=== PATIENT | female | born 1930 | race American Indian/Alaskan Native ===

== ENCOUNTER 2018-10-09 07:13 | Inpatient (IN) | payer OTHER ==
[2018-10-09 07:36] VITALS: BMI 38.9
[2018-10-09 08:05] LABS: BASO # 0.1 K/uL (0.0-0.2); EOS % 0.5 % (0.0-4.0); HEMOGLOBIN 12.2 g/dL (11.0-16.0); LYMPH # 0.9 K/uL (1.0-4.3); LYMPH % 12.7 % (20.0-40.0); MEAN CORPUSCULAR HEMOGLOBIN 29.3 pg (27.0-31.0); MEAN CORPUSCULAR HGB CONC 31.8 g/dL (33.0-37.0); MEAN PLATELET VOLUME 9.4 fL (7.2-11.7); NEUT # 4.8 K/uL (1.8-7.0); NEUT % 70.8 % (50.0-75.0); NRBC % 3.4 % (0.0-2.0); RBC 4.17 Mil/uL (3.80-5.20); WHITE BLOOD COUNT 6.7 K/uL (4.8-10.8)
[2018-10-09 08:13] LABS: MEAN CELL VOLUME 92.2 fL (81.0-99.0)
--- NOTE | 2018-10-09 08:16 | C.PDOC ---
History Of Present Illness 88 y/o female pt with hx of arthritis presents to the ER with son c/o chronic b/l leg pain. Pt reports she was getting up from bed when she slipped and fell onto the floor. Pt denies LOC, head injury or any nuchal complaints, nausea, vomiting, SOB or chest pain. Time Seen by Provider: 10/09/18 07:27 Chief Complaint (Nursing): Lower Extremity Problem/Injury History Per: Patient History/Exam Limitations: no limitations Onset/Duration Of Symptoms: Hrs Current Symptoms Are (Timing): Still Present - Ankle/Foot Description Of Injury: Fell Past Medical History Reviewed: Historical Data, Nursing Documentation, Vital Signs Vital Signs: Last Vital Signs Temp 98.0 F 10/09/18 07:32 Pulse 115 H 10/09/18 07:32 Resp 18 10/09/18 07:32 BP 111/74 10/09/18 07:32 Pulse Ox 100 10/09/18 07:32 - Medical History PMH: Anemia, Arthritis, Atrial Fibrillation, CAD, CHF, Dementia, HTN, Hypercholesterolemia Surgical History: Coronary Stent - [facility] Procedures CENTRAL VENOUS CATHETER PLACEMENT WITH GUIDANCE (02/04/15) PACKED CELL TRANSFUSION (03/08/15) Family History: States: Unknown Family Hx - Social History Hx Tobacco Use: No Hx Alcohol Use: No Hx Substance Use: No - Immunization History Hx Tetanus Toxoid Vaccination: No Hx Influenza Vaccination: No Hx Pneumococcal Vaccination: No Review Of Systems Except As Marked, All Systems Reviewed And Found Negative. Musculoskeletal: Positive for: Leg Pain (b/l) Physical Exam - Physical Exam Appears: Non-toxic, No Acute Distress Skin: Normal Color, Warm, Dry Head: Atraumatic, Normacephalic Eye(s): bilateral: Normal Inspection, PERRL, EOMI Nose: Normal Oral Mucosa: Moist Chest: Symmetrical Cardiovascular: Rhythm Regular, No Murmur Respiratory: Other (coarse breath sounds b/l ) Gastrointestinal/Abdominal: Normal Exam, Soft, No Tenderness Extremity: Normal ROM, No Deformity, Other (chronic venous stasis changes; chronic joint pain; no new injury ) Extremity: Bilateral: Normal Color And Temperature Pulses: Left Dorsalis Pedis: Normal, Right Dorsalis Pedis: Normal Neurological/Psych: Oriented x3, Normal Speech ED Course And Treatment - Laboratory Results Result Diagrams: 10/09/18 08:01 10/09/18 08:01 ECG: Interpreted By Me, Viewed By Me ECG Rhythm: Sinus Tachycardia, Nonspecific Changes (ST/T) Interpretation Of ECst degree AV block, LAD, and poor R wave progression Rate From EC O2 Sat by Pulse Oximetry: 100 (RA) Pulse Ox Interpretation: Normal - Other Rad chest X-Ray: Read By Radiologist Interpretation: Accession No. : [id number]. Patient Name / ID : EDWARD NAILS / [id number]. Exam Date : 10/09/2018 08:04:27 ( Approved ). Study Comment : Sex / Age : F / 88Y. Creator : Perla Nichols V. Dictator : Perla Nichols V. Wind Turbine Machinist : Rock Drill Operator : Perla Peterson V. Approver2 : Report Date : 10/09/2018 10:11:33. My Comment : . Date of service: 10/09/2018. PROCEDURE: CHEST RADIOGRAPH, 1 VIEW. HISTORY: SOB. COMPARISON: 03/08/2015. FINDINGS: LUNGS: Lung volumes slightly shallow. No consolidations seen. Summation of soft tissues over left costophrenic angle along with small left pleural effusion probable. PLEURA: No pneumothorax. Small left pleural effusion. CARDIOVASCULAR: There is presence of aortic atherosclerotic calcification on x-ray. Cardiomegaly-similar. Mild pulmonary venous congestion. OSSEOUS STRUCTURES: Bilateral deformed humeral heads with ossific fragments and/or debris over each shoulder joint suggested. 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 Ossific debris in the joints and/or synovial osteochondromatosis and/or old concomitant prior trauma- all compatible with this appearance. The deformity has progressed since prior exam. Thoracic spondylosis. VISUALIZED UPPER ABDOMEN: Normal. OTHER FINDINGS: None. IMPRESSION: Cardiomegaly mild pulmonary venous congestion and probable small left pleural effusion. Bilateral shoulder arthrosis with the ossific debris/loose bodies with or without prior concomitant trauma. 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 Findings have progressed since the prior exam. Medical Decision Making Medical Decision Making: Impression: chronic b/l leg pain Plans: -- EKG -- chem labs -- blood work -- CXR -- Tyelnol -- UA Disposition Discussed With Dr.: Shailesh Brunson Doctor Will See Patient In The: Hospital Counseled Patient/Family Regarding: Studies Performed, Diagnosis - Disposition Disposition: HOSPITALIZED Disposition Time: 09:11 Condition: FAIR - Clinical Impression Clinical Impression: NSTEMI (non-ST elevated myocardial infarction), Renal insufficiency - Scribe Statement The provider has reviewed the documentation as recorded by the Donaldo Joyner Do Provider Attestation: All medical record entries made by the Donaldo were at my direction and perso ting dictated by me. I have reviewed the chart and agree that the record accurately reflects my personal performance of the history, physical exam, medical decision making, and the department course for this patient. I have also personally directed, reviewed, and agree with the discharge instructions and disposition.
[2018-10-09 08:29] LABS: ALB/GLOB RATIO 0.9 (1.0-2.1); ALBUMIN 3.9 g/dL (3.5-5.0); CALCIUM 9.3 mg/dl (8.6-10.4)
[2018-10-09 08:42] LABS: TROPONIN I 0.394 ng/mL (0.00-0.120)
[2018-10-09] MEDS ORDERED: Aspirin 325 mg EC Tablets PO STA (09:04)
[2018-10-09] MEDS ORDERED: Aspirin 325 mg EC Tablets PO ONE (09:33)
[2018-10-09 10:10] LABS: URINE CLARITY Hazy (Clear); URINE COLOR AMBER (YELLOW); URINE GLUCOSE (UA) NORMAL (Normal)
[2018-10-09 10:11] LABS: SQUAMOUS EPITHIAL 3 /hpf (0-5); URINE BACTERIA OCC (<OCC); URINE BILIRUBIN NEGATIVE (NEGATIVE); URINE BLOOD NEGATIVE (NEGATIVE); URINE LEUKOCYTE ESTERASE NEGATIVE Leu/uL (Negative); URINE PROTEIN 2+ mg/dL (NEGATIVE)
[2018-10-09 10:12] LABS: URINE HYALINE CAST >20 /lpf (0-2)
--- NOTE | 2018-10-09 10:15 | RAD ---
Date of service: 10/09/2018 PROCEDURE: CHEST RADIOGRAPH, 1 VIEW HISTORY: SOB COMPARISON: 03/08/2015 FINDINGS: LUNGS: Lung volumes slightly shallow. No consolidations seen. Summation of soft tissues over left costophrenic angle along with small left pleural effusion probable. PLEURA: No pneumothorax. Small left pleural effusion CARDIOVASCULAR: There is presence of aortic atherosclerotic calcification on x-ray. Cardiomegaly-similar Mild pulmonary venous congestion. OSSEOUS STRUCTURES: Bilateral deformed humeral heads with ossific fragments and/or debris over each shoulder joint suggested. 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 Ossific debris in the joints and/or synovial osteochondromatosis and/or old concomitant prior trauma-all compatible with this appearance. The deformity has progressed since prior exam. Thoracic spondylosis. VISUALIZED UPPER ABDOMEN: Normal. OTHER FINDINGS: None. IMPRESSION: Cardiomegaly mild pulmonary venous congestion and probable small left pleural effusion. Bilateral shoulder arthrosis with the ossific debris/loose bodies with or without prior concomitant trauma. 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 Findings have progressed since the prior exam.
--- NOTE | 2018-10-09 16:43 | US ---
Date of service: 10/09/2018 PROCEDURE: Ultrasound of the Kidneys HISTORY: ARF COMPARISON: Abdominal ultrasound performed 09/25/14 TECHNIQUE: Sonogram of the kidneys. FINDINGS: Examination limited by habitus. RIGHT KIDNEY: Measures: 9.0 x 5.2 x 4.2 cm. Echogenic renal parenchyma. Cortical thinning. No obstructing calculus or hydronephrosis identified. 2.2 x 1.6 x 1.7 cm and 4.0 x 3.4 x 4.0 cm upper pole anechoic masses consistent with cysts. LEFT KIDNEY: Measures: 7.5 x 3.9 x 3.6 cm. Echogenic renal parenchyma. Cortical thinning. No obstructing calculus or hydronephrosis identified. OTHER FINDINGS: Under distention of the urinary bladder precludes adequate evaluation. IMPRESSION: Examination limited by habitus. Echogenic renal parenchyma may be seen in the setting of medical renal disease. Bilateral renal cortical thinning. No obstructing calculus or hydronephrosis identified. Right upper pole renal cysts as above.
--- NOTE | 2018-10-09 16:43 | NM ---
VQ scan Technique: 8.6 mCi technetium 99-m Xe-133 Gas. 3.9 mCI technetium 99-m MAA administered intravenously. Comparison: Chest x-ray performed 10/09/18 Findings: Perfusion images do not show a segmental defect. Activity extends expected margin of the lung periphery. Ventilation images do not show any significant areas of ventilation defects. Impression: Low probability for pulmonary embolus.
--- NOTE | 2018-10-09 18:38 | CP.PCM.CON ---
History of Present Illness - History of Present Illness History of Present Illness: pt is seen and examined, full consult is dictated #[id number] Past Patient History - Infectious Disease Hx of Infectious Diseases: None - Tetanus Immunizations Tetanus Immunization: Unknown - Past Medical History & Family History Past Medical History?: Yes - Past Social History Smoking Status: Former Smoker - CARDIAC Hx Cardiac Disorders: Yes Hx Atrial Fibrillation: Yes Hx Congestive Heart Failure: Yes Hx Hypercholesterolemia: Yes Hx Hypertension: Yes - PULMONARY Hx Respiratory Disorders: No - NEUROLOGICAL Hx Neurological Disorder: Yes Hx Dementia: Yes - HEENT Hx HEENT Problems: Yes Hx Cataracts: Yes Hx Glaucoma: Yes - RENAL Hx Chronic Kidney Disease: No - ENDOCRINE/METABOLIC Hx Endocrine Disorders: No - HEMATOLOGICAL/ONCOLOGICAL Hx Blood Disorders: Yes Hx Anemia: Yes - INTEGUMENTARY Hx Dermatological Problems: Yes - MUSCULOSKELETAL/RHEUMATOLOGICAL Hx Musculoskeletal Disorders: Yes Hx Arthritis: Yes Hx Falls: Yes - GASTROINTESTINAL Hx Gastrointestinal Disorders: Yes Hx Constipation: Yes - GENITOURINARY/GYNECOLOGICAL Hx Genitourinary Disorders: Yes Hx Incontinence: Yes Other/Comment: occasional incontinence - PSYCHIATRIC Hx Psychophysiologic Disorder: No Hx Substance Use: No - SURGICAL HISTORY Hx Surgeries: Yes Hx Coronary Stent: Yes - ANESTHESIA Hx Anesthesia: Yes Hx Anesthesia Reactions: No Hx Malignant Hyperthermia: No Has any member of the family had a problem w/ anesthesia?: No Meds Allergies/Adverse Reactions: Allergies Allergy/AdvReac Type Severity Reaction Status Date / Time No Known Allergies Allergy Verified 10/09/18 07:32 - Medications Medications: Current Medications Aspirin (Aspirin Chewable) 81 mg PO DAILY [facility] Carvedilol (Coreg) 3.125 mg PO BID [facility] Last Admin: 10/09/18 18:28 Dose: 3.125 mg Heparin Sodium (Porcine) (Heparin) 5,000 units SC Q8 [facility] Last Admin: 10/09/18 13:37 Dose: 5,000 units Influenza Virus Vaccine (Fluzone Quad [id number]) 60 mcg IM .ONCE ONE Stop: 10/11/18 14:01 Pneumococcal Polyvalent Vaccine (Pneumovax 23 Vaccine) 0.5 ml IM .ONCE ONE Stop: 10/11/18 14:01 Rosuvastatin Calcium (Crestor) 20 mg PO HS [facility] Results - Vital Signs Recent Vital Signs: Last Vital Signs Temp 97.6 F 10/09/18 10:13 Pulse 108 H 10/09/18 10:13 Resp 18 10/09/18 10:13 BP 103/71 10/09/18 10:13 Pulse Ox 100 10/09/18 10:28 - Labs Result Diagrams: 10/09/18 08:01 10/09/18 08:01 Labs: Laboratory Results - last 24 hr 10/09/18 10/09/18 10/09/18 08:01 08:01 09:45 WBC 6.7 RBC 4.17 Hgb 12.2 Hct 38.5 MCV 92.2 D MCH 29.3 MCHC 31.8 L RDW 16.0 H Plt Count 147 MPV 9.4 Neut % (Auto) 70.8 Lymph % (Auto) 12.7 L [place] % (Auto) 15.0 H Eos % (Auto) 0.5 Baso % (Auto) 1.0 Neut # (Auto) 4.8 Lymph # (Auto) 0.9 L [place] # (Auto) 1.0 H Eos # (Auto) 0.0 Baso # (Auto) 0.1 Sodium 141 Potassium 5.4 H Chloride 105 Carbon Dioxide 24 Anion Gap 18 BUN 54 H Creatinine 3.4 H Est GFR ( Amer) 15 Est GFR (Non-Af Amer) 13 Random Glucose 106 H D Calcium 9.3 Magnesium 2.5 H Total Bilirubin 2.2 H AST 629 H D ALT 417 H D Alkaline Phosphatase 328 H D Total Creatine Kinase 138 H Troponin I 0.3940 H* NT-Pro-B Natriuret Pep 7890 H Total Protein 8.1 Albumin 3.9 Globulin 4.2 H Albumin/Globulin Ratio 0.9 L Urine Color [place] Urine Clarity Hazy Urine pH 5.0 Ur Specific [place] 1.021 Urine Protein 2+ H Urine Glucose (UA) Normal Urine Ketones Negative Urine Blood Negative Urine Nitrate Negative Urine Bilirubin Negative Urine Urobilinogen 2.0 H Ur Leukocyte Esterase Negative Urine WBC (Auto) 5 Urine RBC (Auto) 3 Ur Squamous Epith Cells 3 Urine Bacteria Occ H Hyaline Casts >20 H 10/09/18 14:17 WBC RBC Hgb Hct MCV MCH MCHC RDW Plt Count MPV Neut % (Auto) Lymph % (Auto) [place] % (Auto) Eos % (Auto) Baso % (Auto) Neut # (Auto) Lymph # (Auto) [place] # (Auto) Eos # (Auto) Baso # (Auto) Sodium Potassium Chloride Carbon Dioxide Anion Gap BUN Creatinine Est GFR ( Amer) Est GFR (Non-Af Amer) Random Glucose Calcium Magnesium Total Bilirubin AST ALT Alkaline Phosphatase Total Creatine Kinase Troponin I 0.3310 H* NT-Pro-B Natriuret Pep Total Protein Albumin Globulin Albumin/Globulin Ratio Urine Color Urine Clarity Urine pH Ur Specific [place] Urine Protein Urine Glucose (UA) Urine Ketones Urine Blood Urine Nitrate Urine Bilirubin Urine Urobilinogen Ur Leukocyte Esterase Urine WBC (Auto) Urine RBC (Auto) Ur Squamous Epith Cells Urine Bacteria Hyaline Casts
[2018-10-09] MEDS ORDERED: Sodium Chloride 0.9% 1,000 ML IV SCH (19:30)
--- NOTE | 2018-10-10 00:15 | CON ---
DATE: 10/09/2018 REASON OF CONSULTATION: Fall. HISTORY OF PRESENT ILLNESS: The patient is an 88-year-old female who has a history of cerebrovascular accident, , spends most of her time in bed and is able to use a walker to a nearby commode. She stated that she slipped from her bed on the floor, does not recall if she passed out or not, and she is also experiencing chest discomfort at night for which she takes her oral pills with subsequent relief. The patient has a history of in the past. SOCIAL HISTORY: Nonsmoker. She lives with her son. MEDICATIONS: Aspirin 81 mg once a day, Coreg 3.125 mg twice a day, Crestor 20 mg once a day, heparin 5000 units every 8 hours, Lopressor 25 mg twice a day. REVIEW OF SYSTEMS: No fever or chills. No productive cough. No diarrhea. PHYSICAL EXAMINATION: GENERAL: The patient is an elderly female who does not appear to be in acute distress. VITAL SIGNS: Blood pressure 103/71, heart rate 108, temperature 97.6, respirations 18. HEENT: Normocephalic. CHEST: Diminished breath sounds over the bases. HEART: S1 and S2, regular. ABDOMEN: Soft. EXTREMITIES: 1 to 2+ pitting edema. LABORATORY DATA: Hemoglobin and hematocrit 12.2 and 38.5, white count 6.2, and platelet count 147,000. SMA-7: Sodium 141, potassium 5.4, chloride 105, CO2 24, glucose 106, BUN 54, creatinine 3.4. Troponins were 0.394 and 0.331. AST and ALT are 629 and 417 respectively. Alkaline phosphatase 328. EKG revealed sinus tachycardia at a rate of 109, poor R-wave progression, consider anterolateral OH, significant baseline artifacts. Echocardiogram study performed in 09/2014 revealed severe valvular aortic stenosis with calculated valve area of 1 sq cm, ejection fraction 70%. ASSESSMENT: 1. Status post fall. 2. Borderline troponin elevation, consider non-ST elevation myocardial infarction. 3. Rule out pulmonary infarction. 4. Severe aortic stenosis. 5. Cholestasis and elevated liver enzymes. 6. Chronic renal insufficiency. 7. Hyperkalemia. RECOMMENDATIONS: Case was discussed at length with Dr. Brunson. The patient will be started on aspirin 81 mg once a day, Coreg 3.125 mg twice a day, Crestor 20 mg once a day, will be maintained on subcutaneous heparin 5000 units every 8 hours. I requested an echocardiogram as well as ventilation perfusion scan. The patient is not a suitable candidate for invasive cardiac workup given underlying renal status. Conservative medical approach is justified. Shiv Montiel MD
[2018-10-10] MEDS ORDERED: Sodium Chloride 0.9% 500 ML IV ONE ×2 (03:44→05:59)
[2018-10-10] MEDS ORDERED: Sodium Chloride 0.9% 1,000 ML IV SCH ×2 (04:04→13:53)
--- NOTE | 2018-10-10 05:22 | HP ---
HISTORY OF PRESENT ILLNESS: The patient is an 88-year-old female with history of hypertension, arthritis, atrial fibrillation, CAD, CHF, dementia, hyperlipidemia, and the patient has also a stent. The patient was brought to the emergency room because the patient fell from the bed. The patient slid and fell onto the floor. The patient denied loss of consciousness or head injury. The patient was found to have elevated BUN and creatinine. The patient was admitted. ALLERGIES: THE PATIENT HAS NO KNOWN ALLERGY. PAST MEDICAL HISTORY: As I mentioned, history of knee arthritis, history of CAD, CHF, dementia, hypertension, hyperlipidemia, and coronary artery disease. FAMILY HISTORY: No inherited disease. SOCIAL HISTORY: No smoking or alcohol abuse. The patient lives with son. REVIEW OF SYSTEMS: RESPIRATORY SYSTEM: The patient has been having some shortness of breath on exertion. CARDIOVASCULAR: Palpitation at times and some chest discomfort on and off. GASTROINTESTINAL: Denies nausea or vomiting. GENITOURINARY: No dysuria but the patient has urinary stress incontinence. NEUROLOGIC: The patient is still weak. PHYSICAL EXAMINATION: GENERAL: The patient is alert and awake and oriented, able to answer some questions. VITAL SIGNS: Blood pressure was 103/71, pulse 108, respiration 18, temperature is 97.6. HEENT: Head is normocephalic and atraumatic. NECK: Supple. No JVD. LUNGS: She has some rales and rhonchi noted. HEART: Regular rate and rhythm. Positive murmur. ABDOMEN: Soft. Obese. Nontender. EXTREMITIES: Chronic changes on the skin of the lower extremities. There is a +1 pitting edema. NEUROLOGIC: The patient is alert and awake, but she is having limitation in walking. LABORATORY DATA: The patient has some blood tests done. WBC 6.7, hemoglobin 12.2, hematocrit 38.5, and platelet is 147. Chemistry: Sodium 141, potassium 5.4, chloride 105, bicarb 24, BUN 54, creatinine 3.4, and glucose 106. AST 629, ALT 417, alkaline phosphatase 328. The troponin is high at 0.394. BNP is 7890. DIAGNOSES: The patient is admitted: 1. Chest pain. 2. Congestive heart failure. 3. Coronary artery disease. 4. Fall. 5. Abnormal liver enzymes. 6. Debility. PLAN: The patient will have a consult with Dr. Montiel, training and development project leader, and also Dr. Gtz. I will be away and Dr. Montiel, training and development project leader, would cover me from 10/10/2018 to . Shailesh Brunson MD
--- NOTE | 2018-10-10 08:57 | CON ---
DATE: 10/09/2018 RENAL CONSULTATION LOCATION: The patient is located in room 652, bed A. REQUESTED BY: Shailesh Brunson MD REASON FOR FOLLOWUP: Acute renal failure, chronic kidney disease, for further evaluation. HISTORY OF PRESENT ILLNESS: Mrs. Oro is an [id number] -[place] female with a past medical history significant for hypertension, hyperlipidemia, CHF, CAD, dementia, atrial fibrillation, arthritis, chronic kidney disease stage 3 with a baseline creatinine about 1.7 and 1.9 who was admitted with chief complaints with chronic bilateral leg pain. The patient tried to get out of the bed, and she slipped and fell on the floor and unable to get back to the bed and unable to get back even with her son, and the patient was brought to the hospital. The patient denies any headache, any dizziness. Denies any chest pain or palpitation. Denies any fever or cough. No abdominal pain. No nausea, vomiting, or diarrhea. No urinary symptoms. No edema of the legs. PAST MEDICAL HISTORY: Significant for hypertension, hyperlipidemia, CHF, CAD, CKD 3, dementia, atrial fibrillation, and arthritis. PAST SURGICAL HISTORY: Status post coronary stent. ALLERGIES: NO KNOWN DRUG ALLERGIES. SOCIAL HISTORY. Denies any smoking, alcohol, or drugs. PERSONAL HISTORY: She is . She has three children; one . FAMILY HISTORY: Not significant. CURRENT MEDICATIONS: Include as follows: Aspirin 81 mg daily, Coreg 3.125 mg p.o. b.i.d., Crestor 20 mg at bedtime, Fluzone 60 mcg IM, subcu heparin 5000 units every 8 hours, pneumococcal vaccine 0.5 mL IM x1, and IV fluids normal saline 60 mL/hour, just started this evening. REVIEW OF SYSTEMS: Significant for bilateral lower extremity pain and also status post fall. She tripped and she fell on the floor in the house when she tried to get out of bed and forgetfulness. All other review of systems are reviewed and are negative. PHYSICAL EXAMINATION: VITAL SIGNS: As follows: Blood pressure 110/70, pulse 89, respirations 18, temperature 98.7, and saturation 100%. Height 5 feet 3 inches and weight is 220 pounds. GENERAL: Mrs. Oro is an 88-year-old elderly female, moderately built, moderately nourished, not in acute distress. HEENT: Pupils normal and reactive to light and accommodation. Conjunctivae pink. Sclerae anicteric. Tongue is moist. Trachea is midline. LUNGS: Symmetric on both sides. Bilateral breath sounds present. Clear to auscultation. CARDIOVASCULAR SYSTEM: [place] at the fifth intercostal space midclavicular line. S1, S2 audible. No murmur or gallop. ABDOMEN: Normal in appearance. Soft, tympanitic. No guarding. No rigidity. No hepatosplenomegaly. CENTRAL NERVOUS SYSTEM: The patient is awake and oriented times 2. Sensory and motor system is grossly within normal limits. EXTREMITIES: No cyanosis, no clubbing, no edema. LABORATORY DATA: Include as follows: As of 10/09/2018; WBC 6.7, hemoglobin 12.5, hematocrit 38.5, and platelets 147. Sodium 141, potassium 5.4, chloride 105, CO2 of 24, BUN 51, creatinine 3.4, glucose 106, calcium 9.32, magnesium 2.5. Total bili 2.2, AST 629, ALT 417, alkaline phosphatase 328, CPK 138. Troponin 0.39, 0.33, 0.34; and proBNP 7890, total protein 8.1, albumin is 3.9. Urinalysis; hazy, pH 5, specific gravity 1.021, protein 2+, glucose normal, ketones negative, blood negative, nitrites negative, negative urobilinogen 2, leukocyte esterase negative, wbc's 5, rbc's 3, bacteria occasional, hyaline cast more than 20. Other laboratory data as of previous visit: As of 02/22/2018; BUN and creatinine 30 and 2. As of 08/26/2017; BUN and creatinine 29 and 2. Other reports: Ultrasound of the kidneys as of 10/09/2018; right kidney is 9 x 5.2 x 4.2 cm and left kidney 7.5 x 3.9 x 3.6 cm, echogenic renal parenchyma, cortical thinning, no obstructing calculus or hydronephrosis identified. V/Q scan; low probability for pulmonary embolism. 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 Findings have progressed since the prior exam. ASSESSMENT AND PLAN: In summary, Mrs. Oro is an [id number] -[place] female with a past medical history significant for hypertension, hyperlipidemia, chronic kidney disease, coronary artery disease, congestive heart failure, dementia, arthritis, atrial fibrillation, anemia, status post coronary stent who was admitted when she tried to get out of bed and fell on the floor with increased blood urea nitrogen and creatinine. 1. Acute renal failure, on chronic kidney disease most likely secondary to slight intravascular volume depletion. 2. Unilateral small left kidney, cannot rule out renovascular disease. 3. Hypertension. 4. Dementia. 5. Coronary artery disease, rule out acute coronary syndrome with elevated troponin levels. Consider to check echocardiogram and follow with Cardiology. We will start gentle intravenous hydration for 24 hours, half-normal saline at 60 mL/hour. We will follow with you. Thank you for allowing me to participate in your patient's care. We will check urine lytes, osmolality, and urine creatinine to check FENa. Alfred Lobato MD
--- NOTE | 2018-10-10 11:15 | CP.PCM.PN ---
Subjective - Date & Time of Evaluation Date of Evaluation: 10/10/18 Time of Evaluation: 11:15 - Subjective Subjective: pt is seen and examined, follow up consult is dictated #[id number] check cmp, pth po4 Objective - Vital Signs/Intake and Output Vital Signs (last 24 hours): Temp Pulse Resp BP Pulse Ox 98.0 F 101 H 18 80/57 L 95 10/10/18 07:00 10/10/18 07:00 10/10/18 07:00 10/10/18 07:00 10/10/18 07:00 Intake and Output: 10/10/18 10/10/18 06:59 18:59 Intake Total 500 Output Total 200 Balance 300 - Medications Medications: Current Medications Aspirin (Aspirin Chewable) 81 mg PO DAILY [facility] Last Admin: 10/10/18 10:35 Dose: 81 mg Carvedilol (Coreg) 3.125 mg PO BID [facility] Last Admin: 10/09/18 18:28 Dose: 3.125 mg Heparin Sodium (Porcine) (Heparin) 5,000 units SC Q8 [facility] Last Admin: 10/10/18 05:38 Dose: 5,000 units Sodium Chloride (Sodium Chloride 0.9%) 1,000 mls @ 80 mls/hr IV .[id number] [facility] Last Admin: 10/10/18 04:30 Dose: 80 mls/hr Influenza Virus Vaccine (Fluzone Quad [id number]) 60 mcg IM .ONCE ONE Stop: 10/11/18 14:01 Pneumococcal Polyvalent Vaccine (Pneumovax 23 Vaccine) 0.5 ml IM .ONCE ONE Stop: 10/11/18 14:01 Rosuvastatin Calcium (Crestor) 20 mg PO HS [facility] Last Admin: 10/09/18 22:05 Dose: 20 mg - Labs Labs: 10/09/18 08:01 10/09/18 08:01
[2018-10-10 11:35] LABS: ALB/GLOB RATIO 0.9 (1.0-2.1); ALBUMIN 3.1 g/dL (3.5-5.0); CALCIUM 7.9 mg/dl (8.6-10.4)
--- NOTE | 2018-10-10 11:55 | CARD ---
APPROVED REPORT Date of service: 10/09/2018 EKG Measurement Heart [id number] [place] 218P [id number] <Conclusion> Sinus tachycardia with 1st degree AV block Inferior infarct, age undetermined Anterolateral infarct, age undetermined Abnormal ECG
[2018-10-10] MEDS ORDERED: Albumin Human 25% (12.5 gm/50 ml) IV ONE (14:00)
[2018-10-10 15:06] LABS: HEPATITIS B SURFACE AG Negative (NEGATIVE)
[2018-10-10 15:12] LABS: HEPATITIS A IGM NEGATIVE (NEGATIVE); HEPATITIS B CORE AB NEGATIVE (NEGATIVE)
[2018-10-10 15:24] LABS: HEPATITIS C ANTIBODY NEGATIVE (NEGATIVE)
--- NOTE | 2018-10-10 15:58 | CT ---
Date of service: 10/10/2018 PROCEDURE: CT HEAD WITHOUT CONTRAST. HISTORY: Dizziness COMPARISON: 08/21/2017. TECHNIQUE: Axial computed tomography images were obtained through the head/brain without intravenous contrast. Radiation dose: Total exam DLP = 1073.21 mGy-cm. This CT exam was performed using one or more of the following dose reduction techniques: Automated exposure control, adjustment of the mA and/or kV according to patient size, and/or use of iterative reconstruction technique. FINDINGS: HEMORRHAGE: No intracranial hemorrhage. BRAIN: There are mild chronic microangiopathic changes. 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 There is no mass, mass effect or abnormal extra-axial fluid collection. The midline sagittal structures are normal. VENTRICLES: There is mild age-related global parenchymal volume loss and proportionate enlargement of the ventricles and cortical sulci. CALVARIUM: There is no calvarial fracture or extracranial soft tissue swelling. PARANASAL SINUSES: Predominantly clear. MASTOID AIR CELLS: Predominantly clear. OTHER FINDINGS: None. IMPRESSION: No acute intracranial abnormality. Left occipital porencephalic cyst, sequela of remote infarction. Mild chronic microangiopathic changes and mild age-related global parenchymal volume loss.
[2018-10-10] MEDS ORDERED: Sodium Chloride 0.45% 1,000 ML IV SCH (16:45)
--- NOTE | 2018-10-10 18:22 | PN ---
DATE: 10/10/2018 SUBJECTIVE: The patient was reported to be hypotensive this morning. She denies any dizziness at this time. The patient was evaluated by ICU team, was not considered a candidate for ICU transfer. Beta-blockers were discontinued. PHYSICAL EXAMINATION GENERAL: In no distress. VITAL SIGNS: Blood pressure 80/57, heart rate 101, temperature 98, respirations 18. HEENT: Normocephalic. CHEST: Diminished breath sounds over the bases. HEART: S1 and S2 regular. EXTREMITIES: 1+ pitting edema. DIAGNOSTIC DATA: Ventilation-perfusion scan, low probability for pulmonary embolism. The patient had a venous Doppler of the lower extremities. A preliminary echocardiographic study showed reportedly severe left ventricular hypertrophy, normal ejection fraction, critical aortic stenosis and ubqw-vr-bwakdfgn pulmonary hypertension. LABORATORY DATA: Today's BUN and creatinine are 51 and 2.7 respectively, a slight improvement compared to yesterday. ASSESSMENT: 1. Status post fall. 2. Critical aortic stenosis. 3. Borderline troponin elevation. 4. Chronic renal insufficiency. 5. History of cerebrovascular accident in the past. RECOMMENDATIONS: Continue aspirin 81 mg once a day. Hold Coreg for systolic blood pressure below 120. Continue Crestor 20 mg once a day. Continue normal saline at 80 mL an hour. Obtain head CT scan without contrast. Conservative medical approach is justified given the patient's age and significant comorbid conditions. Shiv Montiel MD
[2018-10-10] MEDS: Sodium Chloride 0.9% 1,000 ML IV SCH (22:06)
[2018-10-11 02:00] LABS: CREATININE, RANDOM URINE 199.3 mg/dL
--- NOTE | 2018-10-11 02:47 | PN ---
DATE: 10/10/2018 FOLLOWUP RENAL CONSULTATION LOCATION: The patient is located in room 652 bed A. REQUESTED BY: Shailesh Brunson MD REASON FOR FOLLOWUP: Acute renal failure on chronic kidney disease. HISTORY OF PRESENT ILLNESS: Mrs. Oro is an 88-year-old elderly -[place] female with a past medical history significant for hypertension, hyperlipidemia, coronary artery disease, CHF, chronic kidney disease, dementia, anemia, arthritis, atrial fibrillation, status post coronary stent, was admitted after she tried to get up from the bed, she slipped and she fell on the floor. The patient also complains of occasional chest discomfort on and off. The patient is out of bed to chair this morning. Denies any chest pain. Denies any palpitation. Denies any fever or cough. No abdominal pain. No nausea, vomiting, diarrhea. The patient has complaints of chronic pain in the legs. The patient is on IV fluids. PHYSICAL EXAMINATION: VITAL SIGNS: As follows, as of this morning, blood pressure is 80/57, pulse 101, respiration 18, temperature 98, saturation 95%. Height 5 feet 3 inches, weight is 220 pounds. GENERAL: Mrs. Oro is an 88-year-old elderly -[place] female, well built, well nourished, not in distress. HEENT: Pupils normal, reactive to light and accommodation. Conjunctivae pink. Sclerae anicteric. Tongue is moist. Trachea is midline. LUNGS: Symmetric on both sides. Bilateral breath sounds present. No crackles. CARDIOVASCULAR SYSTEM: [place] at the fifth intercostal space, midclavicular line. S1 and S2 audible. No murmur, gallop. ABDOMEN: Normal in appearance, soft, tympanitic. No guarding. No rigidity. No hepatosplenomegaly. CENTRAL NERVOUS SYSTEM: The patient is alert, awake, oriented x2-3. Sensory and motor system is within normal limits. EXTREMITIES: No cyanosis, no clubbing, no edema. Chronic skin changes seen in both lower extremities. CURRENT MEDICATIONS: Include as follows: Aspirin 81 mg daily, Coreg on hold 3.125 mg b.i.d., Crestor 20 mg p.o. at bedtime, influenza vaccine 0.5 mL/60 mcg IM x1, subcutaneous heparin 5000 every 8 hours, pneumococcal vaccine x1, IV fluids half-normal saline 70 mL/hour. LABORATORY DATA: Urine culture is negative as of 10/09/2018. Other laboratory data as of 10/10/2018: Sodium 138, potassium 4.5, chloride 107, CO2 is 20, BUN 51, creatinine 2.7, glucose 120, calcium is 7.9, phosphorus is 3.9. Total bilirubin 1.7, AST 303, ALT 286, alkaline phosphatase 257, total protein 6.7, albumin 3.1. Other laboratory data: Hepatitis C antibody IgM is negative, hepatitis B surface antigen negative, hepatitis B core antibody is negative, hepatitis C antibody is negative. Echocardiogram was done and the report is pending. ASSESSMENT: In summary, Mrs. Oro is an 88-year-old elderly -[place] female with history of hypertension, hyperlipidemia, coronary artery disease, status post coronary stent, dementia, arthritis, was admitted after she slipped when she tried to get out of bed and she fell on the floor, unable to get back to the bed and no loss of consciousness with increased blood urea nitrogen and creatinine, increased liver function tests. 1. Renal failure, mjfco-iu-fgwbcij kidney disease most likely secondary to intravascular depletion, cannot rule out acute tubular necrosis. 2. Unilateral small kidney, atrophic left kidney. Cannot rule out renovascular disease. 3. Hypotension, etiology is not clear, most likely secondary to beta-blockers. PLAN: Agreed to hold beta blockers this morning and continue monitor. We will change IV fluids to half-normal saline to normal saline again due to hypotension. We will increase IV fluids to 80 mL/hour and repeat BMP in a.m. Also, followup echocardiogram for LV function and also to rule out wall motion abnormality. We will follow with you. Thank you for allowing me to participate in your patient's care. Alfred Lobato MD
[2018-10-11 07:46] LABS: ALB/GLOB RATIO 0.9 (1.0-2.1); ALBUMIN 3.2 g/dL (3.5-5.0); CALCIUM 8.2 mg/dl (8.6-10.4)
[2018-10-11] MEDS: Sodium Chloride 0.9% 1,000 ML IV SCH (13:07)
[2018-10-11] MEDS ORDERED: Influenza Vaccine 60 MCG/0.5 ML SYR (3 yr & up) IM ONE (14:00)
[2018-10-11] MEDS ORDERED: Pneumococcal 23-Valent Vaccine IM ONE (14:00)
--- NOTE | 2018-10-11 15:14 | CARD ---
APPROVED REPORT Date of service: 10/10/2018 EXAM: Two-dimensional and M-mode echocardiogram with Doppler and color Doppler. INDICATION Peripheral Edema Atrial Fibrillation CAD Congestive Heart Failure Non STEMI 2D DIMENSIONS IVSd1.5 (0.7-1.1cm)LVDd3.3 (3.9-5.9cm) LVOT Diameter1.9 (1.8-2.4cm)PWd1.6 (0.7-1.1cm) LVDs1.7 (2.5-4.0cm)FS (%) 48.0 % LVEF (%)80.5 (>50%)IVC0.00 cm M-Mode DIMENSIONS Left Atrium (MM)4.89 (2.5-4.0cm)IVSd1.01 (0.7-1.1cm) Aortic Root1.87 (2.2-3.7cm)LVDd3.23 (4.0-5.6cm) Aortic Cusp Exc.0.69 (1.5-2.0cm)PWd1.28 (0.7-1.1cm) FS (%) 45 %LVDs1.77 (2.0-3.8cm) LVEF (%)78 (>50%) Aortic Valve AoV Peak Ktmusbgr162.2cm/sAoV VTI84.4cmAO Peak GR.74mmHg LVOT Peak Nmbjrzcy72.7cm/sLVOT VTI13.96cmAO Mean GR.45mmHg VIV (VMAX)0.08zd1ONA (VTI)0.47cm2 Mitral Valve MV E Ckiseuic067.9cm/sE/A ratio0.0 TDI Lateral E' Peak V10.10cm/sMedial E' Peak V10.87cm/sE/Lateral E'15.4 E/Medial E'14.3 Tricuspid Valve TR Peak Ajfdkriq487ti/sTR Peak Gr.32nqKdTLYZ09nbZj LEFT VENTRICLE The left ventricle is normal size. There is moderate to severe concentric left ventricular hypertrophy. visualy The Ejection Fraction is 55-60%. The left atrial pressure is moderately elevated. RIGHT VENTRICLE The right ventricle is normal size. rv Systolic function is mildly reduced. ATRIA The left atrium is moderately dilated. The right atrium size is normal. atrial septum not well seen.poor subcostal views. AORTIC VALVE The aortic valve is severely calcified.can not comment on number of leaflets. There is trace aortic regurgitation. There is severe valvular aortic stenosis. Calculated aortic valve area is 0.5 cm2 with maximum pressure gradient of 75 mmHg and mean pressure gradient of 45 mmHg. MITRAL VALVE The mitral valve is thickened but opens well. Mitral annular calcification is severe. Mitral regurgitation is mild to moderate. TRICUSPID VALVE The tricuspid valve is normal in structure. There is moderate tricuspid regurgitation. Right ventricular systolic pressure is estimated at 47 mmHg. There is moderate pulmonary hypertension. PULMONIC VALVE The pulmonary valve is normal in structure. There is mild pulmonic valvular regurgitation. [place] The aortic root is normal size. The aortic root displays moderate sclerocalcific changes of the aortic root. ivc not measured. PERICARDIAL EFFUSION There is no pericardial effusion. <Conclusion> The left ventricle is normal size. There is moderate to severe concentric left ventricular hypertrophy. visualy The Ejection Fraction is 55-60%. The left atrial pressure is moderately elevated. rv Systolic function is mildly reduced. The left atrium is moderately dilated. atrial septum not well seen.poor subcostal views. The aortic valve is severely calcified.can not comment on number of leaflets. There is trace aortic regurgitation. There is severe valvular aortic stenosis. Calculated aortic valve area is 0.5 cm2 with maximum pressure gradient of 75 mmHg and mean pressure gradient of 45 mmHg. The mitral valve is thickened but opens well. Mitral annular calcification is severe. Mitral regurgitation is mild to moderate. There is moderate tricuspid regurgitation. Right ventricular systolic pressure is estimated at 47 mmHg. There is moderate pulmonary hypertension. The aortic root is normal size. The aortic root displays moderate sclerocalcific changes of the aortic root. There is no pericardial effusion.
--- NOTE | 2018-10-11 16:22 | CP.PCM.PN ---
Subjective - Date & Time of Evaluation Date of Evaluation: 10/11/18 Time of Evaluation: 16:22 - Subjective Subjective: pt is seen and examined, follow up consult is dictated #[id number] Objective - Vital Signs/Intake and Output Vital Signs (last 24 hours): Temp Pulse Resp BP Pulse Ox 97 F L 103 H 20 101/56 L 96 10/11/18 15:21 10/11/18 15:54 10/11/18 15:21 10/11/18 15:21 10/11/18 15:21 Intake and Output: 10/11/18 10/11/18 06:59 18:59 Intake Total 1040 200 Output Total 275 Balance 765 200 - Medications Medications: Current Medications Aspirin (Aspirin Chewable) 81 mg PO DAILY [facility] Last Admin: 10/11/18 10:12 Dose: 81 mg Carvedilol (Coreg) 3.125 mg PO BID [facility] Last Admin: 10/09/18 18:28 Dose: 3.125 mg Heparin Sodium (Porcine) (Heparin) 5,000 units SC Q8 [facility] Last Admin: 10/11/18 13:06 Dose: 5,000 units Sodium Chloride (Sodium Chloride 0.9%) 1,000 mls @ 80 mls/hr IV .[id number] [facility] Last Admin: 10/10/18 14:29 Dose: 80 mls/hr Sodium Chloride (Sodium Chloride 0.9%) 1,000 mls @ 80 mls/hr IV .[id number] [facility] Last Admin: 10/11/18 13:07 Dose: 80 mls/hr Rosuvastatin Calcium (Crestor) 20 mg PO HS [facility] Last Admin: 10/09/18 22:05 Dose: 20 mg - Labs Labs: 10/09/18 08:01 10/11/18 07:04
--- NOTE | 2018-10-11 21:42 | PN ---
DATE: 10/11/2018 SUBJECTIVE: The patient denies any dizziness or palpitation. The patient's son came to visit her, but she was sleeping and he stated he would come back this evening according to the next door patient. PHYSICAL EXAMINATION: VITAL SIGNS: Blood pressure 101/56, heart rate 111, temperature 97, respirations 20. HEENT: Normocephalic. CHEST: Diminished breath sounds over the bases. HEART: S1 and S2 are regular. EXTREMITIES: 1+ pitting edema. LABORATORY DATA: Today's SMA-7: Sodium 138, potassium 4.5, chloride 108, CO2 of 22, glucose 100, BUN [address] scan without contrast: No acute intracranial abnormality. 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 Microangiopathic changes and mild age-related global parenchymal volume loss. ASSESSMENT: 1. Status post fall, most likely syncopal episode. 2. History of cerebrovascular accident in the past. 3. Critical aortic stenosis. 4. Borderline troponin elevation, consider fqn-[id number] myocardial infarction. 5. Improving renal insufficiency. PLAN: Continue aspirin 81 mg once a day, Coreg 3.125 mg twice a day, Crestor 20 mg once a day, subcutaneous heparin 5000 units every 8 hours. I will start Plavix 75 mg once a day and obtain PT, PTT and INR. Shiv Montiel MD
--- NOTE | 2018-10-12 02:25 | PN ---
DATE: 10/11/2018 FOLLOWUP RENAL CONSULTATION LOCATION: The patient is located in room 652, bed A. REQUESTED BY: Shailesh Brunson MD REASON FOR FOLLOWUP: Acute renal failure, chronic kidney disease. SUBJECTIVE: Mrs. Oro is an 88-year-old elderly female with past medical history significant for longstanding hypertension, hyperlipidemia, coronary artery disease, CHF, chronic kidney disease, anemia, arthritis, atrial fibrillation who is status post coronary stent who was admitted with a chief complaint of she fell on the floor. As per the patient, she tried to get out of the bed, she slipped and she fell on the floor, unable to get back to the bed. The patient's son was also unable to put her back on the bed and called 911. The patient was brought to the hospital. The patient was found to have increased BUN and creatinine, and a renal consult was requested for evaluation. The patient is not in acute distress. Denies any headache or dizziness. Denies any chest pain or palpitation. Denies any fever or cough. No abdominal pain. No nausea, vomiting, or diarrhea. The patient is out of bed to chair. PHYSICAL EXAMINATION: VITAL SIGNS: As follows: Blood pressure 101/56, pulse 111, respiration 20, temperature 97, saturation 96%. Height 5 feet 3 inches. Weight is 220 pounds. GENERAL: Mrs. Oro is an 88-year-old elderly female, moderately built, moderately nourished, not in distress. HEENT: Pupils are normal and reactive to light and accommodation. Conjunctivae pink. Sclerae anicteric. Tongue is moist. Trachea is midline. LUNGS: Symmetric on both sides. Bilateral breath sounds present. Clear to auscultation. CARDIOVASCULAR SYSTEM: [place] at the fifth intercostal space, midclavicular line. S1 and S2 audible. No murmur or gallop. ABDOMEN: Normal in appearance. Soft, tympanitic. No guarding. No rigidity. No hepatosplenomegaly. CENTRAL NERVOUS SYSTEM: The patient is alert, awake, oriented x2 to 3. Sensory and motor system is within normal limits. EXTREMITIES: No cyanosis, no clubbing. The patient has chronic skin changes in both lower extremities. MEDICATIONS: Her current medications include as follows: Aspirin, Coreg, Crestor, heparin, Pepcid, Plavix, and IV fluids on normal saline at 80 mL per hour. LABORATORY DATA: Her lab data include as follows as of 10/11/2018: Sodium 138, potassium 4.5, chloride 108, CO2 of 22, BUN 49, creatinine 2.5, glucose 100, calcium 8.2, phosphorus 4.3, magnesium 2.4. Total bili 1.5, AST 238, ALT 268, alkaline phos 290, total protein 6.9, albumin is 3.2. Urine osmolality is 549 and urine creatinine is 199. Urine sodium is 6 and urine potassium is 57.3. ASSESSMENT AND PLAN: In summary, Mrs. Oro is an 88-year-old elderly female with hypertension, hyperlipidemia, coronary artery disease, congestive heart failure, arthritis, and dementia who was admitted after she had a fall when she tried to get out of the bed. 1. Acute renal failure on chronic kidney disease. 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 2. Hypertension. 3. Congestive heart failure. 4. Abnormal liver function tests, rule out secondary to medications such as Crestor and rule out acute coronary syndrome. Continue gentle intravenous hydration. Follow up basic metabolic panel in a.m. We will follow with you. Thank you for allowing me to participate in your patient's care. Alfred Lobato MD
[2018-10-12 08:31] LABS: INR 1.2; PROTHROMBIN TIME 13.4 SECONDS (9.7-12.2)
--- NOTE | 2018-10-12 17:17 | CP.PCM.PN ---
Subjective - Date & Time of Evaluation Date of Evaluation: 10/12/18 Time of Evaluation: 17:17 - Subjective Subjective: pt is seen and examined, follow up consult is dictated #[id number] Objective - Vital Signs/Intake and Output Vital Signs (last 24 hours): Temp Pulse Resp BP Pulse Ox 97.1 F L 109 H 20 137/91 H 95 10/12/18 07:00 10/12/18 13:09 10/12/18 07:00 10/12/18 13:09 10/12/18 07:00 Intake and Output: 10/12/18 10/12/18 06:59 18:59 Intake Total 640 Balance 640 - Medications Medications: Current Medications Aspirin (Aspirin Chewable) 81 mg PO DAILY [facility] Last Admin: 10/12/18 10:41 Dose: 81 mg Carvedilol (Coreg) 3.125 mg PO BID [facility] Last Admin: 10/09/18 18:28 Dose: 3.125 mg Clopidogrel Bisulfate (Plavix) 75 mg PO DAILY [facility] Last Admin: 10/12/18 10:41 Dose: 75 mg Famotidine (Pepcid) 20 mg PO DAILY [facility] Last Admin: 10/12/18 10:41 Dose: 20 mg Sodium Chloride (Sodium Chloride 0.9%) 1,000 mls @ 80 mls/hr IV .[id number] [facility] Last Admin: 10/10/18 14:29 Dose: 80 mls/hr Sodium Chloride (Sodium Chloride 0.9%) 1,000 mls @ 80 mls/hr IV .[id number] [facility] Last Admin: 10/11/18 13:07 Dose: 80 mls/hr Nystatin (Nystop Topical Powder) 1 applic TOP TID [facility] Rosuvastatin Calcium (Crestor) 20 mg PO HS [facility] Last Admin: 10/09/18 22:05 Dose: 20 mg - Labs Labs: 10/09/18 08:01 10/11/18 07:04 PT 13.4 SECONDS (9.7-12.2) H 10/12/18 08:09 INR 1.2 10/12/18 08:09 APTT 42 SECONDS (21-34) H 10/12/18 08:09
--- NOTE | 2018-10-12 21:15 | PN ---
DATE: 10/12/2018 LOCATION: Room 672, bed A. REQUESTED BY: Shailesh Brunson MD REASON FOR FOLLOWUP: Acute renal failure, chronic kidney disease. HISTORY OF PRESENT ILLNESS: Mrs. Oro is an 88-yea-old elderly -[place]ish female with a past medical history significant for hypertension, hyperlipidemia, CAD, CHF, arthritis, CKD, atrial fibrillation, anemia, status post coronary stent, was admitted after she slipped when she tried to get out of the bed and fell on to the floor and unable to go back to the bed. The patient is out of bed to chair today. Denies any complaints of chest pain or palpitation. No fever. No cough. The patient is asking where is her son. PHYSICAL EXAMINATION: VITAL SIGNS: As follows: Blood pressure 122/75, pulse 140, respirations 20, temperature 97.9, saturation 95%. Height 5 feet 3 inches. Weight is 220 pounds. GENERAL: Mrs. Oro is an 88-year-old elderly -[place]ish female, well built, well nourished, not in acute distress. HEENT: Pupils normal and accommodation. Conjunctivae pink. Sclerae anicteric. Tongue is moist and trachea is midline. LUNGS: Symmetric on both sides. Bilateral breath sounds present. No crackles. CARDIOVASCULAR: [place] at the fifth intercostal space, midclavicular area. S1 and S2 audible. Occasionally irregularly regular. ABDOMEN: Protuberant, soft, tympanic. No guarding. No rigidity. No hepatosplenomegaly. CENTRAL NERVOUS SYSTEM: The patient is alert, awake and oriented x2. Sensory and motor system is within normal limits. EXTREMITIES: The patient has chronic skin changes in both lower extremities and scratch ortiz on both lower extremities. Trace edema present. CURRENT MEDICATION: As follows: Aspirin 81 mg p.o. daily, Coreg on hold, Crestor on hold, Pepcid 20 mg p.o. daily, Plavix 75 mg p.o. daily. The patient is off IV fluids at this time. LABORATORY DATA: As of 10/12/2018, PT 13.4 and PTT 42. Accu-Cheks 105 and 138. No other labs are available and as of 10/11/2018, BUN and creatinine 49 and 2.7. OTHER REPORTS: Echocardiogram as of 10/11/2018: Impression: Left ventricle is of normal size, isbljdag-gs-ixywsr concentric left ventricular hypertrophy. Visually, the ejection fraction is about 55% to 60%. Left atrial pressure is moderately elevated, right ventricular systolic function is mildly reduced, left atrium moderately dilated. There is a trace aortic regurgitation with severe valvular aortic stenosis. Calculated aortic valve area is 0.5 cm2 with maximum pressure gradient 75 mmHg and mean pressure gradient is 45 mmHg. Mitral wall is thickened but opens well. Mitral annular calcification is severe and mitral regurgitation is mild to moderate. There is moderate tricuspid regurgitation and there is moderate pulmonary hypertension. Aortic root is normal size. No pericardial effusion. In summary, Mrs. Oro is an 88-year-old elderly -[place]ish female with a history of hypertension, hyperlipidemia, coronary artery disease, status post stent, chronic kidney disease with unilateral small kidney on the left side with severe aortic stenosis, moderate tricuspid regurgitation, tbuk-fj-gvjqkpmc mitral regurgitation and moderate pulmonary hypertension with increased BUN and creatinine. ASSESSMENT: 1. Acute renal failure on chronic kidney disease, most likely secondary to intravascular depletion. Encourage p.o. fluid intake. The patient is off intravenous fluids. 2. Unilateral small kidney on the left side, cannot rule out renovascular disease versus hypertension . PLAN: Continue to monitor BMP. The patient is eager to go home. We will follow with you. Thank you for allowing me to participate in your patient's care. All other serology workup is within normal limits. Alfred Lobato MD [email or web address]
--- NOTE | 2018-10-12 21:49 | PN ---
DATE: 10/12/2018 MEDICAL COVERAGE FOR: Shailesh Brunson MD SUBJECTIVE: The patient denies any dizziness or palpitation. Blood pressure has improved and Coreg was resumed. PHYSICAL EXAMINATION: VITAL SIGNS: Blood pressure 137/91, heart rate 109, temperature 97.1, and respirations 20. HEENT: Normocephalic. CHEST: Clear. HEART: S1 and S2, regular. EXTREMITIES: 1+ pitting edema. LABORATORY DATA: Today's blood sugar is 138. ASSESSMENT: 1. Consider [id number] myocardial infarction. 2. Status post fall. 3. Critical aortic stenosis. 4. Improving renal insufficiency. 5. History of cerebrovascular accident. 6. Hypertension. PLAN: Continue aspirin 81 mg once a day, resume Coreg at 3.125 mg twice a day, continue Crestor at 20 mg once a day, and Plavix 75 mg once a day. Conservative medical approach is justified. Shiv Montiel MD
--- NOTE | 2018-10-13 00:31 | CP.PCM.PN ---
Subjective - Date & Time of Evaluation Date of Evaluation: 10/10/18 Time of Evaluation: 16:00 Objective - Vital Signs/Intake and Output Vital Signs (last 24 hours): Temp Pulse Resp BP Pulse Ox 97.9 F 114 H 20 122/75 95 10/12/18 15:00 10/12/18 15:00 10/12/18 15:00 10/12/18 15:00 10/12/18 15:00 - Medications Medications: Current Medications Aspirin (Aspirin Chewable) 81 mg PO DAILY [facility] Last Admin: 10/12/18 10:41 Dose: 81 mg Carvedilol (Coreg) 3.125 mg PO BID [facility] Last Admin: 10/09/18 18:28 Dose: 3.125 mg Clopidogrel Bisulfate (Plavix) 75 mg PO DAILY [facility] Last Admin: 10/12/18 10:41 Dose: 75 mg Famotidine (Pepcid) 20 mg PO DAILY [facility] Last Admin: 10/12/18 10:41 Dose: 20 mg Sodium Chloride (Sodium Chloride 0.9%) 1,000 mls @ 80 mls/hr IV .[id number] [facility] Last Admin: 10/10/18 14:29 Dose: 80 mls/hr Sodium Chloride (Sodium Chloride 0.9%) 1,000 mls @ 80 mls/hr IV .[id number] [facility] Last Admin: 10/11/18 13:07 Dose: 80 mls/hr Nystatin (Nystop Topical Powder) 1 applic TOP TID [facility] Last Admin: 10/12/18 22:20 Dose: 1 applic Rosuvastatin Calcium (Crestor) 20 mg PO HS [facility] Last Admin: 10/09/18 22:05 Dose: 20 mg - Labs Labs: 10/09/18 08:01 10/11/18 07:04 PT 13.4 SECONDS (9.7-12.2) H 10/12/18 08:09 INR 1.2 10/12/18 08:09 APTT 42 SECONDS (21-34) H 10/12/18 08:09 - Constitutional Appears: Well - Head Exam Head Exam: ATRAUMATIC, NORMAL INSPECTION, NORMOCEPHALIC - Eye Exam Eye Exam: EOMI, Normal appearance, PERRL Pupil Exam: NORMAL ACCOMODATION, PERRL - ENT Exam ENT Exam: Mucous Membranes Moist, Normal Exam - Neck Exam Neck Exam: Full ROM, Normal Inspection. absent: Lymphadenopathy - Respiratory Exam Respiratory Exam: Decreased Breath Sounds - Cardiovascular Exam Cardiovascular Exam: REGULAR RHYTHM, +S1, +S2 - GI/Abdominal Exam GI & Abdominal Exam: Soft, Diminished Bowel Sounds - Rectal Exam Rectal Exam: Deferred
--- NOTE | 2018-10-13 00:32 | CP.PCM.PN ---
Subjective - Date & Time of Evaluation Date of Evaluation: 10/11/18 Time of Evaluation: 15:00 Objective - Vital Signs/Intake and Output Vital Signs (last 24 hours): Temp Pulse Resp BP Pulse Ox 97.9 F 114 H 20 122/75 95 10/12/18 15:00 10/12/18 15:00 10/12/18 15:00 10/12/18 15:00 10/12/18 15:00 - Medications Medications: Current Medications Aspirin (Aspirin Chewable) 81 mg PO DAILY [facility] Last Admin: 10/12/18 10:41 Dose: 81 mg Carvedilol (Coreg) 3.125 mg PO BID [facility] Last Admin: 10/09/18 18:28 Dose: 3.125 mg Clopidogrel Bisulfate (Plavix) 75 mg PO DAILY [facility] Last Admin: 10/12/18 10:41 Dose: 75 mg Famotidine (Pepcid) 20 mg PO DAILY [facility] Last Admin: 10/12/18 10:41 Dose: 20 mg Sodium Chloride (Sodium Chloride 0.9%) 1,000 mls @ 80 mls/hr IV .[id number] [facility] Last Admin: 10/10/18 14:29 Dose: 80 mls/hr Sodium Chloride (Sodium Chloride 0.9%) 1,000 mls @ 80 mls/hr IV .[id number] [facility] Last Admin: 10/11/18 13:07 Dose: 80 mls/hr Nystatin (Nystop Topical Powder) 1 applic TOP TID [facility] Last Admin: 10/12/18 22:20 Dose: 1 applic Rosuvastatin Calcium (Crestor) 20 mg PO HS [facility] Last Admin: 10/09/18 22:05 Dose: 20 mg - Labs Labs: 10/09/18 08:01 10/11/18 07:04 PT 13.4 SECONDS (9.7-12.2) H 10/12/18 08:09 INR 1.2 10/12/18 08:09 APTT 42 SECONDS (21-34) H 10/12/18 08:09 - Constitutional Appears: Well - Head Exam Head Exam: ATRAUMATIC, NORMAL INSPECTION, NORMOCEPHALIC - Eye Exam Eye Exam: EOMI, Normal appearance, PERRL Pupil Exam: NORMAL ACCOMODATION, PERRL - ENT Exam ENT Exam: Mucous Membranes Moist, Normal Exam - Neck Exam Neck Exam: Full ROM, Normal Inspection. absent: Lymphadenopathy - Respiratory Exam Respiratory Exam: Decreased Breath Sounds - Cardiovascular Exam Cardiovascular Exam: REGULAR RHYTHM, +S1, +S2 - GI/Abdominal Exam GI & Abdominal Exam: Soft, Diminished Bowel Sounds - Rectal Exam Rectal Exam: Deferred
--- NOTE | 2018-10-13 00:33 | CP.PCM.PN ---
Subjective - Date & Time of Evaluation Date of Evaluation: 10/12/18 Time of Evaluation: 16:15 Objective - Vital Signs/Intake and Output Vital Signs (last 24 hours): Temp Pulse Resp BP Pulse Ox 97.9 F 114 H 20 122/75 95 10/12/18 15:00 10/12/18 15:00 10/12/18 15:00 10/12/18 15:00 10/12/18 15:00 - Medications Medications: Current Medications Aspirin (Aspirin Chewable) 81 mg PO DAILY [facility] Last Admin: 10/12/18 10:41 Dose: 81 mg Carvedilol (Coreg) 3.125 mg PO BID [facility] Last Admin: 10/09/18 18:28 Dose: 3.125 mg Clopidogrel Bisulfate (Plavix) 75 mg PO DAILY [facility] Last Admin: 10/12/18 10:41 Dose: 75 mg Famotidine (Pepcid) 20 mg PO DAILY [facility] Last Admin: 10/12/18 10:41 Dose: 20 mg Sodium Chloride (Sodium Chloride 0.9%) 1,000 mls @ 80 mls/hr IV .[id number] [facility] Last Admin: 10/10/18 14:29 Dose: 80 mls/hr Sodium Chloride (Sodium Chloride 0.9%) 1,000 mls @ 80 mls/hr IV .[id number] [facility] Last Admin: 10/11/18 13:07 Dose: 80 mls/hr Nystatin (Nystop Topical Powder) 1 applic TOP TID [facility] Last Admin: 10/12/18 22:20 Dose: 1 applic Rosuvastatin Calcium (Crestor) 20 mg PO HS [facility] Last Admin: 10/09/18 22:05 Dose: 20 mg - Labs Labs: 10/09/18 08:01 10/11/18 07:04 PT 13.4 SECONDS (9.7-12.2) H 10/12/18 08:09 INR 1.2 10/12/18 08:09 APTT 42 SECONDS (21-34) H 10/12/18 08:09 - Constitutional Appears: Well - Head Exam Head Exam: ATRAUMATIC, NORMAL INSPECTION, NORMOCEPHALIC - Eye Exam Eye Exam: EOMI, Normal appearance, PERRL Pupil Exam: NORMAL ACCOMODATION, PERRL - ENT Exam ENT Exam: Mucous Membranes Moist, Normal Exam - Neck Exam Neck Exam: Full ROM, Normal Inspection. absent: Lymphadenopathy - Respiratory Exam Respiratory Exam: Decreased Breath Sounds - Cardiovascular Exam Cardiovascular Exam: REGULAR RHYTHM, +S1, +S2 - GI/Abdominal Exam GI & Abdominal Exam: Soft, Diminished Bowel Sounds - Rectal Exam Rectal Exam: Deferred
--- NOTE | 2018-10-13 12:51 | CP.PCM.PN ---
Subjective - Date & Time of Evaluation Date of Evaluation: 10/13/18 Time of Evaluation: 12:51 - Subjective Subjective: pt is seen and examined, follow up consult is dictated #[id number] Objective - Vital Signs/Intake and Output Vital Signs (last 24 hours): Temp Pulse Resp BP Pulse Ox 97.1 F L 115 H 20 123/81 98 10/13/18 07:00 10/13/18 07:00 10/13/18 07:00 10/13/18 07:00 10/13/18 07:00 Intake and Output: 10/13/18 10/13/18 06:59 18:59 Intake Total 200 Balance 200 - Medications Medications: Current Medications Aspirin (Aspirin Chewable) 81 mg PO DAILY [facility] Last Admin: 10/13/18 10:47 Dose: 81 mg Carvedilol (Coreg) 3.125 mg PO BID [facility] Last Admin: 10/09/18 18:28 Dose: 3.125 mg Clopidogrel Bisulfate (Plavix) 75 mg PO DAILY [facility] Last Admin: 10/13/18 10:47 Dose: 75 mg Famotidine (Pepcid) 20 mg PO DAILY [facility] Last Admin: 10/13/18 10:47 Dose: 20 mg Sodium Chloride (Sodium Chloride 0.9%) 1,000 mls @ 80 mls/hr IV .[id number] [facility] Last Admin: 10/10/18 14:29 Dose: 80 mls/hr Sodium Chloride (Sodium Chloride 0.9%) 1,000 mls @ 80 mls/hr IV .[id number] [facility] Last Admin: 10/11/18 13:07 Dose: 80 mls/hr Nystatin (Nystop Topical Powder) 1 applic TOP TID [facility] Last Admin: 10/13/18 10:47 Dose: 1 applic Rosuvastatin Calcium (Crestor) 20 mg PO HS [facility] Last Admin: 10/09/18 22:05 Dose: 20 mg - Labs Labs: 10/09/18 08:01 10/11/18 07:04 PT 13.4 SECONDS (9.7-12.2) H 10/12/18 08:09 INR 1.2 10/12/18 08:09 APTT 42 SECONDS (21-34) H 10/12/18 08:09
[2018-10-13 15:22] LABS: CALCIUM 9.1 mg/dl (8.6-10.4)
--- NOTE | 2018-10-13 17:47 | CP.PCM.PN ---
Subjective - Date & Time of Evaluation Date of Evaluation: 10/13/18 Time of Evaluation: 10:00 - Subjective Subjective: clinically same Objective - Vital Signs/Intake and Output Vital Signs (last 24 hours): Temp Pulse Resp BP Pulse Ox 97.5 F L 112 H 20 150/69 98 10/13/18 15:30 10/13/18 15:30 10/13/18 15:30 10/13/18 15:30 10/13/18 15:30 Intake and Output: 10/13/18 10/13/18 06:59 18:59 Intake Total 200 Balance 200 - Medications Medications: Current Medications Aspirin (Aspirin Chewable) 81 mg PO DAILY [facility] Last Admin: 10/13/18 10:47 Dose: 81 mg Carvedilol (Coreg) 3.125 mg PO BID [facility] Last Admin: 10/09/18 18:28 Dose: 3.125 mg Clopidogrel Bisulfate (Plavix) 75 mg PO DAILY [facility] Last Admin: 10/13/18 10:47 Dose: 75 mg Famotidine (Pepcid) 20 mg PO DAILY [facility] Last Admin: 10/13/18 10:47 Dose: 20 mg Sodium Chloride (Sodium Chloride 0.9%) 1,000 mls @ 80 mls/hr IV .[id number] [facility] Last Admin: 10/10/18 14:29 Dose: 80 mls/hr Sodium Chloride (Sodium Chloride 0.9%) 1,000 mls @ 80 mls/hr IV .[id number] [facility] Last Admin: 10/11/18 13:07 Dose: 80 mls/hr Nystatin (Nystop Topical Powder) 1 applic TOP TID [facility] Last Admin: 10/13/18 14:25 Dose: 1 applic Rosuvastatin Calcium (Crestor) 20 mg PO HS [facility] Last Admin: 10/09/18 22:05 Dose: 20 mg - Labs Labs: 10/09/18 08:01 10/13/18 15:04 PT 13.4 SECONDS (9.7-12.2) H 10/12/18 08:09 INR 1.2 10/12/18 08:09 APTT 42 SECONDS (21-34) H 10/12/18 08:09 - Constitutional Appears: Well - Head Exam Head Exam: ATRAUMATIC, NORMAL INSPECTION, NORMOCEPHALIC - Eye Exam Eye Exam: EOMI, Normal appearance, PERRL Pupil Exam: NORMAL ACCOMODATION, PERRL - ENT Exam ENT Exam: Mucous Membranes Moist, Normal Exam - Neck Exam Neck Exam: Full ROM, Normal Inspection. absent: Lymphadenopathy - Respiratory Exam Respiratory Exam: Decreased Breath Sounds - Cardiovascular Exam Cardiovascular Exam: REGULAR RHYTHM, +S1, +S2 - GI/Abdominal Exam GI & Abdominal Exam: Soft, Diminished Bowel Sounds - Rectal Exam Rectal Exam: Deferred
--- NOTE | 2018-10-13 19:32 | PN ---
DATE: 10/13/2018 SUBJECTIVE: The patient denies any dizziness or chest pain. PHYSICAL EXAMINATION: VITAL SIGNS: Blood pressure 123/81, heart rate 115, temperature 97.1, respirations 20. HEENT: Normocephalic. CHEST: Diminished breath sounds over the bases. HEART: S1 and S2 regular. Grade 4/6 ejection systolic murmur over the left sternal border. ABDOMEN: Soft. EXTREMITIES: 1+ pitting edema. LABORATORY DATA: LORIN is negative. ASSESSMENT: 1. Non-ST elevation myocardial infarction. 2. Status post fall. 3. Critical aortic stenosis. 4. Improving renal insufficiency. 5. Hypertension. 6. History of cerebrovascular accident. PLAN: Continue aspirin 81 mg once a day, Coreg 3.125 mg once a day, Crestor 20 mg once a day, Plavix 75 mg once a day, and normal saline 80 mL/hour. Shiv Montiel MD
--- NOTE | 2018-10-14 00:09 | PN ---
DATE: 10/13/2018 FOLLOWUP RENAL CONSULTATION LOCATION: The patient is located in room 672, bed A. REQUESTED BY: Shailesh Brunson MD REASON FOR FOLLOWUP: Acute renal failure, chronic kidney disease. SUBJECTIVE: Mrs. Oro is an 88-year-old elderly female with a past medical history significant for hypertension, hyperlipidemia, chronic kidney disease, CAD, CHF, anemia, arthritis, atrial fibrillation, dementia, status post coronary stent who was admitted after she slip and fell onto the floor when she tried to get out of the bed and unable to go back and son called the ambulance, and the patient was brought to the hospital. The patient was found to have increased BUN and creatinine. The patient was given IV hydration and serum creatinine is slowly improving. The patient is off IV fluids. The patient is not in distress. The patient is out of bed to chair. No chest pain or palpitation. No fever. No cough. No abdominal pain. No nausea, vomiting, diarrhea. OBJECTIVE: VITAL SIGNS: This morning as follows, blood pressure 123/81, pulse 115, respirations 20, temperature 97.1, saturation 98%. Height 5 feet 3 inches, weight is 220 pounds. GENERAL: Mrs. Oro is an 88-year-old elderly female, well-built, well-nourished, not in distress. HEENT: Pupils normal and reactive to light and accommodation. Conjunctivae pink. Sclerae anicteric. Tongue is moist. Trachea is midline. LUNGS: Symmetric on both sides. Bilateral breath sounds present. Clear to auscultation. CARDIOVASCULAR SYSTEM: [place] at the fifth intercostal space midclavicular line. S1, S2 audible. Irregularly irregular. ABDOMEN: Normal in appearance, soft, tympanitic. No guarding. No rigidity. No hepatosplenomegaly. CENTRAL NERVOUS SYSTEM: The patient is alert, awake, and oriented x2. Sensory and motor system is within normal limits. EXTREMITIES: No cyanosis, no clubbing. SKIN: The patient has some chronic skin changes in both lower extremities. CURRENT MEDICATIONS: Include as follows: Aspirin 81 mg daily, Coreg 3.125 mg p.o. b.i.d., Crestor 20 mg at bedtime, nystatin topical powder, Pepcid 20 mg p.o. daily, Plavix 75 mg daily. LABORATORY DATA: Include as follows: As of 10/13/2018, sodium 144, potassium is 5, chloride 113, CO2 of 21, BUN 40, creatinine 2.3, glucose 82, calcium 9.1. Accu-Cheks 88 and 80. IMPRESSION: In summary, Mrs. Oro is an 88-year-old elderly female with a history of hypertension, hyperlipidemia, coronary artery disease, congestive heart failure, chronic kidney disease, dementia, arthritis, atrial fibrillation who was admitted after a fall when she tried to get out of the bed. She slipped and fell on the floor without any injury. 1. Acute renal failure, on chronic kidney disease. Renal function is improving slowly. 2. Hypertension. Blood pressure is stable today. Continue current medication. 3. Atrial fibrillation. Continue the Plavix and Coreg. 4. Severe aortic stenosis. Continue to monitor, and follow up with Cardiology. Thank you for allowing me to participate in your patient's care. Renal function is improving. Encourage p.o. fluid intake. Alfred Lobato MD
--- NOTE | 2018-10-14 16:50 | CP.PCM.PN ---
Subjective - Date & Time of Evaluation Date of Evaluation: 10/14/18 Time of Evaluation: 16:50 - Subjective Subjective: pt is seen and examined , follow up consult is dictated #[id number] Objective - Vital Signs/Intake and Output Vital Signs (last 24 hours): Temp Pulse Resp BP Pulse Ox 97.3 F L 110 H 20 104/72 100 10/14/18 15:16 10/14/18 15:16 10/14/18 15:16 10/14/18 15:16 10/14/18 15:16 Intake and Output: 10/14/18 10/14/18 06:59 18:59 Intake Total 200 Output Total 3 100 Balance -3 100 - Medications Medications: Current Medications Aspirin (Aspirin Chewable) 81 mg PO DAILY [facility] Last Admin: 10/14/18 09:25 Dose: 81 mg Carvedilol (Coreg) 3.125 mg PO BID [facility] Last Admin: 10/14/18 09:25 Dose: 3.125 mg Clopidogrel Bisulfate (Plavix) 75 mg PO DAILY [facility] Last Admin: 10/14/18 09:25 Dose: 75 mg Famotidine (Pepcid) 20 mg PO DAILY [facility] Last Admin: 10/14/18 09:25 Dose: 20 mg Sodium Chloride (Sodium Chloride 0.9%) 1,000 mls @ 80 mls/hr IV .[id number] [facility] Last Admin: 10/10/18 14:29 Dose: 80 mls/hr Nystatin (Nystop Topical Powder) 1 applic TOP TID [facility] Last Admin: 10/14/18 14:28 Dose: 1 applic Rosuvastatin Calcium (Crestor) 20 mg PO HS [facility] Last Admin: 10/09/18 22:05 Dose: 20 mg - Labs Labs: 10/09/18 08:01 10/13/18 15:04 PT 13.4 SECONDS (9.7-12.2) H 10/12/18 08:09 INR 1.2 10/12/18 08:09 APTT 42 SECONDS (21-34) H 10/12/18 08:09
--- NOTE | 2018-10-14 19:27 | PN ---
DATE: 10/14/2018 Cardiology Coverage. SUBJECTIVE: The patient denied any chest pain or dizziness. PHYSICAL EXAMINATION: VITAL SIGNS: Blood pressure 104/72, heart rate 110, temperature 97.3, respirations 20. HEENT: Normocephalic. CHEST: Absent breath sounds over the bases. HEART: S1 and S2 regular. Grade 4/6 ejection systolic murmur over left sternal border. ABDOMEN: Soft. EXTREMITIES: 1+ pitting edema. ASSESSMENT: 1. Status post non-ST elevation myocardial infarction. 2. Status post fall. 3. Critical aortic stenosis. 4. Improved renal insufficiency. 5. History of cerebrovascular accident. 6. Hypertension. RECOMMENDATIONS: Continue aspirin 81 mg once a day, Coreg 3.125 mg twice a day, Crestor 20 mg once a day, Plavix 75 mg once a day. Shiv Montiel MD
--- NOTE | 2018-10-14 20:40 | CP.PCM.PN ---
Subjective - Date & Time of Evaluation Date of Evaluation: 10/14/18 Time of Evaluation: 09:30 - Subjective Subjective: clinically same Objective - Vital Signs/Intake and Output Vital Signs (last 24 hours): Temp Pulse Resp BP Pulse Ox 97.3 F L 103 H 20 96/48 L 100 10/14/18 15:16 10/14/18 17:54 10/14/18 15:16 10/14/18 17:54 10/14/18 15:16 Intake and Output: 10/14/18 10/15/18 18:59 06:59 Intake Total 200 Output Total 100 Balance 100 - Medications Medications: Current Medications Aspirin (Aspirin Chewable) 81 mg PO DAILY [facility] Last Admin: 10/14/18 09:25 Dose: 81 mg Carvedilol (Coreg) 3.125 mg PO BID [facility] Last Admin: 10/14/18 17:54 Dose: Not Given Clopidogrel Bisulfate (Plavix) 75 mg PO DAILY [facility] Last Admin: 10/14/18 09:25 Dose: 75 mg Famotidine (Pepcid) 20 mg PO DAILY [facility] Last Admin: 10/14/18 09:25 Dose: 20 mg Sodium Chloride (Sodium Chloride 0.9%) 1,000 mls @ 80 mls/hr IV .[id number] [facility] Last Admin: 10/10/18 14:29 Dose: 80 mls/hr Nystatin (Nystop Topical Powder) 1 applic TOP TID [facility] Last Admin: 10/14/18 19:14 Dose: 1 applic Rosuvastatin Calcium (Crestor) 20 mg PO HS [facility] Last Admin: 10/09/18 22:05 Dose: 20 mg - Labs Labs: 10/09/18 08:01 10/13/18 15:04 PT 13.4 SECONDS (9.7-12.2) H 10/12/18 08:09 INR 1.2 10/12/18 08:09 APTT 42 SECONDS (21-34) H 10/12/18 08:09 - Constitutional Appears: Well - Head Exam Head Exam: ATRAUMATIC, NORMAL INSPECTION, NORMOCEPHALIC - Eye Exam Eye Exam: EOMI, Normal appearance, PERRL Pupil Exam: NORMAL ACCOMODATION, PERRL - ENT Exam ENT Exam: Mucous Membranes Moist, Normal Exam - Neck Exam Neck Exam: Full ROM, Normal Inspection. absent: Lymphadenopathy - Respiratory Exam Respiratory Exam: Decreased Breath Sounds - Cardiovascular Exam Cardiovascular Exam: REGULAR RHYTHM, +S1, +S2 - GI/Abdominal Exam GI & Abdominal Exam: Soft, Diminished Bowel Sounds - Rectal Exam Rectal Exam: Deferred
--- NOTE | 2018-10-15 01:31 | PN ---
DATE: 10/14/2018 FOLLOWUP RENAL CONSULTATION LOCATION: The patient is located in room 672, bed A. REQUESTED BY: Shailesh Brunson MD SUBJECTIVE: Ms. Oro is an 88-year-old elderly female with a past medical history significant for hypertension, hyperlipidemia, CHF, CAD, status post stent placement, arthritis, anemia, AFib who was admitted. When she tried to get out of the bed, she slipped and she fell on the floor and unable to get back to the bed, and the patient was brought to the emergency room by the patient's son. The patient was found to have increased BUN and creatinine and started on IV fluids, and the renal function is slowly improving. The patient denies any complaints. The patient is eager to go back to home. The patient is always asking "where is my son." The patient denies any chest pain or any shortness of breath. No palpitation. No nausea, vomiting, or diarrhea. No abdominal pain. No fever. No cough. PHYSICAL EXAMINATION: VITAL SIGNS: As follows: Blood pressure 104/72, pulse 110, respiration 20, temperature 97.3, saturation 100%. Height 5 feet 3 inches. Weight is 220 pounds. GENERAL: Mrs. Oro is an 88-year-old elderly female, well built, well nourished, not in acute distress. HEENT: Pupils are normal and reactive to light and accommodation. Conjunctivae pink. Sclerae anicteric. Tongue is moist. Trachea is midline. LUNGS: Symmetric on both sides. Bilateral breath sounds present. Clear to auscultation. CARDIOVASCULAR SYSTEM: [place] at the fifth intercostal space, midclavicular line. S1 and S2 audible. Irregularly irregular. ABDOMEN: Normal in appearance. Soft and tympanitic. No guarding. No rigidity. No hepatosplenomegaly. CENTRAL NERVOUS SYSTEM: The patient is alert, awake, oriented x2. Sensory and motor system is within normal limits. EXTREMITIES: No cyanosis, no clubbing, no edema. The patient has chronic skin changes and scratches on both lower extremities. CURRENT MEDICATIONS: Include as follows: Aspirin 81 mg daily, Coreg 3.125 mg p.o. b.i.d., Crestor 20 mg at bedtime on hold, nystatin powder topical one application t.i.d., Pepcid 20 mg p.o. daily, Plavix 75 mg daily. LABORATORY DATA: No new labs are available. ASSESSMENT AND PLAN: Mrs. Oro is an 88-year-old elderly female with a history of hypertension, hyperlipidemia, congestive heart failure, coronary artery disease, status post stent, atrial fibrillation who was admitted after she fell on the floor when she tried to get out of the bed and she slipped and fell on the floor with increased blood urea nitrogen and creatinine. 1. Acute renal failure on chronic kidney disease, most likely secondary to intravascular depletion. Renal function is slowly improving with hydration. Encourage oral fluid intake. 2. Hypertension. Blood pressure is on the low side. Continue monitor with Coreg and hold for systolic blood pressure less than 120. 3. Atrial fibrillation. 4. Unilateral small left kidney, cannot rule out renovascular disease. No new labs for today. Repeat complete blood cell count and basic metabolic panel in the morning. We will follow with you. Thank you for allowing me to participate in your patient's care. Alfred Lobato MD
[2018-10-15 08:26] LABS: HEMOGLOBIN 11.5 g/dL (11.0-16.0); MEAN CORPUSCULAR HEMOGLOBIN 29.5 pg (27.0-31.0); MEAN CORPUSCULAR HGB CONC 31.1 g/dL (33.0-37.0); MEAN PLATELET VOLUME 9.1 fL (7.2-11.7); RBC 3.9 Mil/uL (3.80-5.20); RED CELL DISTRIBUTION WIDTH 18.5 % (11.5-14.5); WHITE BLOOD COUNT 6.3 K/uL (4.8-10.8)
[2018-10-15 08:35] LABS: MEAN CELL VOLUME 94.9 fL (81.0-99.0)
[2018-10-15 08:36] LABS: ALB/GLOB RATIO 0.9 (1.0-2.1); ALBUMIN 3.7 g/dL (3.5-5.0); CALCIUM 9.2 mg/dl (8.6-10.4)
--- NOTE | 2018-10-15 13:18 | CP.PCM.PN ---
Subjective - Date & Time of Evaluation Date of Evaluation: 10/15/18 Time of Evaluation: 13:18 - Subjective Subjective: pt is seen and examined, follow up consult is dictated #[id number] add calcitriol 0.25 mcg po tiw Objective - Vital Signs/Intake and Output Vital Signs (last 24 hours): Temp Pulse Resp BP Pulse Ox 97.9 F 114 H 20 121/84 100 10/15/18 07:00 10/15/18 07:57 10/15/18 07:00 10/15/18 07:00 10/15/18 07:00 - Medications Medications: Current Medications Aspirin (Aspirin Chewable) 81 mg PO DAILY [facility] Last Admin: 10/15/18 10:33 Dose: 81 mg Carvedilol (Coreg) 3.125 mg PO BID [facility] Last Admin: 10/15/18 10:32 Dose: 3.125 mg Clopidogrel Bisulfate (Plavix) 75 mg PO DAILY [facility] Last Admin: 10/15/18 10:33 Dose: 75 mg Famotidine (Pepcid) 20 mg PO DAILY [facility] Last Admin: 10/15/18 10:32 Dose: 20 mg Sodium Chloride (Sodium Chloride 0.9%) 1,000 mls @ 80 mls/hr IV .[id number] [facility] Last Admin: 10/10/18 14:29 Dose: 80 mls/hr Nystatin (Nystop Topical Powder) 1 applic TOP TID [facility] Last Admin: 10/15/18 10:33 Dose: 1 applic Rosuvastatin Calcium (Crestor) 20 mg PO HS [facility] Last Admin: 10/09/18 22:05 Dose: 20 mg - Labs Labs: 10/15/18 08:08 10/15/18 08:08 PT 13.4 SECONDS (9.7-12.2) H 10/12/18 08:09 INR 1.2 10/12/18 08:09 APTT 42 SECONDS (21-34) H 10/12/18 08:09
--- NOTE | 2018-10-15 14:09 | CP.PCM.PN ---
Subjective - Date & Time of Evaluation Date of Evaluation: 10/15/18 Time of Evaluation: 14:02 - Subjective Subjective: Evaluated patient due to ST elevations noted on telemetry Patient is asymptomatic. Reviewed previous tele strips and previous EKGs, ST elevations noted on 10/14 and 10/13 tele strip, no ST elevation on prior EKG. Ordered 12 lead EKG: no ST elevations Spoke with Dr. Montiel, who stated due to the patient's current condition, severe , ARF, patient would not undergo cardiac cath for NSTEMI. Only medical management for now. Heparin drip not warranted, since no cardiac cath will be performed, no therapeutic lovenox due to renal function. Edna Corral DO, PGY2 Objective - Vital Signs/Intake and Output Vital Signs (last 24 hours): Temp Pulse Resp BP Pulse Ox 97.9 F 114 H 20 121/84 100 10/15/18 07:00 10/15/18 12:00 10/15/18 07:00 10/15/18 07:00 10/15/18 07:00 - Medications Medications: Current Medications Aspirin (Aspirin Chewable) 81 mg PO DAILY [facility] Last Admin: 10/15/18 10:33 Dose: 81 mg Carvedilol (Coreg) 3.125 mg PO BID [facility] Last Admin: 10/15/18 10:32 Dose: 3.125 mg Clopidogrel Bisulfate (Plavix) 75 mg PO DAILY [facility] Last Admin: 10/15/18 10:33 Dose: 75 mg Famotidine (Pepcid) 20 mg PO DAILY [facility] Last Admin: 10/15/18 10:32 Dose: 20 mg Nystatin (Nystop Topical Powder) 1 applic TOP TID [facility] Last Admin: 10/15/18 10:33 Dose: 1 applic Rosuvastatin Calcium (Crestor) 20 mg PO HS [facility] Last Admin: 10/09/18 22:05 Dose: 20 mg - Labs Labs: 10/15/18 08:08 10/15/18 08:08 PT 13.4 SECONDS (9.7-12.2) H 10/12/18 08:09 INR 1.2 10/12/18 08:09 APTT 42 SECONDS (21-34) H 10/12/18 08:09
--- NOTE | 2018-10-15 17:06 | CP.PCM.PN ---
Subjective - Date & Time of Evaluation Date of Evaluation: 10/15/18 Time of Evaluation: 10:45 - Subjective Subjective: clinically same Objective - Vital Signs/Intake and Output Vital Signs (last 24 hours): Temp Pulse Resp BP Pulse Ox 98.1 F 84 18 116/56 L 98 10/15/18 16:41 10/15/18 16:41 10/15/18 16:41 10/15/18 16:41 10/15/18 16:41 Intake and Output: 10/15/18 10/15/18 06:59 18:59 Intake Total 300 Balance 300 - Medications Medications: Current Medications Aspirin (Aspirin Chewable) 81 mg PO DAILY [facility] Last Admin: 10/15/18 10:33 Dose: 81 mg Carvedilol (Coreg) 3.125 mg PO BID [facility] Last Admin: 10/15/18 10:32 Dose: 3.125 mg Clopidogrel Bisulfate (Plavix) 75 mg PO DAILY [facility] Last Admin: 10/15/18 10:33 Dose: 75 mg Famotidine (Pepcid) 20 mg PO DAILY [facility] Last Admin: 10/15/18 10:32 Dose: 20 mg Nystatin (Nystop Topical Powder) 1 applic TOP TID [facility] Last Admin: 10/15/18 14:00 Dose: Not Given Rosuvastatin Calcium (Crestor) 20 mg PO HS [facility] Last Admin: 10/09/18 22:05 Dose: 20 mg - Labs Labs: 10/15/18 08:08 10/15/18 08:08 PT 13.4 SECONDS (9.7-12.2) H 10/12/18 08:09 INR 1.2 10/12/18 08:09 APTT 42 SECONDS (21-34) H 10/12/18 08:09 - Constitutional Appears: Well - Head Exam Head Exam: ATRAUMATIC, NORMAL INSPECTION, NORMOCEPHALIC - Eye Exam Eye Exam: EOMI, Normal appearance, PERRL Pupil Exam: NORMAL ACCOMODATION, PERRL - ENT Exam ENT Exam: Mucous Membranes Moist, Normal Exam - Neck Exam Neck Exam: Full ROM, Normal Inspection. absent: Lymphadenopathy - Respiratory Exam Respiratory Exam: Decreased Breath Sounds - Cardiovascular Exam Cardiovascular Exam: REGULAR RHYTHM, +S1, +S2 - GI/Abdominal Exam GI & Abdominal Exam: Soft, Diminished Bowel Sounds - Rectal Exam Rectal Exam: Deferred
--- NOTE | 2018-10-15 17:47 | PN ---
DATE: 10/15/2018 SUBJECTIVE: The patient is confused, but does not appear to be in any distress. PHYSICAL EXAMINATION: VITAL SIGNS: Blood pressure 121/84, heart rate 115, temperature 97.9, respirations 20. HEENT: Normocephalic. CHEST: Diminished breath sounds over the bases. HEART: S1 and S2, regular. Grade 4/6 ejection systolic murmur over left sternal border. ABDOMEN: Soft. EXTREMITIES: 1+ pitting edema. LABORATORY DATA: Today's BUN and creatinine are 38 and 2, glucose 108, potassium is within normal limits. Today, AST and ALT are 120 and 208 respectively. Alkaline phosphatase is 278. ASSESSMENT: 1. Non-ST elevation myocardial infarction. 2. Improved renal insufficiency. 3. Cholelithiasis. 4. Critical aortic stenosis. RECOMMENDATIONS: Continue aspirin 81 mg once a day, Plavix 75 mg once a day, Coreg 3.125 mg twice a day. Case was discussed with the nurse practitioner. Discontinue Crestor. N.p.o. for worsening liver enzymes and obtain serum ammonia level. Shiv Mnotiel MD
--- NOTE | 2018-10-15 21:20 | PN ---
DATE: 10/15/2018 LOCATION: Room 672, bed A. REQUESTED BY: Shailesh Brunson MD REASON FOR FOLLOWUP: Acute renal failure, chronic kidney disease and for further evaluation. SUBJECTIVE: Mrs. Oro is an 88-year-old, obese, elderly -[place] female with a past medical history significant for hypertension, hyperlipidemia, CAD, CHF, status post stent placement, CKD, arthritis, AFib, and dementia, was admitted when she tried to get out of the bed and she slipped and fell on the floor and unable to get back to the bed and the patient was brought to the hospital by the son. The patient is out of bed to chair. Denies any headache or dizziness. Denies any chest pain or palpitation. Denies any fever or cough. No abdominal pain. No nausea, vomiting, or diarrhea. PHYSICAL EXAMINATION: VITAL SIGNS: As follows: Blood pressure 121/84, pulse 113, respiration 20, temperature 97.9, saturation 100%. Height 5 feet 3 inches and weight is 220 pounds. GENERAL: Mrs. Oro is an 88-year-old elderly -[place] female, well built, well nourished, not in distress. HEENT: Pupils are normal and react to light and accommodation. Conjunctivae pink. Sclerae anicteric. Tongue is moist. Trachea is midline. LUNGS: Symmetric on both sides. Bilateral breath sounds present. Clear to auscultation. CARDIOVASCULAR: [place] at the fifth intercostal space, midclavicular area. S1 and S2 audible, occasionally irregularly irregular, ejection systolic murmur is present. ABDOMEN: Normal in appearance. Protuberant, soft, tympanic. No guarding. No hepatosplenomegaly. CENTRAL NERVOUS SYSTEM: The patient is alert, awake, oriented x2. Sensory and motor system is within normal limits. EXTREMITIES: No cyanosis, no clubbing. SKIN: The patient has chronic skin changes in both lower extremities and scratch ortiz. CURRENT MEDICATIONS: Include as follows: Aspirin 81 mg daily, Coreg 3.125 mg p.o. b.i.d., Crestor on hold, nystatin powder topical, Pepcid 20 mg p.o. daily, and Plavix 75 mg daily. LABORATORY DATA: As of 10/15/2018: WBC 6.3, hemoglobin 11.5, hematocrit 37, platelets 131. Sodium 141, potassium 4.7, chloride 111, CO2 of 23, BUN 38, creatinine is 2, glucose 108, calcium 9.2, phosphorus 3.6, magnesium 2.3. Total bili 2.5, AST 120, ALT 208, alkaline phos 278, ammonia 34, total protein 7.8, and albumin is 3.7. Hepatitis B and C serology is negative and LORIN is also negative, and PTH intact level is 274. TSH is 0.916. ASSESSMENT AND PLAN: In summary, Mrs. Oro is an 88-year-old elderly -[place] female with hypertension, hyperlipidemia, coronary artery disease, congestive heart failure, atrial fibrillation, dementia and chronic kidney disease. 1. Acute on chronic kidney disease. The renal function is improving slowly. The patient is off intravenous fluids and encourage p.o. fluid intake. 2. Hypertension. 3. Atrial fibrillation. 4. Unilateral small left kidney. Cannot rule out renovascular disease. Continue to monitor renal function and no further workup is needed at this time. 5. Secondary hyperparathyroidism, secondary to renal failure. We will add calcitriol 0.25 mg three times a week. Thank you for allowing me to participate in your patient's care. Alfred Lobato MD
[2018-10-16 08:22] VITALS: RESP 18
--- NOTE | 2018-10-16 09:53 | CP.PCM.PN ---
Subjective - Date & Time of Evaluation Date of Evaluation: 10/16/18 Time of Evaluation: 09:52 - Subjective Subjective: pt is seen and examined, follow up consult is dictated #[id number] Objective - Vital Signs/Intake and Output Vital Signs (last 24 hours): Temp Pulse Resp BP Pulse Ox 98.0 F 108 H 18 107/72 97 10/16/18 07:55 10/16/18 07:55 10/16/18 07:55 10/16/18 07:55 10/16/18 07:55 Intake and Output: 10/16/18 10/16/18 06:59 18:59 Intake Total 350 Balance 350 - Medications Medications: Current Medications Aspirin (Aspirin Chewable) 81 mg PO DAILY [facility] Last Admin: 10/15/18 10:33 Dose: 81 mg Calcitriol (Rocaltrol) 0.25 mcg PO [facility] Carvedilol (Coreg) 3.125 mg PO BID [facility] Last Admin: 10/15/18 18:00 Dose: Not Given Clopidogrel Bisulfate (Plavix) 75 mg PO DAILY [facility] Last Admin: 10/15/18 10:33 Dose: 75 mg Famotidine (Pepcid) 20 mg PO DAILY [facility] Last Admin: 10/15/18 10:32 Dose: 20 mg Nystatin (Nystop Topical Powder) 1 applic TOP TID [facility] Last Admin: 10/15/18 18:01 Dose: Not Given Rosuvastatin Calcium (Crestor) 20 mg PO [facility] Last Admin: 10/09/18 22:05 Dose: 20 mg - Labs Labs: 10/15/18 08:08 10/15/18 08:08 PT 13.4 SECONDS (9.7-12.2) H 10/12/18 08:09 INR 1.2 10/12/18 08:09 APTT 42 SECONDS (21-34) H 10/12/18 08:09
--- NOTE | 2018-10-16 14:54 | CP.PCM.PN ---
Subjective - Date & Time of Evaluation Date of Evaluation: 10/16/18 Time of Evaluation: 14:54 - Subjective Subjective: PATIENT SEEN AND EXAMINED AT THE BEDSIDE Objective - Vital Signs/Intake and Output Vital Signs (last 24 hours): Temp Pulse Resp BP Pulse Ox 98.0 F 76 18 107/72 97 10/16/18 07:55 10/16/18 14:44 10/16/18 07:55 10/16/18 07:55 10/16/18 07:55 Intake and Output: 10/16/18 10/16/18 06:59 18:59 Intake Total 350 650 Balance 350 650 - Medications Medications: Current Medications Aspirin (Aspirin Chewable) 81 mg PO DAILY [facility] Last Admin: 10/16/18 10:57 Dose: 81 mg Calcitriol (Rocaltrol) 0.25 mcg PO F [facility] Carvedilol (Coreg) 3.125 mg PO BID [facility] Last Admin: 10/16/18 10:57 Dose: 3.125 mg Clopidogrel Bisulfate (Plavix) 75 mg PO DAILY [facility] Last Admin: 10/16/18 10:57 Dose: 75 mg Famotidine (Pepcid) 20 mg PO DAILY [facility] Last Admin: 10/16/18 10:57 Dose: 20 mg Nystatin (Nystop Topical Powder) 1 applic TOP TID [facility] Last Admin: 10/16/18 14:12 Dose: 1 applic Rosuvastatin Calcium (Crestor) 20 mg PO HS [facility] Last Admin: 10/09/18 22:05 Dose: 20 mg - Labs Labs: 10/15/18 08:08 10/15/18 08:08 PT 13.4 SECONDS (9.7-12.2) H 10/12/18 08:09 INR 1.2 10/12/18 08:09 APTT 42 SECONDS (21-34) H 10/12/18 08:09 Assessment and Plan - Assessment and Plan (Free Text) Assessment: PLACE UND[facility] THE SERVICE OF DR JOSEPH [place] [facility]CALL FOR ADMITTING CONTINUE HOME MEDICATION NEW PRESCRIPTION GIVEN CALCITROL 0.25 MG PO TID STOP TAKING [place] AND CRESTOR ACTIVITY TOLERATED CALL DR JOSEPH FOR FURTHER ORDER
--- NOTE | 2018-10-16 15:13 | CP.PCM.PN ---
Subjective - Date & Time of Evaluation Date of Evaluation: 10/16/18 Time of Evaluation: 10:00 - Subjective Subjective: clinically same Objective - Vital Signs/Intake and Output Vital Signs (last 24 hours): Temp Pulse Resp BP Pulse Ox 98.0 F 76 18 107/72 97 10/16/18 07:55 10/16/18 14:44 10/16/18 07:55 10/16/18 07:55 10/16/18 07:55 Intake and Output: 10/16/18 10/16/18 06:59 18:59 Intake Total 350 650 Balance 350 650 - Medications Medications: Current Medications Aspirin (Aspirin Chewable) 81 mg PO DAILY [facility] Last Admin: 10/16/18 10:57 Dose: 81 mg Calcitriol (Rocaltrol) 0.25 mcg PO MWF [facility] Carvedilol (Coreg) 3.125 mg PO BID [facility] Last Admin: 10/16/18 10:57 Dose: 3.125 mg Clopidogrel Bisulfate (Plavix) 75 mg PO DAILY [facility] Last Admin: 10/16/18 10:57 Dose: 75 mg Famotidine (Pepcid) 20 mg PO DAILY [facility] Last Admin: 10/16/18 10:57 Dose: 20 mg Nystatin (Nystop Topical Powder) 1 applic TOP TID [facility] Last Admin: 10/16/18 14:12 Dose: 1 applic Rosuvastatin Calcium (Crestor) 20 mg PO HS [facility] Last Admin: 10/09/18 22:05 Dose: 20 mg - Labs Labs: 10/15/18 08:08 10/15/18 08:08 PT 13.4 SECONDS (9.7-12.2) H 10/12/18 08:09 INR 1.2 10/12/18 08:09 APTT 42 SECONDS (21-34) H 10/12/18 08:09 - Constitutional Appears: Well - Head Exam Head Exam: ATRAUMATIC, NORMAL INSPECTION, NORMOCEPHALIC - Eye Exam Eye Exam: EOMI, Normal appearance, PERRL Pupil Exam: NORMAL ACCOMODATION, PERRL - ENT Exam ENT Exam: Mucous Membranes Moist, Normal Exam - Neck Exam Neck Exam: Full ROM, Normal Inspection. absent: Lymphadenopathy - Respiratory Exam Respiratory Exam: Decreased Breath Sounds - Cardiovascular Exam Cardiovascular Exam: REGULAR RHYTHM, +S1, +S2 - GI/Abdominal Exam GI & Abdominal Exam: Soft, Diminished Bowel Sounds - Rectal Exam Rectal Exam: Deferred
--- NOTE | 2018-10-16 17:34 | PN ---
DATE: 10/16/2018 SUBJECTIVE: The patient is fairly oriented to place. She denies any chest pain. She is comfortable breathing-borrero. PHYSICAL EXAMINATION: VITAL SIGNS: Blood pressure 107/72, heart rate 108, temperature 98, respirations 18. HEENT: Normocephalic. CHEST: Clear. HEART: S1 and S2 regular. Grade 4/6 ejection systolic murmur over left sternal border. ABDOMEN: Soft. EXTREMITIES: Improved leg edema. LABORATORY DATA: Yesterday's ammonia level was slightly elevated at 34. ASSESSMENT: 1. Status post syncopal episode and a fall. 2. Critical aortic stenosis. 3. Chronic renal insufficiency. 4, Cholelithiasis. 5. Altered mental status. RECOMMENDATIONS: I did review yesterday's EKG and although it was read as accelerated junctional risk, it is practically sinus tachycardia at rate of 110. Continue current aspirin 81 mg once a day, Plavix 75 mg once a day, Coreg 3.125 mg twice a day. Crestor is still on hold. The case will be discussed with the patient's son. The patient is a very poor candidate for invasive interventional cardiac workup. Shiv Montiel MD
[2018-10-16 18:56] VITALS: BP 106/70; PULSE 109; TEMP 97.3; O2SAT 100
--- NOTE | 2018-10-16 22:23 | CARD ---
APPROVED REPORT Date of service: 10/15/2018 EKG Measurement Heart [id number] <Conclusion> Accelerated Junctional rhythm Inferior infarct, age undetermined Anterior infarct, age undetermined Prolonged QT Abnormal ECG
--- NOTE | 2018-10-17 00:32 | PN ---
DATE: 10/16/2018 FOLLOWUP RENAL CONSULTATION LOCATION: The patient is located in room 672, bed A. REQUESTED BY: Shailesh Brunson MD REASON FOR FOLLOWUP: Acute renal failure on chronic kidney disease. HISTORY OF PRESENT ILLNESS: Mrs. Oro is an 88-year-old elderly obese female with a history of hypertension, hyperlipidemia, CAD, CHF, CKD, AFib, dementia, arthritis who was admitted. When she tried to get out of the bed, she slipped and she fell on the floor and unable to get back to the bed and admitted to the hospital for further evaluation. The patient was found to have increased BUN and creatinine. The patient was treated initially with IV hydration, and now the patient is off IV fluids and tolerating p.o. intake. No complaints. No shortness of breath. No chest pain. No palpitation. No fever. No cough. No abdominal pain. No nausea, vomiting, or diarrhea. PHYSICAL EXAMINATION: VITAL SIGNS: As follows: Blood pressure 107/72, pulse 108, respirations 18, temperature 98, saturation 97%. Height 5 feet 3 inches. Weight is 220 pounds. GENERAL: Mrs. Oro is an 88-year-old elderly female, well built, well nourished, not in distress. HEENT: Pupils normal and reactive to light and accommodation. Conjunctivae pink. Sclerae anicteric. Tongue is moist. Trachea is midline. LUNGS: Symmetric on both sides. Bilateral breath sounds present. Clear to auscultation. CARDIOVASCULAR SYSTEM: [place] at the fifth intercostal space, midclavicular line. S1 and S2 audible. The patient has ejection systolic murmur present. No gallop. ABDOMEN: Normal in appearance. Soft, tympanitic. No guarding. No rigidity. No hepatosplenomegaly. CENTRAL NERVOUS SYSTEM: The patient is alert, awake, oriented x2. Sensory and motor system is within normal limits. EXTREMITIES: No cyanosis. No clubbing. The patient has chronic skin changes in both lower extremities. CURRENT MEDICATIONS: Include as follows: Aspirin 81 mg daily, Coreg 3.125 mg p.o. b.i.d., Pepcid 20 mg p.o. daily, Plavix 75 mg p.o. daily, and calcitriol 0.25 mcg p.o. three times a week. LABORATORY DATA: As of 10/15/2018: H and H 11.5/37. Sodium 141, potassium 4.7, chloride 111, CO2 of 23, BUN 38, creatinine 2, glucose 108, calcium 9.2, phosphorus 3.6, magnesium 2.3. Total bilirubin 2.5, AST 120, ALT 208, alkaline phosphatase 278, total protein 7.8, albumin 3.7. ASSESSMENT AND PLAN: In summary, Mrs. Oro is an 88-year-old elderly obese female with a history of hypertension, hyperlipidemia, coronary artery disease, congestive heart failure, chronic kidney disease, status post coronary stent, atrial fibrillation, status post fall, no injuries. 1. Acute renal failure on chronic kidney disease. Renal function is slowly improving. Etiology is not clear. Rule out acute tubular necrosis versus intravascular depletion. 2. Abnormal liver function tests, rule out secondary to Crestor. Continue to monitor liver function tests. Now, antinuclear antibody and all the serology workup is within normal limits. 3. Hypertension. Blood pressure is stable. Continue Coreg. Repeat basic metabolic panel in a.m. The patient is stable from the renal standpoint to discharge to subacute rehabilitation. Case discussed with the nurse practitioner, Brian, in rounds. Alfred Lobato MD
--- NOTE | 2018-11-03 09:34 | DS ---
HOSPITAL COURSE: This patient was seen by me on admission and transfer to Dr. Montiel for catheterization, during my vacation. The patient is a 58-year-old who was admitted because the patient fell on the floor and was unable to get back to bed, and the patient was found to have the patient was somewhat unstable. At that time, the patient was admitted for evaluation. At that time, the blood pressure was 107/71, pulse 108, respirations 18 and temperature 97.8. The patient was refer to Dr. Montiel, catheterization and was covering me. The patient progressively has improved cardiac borrero, and also as per Renal, Dr. Lobato, the patient was good for discharge. The case was discussed with Dr. Lobato and the nurse practitioner, Brian, and the patient was sent to [facility]. This information was taken from the medical record. Shailesh Brunson MD
== END 2018-10-16 18:30 | DRG 280 ==
LOC: C.ER 07:13 → C.6T 09:09
PROVIDERS: ADMIT Specialist; ATTEND Specialist
DX: I21.4 Non-ST elevation (NSTEMI) myocardial infarction (principal); N17.0 Acute kidney failure with tubular necrosis; I13.0 Hypertensive heart and chronic kidney disease with heart failure and stage 1 through stage 4 chronic kidney disease, or unspecified chronic kidney disease; K80.21 Calculus of gallbladder without cholecystitis with obstruction; N25.81 Secondary hyperparathyroidism of renal origin; I25.10 Atherosclerotic heart disease of native coronary artery without angina pectoris; I35.0 Nonrheumatic aortic (valve) stenosis; I48.91 Unspecified atrial fibrillation; I50.9 Heart failure, unspecified; N18.3 Chronic kidney disease, stage 3 (moderate); Z86.73 Personal history of transient ischemic attack (TIA), and cerebral infarction without residual deficits; Z87.891 Personal history of nicotine dependence; Z95.5 Presence of coronary angioplasty implant and graft; R55 Syncope and collapse; E66.9 Obesity, unspecified; E78.00 Pure hypercholesterolemia, unspecified; E78.5 Hyperlipidemia, unspecified; E87.5 Hyperkalemia; F03.90 Unspecified dementia, unspecified severity, without behavioral disturbance, psychotic disturbance, mood disturbance, and anxiety; G89.29 Other chronic pain; R94.5 Abnormal results of liver function studies; M17.10 Unilateral primary osteoarthritis, unspecified knee; N27.0 Small kidney, unilateral

== ENCOUNTER 2018-10-20 18:28 | Inpatient (IN) | payer OTHER ==
[2018-10-20 18:28] VITALS: BMI 32.9
[2018-10-20 19:38] LABS: EOS # 0.1 K/uL (0.0-0.7)
[2018-10-20 19:41] LABS: HEMOGLOBIN 12.2 g/dL (11.0-16.0); LYMPH # 0.6 K/uL (1.0-4.3)
--- NOTE | 2018-10-20 19:53 | C.PDOC ---
History Of Present Illness 88 year old female with PMHx of Atrial Fibrillation, CAD, CHF, Dementia and HTN presents to the ED from the Long Term for altered mental status and poor PO intake. Patient was discharged on 10/15 for same presentation. HPI limited due to patient's clinical condition. Time Seen by Provider: 10/20/18 19:21 Chief Complaint (Nursing): Altered Mental Status History Per: Family, Other (NH ) History/Exam Limitations: Clinical Condition Onset/Duration Of Symptoms: Hrs Current Symptoms Are (Timing): Still Present Usual Baseline: Other (demented ) Associated Symptoms: Other (Poor PO intake ) Past Medical History Reviewed: Historical Data, Nursing Documentation, Vital Signs Vital Signs: Last Vital Signs Temp 97.1 F L 10/20/18 18:29 Pulse 79 10/20/18 18:29 Resp 19 10/20/18 18:29 BP 113/89 10/20/18 18:29 Pulse Ox - Medical History PMH: Anemia, Arthritis, Atrial Fibrillation, CAD, CHF, Dementia, HTN, Hypercholesterolemia Denies: Chronic Kidney Disease Surgical History: Coronary Stent - [facility] Procedures CENTRAL VENOUS CATHETER PLACEMENT WITH GUIDANCE (02/04/15) PACKED CELL TRANSFUSION (03/08/15) Family History: States: No Known Family Hx - Social History Hx Tobacco Use: No Hx Alcohol Use: No Hx Substance Use: No - Immunization History Hx Tetanus Toxoid Vaccination: No Hx Influenza Vaccination: No Hx Pneumococcal Vaccination: No Review Of Systems Review Of Systems: ROS cannot be obtained secondary to pt's inabilty to answer questions. Physical Exam - Physical Exam Appears: Non-toxic, No Acute Distress, Other (elderly black female, obese ) Skin: Warm, Dry, No Rash Head: Normacephalic Eye(s): bilateral: Normal Inspection Nose: Normal Oral Mucosa: Moist Neck: Supple Chest: Symmetrical Cardiovascular: Rhythm Regular Respiratory: Normal Breath Sounds, No Rales, No Rhonchi, No Wheezing Neurological/Psych: Other (stuporous, arousable to painful stimuli, somnolent, (-) facial droop ) ED Course And Treatment - Laboratory Results Result Diagrams: 10/20/18 19:32 10/20/18 20:23 Lab Interpretation: Abnormal (+ elev K+, BUN/Creat elev from 10/15,) ECG: Interpreted By Or ECG Rhythm: Sinus Rhythm ECG Interpretation: Abnormal Rate From EC O2 Sat by Pulse Oximetry: 100 (RA) Pulse Ox Interpretation: Normal - Radiology CXR: Interpreted by Me - CT Scan/US CT Head Other Rad Studies (CT/US): Read By Radiologist, Radiology Report Reviewed CT/US Interpretation: IMPRESSION: 1. There is generalized parenchymal atrophy noted as demonstrated by symmetrical dilatation of ventricles and sulci. 2. Chronic periventricular and subcortical microvascular disease is seen. 3. 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 4. No acute intracranial pathology. CTA Other Rad Studies (CT/US): Read By Radiologist, Radiology Report Reviewed CT/US Interpretation: IMPRESSION: 1. Diffuse atherosclerotic changes present throughout bilateral carotid system, [place] and branches. 2. Heavy atherosclerotic plaque is present in the origin, proximal segment of the right ICA with high-grade stenosis estimated at greater than 70%. Consultation with vascular surgery service is recommended. 3. Atherosclerotic plaque is present in the proximal segment of the left ICA with moderate stenosis estimated at 40- 60%. Reevaluation Time: 21:10 Reassessment Condition: Unchanged - Physician Consult Information Outcome Of Conversation: 2000: d/w son, Venkat Oro, DNR per pt wishes. 2100: d/w Dr. Ramon Alberto, covering pts for Dr. Brunson, labs reviewed, ok for ICU. 2100: d/w Dr. Chaney, ICU, ok to ICU, understands pt DNR but NGT permissable Central Line Placement - Central Line Placement Indication: Emergent IV Access Central Line Placement: Right: Femoral The Area Was Thoroughly Prepared With: Betadine Area Was Locally Anesthetized With: Lidocaine 1% Procedure: Triple Lumen NIHSS Stroke Scale 2 - Date/Time Evaluation Performed Date Performed: 10/20/18 Time Performed: 19:15 When Was NIHSS Performed: Code Stroke - How Severe is the Stroke Level of Consciousness: 2=Obtunded LOC to Questions: 2=Neither correct LOC to commands: 2=Neither correct Best Gaze: 0=Normal Visual: 0=No visual loss Facial: 0=Normal Motor Arm - Left: 0=No drift Motor Arm - Right: 0=No drift Motor Leg - Left: 0=No drift Motor Leg - Right: 0=No drift Limb Ataxia: 0=Absent Sensory: 0=Normal Best Language: 3=Mute Dysarthia: 0=Normal articulation Extinction & Inattention (Neglect): 0=Normal, no object Score: 9 rTPA Inclusion/Exclusion - Refusal of Treatment Patient Refused Treatment: No - Inclusion Criteria for Altepase Patient is 18 years or Older: Yes Clinical DX Ischemic Stroke Cause Neurological Deficit: No Time of Onset Established Less Than 270 Mins Before TX Begin: No Risk/Benefit Discussed With Patient/Family Member Present: No - Warning to TPA With Conditions Additional Condition (For 3-4.5 Hour Window): Age Greater Than 80 Medical Decision Making Medical Decision Making: Plan - Bloodwork - CT Head - CTA head - EKG - CXR - IV Fluids - Insulin 10mg IVP - Dextrose 50mg IV - Calcium Gluconate IVP dehydration, renal failure, acute on chronic, NSTEMI, bradycardia, diminished mental status recent eval for same, d/c home 10/15 Disposition Doctor Will See Patient In The: Hospital Counseled Patient/Family Regarding: Studies Performed, Diagnosis - Disposition Disposition: HOME/ ROUTINE Disposition Time: 21:18 Condition: GUARDED - Clinical Impression Clinical Impression: NSTEMI (non-ST elevated myocardial infarction), Acute renal failure, Acute hyperkalemia - Scribe Statement The provider has reviewed the documentation as recorded by the Scribe Zeina Piedra All medical record entries made by the Scribe were at my direction and personally dictated by me. I have reviewed the chart and agree that the record accurately reflects my personal performance of the history, physical exam, medical decision making, and the department course for this patient. I have also personally directed, reviewed, and agree with the discharge instructions and disposition.
[2018-10-20] MEDS ORDERED: Iodixanol 320 MG/ML 100 ML BOTTLE IV ONE (19:55)
[2018-10-20 20:00] LABS: BASO % 0.5 % (0.0-2.0); LYMPH % 8.1 % (20.0-40.0); MEAN CORPUSCULAR HEMOGLOBIN 29.7 pg (27.0-31.0); MEAN CORPUSCULAR HGB CONC 30.3 g/dL (33.0-37.0); MONO # 0.8 K/uL (0.0-0.8); NEUT # 6.1 K/uL (1.8-7.0); NEUT % 79.4 % (50.0-75.0); NRBC % 26.3 % (0.0-2.0); RED CELL DISTRIBUTION WIDTH 19.8 % (11.5-14.5); WHITE BLOOD COUNT 7.7 K/uL (4.8-10.8)
[2018-10-20 20:01] LABS: PLATELET COUNT 79 K/uL (130-400)
[2018-10-20 20:07] LABS: LYMPHOCYTE 9 % (20-40); MONOCYTE 10 % (0-10); NEUTROPHIL 81 % (50-75); NUCLEATED RED BLOOD CELL 19 % (0-0); TOTAL CELLS COUNTED 100
[2018-10-20 20:08] LABS: ANISOCYTOSIS SLIGHT; BURR CELLS SLIGHT; PLATELET ESTIMATE DECREASED (NORMAL); POIKILOCYTOSIS SLIGHT
[2018-10-20] MEDS: Sodium Chloride 0.9% 1,000 ML IV SCH (20:16)
[2018-10-20 20:18] LABS: VENOUS BLOOD GAS BASE EXCESS -12.3 mmol/L (0.0-2.0); VENOUS BLOOD GAS PCO2 55 mmHg (40-60); VENOUS BLOOD GAS PO2 38 mm/Hg (30-55); VENOUS BLOOD PH 7.11 (7.32-7.43)
[2018-10-20] MEDS ORDERED: Sodium Chloride 0.9% 1,000 ML ONE (20:18)
[2018-10-20 20:30] LABS: ALB/GLOB RATIO 0.9 (1.0-2.1); ALBUMIN 3.5 g/dL (3.5-5.0); CALCIUM 8.4 mg/dl (8.6-10.4)
[2018-10-20 20:31] LABS: TROPONIN I 0.33 ng/mL (0.00-0.120)
[2018-10-20] MEDS ORDERED: Sodium Chloride 0.9% 1,000 ML IV ONE (20:37)
[2018-10-20] MEDS ORDERED: (Novolin R) Insulin Human Regular 100 units/ml vial IVP STA (20:38)
[2018-10-20] MEDS ORDERED: (Novolin R) Insulin Human Regular 100 units/ml vial ONE (21:14)
[2018-10-20] MEDS ORDERED: Calcium Gluconate 4.65 mEq/10 ml Inj ONE (21:15)
[2018-10-20] MEDS ORDERED: Sodium Bicarbonate (8.4%) 50 Meq Syringe ONE (21:16)
[2018-10-20] MEDS ORDERED: Dextrose 50% SYRINGE Inj (50 ml) ONE (21:16)
[2018-10-20] MEDS: Calcium Gluconate 4.65 MEQ in Dextrose 5% In Water 100 ML IVP STA ×2 (21:17→22:36)
[2018-10-20] MEDS: Dextrose 50% SYRINGE Inj (50 ml) IV STA ×2 (21:17→22:36)
[2018-10-20 22:09] LABS: HDL CHOLESTEROL 17 mg/dL (30-70)
[2018-10-20 22:19] LABS: LDL CHOLESTEROL 110 mg/dL (0-129)
[2018-10-20] MEDS ORDERED: Sodium Bicarbonate (8.4%) 50 Meq Syringe IVP ONE (23:00)
[2018-10-20] MEDS ORDERED: Sodium Bicarbonate (8.4%) 50 Meq Syringe IVP STA ×2 (23:04→23:05)
[2018-10-20] MEDS ORDERED: Sodium Bicarbonate 8.4% 150 MEQ in Dextrose 5% In Water 1,000 ML IV SCH ×2 (23:30→23:45)
[2018-10-21 00:57] LABS: VENOUS BLOOD GAS BASE EXCESS -7.7 mmol/L (0.0-2.0); VENOUS BLOOD GAS PCO2 55 mmHg (40-60); VENOUS BLOOD GAS PO2 30 mm/Hg (30-55); VENOUS BLOOD PH 7.19 (7.32-7.43)
[2018-10-21 01:11] LABS: ALB/GLOB RATIO 0.9 (1.0-2.1); CALCIUM 8.1 mg/dl (8.6-10.4)
[2018-10-21 01:44] LABS: BASO % 0.3 % (0.0-2.0); EOS % 0.3 % (0.0-4.0); HEMOGLOBIN 10.5 g/dL (11.0-16.0); LYMPH # 0.5 K/uL (1.0-4.3); LYMPH % 4.9 % (20.0-40.0); MEAN CELL VOLUME 98.2 fL (81.0-99.0); MEAN CORPUSCULAR HEMOGLOBIN 29.8 pg (27.0-31.0); MEAN CORPUSCULAR HGB CONC 30.4 g/dL (33.0-37.0); MEAN PLATELET VOLUME 10.1 fL (7.2-11.7); MONO # 1.2 K/uL (0.0-0.8); MONO % 11.9 % (0.0-10.0); NEUT % 82.6 % (50.0-75.0); NRBC % 24.7 % (0.0-2.0); PLATELET COUNT 75 K/uL (130-400); RBC 3.51 Mil/uL (3.80-5.20); WHITE BLOOD COUNT 9.7 K/uL (4.8-10.8)
[2018-10-21] MEDS ORDERED: Sodium Bicarbonate (8.4%) 50 Meq Syringe IV SCH (01:45)
[2018-10-21] MEDS: Sodium Bicarbonate 8.4% 150 MEQ in Dextrose 5% In Water 1,000 ML IV SCH ×2 (02:00→10:30)
[2018-10-21 03:18] LABS: ANISOCYTOSIS MODERATE; LYMPHOCYTE 5 % (20-40); MONOCYTE 8 % (0-10); NEUTROPHIL 87 % (50-75); NUCLEATED RED BLOOD CELL 18 % (0-0); PLATELET ESTIMATE DECREASED (NORMAL); POLYCHROMIC SLIGHT; TOTAL CELLS COUNTED 100
[2018-10-21 05:55] LABS: ABG ALLEN TEST POS; ARTERIAL BLOOD GAS HCO3 19.8 mmol/L (21-28); ARTERIAL BLOOD GAS HEMOGLOBIN 8.3 g/dL (11.7-17.4); ARTERIAL BLOOD GAS O2 SAT 100.9 % (95-98); ARTERIAL BLOOD GAS PCO2 42 mm/Hg (35-45); ARTERIAL BLOOD GAS PH 7.28 (7.35-7.45); ARTERIAL BLOOD GAS PO2 114 mm/Hg (80-100)
[2018-10-21] MEDS: Sodium Chloride 0.9% 1,000 ML IV SCH (06:24)
[2018-10-21 06:34] LABS: BASO % 0.3 % (0.0-2.0); EOS % 0.1 % (0.0-4.0); HEMOGLOBIN 9.9 g/dL (11.0-16.0); LYMPH # 0.3 K/uL (1.0-4.3); LYMPH % 2.9 % (20.0-40.0); MEAN CELL VOLUME 97.5 fL (81.0-99.0); MEAN CORPUSCULAR HEMOGLOBIN 29.8 pg (27.0-31.0); MEAN CORPUSCULAR HGB CONC 30.5 g/dL (33.0-37.0); MEAN PLATELET VOLUME 10.1 fL (7.2-11.7); MONO # 1.7 K/uL (0.0-0.8); MONO % 17.6 % (0.0-10.0); NEUT # 7.7 K/uL (1.8-7.0); NEUT % 79.1 % (50.0-75.0); NRBC % 18.7 % (0.0-2.0); PLATELET COUNT 84 K/uL (130-400); RBC 3.31 Mil/uL (3.80-5.20); RED CELL DISTRIBUTION WIDTH 19.1 % (11.5-14.5); WHITE BLOOD COUNT 9.7 K/uL (4.8-10.8)
[2018-10-21 07:03] LABS: ALB/GLOB RATIO 0.9 (1.0-2.1); CALCIUM 7.9 mg/dl (8.6-10.4)
--- NOTE | 2018-10-21 07:57 | CP.PCM.CON ---
History of Present Illness - History of Present Illness History of Present Illness: 88 F with h/o recent hospitaliztion with renal insufficiency, severe , deconditioning, mild elevated troponins was discharged to [place]. She was noticed to be poorly responding, lethargic. In ER she was tachypninc exhausted, hypotensive, bradycardic, initial labs showed, ph of 7, k 7.2, lactic acidosis, transaminitis. In ER femoral TLC done on the right side. In ER code status discussed with the family who advised no aggressive treatments including HD, vent, or cpr. Acidosis was controlled with bicarb in dextrose, to also stimulate endogenous insulin secretion which helped to reduce potassium. BP, HR improved exhausition reduced with bipap, now patient is able to respond with opening the eyes on calling. PMH as above Allergies NKDA Family history not contributory Meds reviewed Code status DNR Review of Systems - Review of Systems Review of Systems: HPI Past Patient History - Infectious Disease Hx of Infectious Diseases: None - Tetanus Immunizations Tetanus Immunization: Unknown - Past Medical History & Family History Past Medical History?: Yes - Past Social History Smoking Status: unknown Alcohol: None Home Situation {Lives}: Long-Term Domestic Violence: Negative - CARDIAC Hx Atrial Fibrillation: Yes Hx Congestive Heart Failure: Yes Hx Hypercholesterolemia: Yes Hx Hypertension: Yes - PULMONARY Hx Respiratory Disorders: No - NEUROLOGICAL Hx Dementia: Yes - HEENT Hx HEENT Problems: Yes Hx Cataracts: Yes Hx Glaucoma: Yes - RENAL Hx Chronic Kidney Disease: No - ENDOCRINE/METABOLIC Hx Endocrine Disorders: No - HEMATOLOGICAL/ONCOLOGICAL Hx Anemia: Yes - INTEGUMENTARY Hx Dermatological Problems: Yes - MUSCULOSKELETAL/RHEUMATOLOGICAL Hx Arthritis: Yes - GASTROINTESTINAL Hx Gastrointestinal Disorders: Yes Hx Constipation: Yes - GENITOURINARY/GYNECOLOGICAL Hx Genitourinary Disorders: Yes Hx Incontinence: Yes - PSYCHIATRIC Hx Substance Use: No - SURGICAL HISTORY Hx Coronary Stent: Yes - ANESTHESIA Hx Anesthesia: Yes Hx Anesthesia Reactions: No Hx Malignant Hyperthermia: No Meds Allergies/Adverse Reactions: Allergies Allergy/AdvReac Type Severity Reaction Status Date / Time No Known Allergies Allergy Verified 10/20/18 18:36 - Medications Medications: Current Medications Famotidine (Pepcid) 20 mg IVP DAILY [facility] Heparin Sodium (Porcine) (Heparin) 5,000 units SC Q12 SANDI Sodium Chloride (Sodium Chloride 0.9%) 1,000 mls @ 100 mls/hr IV .Q10H [facility] Last Admin: 10/21/18 06:24 Dose: Not Given Sodium Bicarbonate 150 meq/ (Dextrose) 1,150 mls @ 150 mls/hr IV .Q7H40M [facility] Last Admin: 10/21/18 02:00 Dose: 150 mls/hr Sodium Bicarbonate (Sodium Bicarbonate (8.4%) 50 Meq Syringe) 150 meq IV CONT SANDI Physical Exam - Additional Findings Additional findings: * HEENT JAVI * Neck supple * Chest Clear * CVS regular, bradycardia 45-70 * PA soft * Ext edematous lower ext * 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 * Skin reduced turgor. Results - Vital Signs Recent Vital Signs: Last Vital Signs Temp 97.7 F 10/21/18 04:00 Pulse 70 10/21/18 06:28 Resp 14 10/21/18 05:59 BP 107/54 L 10/21/18 05:59 Pulse Ox 96 10/21/18 05:59 - Labs Result Diagrams: 10/21/18 06:23 10/21/18 06:23 Labs: Laboratory Results - last 24 hr 10/20/18 10/20/18 10/20/18 18:30 19:32 19:32 WBC 7.7 RBC 4.10 Hgb 12.2 Hct 40.1 MCV 98.0 D MCH 29.7 MCHC 30.3 L RDW 19.8 H Plt Count 79 L D MPV 10.0 Neut % (Auto) 79.4 H Lymph % (Auto) 8.1 L [place] % (Auto) 11.0 H Eos % (Auto) 1.0 Baso % (Auto) 0.5 Neut # (Auto) 6.1 Lymph # (Auto) 0.6 L Churchill # (Auto) 0.8 Eos # (Auto) 0.1 Baso # (Auto) 0.0 Neutrophils % (Manual) 81 H Lymphocytes % (Manual) 9 L Monocytes % (Manual) 10 Nucleated RBC % 19 H Platelet Estimate Decreased L Polychromasia Poikilocytosis (manual Slight Anisocytosis (manual) Slight Macrocytosis (manual) Slight [place] Cells Slight Puncture Site pCO2 pO2 HCO3 ABG pH ABG Total CO2 ABG O2 Saturation ABG Base Excess ABG Hemoglobin ABG Carboxyhemoglobin POC ABG HHb (Measured) ABG Methemoglobin Jason Test VBG pH VBG pCO2 VBG HCO3 VBG Total CO2 VBG O2 Sat (Calc) VBG Base Excess VBG Potassium A-a O2 Difference Respiratory Index Hgb O2 Saturation Sodium Chloride Glucose Lactate Liter Flow Vent Mode FiO2 Inspiratory BiPAP Expiratory BiPAP Crit Value Called To Crit Value Called By Crit Value Read Back Blood Gas Notified Time Potassium Carbon Dioxide Anion Gap BUN Creatinine Est GFR ( Amer) Est GFR (Non-Af Amer) POC Glucose (mg/dL) 131 H Random Glucose Hemoglobin A1c 5.3 Lactic Acid Calcium Phosphorus Magnesium Total Bilirubin AST ALT Alkaline Phosphatase Troponin I Total Protein Albumin Globulin Albumin/Globulin Ratio Triglycerides Cholesterol LDL Cholesterol Direct HDL Cholesterol Venous Blood Potassium Blood Type Antibody Screen 10/20/18 10/20/18 10/20/18 20:10 20:23 21:54 WBC RBC Hgb Hct MCV MCH MCHC RDW Plt Count MPV Neut % (Auto) Lymph % (Auto) [place] % (Auto) Eos % (Auto) Baso % (Auto) Neut # (Auto) Lymph # (Auto) [place] # (Auto) Eos # (Auto) Baso # (Auto) Neutrophils % (Manual) Lymphocytes % (Manual) Monocytes % (Manual) Nucleated RBC % Platelet Estimate Polychromasia Poikilocytosis (manual Anisocytosis (manual) Macrocytosis (manual) [place] Cells Puncture Site pCO2 pO2 38 HCO3 ABG pH ABG Total CO2 ABG O2 Saturation ABG Base Excess ABG Hemoglobin ABG Carboxyhemoglobin POC ABG HHb (Measured) ABG Methemoglobin Jason Test VBG pH 7.11 L* VBG pCO2 55 VBG HCO3 14.1 VBG Total CO2 19.2 L VBG O2 Sat (Calc) 69.9 H VBG Base Excess -12.3 L VBG Potassium 6.7 H* A-a O2 Difference Respiratory Index Hgb O2 Saturation Sodium 144.0 141 Chloride 114.0 H 112 H Glucose 113 H Lactate 3.4 H Liter Flow Vent Mode FiO2 21.0 Inspiratory BiPAP Expiratory BiPAP Crit Value Called To Dr skelton Crit Value Called By [facility] Crit Value Read Back Y Blood Gas Notified Time 2017 Potassium 7.2 H* D Carbon Dioxide 14 L Anion Gap 22 H BUN 101 H* D Creatinine 7.2 H Est GFR ( Amer) 6 Est GFR (Non-Af Amer) 5 POC Glucose (mg/dL) Random Glucose 127 H Hemoglobin A1c Lactic Acid Calcium 8.4 L Phosphorus Magnesium Total Bilirubin 6.2 H AST 1025 H ALT 983 H D Alkaline Phosphatase 266 H Troponin I 0.3300 H* Total Protein 7.6 Albumin 3.5 Globulin 4.1 H Albumin/Globulin Ratio 0.9 L Triglycerides Cancelled 142 D Cholesterol Cancelled 150 LDL Cholesterol Direct Cancelled 110 HDL Cholesterol Cancelled 17 L Venous Blood Potassium 6.7 H* Blood Type Antibody Screen 10/21/18 10/21/18 10/21/18 00:41 00:41 00:41 WBC 9.7 RBC 3.51 L Hgb 10.5 L Hct 34.5 MCV 98.2 MCH 29.8 MCHC 30.4 L RDW 20.0 H Plt Count 75 L MPV 10.1 Neut % (Auto) 82.6 H Lymph % (Auto) 4.9 L [place] % (Auto) 11.9 H Eos % (Auto) 0.3 Baso % (Auto) 0.3 Neut # (Auto) 8.0 H Lymph # (Auto) 0.5 L [place] # (Auto) 1.2 H Eos # (Auto) 0.0 Baso # (Auto) 0.0 Neutrophils % (Manual) 87 H Lymphocytes % (Manual) 5 L Monocytes % (Manual) 8 Nucleated RBC % 18 H Platelet Estimate Decreased L Polychromasia Slight Poikilocytosis (manual Anisocytosis (manual) Moderate Macrocytosis (manual) Moderate [place] Cells Puncture Site pCO2 pO2 HCO3 ABG pH ABG Total CO2 ABG O2 Saturation ABG Base Excess ABG Hemoglobin ABG Carboxyhemoglobin POC ABG HHb (Measured) ABG Methemoglobin Jason Test VBG pH VBG pCO2 VBG HCO3 VBG Total CO2 VBG O2 Sat (Calc) VBG Base Excess VBG Potassium A-a O2 Difference Respiratory Index Hgb O2 Saturation Sodium Chloride Glucose Lactate Liter Flow Vent Mode FiO2 Inspiratory BiPAP Expiratory BiPAP Crit Value Called To Crit Value Called By Crit Value Read Back Blood Gas Notified Time Potassium Carbon Dioxide Anion Gap BUN Creatinine Est GFR ( Amer) Est GFR (Non-Af Amer) POC Glucose (mg/dL) Random Glucose Hemoglobin A1c 5.3 Lactic Acid Calcium Phosphorus Magnesium Total Bilirubin AST ALT Alkaline Phosphatase Troponin I Total Protein Albumin Globulin Albumin/Globulin Ratio Triglycerides Cholesterol LDL Cholesterol Direct HDL Cholesterol Venous Blood Potassium Blood Type O POSITIVE Antibody Screen Negative 10/21/18 10/21/18 10/21/18 00:41 00:53 05:45 WBC RBC Hgb Hct MCV MCH MCHC RDW Plt Count MPV Neut % (Auto) Lymph % (Auto) [place] % (Auto) Eos % (Auto) Baso % (Auto) Neut # (Auto) Lymph # (Auto) [place] # (Auto) Eos # (Auto) Baso # (Auto) Neutrophils % (Manual) Lymphocytes % (Manual) Monocytes % (Manual) Nucleated RBC % Platelet Estimate Polychromasia Poikilocytosis (manual Anisocytosis (manual) Macrocytosis (manual) [place] Cells Puncture Site Rr pCO2 42 pO2 30 114 H HCO3 19.8 L ABG pH 7.28 L ABG Total CO2 21.0 L ABG O2 Saturation 100.9 H ABG Base Excess -6.6 L ABG Hemoglobin 8.3 L ABG Carboxyhemoglobin 3.7 H POC ABG HHb (Measured) -0.9 L ABG Methemoglobin 0.0 Jason Test Pos VBG pH 7.19 L* VBG pCO2 55 VBG HCO3 17.4 VBG Total CO2 22.7 VBG O2 Sat (Calc) 56.4 VBG Base Excess -7.7 L VBG Potassium 6.1 H A-a O2 Difference 119.0 Respiratory Index 1.0 Hgb O2 Saturation 97.2 Sodium 145 146.0 Chloride 108 H 111.0 H Glucose 236 H Lactate 5.9 H* Liter Flow 3.0 Vent Mode Bipap FiO2 40.0 Inspiratory BiPAP 12 Expiratory BiPAP 5 Crit Value Called To Kena gomez 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 Crit Value Read Back Y Blood Gas Notified Time 57 Potassium 6.4 H* Carbon Dioxide 22 Anion Gap 22 H BUN 100 H* Creatinine 7.0 H Est GFR ( Amer) 7 Est GFR (Non-Af Amer) 6 POC Glucose (mg/dL) Random Glucose 216 H D Hemoglobin A1c Lactic Acid Calcium 8.1 L Phosphorus 7.8 H Magnesium 2.6 H Total Bilirubin 7.3 H AST 926 H ALT 871 H Alkaline Phosphatase 239 H Troponin I Total Protein 6.5 Albumin 3.0 L Globulin 3.4 Albumin/Globulin Ratio 0.9 L Triglycerides Cholesterol LDL Cholesterol Direct HDL Cholesterol Venous Blood Potassium 6.1 H Blood Type Antibody Screen 10/21/18 10/21/18 10/21/18 06:23 06:23 06:23 WBC 9.7 RBC 3.31 L Hgb 9.9 L Hct 32.3 L MCV 97.5 MCH 29.8 MCHC 30.5 L RDW 19.1 H Plt Count 84 L MPV 10.1 Neut % (Auto) 79.1 H Lymph % (Auto) 2.9 L [place] % (Auto) 17.6 H Eos % (Auto) 0.1 Baso % (Auto) 0.3 Neut # (Auto) 7.7 H Lymph # (Auto) 0.3 L [place] # (Auto) 1.7 H Eos # (Auto) 0.0 Baso # (Auto) 0.0 Neutrophils % (Manual) Lymphocytes % (Manual) Monocytes % (Manual) Nucleated RBC % Platelet Estimate Polychromasia Poikilocytosis (manual Anisocytosis (manual) Macrocytosis (manual) [place] Cells Puncture Site pCO2 pO2 HCO3 ABG pH ABG Total CO2 ABG O2 Saturation ABG Base Excess ABG Hemoglobin ABG Carboxyhemoglobin POC ABG HHb (Measured) ABG Methemoglobin Jason Test VBG pH VBG pCO2 VBG HCO3 VBG Total CO2 VBG O2 Sat (Calc) VBG Base Excess VBG Potassium A-a O2 Difference Respiratory Index Hgb O2 Saturation Sodium 144 Chloride 105 Glucose Lactate Liter Flow Vent Mode FiO2 Inspiratory BiPAP Expiratory BiPAP Crit Value Called To Crit Value Called By Crit Value Read Back Blood Gas Notified Time Potassium 5.3 H Carbon Dioxide 24 Anion Gap 20 BUN 104 H* Creatinine 6.7 H Est GFR ( Amer) 7 Est GFR (Non-Af Amer) 6 POC Glucose (mg/dL) Random Glucose 208 H Hemoglobin A1c Lactic Acid 5.1 H* Calcium 7.9 L Phosphorus 6.8 H Magnesium 2.5 H Total Bilirubin 6.6 H AST 870 H ALT 859 H Alkaline Phosphatase 216 H Troponin I Total Protein 6.5 Albumin 3.0 L Globulin 3.5 Albumin/Globulin Ratio 0.9 L Triglycerides Cholesterol LDL Cholesterol Direct HDL Cholesterol Venous Blood Potassium Blood Type Antibody Screen Assessment & Plan - Assessment and Plan (Free Text) Assessment: * Severe deconditioning * KENNY * Hyperkalemia * Severe * KENNY likely form #4 and poor dehydration * Transaminitis likely form #5 * DNR/DNI/no HD * right femoral tlc Plan: * Supportive care with IVF bicarb drip to control acidosis and once potassium improves may down grade form ICU * Poor prognosis due to severe deconditioning, severe , with poor perfusion to liver and kidney leading to acute organ failure * DNR/DNI/no HD as per the family * Suggest comfort care, will discuss with family. * See orders for detail.
[2018-10-21 08:31] LABS: BANDS 3 % (0-2); LYMPHOCYTE 3 % (20-40); MONOCYTE 16 % (0-10); NEUTROPHIL 78 % (50-75); NUCLEATED RED BLOOD CELL 9 % (0-0); PLATELET ESTIMATE DECREASED (NORMAL); TOTAL CELLS COUNTED 100
[2018-10-21 08:32] LABS: ANISOCYTOSIS MODERATE; HYPOCHROMIC SLIGHT; POLYCHROMIC SLIGHT; TARGET CELLS SLIGHT
[2018-10-21 08:34] LABS: LARGE PLATELETS PRESENT
--- NOTE | 2018-10-21 09:06 | CT ---
Date of service: 10/20/2018 PROCEDURE: CT HEAD WITHOUT CONTRAST. HISTORY: Code Stroke COMPARISON: Noncontrast head CT performed 10/10/18 TECHNIQUE: Axial computed tomography images were obtained through the head/brain without intravenous contrast. Radiation dose: Total exam DLP = 1154.91 mGy-cm. This CT exam was performed using one or more of the following dose reduction techniques: Automated exposure control, adjustment of the mA and/or kV according to patient size, and/or use of iterative reconstruction technique. FINDINGS: Streak artifact obscures evaluation of the skull base. HEMORRHAGE: No intracranial hemorrhage. BRAIN: Diffuse atrophy with prominence of the ventricles and sulci noted. No mass effect or edema. Intracranial atherosclerosis. Scattered periventricular and subcortical white matter hypodensities, which are nonspecific, but often seen with chronic microvascular ischemic disease. Left occipital lobe encephalomalacia with ex vacuo dilatation of the left lateral ventricle consistent with remote infarction. Please note that MRI with diffusion imaging is more sensitive in the detection of acute ischemic event. VENTRICLES: No hydrocephalus. CALVARIUM: Unremarkable. PARANASAL SINUSES: Unremarkable as visualized. No significant inflammatory changes. MASTOID AIR CELLS: Unremarkable as visualized. No inflammatory changes. OTHER FINDINGS: None. IMPRESSION: Streak artifact obscures evaluation of the skull base. Nonspecific white matter changes. Left occipital encephalomalacia. Generalized volume loss. Preliminary impression was provided by Geni.
--- NOTE | 2018-10-21 09:11 | RAD ---
HISTORY: Code Stroke COMPARISON: Chest x-ray performed 10/09/18 TECHNIQUE: Chest, one view. FINDINGS: Examination limited by habitus and hypoinflation. LUNGS: Bibasilar atelectasis. Prominent interstitial markings may represent vascular crowding from hypoinflation rather than pulmonary venous congestion. Please note that chest x-ray has limited sensitivity for the detection of pulmonary masses. PLEURA: No significant pleural effusion identified. No definite pneumothorax . CARDIOVASCULAR: Cardiomegaly. Ectatic aorta. Atherosclerotic calcifications of the aorta. OSSEOUS STRUCTURES: Deformity of the humeral heads, partially imaged on the right. VISUALIZED UPPER ABDOMEN: Unremarkable. OTHER FINDINGS: None. IMPRESSION: Bibasilar atelectasis. Prominent interstitial markings may represent vascular crowding from hypoinflation rather than pulmonary venous congestion. Correlate clinically. Cardiomegaly. Study marked for PA review.
[2018-10-21] MEDS ORDERED: Naloxone 0.4 mg/ml Inj (Adult) ONE (09:52)
[2018-10-21] MEDS ORDERED: Naloxone 0.4 mg/ml Inj (Adult) IVP ONE (10:01)
[2018-10-21] MEDS ORDERED: Sodium Bicarbonate 8.4% 150 MEQ in Dextrose 5% In Water 1,000 ML IV SCH (10:11)
--- NOTE | 2018-10-21 11:42 | CP.PCM.PN ---
Subjective - Date & Time of Evaluation Date of Evaluation: 10/21/18 Time of Evaluation: 11:40 - Subjective Subjective: Patient seen and examined at bedside. patient currently on bi-pap, drowsy, opens eyes Objective - Vital Signs/Intake and Output Vital Signs (last 24 hours): Temp Pulse Resp BP Pulse Ox 96.4 F L 69 9 L 103/85 98 10/21/18 08:00 10/21/18 09:58 10/21/18 09:58 10/21/18 10:00 10/21/18 09:58 Intake and Output: 10/21/18 10/21/18 06:59 18:59 Intake Total 1600 450 Output Total 0 0 Balance 1600 450 - Medications Medications: Current Medications Famotidine (Pepcid) 20 mg IVP DAILY [facility] Last Admin: 10/21/18 10:04 Dose: 20 mg Heparin Sodium (Porcine) (Heparin) 5,000 units SC Q12 [facility] Last Admin: 10/21/18 10:18 Dose: 5,000 units Sodium Bicarbonate 150 meq/ (Dextrose) 1,150 mls @ 50 mls/hr IV .Q23H [facility] Last Admin: 10/21/18 10:44 Dose: 50 mls/hr Sodium Bicarbonate (Sodium Bicarbonate (8.4%) 50 Meq Syringe) 150 meq IV CONT SANDI - Labs Labs: 10/21/18 06:23 10/21/18 06:23 - Head Exam Head Exam: ATRAUMATIC, NORMAL INSPECTION, NORMOCEPHALIC - Respiratory Exam Respiratory Exam: Clear to Ausculation Bilateral, NORMAL BREATHING PATTERN - Cardiovascular Exam Cardiovascular Exam: REGULAR RHYTHM, +S1, +S2, Murmur - Neurological Exam Neurological Exam: Alert - Skin Skin Exam: Normal Color, Warm Assessment and Plan - Assessment and Plan (Free Text) Assessment: Hypercapneic respiratory failure: continue bi-pap, avoid sedation, continue bronchodilators, obesity hypoventilation system -KENNY/CKD: continue gently hydration as at risk of pulmonary congestion with -/CAD; continue antiplatelet therapy, cardiology input -continue dvt/pud ppx goals of care DNR/DNI AVOID sedating medications
--- NOTE | 2018-10-21 12:28 | CP.PCM.CON ---
History of Present Illness - History of Present Illness History of Present Illness: 88 yr old woman who was found by son to be slumping over in bed, with altered mental status, who was initially called as a code stroke. She was determined to not be a TPA candidate, in renal failure and DKA, and now is in ICU. 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 No new lesions are seen. She is currently arousable and moving all extremities. ROS: cannot obtain. PMH/PSH FH/SH All: On exam: Arouses to sternal rub, and opens eyes. PERRL. EOMI. + dolls eyes, + corneals, +gag does not follow commands. moves all extremities. No weakness perceived. +2 dtr ul and ll bl. Toes downgoing ,No clonus. Past Patient History - Infectious Disease Hx of Infectious Diseases: None - Tetanus Immunizations Tetanus Immunization: Unknown - Past Medical History & Family History Past Medical History?: Yes - Past Social History Smoking Status: unknown Alcohol: None Home Situation {Lives}: Longterm Domestic Violence: Negative - CARDIAC Hx Atrial Fibrillation: Yes Hx Congestive Heart Failure: Yes Hx Hypercholesterolemia: Yes Hx Hypertension: Yes - PULMONARY Hx Respiratory Disorders: No - NEUROLOGICAL Hx Dementia: Yes - HEENT Hx HEENT Problems: Yes Hx Cataracts: Yes Hx Glaucoma: Yes - RENAL Hx Chronic Kidney Disease: No - ENDOCRINE/METABOLIC Hx Endocrine Disorders: No - HEMATOLOGICAL/ONCOLOGICAL Hx Anemia: Yes - INTEGUMENTARY Hx Dermatological Problems: Yes - MUSCULOSKELETAL/RHEUMATOLOGICAL Hx Arthritis: Yes - GASTROINTESTINAL Hx Gastrointestinal Disorders: Yes Hx Constipation: Yes - GENITOURINARY/GYNECOLOGICAL Hx Genitourinary Disorders: Yes Hx Incontinence: Yes - PSYCHIATRIC Hx Substance Use: No - SURGICAL HISTORY Hx Coronary Stent: Yes - ANESTHESIA Hx Anesthesia: Yes Hx Anesthesia Reactions: No Hx Malignant Hyperthermia: No Meds Allergies/Adverse Reactions: Allergies Allergy/AdvReac Type Severity Reaction Status Date / Time No Known Allergies Allergy Verified 10/20/18 18:36 - Medications Medications: Current Medications Famotidine (Pepcid) 20 mg IVP DAILY [facility] Last Admin: 10/21/18 10:04 Dose: 20 mg Heparin Sodium (Porcine) (Heparin) 5,000 units SC Q12 [facility] Last Admin: 10/21/18 10:18 Dose: 5,000 units Sodium Bicarbonate 150 meq/ (Dextrose) 1,150 mls @ 50 mls/hr IV .Q23H [facility] Last Admin: 10/21/18 10:44 Dose: 50 mls/hr Sodium Bicarbonate (Sodium Bicarbonate (8.4%) 50 Meq Syringe) 150 meq IV CONT [facility]I Results - Vital Signs Recent Vital Signs: Last Vital Signs Temp 96.4 F L 10/21/18 08:00 Pulse 69 10/21/18 09:58 Resp 9 L 10/21/18 09:58 BP 103/85 10/21/18 10:00 Pulse Ox 98 10/21/18 09:58 - Labs Result Diagrams: 10/21/18 06:23 10/21/18 06:23 Labs: Laboratory Results - last 24 hr 10/20/18 10/20/18 10/20/18 18:30 19:32 19:32 WBC 7.7 RBC 4.10 Hgb 12.2 Hct 40.1 MCV 98.0 D MCH 29.7 MCHC 30.3 L RDW 19.8 H Plt Count 79 L D MPV 10.0 Neut % (Auto) 79.4 H Lymph % (Auto) 8.1 L [place] % (Auto) 11.0 H Eos % (Auto) 1.0 Baso % (Auto) 0.5 Neut # (Auto) 6.1 Lymph # (Auto) 0.6 L [place] # (Auto) 0.8 Eos # (Auto) 0.1 Baso # (Auto) 0.0 Neutrophils % (Manual) 81 H Band Neutrophils % Lymphocytes % (Manual) 9 L Monocytes % (Manual) 10 Nucleated RBC % 19 H Platelet Estimate Decreased L Large Platelets Polychromasia Hypochromasia (manual) Poikilocytosis (manual Slight Anisocytosis (manual) Slight Macrocytosis (manual) Slight Target Cells [place] Cells Slight Puncture Site pCO2 pO2 HCO3 ABG pH ABG Total CO2 ABG O2 Saturation ABG Base Excess ABG Hemoglobin ABG Carboxyhemoglobin POC ABG HHb (Measured) ABG Methemoglobin Jason Test VBG pH VBG pCO2 VBG HCO3 VBG Total CO2 VBG O2 Sat (Calc) VBG Base Excess VBG Potassium A-a O2 Difference Respiratory Index Hgb O2 Saturation Sodium Chloride Glucose Lactate Liter Flow Vent Mode FiO2 Inspiratory BiPAP Expiratory BiPAP Crit Value Called To Crit Value Called By Crit Value Read Back Blood Gas Notified Time Potassium Carbon Dioxide Anion Gap BUN Creatinine Est GFR ( Amer) Est GFR (Non-Af Amer) POC Glucose (mg/dL) 131 H Random Glucose Hemoglobin A1c 5.3 Lactic Acid Calcium Phosphorus Magnesium Total Bilirubin AST ALT Alkaline Phosphatase Ammonia Troponin I Total Protein Albumin Globulin Albumin/Globulin Ratio Triglycerides Cholesterol LDL Cholesterol Direct HDL Cholesterol Venous Blood Potassium Blood Type Antibody Screen 10/20/18 10/20/18 10/20/18 20:10 20:23 21:54 WBC RBC Hgb Hct MCV MCH MCHC RDW Plt Count MPV Neut % (Auto) Lymph % (Auto) [place] % (Auto) Eos % (Auto) Baso % (Auto) Neut # (Auto) Lymph # (Auto) [place] # (Auto) Eos # (Auto) Baso # (Auto) Neutrophils % (Manual) Band Neutrophils % Lymphocytes % (Manual) Monocytes % (Manual) Nucleated RBC % Platelet Estimate Large Platelets Polychromasia Hypochromasia (manual) Poikilocytosis (manual Anisocytosis (manual) Macrocytosis (manual) Target Cells [place] Cells Puncture Site pCO2 pO2 38 HCO3 ABG pH ABG Total CO2 ABG O2 Saturation ABG Base Excess ABG Hemoglobin ABG Carboxyhemoglobin POC ABG HHb (Measured) ABG Methemoglobin Jason Test VBG pH 7.11 L* VBG pCO2 55 VBG HCO3 14.1 VBG Total CO2 19.2 L VBG O2 Sat (Calc) 69.9 H VBG Base Excess -12.3 L VBG Potassium 6.7 H* A-a O2 Difference Respiratory Index Hgb O2 Saturation Sodium 144.0 141 Chloride 114.0 H 112 H Glucose 113 H Lactate 3.4 H Liter Flow Vent Mode FiO2 21.0 Inspiratory BiPAP Expiratory BiPAP Crit Value Called To Dr skelton Crit Value Called By [facility] Crit Value Read Back Y Blood Gas Notified Time 2017 Potassium 7.2 H* D Carbon Dioxide 14 L Anion Gap 22 H BUN 101 H* D Creatinine 7.2 H Est GFR ( Amer) 6 Est GFR (Non-Af Amer) 5 POC Glucose (mg/dL) Random Glucose 127 H Hemoglobin A1c Lactic Acid Calcium 8.4 L Phosphorus Magnesium Total Bilirubin 6.2 H AST 1025 H ALT 983 H D Alkaline Phosphatase 266 H Ammonia Troponin I 0.3300 H* Total Protein 7.6 Albumin 3.5 Globulin 4.1 H Albumin/Globulin Ratio 0.9 L Triglycerides Cancelled 142 D Cholesterol Cancelled 150 LDL Cholesterol Direct Cancelled 110 HDL Cholesterol Cancelled 17 L Venous Blood Potassium 6.7 H* Blood Type Antibody Screen 10/21/18 10/21/18 10/21/18 00:41 00:41 00:41 WBC 9.7 RBC 3.51 L Hgb 10.5 L Hct 34.5 MCV 98.2 MCH 29.8 MCHC 30.4 L RDW 20.0 H Plt Count 75 L MPV 10.1 Neut % (Auto) 82.6 H Lymph % (Auto) 4.9 L [place] % (Auto) 11.9 H Eos % (Auto) 0.3 Baso % (Auto) 0.3 Neut # (Auto) 8.0 H Lymph # (Auto) 0.5 L [place] # (Auto) 1.2 H Eos # (Auto) 0.0 Baso # (Auto) 0.0 Neutrophils % (Manual) 87 H Band Neutrophils % Lymphocytes % (Manual) 5 L Monocytes % (Manual) 8 Nucleated RBC % 18 H Platelet Estimate Decreased L Large Platelets Polychromasia Slight Hypochromasia (manual) Poikilocytosis (manual Anisocytosis (manual) Moderate Macrocytosis (manual) Moderate Target Cells [place] Cells Puncture Site pCO2 pO2 HCO3 ABG pH ABG Total CO2 ABG O2 Saturation ABG Base Excess ABG Hemoglobin ABG Carboxyhemoglobin POC ABG HHb (Measured) ABG Methemoglobin Jason Test VBG pH VBG pCO2 VBG HCO3 VBG Total CO2 VBG O2 Sat (Calc) VBG Base Excess VBG Potassium A-a O2 Difference Respiratory Index Hgb O2 Saturation Sodium Chloride Glucose Lactate Liter Flow Vent Mode FiO2 Inspiratory BiPAP Expiratory BiPAP Crit Value Called To Crit Value Called By Crit Value Read Back Blood Gas Notified Time Potassium Carbon Dioxide Anion Gap BUN Creatinine Est GFR ( Amer) Est GFR (Non-Af Amer) POC Glucose (mg/dL) Random Glucose Hemoglobin A1c 5.3 Lactic Acid Calcium Phosphorus Magnesium Total Bilirubin AST ALT Alkaline Phosphatase Ammonia Troponin I Total Protein Albumin Globulin Albumin/Globulin Ratio Triglycerides Cholesterol LDL Cholesterol Direct HDL Cholesterol Venous Blood Potassium Blood Type O POSITIVE Antibody Screen Negative 10/21/18 10/21/18 10/21/18 00:41 00:53 05:45 WBC RBC Hgb Hct MCV MCH MCHC RDW Plt Count MPV Neut % (Auto) Lymph % (Auto) [place] % (Auto) Eos % (Auto) Baso % (Auto) Neut # (Auto) Lymph # (Auto) [place] # (Auto) Eos # (Auto) Baso # (Auto) Neutrophils % (Manual) Band Neutrophils % Lymphocytes % (Manual) Monocytes % (Manual) Nucleated RBC % Platelet Estimate Large Platelets Polychromasia Hypochromasia (manual) Poikilocytosis (manual Anisocytosis (manual) Macrocytosis (manual) Target Cells [place] Cells Puncture Site Rr pCO2 42 pO2 30 114 H HCO3 19.8 L ABG pH 7.28 L ABG Total CO2 21.0 L ABG O2 Saturation 100.9 H ABG Base Excess -6.6 L ABG Hemoglobin 8.3 L ABG Carboxyhemoglobin 3.7 H POC ABG HHb (Measured) -0.9 L ABG Methemoglobin 0.0 Jason Test Pos VBG pH 7.19 L* VBG pCO2 55 VBG HCO3 17.4 VBG Total CO2 22.7 VBG O2 Sat (Calc) 56.4 VBG Base Excess -7.7 L VBG Potassium 6.1 H A-a O2 Difference 119.0 Respiratory Index 1.0 Hgb O2 Saturation 97.2 Sodium 145 146.0 Chloride 108 H 111.0 H Glucose 236 H Lactate 5.9 H* Liter Flow 3.0 Vent Mode Bipap FiO2 40.0 Inspiratory BiPAP 12 Expiratory BiPAP 5 Crit Value Called To Kena rn 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 allied health instructor Crit Value Read Back Y Blood Gas Notified Time 57 Potassium 6.4 H* Carbon Dioxide 22 Anion Gap 22 H BUN 100 H* Creatinine 7.0 H Est GFR ( Amer) 7 Est GFR (Non-Af Amer) 6 POC Glucose (mg/dL) Random Glucose 216 H D Hemoglobin A1c Lactic Acid Calcium 8.1 L Phosphorus 7.8 H Magnesium 2.6 H Total Bilirubin 7.3 H AST 926 H ALT 871 H Alkaline Phosphatase 239 H Ammonia Troponin I Total Protein 6.5 Albumin 3.0 L Globulin 3.4 Albumin/Globulin Ratio 0.9 L Triglycerides Cholesterol LDL Cholesterol Direct HDL Cholesterol Venous Blood Potassium 6.1 H Blood Type Antibody Screen 10/21/18 10/21/18 10/21/18 06:23 06:23 06:23 WBC 9.7 RBC 3.31 L Hgb 9.9 L Hct 32.3 L MCV 97.5 MCH 29.8 MCHC 30.5 L RDW 19.1 H Plt Count 84 L MPV 10.1 Neut % (Auto) 79.1 H Lymph % (Auto) 2.9 L [place] % (Auto) 17.6 H Eos % (Auto) 0.1 Baso % (Auto) 0.3 Neut # (Auto) 7.7 H Lymph # (Auto) 0.3 L [place] # (Auto) 1.7 H Eos # (Auto) 0.0 Baso # (Auto) 0.0 Neutrophils % (Manual) 78 H Band Neutrophils % 3 H Lymphocytes % (Manual) 3 L Monocytes % (Manual) 16 H Nucleated RBC % 9 H Platelet Estimate Decreased L Large Platelets Present Polychromasia Slight Hypochromasia (manual) Slight Poikilocytosis (manual Anisocytosis (manual) Moderate Macrocytosis (manual) Moderate Target Cells Slight [place] Cells Puncture Site pCO2 pO2 HCO3 ABG pH ABG Total CO2 ABG O2 Saturation ABG Base Excess ABG Hemoglobin ABG Carboxyhemoglobin POC ABG HHb (Measured) ABG Methemoglobin Jason Test VBG pH VBG pCO2 VBG HCO3 VBG Total CO2 VBG O2 Sat (Calc) VBG Base Excess VBG Potassium A-a O2 Difference Respiratory Index Hgb O2 Saturation Sodium 144 Chloride 105 Glucose Lactate Liter Flow Vent Mode FiO2 Inspiratory BiPAP Expiratory BiPAP Crit Value Called To Crit Value Called By Crit Value Read Back Blood Gas Notified Time Potassium 5.3 H Carbon Dioxide 24 Anion Gap 20 BUN 104 H* Creatinine 6.7 H Est GFR ( Amer) 7 Est GFR (Non-Af Amer) 6 POC Glucose (mg/dL) Random Glucose 208 H Hemoglobin A1c Lactic Acid 5.1 H* Calcium 7.9 L Phosphorus 6.8 H Magnesium 2.5 H Total Bilirubin 6.6 H AST 870 H ALT 859 H Alkaline Phosphatase 216 H Ammonia Troponin I Total Protein 6.5 Albumin 3.0 L Globulin 3.5 Albumin/Globulin Ratio 0.9 L Triglycerides Cholesterol LDL Cholesterol Direct HDL Cholesterol Venous Blood Potassium Blood Type Antibody Screen 10/21/18 11:05 WBC RBC Hgb Hct MCV MCH MCHC RDW Plt Count MPV Neut % (Auto) Lymph % (Auto) [place] % (Auto) Eos % (Auto) Baso % (Auto) Neut # (Auto) Lymph # (Auto) [place] # (Auto) Eos # (Auto) Baso # (Auto) Neutrophils % (Manual) Band Neutrophils % Lymphocytes % (Manual) Monocytes % (Manual) Nucleated RBC % Platelet Estimate Large Platelets Polychromasia Hypochromasia (manual) Poikilocytosis (manual Anisocytosis (manual) Macrocytosis (manual) Target Cells [place] Cells Puncture Site pCO2 pO2 HCO3 ABG pH ABG Total CO2 ABG O2 Saturation ABG Base Excess ABG Hemoglobin ABG Carboxyhemoglobin POC ABG HHb (Measured) ABG Methemoglobin Jason Test VBG pH VBG pCO2 VBG HCO3 VBG Total CO2 VBG O2 Sat (Calc) VBG Base Excess VBG Potassium A-a O2 Difference Respiratory Index Hgb O2 Saturation Sodium Chloride Glucose Lactate Liter Flow Vent Mode FiO2 Inspiratory BiPAP Expiratory BiPAP Crit Value Called To Crit Value Called By Crit Value Read Back Blood Gas Notified Time Potassium Carbon Dioxide Anion Gap BUN Creatinine Est GFR ( Amer) Est GFR (Non-Af Amer) POC Glucose (mg/dL) Random Glucose Hemoglobin A1c Lactic Acid Calcium Phosphorus Magnesium Total Bilirubin AST ALT Alkaline Phosphatase Ammonia 24 D Troponin I Total Protein Albumin Globulin Albumin/Globulin Ratio Triglycerides Cholesterol LDL Cholesterol Direct HDL Cholesterol Venous Blood Potassium Blood Type Antibody Screen Assessment & Plan - Assessment and Plan (Free Text) Assessment: CT Head: shows 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 She has had prior ischemic events so we will obtain MRI Brain and Echo. I do not think EEG is necessary at this point. Plan: 1. Check ammonia level 2. MRI Brain without clementine 3. ECho Thank you Dr. Mcmahon Neurology
[2018-10-21 12:39] LABS: BARBITURATES, UR NEGATIVE (NEGATIVE); BENZODIAZEPINES, UR NEGATIVE (NEGATIVE); OPIATES, UR NEGATIVE (NEGATIVE); PHENCYCLIDINE, UR NEGATIVE (NEGATIVE)
--- NOTE | 2018-10-21 15:08 | CP.PCM.CON ---
History of Present Illness - History of Present Illness History of Present Illness: pt is seen and examined, full consult is dictated #[id number] 1. 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 hyperkalemia 3. htn 4. unilateral small left kidney 5. acute resp. acidosis 6. abnormal lft's c/w inf with [id number] follow up bmp check urine lytes, osm, cr hansen ivf to 1/2 ns at 70 ml/hr Past Patient History - Infectious Disease Hx of Infectious Diseases: None - Tetanus Immunizations Tetanus Immunization: Unknown - Past Medical History & Family History Past Medical History?: Yes - Past Social History Smoking Status: unknown Alcohol: None Home Situation {Lives}: [place] Domestic Violence: Negative - CARDIAC Hx Atrial Fibrillation: Yes Hx Congestive Heart Failure: Yes Hx Hypercholesterolemia: Yes Hx Hypertension: Yes - PULMONARY Hx Respiratory Disorders: No - NEUROLOGICAL Hx Dementia: Yes - HEENT Hx HEENT Problems: Yes Hx Cataracts: Yes Hx Glaucoma: Yes - RENAL Hx Chronic Kidney Disease: No - ENDOCRINE/METABOLIC Hx Endocrine Disorders: No - HEMATOLOGICAL/ONCOLOGICAL Hx Anemia: Yes - INTEGUMENTARY Hx Dermatological Problems: Yes - MUSCULOSKELETAL/RHEUMATOLOGICAL Hx Arthritis: Yes - GASTROINTESTINAL Hx Gastrointestinal Disorders: Yes Hx Constipation: Yes - GENITOURINARY/GYNECOLOGICAL Hx Genitourinary Disorders: Yes Hx Incontinence: Yes - PSYCHIATRIC Hx Substance Use: No - SURGICAL HISTORY Hx Coronary Stent: Yes - ANESTHESIA Hx Anesthesia: Yes Hx Anesthesia Reactions: No Hx Malignant Hyperthermia: No Meds Allergies/Adverse Reactions: Allergies Allergy/AdvReac Type Severity Reaction Status Date / Time No Known Allergies Allergy Verified 10/20/18 18:36 - Medications Medications: Current Medications Famotidine (Pepcid) 20 mg IVP DAILY [facility] Last Admin: 10/21/18 10:04 Dose: 20 mg Heparin Sodium (Porcine) (Heparin) 5,000 units SC Q12 [facility] Last Admin: 10/21/18 10:18 Dose: 5,000 units Sodium Bicarbonate 150 meq/ (Dextrose) 1,150 mls @ 50 mls/hr IV .Q23H [facility] Last Admin: 10/21/18 10:44 Dose: 50 mls/hr Sodium Bicarbonate (Sodium Bicarbonate (8.4%) 50 Meq Syringe) 150 meq IV CONT [facility] Results - Vital Signs Recent Vital Signs: Last Vital Signs Temp 96.6 F L 10/21/18 12:00 Pulse 99 H 10/21/18 13:59 Resp 14 10/21/18 13:59 BP 93/54 L 10/21/18 13:59 Pulse Ox 99 10/21/18 13:59 - Labs Result Diagrams: 10/21/18 06:23 10/21/18 06:23 Labs: Laboratory Results - last 24 hr 10/20/18 10/20/18 10/20/18 18:30 19:32 19:32 WBC 7.7 RBC 4.10 Hgb 12.2 Hct 40.1 MCV 98.0 D MCH 29.7 MCHC 30.3 L RDW 19.8 H Plt Count 79 L D MPV 10.0 Neut % (Auto) 79.4 H Lymph % (Auto) 8.1 L [place] % (Auto) 11.0 H Eos % (Auto) 1.0 Baso % (Auto) 0.5 Neut # (Auto) 6.1 Lymph # (Auto) 0.6 L [place] # (Auto) 0.8 Eos # (Auto) 0.1 Baso # (Auto) 0.0 Neutrophils % (Manual) 81 H Band Neutrophils % Lymphocytes % (Manual) 9 L Monocytes % (Manual) 10 Nucleated RBC % 19 H Platelet Estimate Decreased L Large Platelets Polychromasia Hypochromasia (manual) Poikilocytosis (manual Slight Anisocytosis (manual) Slight Macrocytosis (manual) Slight Target Cells [place]ito Cells Slight Puncture Site pCO2 pO2 HCO3 ABG pH ABG Total CO2 ABG O2 Saturation ABG Base Excess ABG Hemoglobin ABG Carboxyhemoglobin POC ABG HHb (Measured) ABG Methemoglobin Jason Test VBG pH VBG pCO2 VBG HCO3 VBG Total CO2 VBG O2 Sat (Calc) VBG Base Excess VBG Potassium A-a O2 Difference Respiratory Index Hgb O2 Saturation Sodium Chloride Glucose Lactate Liter Flow Vent Mode FiO2 Inspiratory BiPAP Expiratory BiPAP Crit Value Called To Crit Value Called By Crit Value Read Back Blood Gas Notified Time Potassium Carbon Dioxide Anion Gap BUN Creatinine Est GFR ( Amer) Est GFR (Non-Af Amer) POC Glucose (mg/dL) 131 H Random Glucose Hemoglobin A1c 5.3 Lactic Acid Calcium Phosphorus Magnesium Total Bilirubin AST ALT Alkaline Phosphatase Ammonia Troponin I Total Protein Albumin Globulin Albumin/Globulin Ratio Triglycerides Cholesterol LDL Cholesterol Direct HDL Cholesterol Venous Blood Potassium Urine Opiates Screen Urine Methadone Screen Ur Barbiturates Screen Ur Phencyclidine Scrn Ur Amphetamines Screen U Benzodiazepines Scrn U Oth Cocaine Metabols U Cannabinoids Screen Blood Type Antibody Screen 10/20/18 10/20/18 10/20/18 20:10 20:23 21:54 WBC RBC Hgb Hct MCV MCH MCHC RDW Plt Count MPV Neut % (Auto) Lymph % (Auto) [place] % (Auto) Eos % (Auto) Baso % (Auto) Neut # (Auto) Lymph # (Auto) [place] # (Auto) Eos # (Auto) Baso # (Auto) Neutrophils % (Manual) Band Neutrophils % Lymphocytes % (Manual) Monocytes % (Manual) Nucleated RBC % Platelet Estimate Large Platelets Polychromasia Hypochromasia (manual) Poikilocytosis (manual Anisocytosis (manual) Macrocytosis (manual) Target Cells [place] Cells Puncture Site pCO2 pO2 38 HCO3 ABG pH ABG Total CO2 ABG O2 Saturation ABG Base Excess ABG Hemoglobin ABG Carboxyhemoglobin POC ABG HHb (Measured) ABG Methemoglobin Jason Test VBG pH 7.11 L* VBG pCO2 55 VBG HCO3 14.1 VBG Total CO2 19.2 L VBG O2 Sat (Calc) 69.9 H VBG Base Excess -12.3 L VBG Potassium 6.7 H* A-a O2 Difference Respiratory Index Hgb O2 Saturation Sodium 144.0 141 Chloride 114.0 H 112 H Glucose 113 H Lactate 3.4 H Liter Flow Vent Mode FiO2 21.0 Inspiratory BiPAP Expiratory BiPAP Crit Value Called To Dr skelton Crit Value Called By [facility] Crit Value Read Back Y Blood Gas Notified Time 2017 Potassium 7.2 H* D Carbon Dioxide 14 L Anion Gap 22 H BUN 101 H* D Creatinine 7.2 H Est GFR ( Amer) 6 Est GFR (Non-Af Amer) 5 POC Glucose (mg/dL) Random Glucose 127 H Hemoglobin A1c Lactic Acid Calcium 8.4 L Phosphorus Magnesium Total Bilirubin 6.2 H AST 1025 H ALT 983 H D Alkaline Phosphatase 266 H Ammonia Troponin I 0.3300 H* Total Protein 7.6 Albumin 3.5 Globulin 4.1 H Albumin/Globulin Ratio 0.9 L Triglycerides Cancelled 142 D Cholesterol Cancelled 150 LDL Cholesterol Direct Cancelled 110 HDL Cholesterol Cancelled 17 L Venous Blood Potassium 6.7 H* Urine Opiates Screen Urine Methadone Screen Ur Barbiturates Screen Ur Phencyclidine Scrn Ur Amphetamines Screen U Benzodiazepines Scrn U Oth Cocaine Metabols U Cannabinoids Screen Blood Type Antibody Screen 10/21/18 10/21/18 10/21/18 00:41 00:41 00:41 WBC 9.7 RBC 3.51 L Hgb 10.5 L Hct 34.5 MCV 98.2 MCH 29.8 MCHC 30.4 L RDW 20.0 H Plt Count 75 L MPV 10.1 Neut % (Auto) 82.6 H Lymph % (Auto) 4.9 L [place] % (Auto) 11.9 H Eos % (Auto) 0.3 Baso % (Auto) 0.3 Neut # (Auto) 8.0 H Lymph # (Auto) 0.5 L [place] # (Auto) 1.2 H Eos # (Auto) 0.0 Baso # (Auto) 0.0 Neutrophils % (Manual) 87 H Band Neutrophils % Lymphocytes % (Manual) 5 L Monocytes % (Manual) 8 Nucleated RBC % 18 H Platelet Estimate Decreased L Large Platelets Polychromasia Slight Hypochromasia (manual) Poikilocytosis (manual Anisocytosis (manual) Moderate Macrocytosis (manual) Moderate Target Cells [place] Cells Puncture Site pCO2 pO2 HCO3 ABG pH ABG Total CO2 ABG O2 Saturation ABG Base Excess ABG Hemoglobin ABG Carboxyhemoglobin POC ABG HHb (Measured) ABG Methemoglobin Jason Test VBG pH VBG pCO2 VBG HCO3 VBG Total CO2 VBG O2 Sat (Calc) VBG Base Excess VBG Potassium A-a O2 Difference Respiratory Index Hgb O2 Saturation Sodium Chloride Glucose Lactate Liter Flow Vent Mode FiO2 Inspiratory BiPAP Expiratory BiPAP Crit Value Called To Crit Value Called By Crit Value Read Back Blood Gas Notified Time Potassium Carbon Dioxide Anion Gap BUN Creatinine Est GFR ( Amer) Est GFR (Non-Af Amer) POC Glucose (mg/dL) Random Glucose Hemoglobin A1c 5.3 Lactic Acid Calcium Phosphorus Magnesium Total Bilirubin AST ALT Alkaline Phosphatase Ammonia Troponin I Total Protein Albumin Globulin Albumin/Globulin Ratio Triglycerides Cholesterol LDL Cholesterol Direct HDL Cholesterol Venous Blood Potassium Urine Opiates Screen Urine Methadone Screen Ur Barbiturates Screen Ur Phencyclidine Scrn Ur Amphetamines Screen U Benzodiazepines Scrn U Oth Cocaine Metabols U Cannabinoids Screen Blood Type O POSITIVE Antibody Screen Negative 10/21/18 10/21/18 10/21/18 00:41 00:53 05:45 WBC RBC Hgb Hct MCV MCH MCHC RDW Plt Count MPV Neut % (Auto) Lymph % (Auto) [place] % (Auto) Eos % (Auto) Baso % (Auto) Neut # (Auto) Lymph # (Auto) [place] # (Auto) Eos # (Auto) Baso # (Auto) Neutrophils % (Manual) Band Neutrophils % Lymphocytes % (Manual) Monocytes % (Manual) Nucleated RBC % Platelet Estimate Large Platelets Polychromasia Hypochromasia (manual) Poikilocytosis (manual Anisocytosis (manual) Macrocytosis (manual) Target Cells [place] Cells Puncture Site Rr pCO2 42 pO2 30 114 H HCO3 19.8 L ABG pH 7.28 L ABG Total CO2 21.0 L ABG O2 Saturation 100.9 H ABG Base Excess -6.6 L ABG Hemoglobin 8.3 L ABG Carboxyhemoglobin 3.7 H POC ABG HHb (Measured) -0.9 L ABG Methemoglobin 0.0 Jason Test Pos VBG pH 7.19 L* VBG pCO2 55 VBG HCO3 17.4 VBG Total CO2 22.7 VBG O2 Sat (Calc) 56.4 VBG Base Excess -7.7 L VBG Potassium 6.1 H A-a O2 Difference 119.0 Respiratory Index 1.0 Hgb O2 Saturation 97.2 Sodium 145 146.0 Chloride 108 H 111.0 H Glucose 236 H Lactate 5.9 H* Liter Flow 3.0 Vent Mode Bipap FiO2 40.0 Inspiratory BiPAP 12 Expiratory BiPAP 5 Crit Value Called To Kena rn 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 Crit Value Read Back Y Blood Gas Notified Time 57 Potassium 6.4 H* Carbon Dioxide 22 Anion Gap 22 H BUN 100 H* Creatinine 7.0 H Est GFR ( Amer) 7 Est GFR (Non-Af Amer) 6 POC Glucose (mg/dL) Random Glucose 216 H D Hemoglobin A1c Lactic Acid Calcium 8.1 L Phosphorus 7.8 H Magnesium 2.6 H Total Bilirubin 7.3 H AST 926 H ALT 871 H Alkaline Phosphatase 239 H Ammonia Troponin I Total Protein 6.5 Albumin 3.0 L Globulin 3.4 Albumin/Globulin Ratio 0.9 L Triglycerides Cholesterol LDL Cholesterol Direct HDL Cholesterol Venous Blood Potassium 6.1 H Urine Opiates Screen Urine Methadone Screen Ur Barbiturates Screen Ur Phencyclidine Scrn Ur Amphetamines Screen U Benzodiazepines Scrn U Oth Cocaine Metabols U Cannabinoids Screen Blood Type Antibody Screen 10/21/18 10/21/18 10/21/18 06:23 06:23 06:23 WBC 9.7 RBC 3.31 L Hgb 9.9 L Hct 32.3 L MCV 97.5 MCH 29.8 MCHC 30.5 L RDW 19.1 H Plt Count 84 L MPV 10.1 Neut % (Auto) 79.1 H Lymph % (Auto) 2.9 L [place] % (Auto) 17.6 H Eos % (Auto) 0.1 Baso % (Auto) 0.3 Neut # (Auto) 7.7 H Lymph # (Auto) 0.3 L [place] # (Auto) 1.7 H Eos # (Auto) 0.0 Baso # (Auto) 0.0 Neutrophils % (Manual) 78 H Band Neutrophils % 3 H Lymphocytes % (Manual) 3 L Monocytes % (Manual) 16 H Nucleated RBC % 9 H Platelet Estimate Decreased L Large Platelets Present Polychromasia Slight Hypochromasia (manual) Slight Poikilocytosis (manual Anisocytosis (manual) Moderate Macrocytosis (manual) Moderate Target Cells Slight [place] Cells Puncture Site pCO2 pO2 HCO3 ABG pH ABG Total CO2 ABG O2 Saturation ABG Base Excess ABG Hemoglobin ABG Carboxyhemoglobin POC ABG HHb (Measured) ABG Methemoglobin Jason Test VBG pH VBG pCO2 VBG HCO3 VBG Total CO2 VBG O2 Sat (Calc) VBG Base Excess VBG Potassium A-a O2 Difference Respiratory Index Hgb O2 Saturation Sodium 144 Chloride 105 Glucose Lactate Liter Flow Vent Mode FiO2 Inspiratory BiPAP Expiratory BiPAP Crit Value Called To Crit Value Called By Crit Value Read Back Blood Gas Notified Time Potassium 5.3 H Carbon Dioxide 24 Anion Gap 20 BUN 104 H* Creatinine 6.7 H Est GFR ( Amer) 7 Est GFR (Non-Af Amer) 6 POC Glucose (mg/dL) Random Glucose 208 H Hemoglobin A1c Lactic Acid 5.1 H* Calcium 7.9 L Phosphorus 6.8 H Magnesium 2.5 H Total Bilirubin 6.6 H AST 870 H ALT 859 H Alkaline Phosphatase 216 H Ammonia Troponin I Total Protein 6.5 Albumin 3.0 L Globulin 3.5 Albumin/Globulin Ratio 0.9 L Triglycerides Cholesterol LDL Cholesterol Direct HDL Cholesterol Venous Blood Potassium Urine Opiates Screen Urine Methadone Screen Ur Barbiturates Screen Ur Phencyclidine Scrn Ur Amphetamines Screen U Benzodiazepines Scrn U Oth Cocaine Metabols U Cannabinoids Screen Blood Type Antibody Screen 10/21/18 10/21/18 11:05 12:05 WBC RBC Hgb Hct MCV MCH MCHC RDW Plt Count MPV Neut % (Auto) Lymph % (Auto) [place] % (Auto) Eos % (Auto) Baso % (Auto) Neut # (Auto) Lymph # (Auto) [place] # (Auto) Eos # (Auto) Baso # (Auto) Neutrophils % (Manual) Band Neutrophils % Lymphocytes % (Manual) Monocytes % (Manual) Nucleated RBC % Platelet Estimate Large Platelets Polychromasia Hypochromasia (manual) Poikilocytosis (manual Anisocytosis (manual) Macrocytosis (manual) Target Cells [place] Cells Puncture Site pCO2 pO2 HCO3 ABG pH ABG Total CO2 ABG O2 Saturation ABG Base Excess ABG Hemoglobin ABG Carboxyhemoglobin POC ABG HHb (Measured) ABG Methemoglobin Jason Test VBG pH VBG pCO2 VBG HCO3 VBG Total CO2 VBG O2 Sat (Calc) VBG Base Excess VBG Potassium A-a O2 Difference Respiratory Index Hgb O2 Saturation Sodium Chloride Glucose Lactate Liter Flow Vent Mode FiO2 Inspiratory BiPAP Expiratory BiPAP Crit Value Called To Crit Value Called By Crit Value Read Back Blood Gas Notified Time Potassium Carbon Dioxide Anion Gap BUN Creatinine Est GFR ( Amer) Est GFR (Non-Af Amer) POC Glucose (mg/dL) Random Glucose Hemoglobin A1c Lactic Acid Calcium Phosphorus Magnesium Total Bilirubin AST ALT Alkaline Phosphatase Ammonia 24 D Troponin I Total Protein Albumin Globulin Albumin/Globulin Ratio Triglycerides Cholesterol LDL Cholesterol Direct HDL Cholesterol Venous Blood Potassium Urine Opiates Screen Negative Urine Methadone Screen Negative Ur Barbiturates Screen Negative Ur Phencyclidine Scrn Negative Ur Amphetamines Screen Negative U Benzodiazepines Scrn Negative U Oth Cocaine Metabols Negative U Cannabinoids Screen Negative Blood Type Antibody Screen
--- NOTE | 2018-10-21 16:06 | CP.PCM.HP ---
Past Patient History - Infectious Disease Hx of Infectious Diseases: None - Tetanus Immunizations Tetanus Immunization: Unknown - Past Medical History & Family History Past Medical History?: Yes - Past Social History Smoking Status: unknown Alcohol: None Home Situation {Lives}: Long-Term Domestic Violence: Negative - CARDIAC Hx Atrial Fibrillation: Yes Hx Congestive Heart Failure: Yes Hx Hypercholesterolemia: Yes Hx Hypertension: Yes - PULMONARY Hx Respiratory Disorders: No - NEUROLOGICAL Hx Dementia: Yes - HEENT Hx HEENT Problems: Yes Hx Cataracts: Yes Hx Glaucoma: Yes - RENAL Hx Chronic Kidney Disease: No - ENDOCRINE/METABOLIC Hx Endocrine Disorders: No - HEMATOLOGICAL/ONCOLOGICAL Hx Anemia: Yes - INTEGUMENTARY Hx Dermatological Problems: Yes - MUSCULOSKELETAL/RHEUMATOLOGICAL Hx Arthritis: Yes - GASTROINTESTINAL Hx Gastrointestinal Disorders: Yes Hx Constipation: Yes - GENITOURINARY/GYNECOLOGICAL Hx Genitourinary Disorders: Yes Hx Incontinence: Yes - PSYCHIATRIC Hx Substance Use: No - SURGICAL HISTORY Hx Coronary Stent: Yes - ANESTHESIA Hx Anesthesia: Yes Hx Anesthesia Reactions: No Hx Malignant Hyperthermia: No Meds Allergies/Adverse Reactions: Allergies Allergy/AdvReac Type Severity Reaction Status Date / Time No Known Allergies Allergy Verified 10/20/18 18:36 Physical Exam - Constitutional Appears: Well - Head Exam Head Exam: ATRAUMATIC, NORMAL INSPECTION, NORMOCEPHALIC - Eye Exam Eye Exam: EOMI, Normal appearance, PERRL Pupil Exam: NORMAL ACCOMODATION, PERRL - ENT Exam ENT Exam: Mucous Membranes Moist, Normal Exam - Neck Exam Neck exam: Positive for: Normal Inspection - Respiratory Exam Respiratory Exam: Decreased Breath Sounds - Cardiovascular Exam Cardiovascular Exam: REGULAR RHYTHM, +S1, +S2 - GI/Abdominal Exam GI & Abdominal Exam: Diminished Bowel Sounds, Soft - Rectal Exam Rectal Exam: Deferred Results - Vital Signs Recent Vital Signs: Last Vital Signs Temp 96.6 F L 10/21/18 12:00 Pulse 100 H 10/21/18 15:00 Resp 15 10/21/18 15:00 BP 107/33 L 10/21/18 15:00 Pulse Ox 98 10/21/18 15:00 - Labs Result Diagrams: 10/21/18 06:23 10/21/18 06:23 Labs: Laboratory Results - last 24 hr 10/20/18 10/20/18 10/20/18 18:30 19:32 19:32 WBC 7.7 RBC 4.10 Hgb 12.2 Hct 40.1 MCV 98.0 D MCH 29.7 MCHC 30.3 L RDW 19.8 H Plt Count 79 L D MPV 10.0 Neut % (Auto) 79.4 H Lymph % (Auto) 8.1 L [place] % (Auto) 11.0 H Eos % (Auto) 1.0 Baso % (Auto) 0.5 Neut # (Auto) 6.1 Lymph # (Auto) 0.6 L [place] # (Auto) 0.8 Eos # (Auto) 0.1 Baso # (Auto) 0.0 Neutrophils % (Manual) 81 H Band Neutrophils % Lymphocytes % (Manual) 9 L Monocytes % (Manual) 10 Nucleated RBC % 19 H Platelet Estimate Decreased L Large Platelets Polychromasia Hypochromasia (manual) Poikilocytosis (manual Slight Anisocytosis (manual) Slight Macrocytosis (manual) Slight Target Cells Nito Cells Slight Puncture Site pCO2 pO2 HCO3 ABG pH ABG Total CO2 ABG O2 Saturation ABG Base Excess ABG Hemoglobin ABG Carboxyhemoglobin POC ABG HHb (Measured) ABG Methemoglobin Jason Test VBG pH VBG pCO2 VBG HCO3 VBG Total CO2 VBG O2 Sat (Calc) VBG Base Excess VBG Potassium A-a O2 Difference Respiratory Index Hgb O2 Saturation Sodium Chloride Glucose Lactate Liter Flow Vent Mode FiO2 Inspiratory BiPAP Expiratory BiPAP Crit Value Called To Crit Value Called By Crit Value Read Back Blood Gas Notified Time Potassium Carbon Dioxide Anion Gap BUN Creatinine Est GFR ( Amer) Est GFR (Non-Af Amer) POC Glucose (mg/dL) 131 H Random Glucose Hemoglobin A1c 5.3 Lactic Acid Calcium Phosphorus Magnesium Total Bilirubin AST ALT Alkaline Phosphatase Ammonia Troponin I Total Protein Albumin Globulin Albumin/Globulin Ratio Triglycerides Cholesterol LDL Cholesterol Direct HDL Cholesterol Venous Blood Potassium Urine Opiates Screen Urine Methadone Screen Ur Barbiturates Screen Ur Phencyclidine Scrn Ur Amphetamines Screen U Benzodiazepines Scrn U Oth Cocaine Metabols U Cannabinoids Screen Blood Type Antibody Screen 10/20/18 10/20/18 10/20/18 20:10 20:23 21:54 WBC RBC Hgb Hct MCV MCH MCHC RDW Plt Count MPV Neut % (Auto) Lymph % (Auto) [place] % (Auto) Eos % (Auto) Baso % (Auto) Neut # (Auto) Lymph # (Auto) [place] # (Auto) Eos # (Auto) Baso # (Auto) Neutrophils % (Manual) Band Neutrophils % Lymphocytes % (Manual) Monocytes % (Manual) Nucleated RBC % Platelet Estimate Large Platelets Polychromasia Hypochromasia (manual) Poikilocytosis (manual Anisocytosis (manual) Macrocytosis (manual) Target Cells [place] Cells Puncture Site pCO2 pO2 38 HCO3 ABG pH ABG Total CO2 ABG O2 Saturation ABG Base Excess ABG Hemoglobin ABG Carboxyhemoglobin POC ABG HHb (Measured) ABG Methemoglobin Jason Test VBG pH 7.11 L* VBG pCO2 55 VBG HCO3 14.1 VBG Total CO2 19.2 L VBG O2 Sat (Calc) 69.9 H VBG Base Excess -12.3 L VBG Potassium 6.7 H* A-a O2 Difference Respiratory Index Hgb O2 Saturation Sodium 144.0 141 Chloride 114.0 H 112 H Glucose 113 H Lactate 3.4 H Liter Flow Vent Mode FiO2 21.0 Inspiratory BiPAP Expiratory BiPAP Crit Value Called To Dr skelton Crit Value Called By [facility] Crit Value Read Back Y Blood Gas Notified Time 2017 Potassium 7.2 H* D Carbon Dioxide 14 L Anion Gap 22 H BUN 101 H* D Creatinine 7.2 H Est GFR ( Amer) 6 Est GFR (Non-Af Amer) 5 POC Glucose (mg/dL) Random Glucose 127 H Hemoglobin A1c Lactic Acid Calcium 8.4 L Phosphorus Magnesium Total Bilirubin 6.2 H AST 1025 H ALT 983 H D Alkaline Phosphatase 266 H Ammonia Troponin I 0.3300 H* Total Protein 7.6 Albumin 3.5 Globulin 4.1 H Albumin/Globulin Ratio 0.9 L Triglycerides Cancelled 142 D Cholesterol Cancelled 150 LDL Cholesterol Direct Cancelled 110 HDL Cholesterol Cancelled 17 L Venous Blood Potassium 6.7 H* Urine Opiates Screen Urine Methadone Screen Ur Barbiturates Screen Ur Phencyclidine Scrn Ur Amphetamines Screen U Benzodiazepines Scrn U Oth Cocaine Metabols U Cannabinoids Screen Blood Type Antibody Screen 10/21/18 10/21/18 10/21/18 00:41 00:41 00:41 WBC 9.7 RBC 3.51 L Hgb 10.5 L Hct 34.5 MCV 98.2 MCH 29.8 MCHC 30.4 L RDW 20.0 H Plt Count 75 L MPV 10.1 Neut % (Auto) 82.6 H Lymph % (Auto) 4.9 L [place] % (Auto) 11.9 H Eos % (Auto) 0.3 Baso % (Auto) 0.3 Neut # (Auto) 8.0 H Lymph # (Auto) 0.5 L [place] # (Auto) 1.2 H Eos # (Auto) 0.0 Baso # (Auto) 0.0 Neutrophils % (Manual) 87 H Band Neutrophils % Lymphocytes % (Manual) 5 L Monocytes % (Manual) 8 Nucleated RBC % 18 H Platelet Estimate Decreased L Large Platelets Polychromasia Slight Hypochromasia (manual) Poikilocytosis (manual Anisocytosis (manual) Moderate Macrocytosis (manual) Moderate Target Cells [place] Cells Puncture Site pCO2 pO2 HCO3 ABG pH ABG Total CO2 ABG O2 Saturation ABG Base Excess ABG Hemoglobin ABG Carboxyhemoglobin POC ABG HHb (Measured) ABG Methemoglobin Jason Test VBG pH VBG pCO2 VBG HCO3 VBG Total CO2 VBG O2 Sat (Calc) VBG Base Excess VBG Potassium A-a O2 Difference Respiratory Index Hgb O2 Saturation Sodium Chloride Glucose Lactate Liter Flow Vent Mode FiO2 Inspiratory BiPAP Expiratory BiPAP Crit Value Called To Crit Value Called By Crit Value Read Back Blood Gas Notified Time Potassium Carbon Dioxide Anion Gap BUN Creatinine Est GFR ( Amer) Est GFR (Non-Af Amer) POC Glucose (mg/dL) Random Glucose Hemoglobin A1c 5.3 Lactic Acid Calcium Phosphorus Magnesium Total Bilirubin AST ALT Alkaline Phosphatase Ammonia Troponin I Total Protein Albumin Globulin Albumin/Globulin Ratio Triglycerides Cholesterol LDL Cholesterol Direct HDL Cholesterol Venous Blood Potassium Urine Opiates Screen Urine Methadone Screen Ur Barbiturates Screen Ur Phencyclidine Scrn Ur Amphetamines Screen U Benzodiazepines Scrn U Oth Cocaine Metabols U Cannabinoids Screen Blood Type O POSITIVE Antibody Screen Negative 10/21/18 10/21/18 10/21/18 00:41 00:53 05:45 WBC RBC Hgb Hct MCV MCH MCHC RDW Plt Count MPV Neut % (Auto) Lymph % (Auto) [place] % (Auto) Eos % (Auto) Baso % (Auto) Neut # (Auto) Lymph # (Auto) [place] # (Auto) Eos # (Auto) Baso # (Auto) Neutrophils % (Manual) Band Neutrophils % Lymphocytes % (Manual) Monocytes % (Manual) Nucleated RBC % Platelet Estimate Large Platelets Polychromasia Hypochromasia (manual) Poikilocytosis (manual Anisocytosis (manual) Macrocytosis (manual) Target Cells [place]ito Cells Puncture Site Rr pCO2 42 pO2 30 114 H HCO3 19.8 L ABG pH 7.28 L ABG Total CO2 21.0 L ABG O2 Saturation 100.9 H ABG Base Excess -6.6 L ABG Hemoglobin 8.3 L ABG Carboxyhemoglobin 3.7 H POC ABG HHb (Measured) -0.9 L ABG Methemoglobin 0.0 Jason Test Pos VBG pH 7.19 L* VBG pCO2 55 VBG HCO3 17.4 VBG Total CO2 22.7 VBG O2 Sat (Calc) 56.4 VBG Base Excess -7.7 L VBG Potassium 6.1 H A-a O2 Difference 119.0 Respiratory Index 1.0 Hgb O2 Saturation 97.2 Sodium 145 146.0 Chloride 108 H 111.0 H Glucose 236 H Lactate 5.9 H* Liter Flow 3.0 Vent Mode Bipap FiO2 40.0 Inspiratory BiPAP 12 Expiratory BiPAP 5 Crit Value Called To Kena rn 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 [employer] Crit Value Read Back Y Blood Gas Notified Time 57 Potassium 6.4 H* Carbon Dioxide 22 Anion Gap 22 H BUN 100 H* Creatinine 7.0 H Est GFR ( Amer) 7 Est GFR (Non-Af Amer) 6 POC Glucose (mg/dL) Random Glucose 216 H D Hemoglobin A1c Lactic Acid Calcium 8.1 L Phosphorus 7.8 H Magnesium 2.6 H Total Bilirubin 7.3 H AST 926 H ALT 871 H Alkaline Phosphatase 239 H Ammonia Troponin I Total Protein 6.5 Albumin 3.0 L Globulin 3.4 Albumin/Globulin Ratio 0.9 L Triglycerides Cholesterol LDL Cholesterol Direct HDL Cholesterol Venous Blood Potassium 6.1 H Urine Opiates Screen Urine Methadone Screen Ur Barbiturates Screen Ur Phencyclidine Scrn Ur Amphetamines Screen U Benzodiazepines Scrn U Oth Cocaine Metabols U Cannabinoids Screen Blood Type Antibody Screen 10/21/18 10/21/18 10/21/18 06:23 06:23 06:23 WBC 9.7 RBC 3.31 L Hgb 9.9 L Hct 32.3 L MCV 97.5 MCH 29.8 MCHC 30.5 L RDW 19.1 H Plt Count 84 L MPV 10.1 Neut % (Auto) 79.1 H Lymph % (Auto) 2.9 L [place] % (Auto) 17.6 H Eos % (Auto) 0.1 Baso % (Auto) 0.3 Neut # (Auto) 7.7 H Lymph # (Auto) 0.3 L [place] # (Auto) 1.7 H Eos # (Auto) 0.0 Baso # (Auto) 0.0 Neutrophils % (Manual) 78 H Band Neutrophils % 3 H Lymphocytes % (Manual) 3 L Monocytes % (Manual) 16 H Nucleated RBC % 9 H Platelet Estimate Decreased L Large Platelets Present Polychromasia Slight Hypochromasia (manual) Slight Poikilocytosis (manual Anisocytosis (manual) Moderate Macrocytosis (manual) Moderate Target Cells Slight [place] Cells Puncture Site pCO2 pO2 HCO3 ABG pH ABG Total CO2 ABG O2 Saturation ABG Base Excess ABG Hemoglobin ABG Carboxyhemoglobin POC ABG HHb (Measured) ABG Methemoglobin Jason Test VBG pH VBG pCO2 VBG HCO3 VBG Total CO2 VBG O2 Sat (Calc) VBG Base Excess VBG Potassium A-a O2 Difference Respiratory Index Hgb O2 Saturation Sodium 144 Chloride 105 Glucose Lactate Liter Flow Vent Mode FiO2 Inspiratory BiPAP Expiratory BiPAP Crit Value Called To Crit Value Called By Crit Value Read Back Blood Gas Notified Time Potassium 5.3 H Carbon Dioxide 24 Anion Gap 20 BUN 104 H* Creatinine 6.7 H Est GFR ( Amer) 7 Est GFR (Non-Af Amer) 6 POC Glucose (mg/dL) Random Glucose 208 H Hemoglobin A1c Lactic Acid 5.1 H* Calcium 7.9 L Phosphorus 6.8 H Magnesium 2.5 H Total Bilirubin 6.6 H AST 870 H ALT 859 H Alkaline Phosphatase 216 H Ammonia Troponin I Total Protein 6.5 Albumin 3.0 L Globulin 3.5 Albumin/Globulin Ratio 0.9 L Triglycerides Cholesterol LDL Cholesterol Direct HDL Cholesterol Venous Blood Potassium Urine Opiates Screen Urine Methadone Screen Ur Barbiturates Screen Ur Phencyclidine Scrn Ur Amphetamines Screen U Benzodiazepines Scrn U Oth Cocaine Metabols U Cannabinoids Screen Blood Type Antibody Screen 10/21/18 10/21/18 11:05 12:05 WBC RBC Hgb Hct MCV MCH MCHC RDW Plt Count MPV Neut % (Auto) Lymph % (Auto) [place] % (Auto) Eos % (Auto) Baso % (Auto) Neut # (Auto) Lymph # (Auto) [place] # (Auto) Eos # (Auto) Baso # (Auto) Neutrophils % (Manual) Band Neutrophils % Lymphocytes % (Manual) Monocytes % (Manual) Nucleated RBC % Platelet Estimate Large Platelets Polychromasia Hypochromasia (manual) Poikilocytosis (manual Anisocytosis (manual) Macrocytosis (manual) Target Cells [place] Cells Puncture Site pCO2 pO2 HCO3 ABG pH ABG Total CO2 ABG O2 Saturation ABG Base Excess ABG Hemoglobin ABG Carboxyhemoglobin POC ABG HHb (Measured) ABG Methemoglobin Jason Test VBG pH VBG pCO2 VBG HCO3 VBG Total CO2 VBG O2 Sat (Calc) VBG Base Excess VBG Potassium A-a O2 Difference Respiratory Index Hgb O2 Saturation Sodium Chloride Glucose Lactate Liter Flow Vent Mode FiO2 Inspiratory BiPAP Expiratory BiPAP Crit Value Called To Crit Value Called By Crit Value Read Back Blood Gas Notified Time Potassium Carbon Dioxide Anion Gap BUN Creatinine Est GFR ( Amer) Est GFR (Non-Af Amer) POC Glucose (mg/dL) Random Glucose Hemoglobin A1c Lactic Acid Calcium Phosphorus Magnesium Total Bilirubin AST ALT Alkaline Phosphatase Ammonia 24 D Troponin I Total Protein Albumin Globulin Albumin/Globulin Ratio Triglycerides Cholesterol LDL Cholesterol Direct HDL Cholesterol Venous Blood Potassium Urine Opiates Screen Negative Urine Methadone Screen Negative Ur Barbiturates Screen Negative Ur Phencyclidine Scrn Negative Ur Amphetamines Screen Negative U Benzodiazepines Scrn Negative U Oth Cocaine Metabols Negative U Cannabinoids Screen Negative Blood Type Antibody Screen
[2018-10-21] MEDS ORDERED: Sodium Chloride 0.45% 1,000 ML IV SCH (16:15)
[2018-10-21] MEDS: Sodium Chloride 0.45% 1,000 ML IV SCH (16:40)
--- NOTE | 2018-10-21 17:18 | CP.PCM.PN ---
Subjective - Date & Time of Evaluation Date of Evaluation: 10/21/18 Time of Evaluation: 15:00 - Subjective Subjective: Clinically same Objective - Vital Signs/Intake and Output Vital Signs (last 24 hours): Temp Pulse Resp BP Pulse Ox 97.4 F L 101 H 14 95/51 L 100 10/21/18 16:00 10/21/18 16:12 10/21/18 15:59 10/21/18 15:59 10/21/18 15:59 Intake and Output: 10/21/18 10/21/18 06:59 18:59 Intake Total 1600 750 Output Total 0 185 Balance 1600 565 - Medications Medications: Current Medications Famotidine (Pepcid) 20 mg IVP DAILY [facility] Last Admin: 10/21/18 10:04 Dose: 20 mg Heparin Sodium (Porcine) (Heparin) 5,000 units SC Q12 [facility] Last Admin: 10/21/18 10:18 Dose: 5,000 units Sodium Chloride (Sodium Chloride 0.45%) 1,000 mls @ 70 mls/hr IV .[id number] [facility] Last Admin: 10/21/18 16:40 Dose: 70 mls/hr Sodium Bicarbonate (Sodium Bicarbonate (8.4%) 50 Meq Syringe) 150 meq IV CONT [facility] - Labs Labs: 10/21/18 06:23 10/21/18 06:23 - Constitutional Appears: Well - Head Exam Head Exam: ATRAUMATIC, NORMAL INSPECTION, NORMOCEPHALIC - Eye Exam Eye Exam: EOMI, Normal appearance, PERRL Pupil Exam: NORMAL ACCOMODATION, PERRL - ENT Exam ENT Exam: Mucous Membranes Moist, Normal Exam - Neck Exam Neck Exam: Full ROM, Normal Inspection. absent: Lymphadenopathy - Respiratory Exam Respiratory Exam: Decreased Breath Sounds - Cardiovascular Exam Cardiovascular Exam: REGULAR RHYTHM, +S1, +S2 - GI/Abdominal Exam GI & Abdominal Exam: Soft, Diminished Bowel Sounds - Rectal Exam Rectal Exam: Deferred Assessment and Plan (1) Acute CVA (cerebrovascular accident) Status: Acute (2) Acute hyperkalemia Status: Acute (3) Acute renal failure Status: Acute (4) Altered mental status Status: Acute (5) CHF (congestive heart failure) Status: Acute (6) Cellulitis Status: Acute (7) Decubitus ulcer Status: Acute (8) Encephalopathy Status: Acute (9) Hyperkalemia Status: Acute (10) Leg ulcer, left Status: Acute (11) NSTEMI (non-ST elevated myocardial infarction) Status: Acute (12) Peripheral edema Status: Acute (13) Renal insufficiency Status: Acute (14) A-fib Status: Chronic (15) Aortic stenosis Status: Chronic (16) Fluid overload Status: Chronic - Assessment and Plan (Free Text) Plan: Follow-up with nephro IV fluid Sodium bicarb Encourage p.o. feeding GI and DVT prophylaxis Monitor CBC CMP As ordered
--- NOTE | 2018-10-21 17:19 | CP.PCM.HP ---
Present on Admission - Present on Admission Any Indicators Present on Admission: No Past Patient History - Infectious Disease Hx of Infectious Diseases: None - Tetanus Immunizations Tetanus Immunization: Unknown - Past Medical History & Family History Past Medical History?: Yes - Past Social History Smoking Status: unknown Alcohol: None Home Situation {Lives}: Detention Domestic Violence: Negative - CARDIAC Hx Atrial Fibrillation: Yes Hx Congestive Heart Failure: Yes Hx Hypercholesterolemia: Yes Hx Hypertension: Yes - PULMONARY Hx Respiratory Disorders: No - NEUROLOGICAL Hx Dementia: Yes - HEENT Hx HEENT Problems: Yes Hx Cataracts: Yes Hx Glaucoma: Yes - RENAL Hx Chronic Kidney Disease: No - ENDOCRINE/METABOLIC Hx Endocrine Disorders: No - HEMATOLOGICAL/ONCOLOGICAL Hx Anemia: Yes - INTEGUMENTARY Hx Dermatological Problems: Yes - MUSCULOSKELETAL/RHEUMATOLOGICAL Hx Arthritis: Yes - GASTROINTESTINAL Hx Gastrointestinal Disorders: Yes Hx Constipation: Yes - GENITOURINARY/GYNECOLOGICAL Hx Genitourinary Disorders: Yes Hx Incontinence: Yes - PSYCHIATRIC Hx Substance Use: No - SURGICAL HISTORY Hx Coronary Stent: Yes - ANESTHESIA Hx Anesthesia: Yes Hx Anesthesia Reactions: No Hx Malignant Hyperthermia: No Meds Allergies/Adverse Reactions: Allergies Allergy/AdvReac Type Severity Reaction Status Date / Time No Known Allergies Allergy Verified 10/20/18 18:36 Physical Exam - Constitutional Appears: Well - Head Exam Head Exam: ATRAUMATIC, NORMAL INSPECTION, NORMOCEPHALIC - Eye Exam Eye Exam: EOMI, Normal appearance, PERRL Pupil Exam: NORMAL ACCOMODATION, PERRL - ENT Exam ENT Exam: Mucous Membranes Moist, Normal Exam - Neck Exam Neck exam: Positive for: Normal Inspection - Respiratory Exam Respiratory Exam: Decreased Breath Sounds - Cardiovascular Exam Cardiovascular Exam: REGULAR RHYTHM, +S1, +S2 - GI/Abdominal Exam GI & Abdominal Exam: Diminished Bowel Sounds, Soft - Rectal Exam Rectal Exam: Deferred Results - Vital Signs Recent Vital Signs: Last Vital Signs Temp 97.4 F L 10/21/18 16:00 Pulse 101 H 10/21/18 16:12 Resp 14 10/21/18 15:59 BP 95/51 L 10/21/18 15:59 Pulse Ox 100 10/21/18 15:59 - Labs Result Diagrams: 11/13/18 06:31 11/13/18 06:31 Labs: Laboratory Results - last 24 hr 10/20/18 10/20/18 10/20/18 18:30 19:32 19:32 WBC 7.7 RBC 4.10 Hgb 12.2 Hct 40.1 MCV 98.0 D MCH 29.7 MCHC 30.3 L RDW 19.8 H Plt Count 79 L D MPV 10.0 Neut % (Auto) 79.4 H Lymph % (Auto) 8.1 L [place] % (Auto) 11.0 H Eos % (Auto) 1.0 Baso % (Auto) 0.5 Neut # (Auto) 6.1 Lymph # (Auto) 0.6 L [place] # (Auto) 0.8 Eos # (Auto) 0.1 Baso # (Auto) 0.0 Neutrophils % (Manual) 81 H Band Neutrophils % Lymphocytes % (Manual) 9 L Monocytes % (Manual) 10 Nucleated RBC % 19 H Platelet Estimate Decreased L Large Platelets Polychromasia Hypochromasia (manual) Poikilocytosis (manual Slight Anisocytosis (manual) Slight Macrocytosis (manual) Slight Target Cells [place] Cells Slight Puncture Site pCO2 pO2 HCO3 ABG pH ABG Total CO2 ABG O2 Saturation ABG Base Excess ABG Hemoglobin ABG Carboxyhemoglobin POC ABG HHb (Measured) ABG Methemoglobin Jason Test VBG pH VBG pCO2 VBG HCO3 VBG Total CO2 VBG O2 Sat (Calc) VBG Base Excess VBG Potassium A-a O2 Difference Respiratory Index Hgb O2 Saturation Sodium Chloride Glucose Lactate Liter Flow Vent Mode FiO2 Inspiratory BiPAP Expiratory BiPAP Crit Value Called To Crit Value Called By Crit Value Read Back Blood Gas Notified Time Potassium Carbon Dioxide Anion Gap BUN Creatinine Est GFR ( Amer) Est GFR (Non-Af Amer) POC Glucose (mg/dL) 131 H Random Glucose Hemoglobin A1c 5.3 Lactic Acid Calcium Phosphorus Magnesium Total Bilirubin AST ALT Alkaline Phosphatase Ammonia Troponin I Total Protein Albumin Globulin Albumin/Globulin Ratio Triglycerides Cholesterol LDL Cholesterol Direct HDL Cholesterol Venous Blood Potassium Urine Opiates Screen Urine Methadone Screen Ur Barbiturates Screen Ur Phencyclidine Scrn Ur Amphetamines Screen U Benzodiazepines Scrn U Oth Cocaine Metabols U Cannabinoids Screen Blood Type Antibody Screen 10/20/18 10/20/18 10/20/18 20:10 20:23 21:54 WBC RBC Hgb Hct MCV MCH MCHC RDW Plt Count MPV Neut % (Auto) Lymph % (Auto) [place] % (Auto) Eos % (Auto) Baso % (Auto) Neut # (Auto) Lymph # (Auto) [place] # (Auto) Eos # (Auto) Baso # (Auto) Neutrophils % (Manual) Band Neutrophils % Lymphocytes % (Manual) Monocytes % (Manual) Nucleated RBC % Platelet Estimate Large Platelets Polychromasia Hypochromasia (manual) Poikilocytosis (manual Anisocytosis (manual) Macrocytosis (manual) Target Cells [place] Cells Puncture Site pCO2 pO2 38 HCO3 ABG pH ABG Total CO2 ABG O2 Saturation ABG Base Excess ABG Hemoglobin ABG Carboxyhemoglobin POC ABG HHb (Measured) ABG Methemoglobin Jason Test VBG pH 7.11 L* VBG pCO2 55 VBG HCO3 14.1 VBG Total CO2 19.2 L VBG O2 Sat (Calc) 69.9 H VBG Base Excess -12.3 L VBG Potassium 6.7 H* A-a O2 Difference Respiratory Index Hgb O2 Saturation Sodium 144.0 141 Chloride 114.0 H 112 H Glucose 113 H Lactate 3.4 H Liter Flow Vent Mode FiO2 21.0 Inspiratory BiPAP Expiratory BiPAP Crit Value Called To Dr skelton Crit Value Called By [facility] Crit Value Read Back Y Blood Gas Notified Time 2017 Potassium 7.2 H* D Carbon Dioxide 14 L Anion Gap 22 H BUN 101 H* D Creatinine 7.2 H Est GFR ( Amer) 6 Est GFR (Non-Af Amer) 5 POC Glucose (mg/dL) Random Glucose 127 H Hemoglobin A1c Lactic Acid Calcium 8.4 L Phosphorus Magnesium Total Bilirubin 6.2 H AST 1025 H ALT 983 H D Alkaline Phosphatase 266 H Ammonia Troponin I 0.3300 H* Total Protein 7.6 Albumin 3.5 Globulin 4.1 H Albumin/Globulin Ratio 0.9 L Triglycerides Cancelled 142 D Cholesterol Cancelled 150 LDL Cholesterol Direct Cancelled 110 HDL Cholesterol Cancelled 17 L Venous Blood Potassium 6.7 H* Urine Opiates Screen Urine Methadone Screen Ur Barbiturates Screen Ur Phencyclidine Scrn Ur Amphetamines Screen U Benzodiazepines Scrn U Oth Cocaine Metabols U Cannabinoids Screen Blood Type Antibody Screen 10/21/18 10/21/18 10/21/18 00:41 00:41 00:41 WBC 9.7 RBC 3.51 L Hgb 10.5 L Hct 34.5 MCV 98.2 MCH 29.8 MCHC 30.4 L RDW 20.0 H Plt Count 75 L MPV 10.1 Neut % (Auto) 82.6 H Lymph % (Auto) 4.9 L [place] % (Auto) 11.9 H Eos % (Auto) 0.3 Baso % (Auto) 0.3 Neut # (Auto) 8.0 H Lymph # (Auto) 0.5 L [place] # (Auto) 1.2 H Eos # (Auto) 0.0 Baso # (Auto) 0.0 Neutrophils % (Manual) 87 H Band Neutrophils % Lymphocytes % (Manual) 5 L Monocytes % (Manual) 8 Nucleated RBC % 18 H Platelet Estimate Decreased L Large Platelets Polychromasia Slight Hypochromasia (manual) Poikilocytosis (manual Anisocytosis (manual) Moderate Macrocytosis (manual) Moderate Target Cells [place] Cells Puncture Site pCO2 pO2 HCO3 ABG pH ABG Total CO2 ABG O2 Saturation ABG Base Excess ABG Hemoglobin ABG Carboxyhemoglobin POC ABG HHb (Measured) ABG Methemoglobin Jason Test VBG pH VBG pCO2 VBG HCO3 VBG Total CO2 VBG O2 Sat (Calc) VBG Base Excess VBG Potassium A-a O2 Difference Respiratory Index Hgb O2 Saturation Sodium Chloride Glucose Lactate Liter Flow Vent Mode FiO2 Inspiratory BiPAP Expiratory BiPAP Crit Value Called To Crit Value Called By Crit Value Read Back Blood Gas Notified Time Potassium Carbon Dioxide Anion Gap BUN Creatinine Est GFR ( Amer) Est GFR (Non-Af Amer) POC Glucose (mg/dL) Random Glucose Hemoglobin A1c 5.3 Lactic Acid Calcium Phosphorus Magnesium Total Bilirubin AST ALT Alkaline Phosphatase Ammonia Troponin I Total Protein Albumin Globulin Albumin/Globulin Ratio Triglycerides Cholesterol LDL Cholesterol Direct HDL Cholesterol Venous Blood Potassium Urine Opiates Screen Urine Methadone Screen Ur Barbiturates Screen Ur Phencyclidine Scrn Ur Amphetamines Screen U Benzodiazepines Scrn U Oth Cocaine Metabols U Cannabinoids Screen Blood Type O POSITIVE Antibody Screen Negative 10/21/18 10/21/18 10/21/18 00:41 00:53 05:45 WBC RBC Hgb Hct MCV MCH MCHC RDW Plt Count MPV Neut % (Auto) Lymph % (Auto) [place] % (Auto) Eos % (Auto) Baso % (Auto) Neut # (Auto) Lymph # (Auto) [place] # (Auto) Eos # (Auto) Baso # (Auto) Neutrophils % (Manual) Band Neutrophils % Lymphocytes % (Manual) Monocytes % (Manual) Nucleated RBC % Platelet Estimate Large Platelets Polychromasia Hypochromasia (manual) Poikilocytosis (manual Anisocytosis (manual) Macrocytosis (manual) Target Cells [place] Cells Puncture Site Rr pCO2 42 pO2 30 114 H HCO3 19.8 L ABG pH 7.28 L ABG Total CO2 21.0 L ABG O2 Saturation 100.9 H ABG Base Excess -6.6 L ABG Hemoglobin 8.3 L ABG Carboxyhemoglobin 3.7 H POC ABG HHb (Measured) -0.9 L ABG Methemoglobin 0.0 Jason Test Pos VBG pH 7.19 L* VBG pCO2 55 VBG HCO3 17.4 VBG Total CO2 22.7 VBG O2 Sat (Calc) 56.4 VBG Base Excess -7.7 L VBG Potassium 6.1 H A-a O2 Difference 119.0 Respiratory Index 1.0 Hgb O2 Saturation 97.2 Sodium 145 146.0 Chloride 108 H 111.0 H Glucose 236 H Lactate 5.9 H* Liter Flow 3.0 Vent Mode Bipap FiO2 40.0 Inspiratory BiPAP 12 Expiratory BiPAP 5 Crit Value Called To Kena gomez 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 cabin equipment supervisor Crit Value Read Back Y Blood Gas Notified Time 57 Potassium 6.4 H* Carbon Dioxide 22 Anion Gap 22 H BUN 100 H* Creatinine 7.0 H Est GFR ( Amer) 7 Est GFR (Non-Af Amer) 6 POC Glucose (mg/dL) Random Glucose 216 H D Hemoglobin A1c Lactic Acid Calcium 8.1 L Phosphorus 7.8 H Magnesium 2.6 H Total Bilirubin 7.3 H AST 926 H ALT 871 H Alkaline Phosphatase 239 H Ammonia Troponin I Total Protein 6.5 Albumin 3.0 L Globulin 3.4 Albumin/Globulin Ratio 0.9 L Triglycerides Cholesterol LDL Cholesterol Direct HDL Cholesterol Venous Blood Potassium 6.1 H Urine Opiates Screen Urine Methadone Screen Ur Barbiturates Screen Ur Phencyclidine Scrn Ur Amphetamines Screen U Benzodiazepines Scrn U Oth Cocaine Metabols U Cannabinoids Screen Blood Type Antibody Screen 10/21/18 10/21/18 10/21/18 06:23 06:23 06:23 WBC 9.7 RBC 3.31 L Hgb 9.9 L Hct 32.3 L MCV 97.5 MCH 29.8 MCHC 30.5 L RDW 19.1 H Plt Count 84 L MPV 10.1 Neut % (Auto) 79.1 H Lymph % (Auto) 2.9 L [place] % (Auto) 17.6 H Eos % (Auto) 0.1 Baso % (Auto) 0.3 Neut # (Auto) 7.7 H Lymph # (Auto) 0.3 L [place] # (Auto) 1.7 H Eos # (Auto) 0.0 Baso # (Auto) 0.0 Neutrophils % (Manual) 78 H Band Neutrophils % 3 H Lymphocytes % (Manual) 3 L Monocytes % (Manual) 16 H Nucleated RBC % 9 H Platelet Estimate Decreased L Large Platelets Present Polychromasia Slight Hypochromasia (manual) Slight Poikilocytosis (manual Anisocytosis (manual) Moderate Macrocytosis (manual) Moderate Target Cells Slight [place] Cells Puncture Site pCO2 pO2 HCO3 ABG pH ABG Total CO2 ABG O2 Saturation ABG Base Excess ABG Hemoglobin ABG Carboxyhemoglobin POC ABG HHb (Measured) ABG Methemoglobin Jason Test VBG pH VBG pCO2 VBG HCO3 VBG Total CO2 VBG O2 Sat (Calc) VBG Base Excess VBG Potassium A-a O2 Difference Respiratory Index Hgb O2 Saturation Sodium 144 Chloride 105 Glucose Lactate Liter Flow Vent Mode FiO2 Inspiratory BiPAP Expiratory BiPAP Crit Value Called To Crit Value Called By Crit Value Read Back Blood Gas Notified Time Potassium 5.3 H Carbon Dioxide 24 Anion Gap 20 BUN 104 H* Creatinine 6.7 H Est GFR ( Amer) 7 Est GFR (Non-Af Amer) 6 POC Glucose (mg/dL) Random Glucose 208 H Hemoglobin A1c Lactic Acid 5.1 H* Calcium 7.9 L Phosphorus 6.8 H Magnesium 2.5 H Total Bilirubin 6.6 H AST 870 H ALT 859 H Alkaline Phosphatase 216 H Ammonia Troponin I Total Protein 6.5 Albumin 3.0 L Globulin 3.5 Albumin/Globulin Ratio 0.9 L Triglycerides Cholesterol LDL Cholesterol Direct HDL Cholesterol Venous Blood Potassium Urine Opiates Screen Urine Methadone Screen Ur Barbiturates Screen Ur Phencyclidine Scrn Ur Amphetamines Screen U Benzodiazepines Scrn U Oth Cocaine Metabols U Cannabinoids Screen Blood Type Antibody Screen 10/21/18 10/21/18 11:05 12:05 WBC RBC Hgb Hct MCV MCH MCHC RDW Plt Count MPV Neut % (Auto) Lymph % (Auto) [place] % (Auto) Eos % (Auto) Baso % (Auto) Neut # (Auto) Lymph # (Auto) [place] # (Auto) Eos # (Auto) Baso # (Auto) Neutrophils % (Manual) Band Neutrophils % Lymphocytes % (Manual) Monocytes % (Manual) Nucleated RBC % Platelet Estimate Large Platelets Polychromasia Hypochromasia (manual) Poikilocytosis (manual Anisocytosis (manual) Macrocytosis (manual) Target Cells [place] Cells Puncture Site pCO2 pO2 HCO3 ABG pH ABG Total CO2 ABG O2 Saturation ABG Base Excess ABG Hemoglobin ABG Carboxyhemoglobin POC ABG HHb (Measured) ABG Methemoglobin Jason Test VBG pH VBG pCO2 VBG HCO3 VBG Total CO2 VBG O2 Sat (Calc) VBG Base Excess VBG Potassium A-a O2 Difference Respiratory Index Hgb O2 Saturation Sodium Chloride Glucose Lactate Liter Flow Vent Mode FiO2 Inspiratory BiPAP Expiratory BiPAP Crit Value Called To Crit Value Called By Crit Value Read Back Blood Gas Notified Time Potassium Carbon Dioxide Anion Gap BUN Creatinine Est GFR ( Amer) Est GFR (Non-Af Amer) POC Glucose (mg/dL) Random Glucose Hemoglobin A1c Lactic Acid Calcium Phosphorus Magnesium Total Bilirubin AST ALT Alkaline Phosphatase Ammonia 24 D Troponin I Total Protein Albumin Globulin Albumin/Globulin Ratio Triglycerides Cholesterol LDL Cholesterol Direct HDL Cholesterol Venous Blood Potassium Urine Opiates Screen Negative Urine Methadone Screen Negative Ur Barbiturates Screen Negative Ur Phencyclidine Scrn Negative Ur Amphetamines Screen Negative U Benzodiazepines Scrn Negative U Oth Cocaine Metabols Negative U Cannabinoids Screen Negative Blood Type Antibody Screen Assessment & Plan (1) Acute hyperkalemia Status: Acute (2) Acute renal failure Status: Acute (3) NSTEMI (non-ST elevated myocardial infarction) Status: Acute (4) A-fib Status: Chronic (5) CHF (congestive heart failure) Status: Acute (6) Cellulitis Status: Acute (7) Decubitus ulcer Status: Acute (8) Hyperkalemia Status: Acute (9) Leg ulcer, left Status: Acute (10) Peripheral edema Status: Acute (11) Renal insufficiency Status: Acute
[2018-10-21 18:43] LABS: ARTERIAL BLOOD GAS HCO3 27.1 mmol/L (21-28); ARTERIAL BLOOD GAS O2 SAT 98.7 % (95-98); ARTERIAL BLOOD GAS PCO2 52 mm/Hg (35-45); ARTERIAL BLOOD GAS PH 7.36 (7.35-7.45); ARTERIAL BLOOD GAS PO2 93 mm/Hg (80-100)
--- NOTE | 2018-10-21 23:26 | CON ---
DATE: 10/21/2018 RENAL CONSULTATION LOCATION: The patient is located in ICU, Room 16. REQUESTED BY: Dr. Scottie Alberto. REASON FOR CONSULTATION: Acute renal failure, chronic kidney disease, hyperkalemia, and altered mental status. HISTORY OF PRESENT ILLNESS: Mrs. Oro is an 88-year-old elderly obese female with a past medical history significant for hypertension, hyperlipidemia, coronary artery disease, CHF, CKD with unilateral small left kidney, atrial fibrillation, and dementia who was recently admitted to [facility] on 10/09/2018 after she slipped when she tried to get out of the bed and fell on the floor, unable to get back to bed, and the patient's son brought her to the hospital for further evaluation and found to have increased BUN and creatinine. Creatinine was about 3 to 3.2, and the baseline creatinine was about 1.7 to 1.9. [facility], and now, the patient was brought back to the hospital on 10/20/2018 with altered mental status and decreased p.o. intake. The patient was also found to have acute renal failure, hyperkalemia, and acute respiratory stenosis. The patient was treated initially for hyperkalemia and started on IV bicarb drip, and now, the patient is on BiPAP. The patient is awake; tried to follow simple commands, not in distress. No fever. No cough. No shortness of breath. PAST MEDICAL HISTORY: Significant for hypertension, hypercholesterolemia, CAD, CHF, CKD, dementia, anemia, arthritis, atrial fibrillation, and unilateral small left kidney nephritis. PAST SURGICAL HISTORY: The patient is status post coronary stent. ALLERGIES: NO KNOWN DRUG ALLERGIES. SOCIAL HISTORY: No smoking. No alcohol. No drugs. FAMILY HISTORY: Not significant. CURRENT MEDICATIONS: Include as follows: Subcutaneous heparin 5000 units every 12 hours, Pepcid 20 mg p.o. daily, IV sodium bicarb drip D5W with sodium bicarbonate at 100 mL/hour. SENIOR CARE MEDICATIONS: Include Ditropan, metoprolol, Periactin, Plavix, Rocaltrol, albuterol inhaler, and Tylenol. REVIEW OF SYSTEMS Significant for altered mental status, acute renal failure, hyperkalemia, and decreased p.o. intake. All other review of systems are reviewed and are negative. PHYSICAL EXAMINATION: VITAL SIGNS: Blood pressure 107/33, pulse 100, respirations about 15, saturation 98%, temperature 96.6. Height is 5 feet and weight is about 260 pounds. GENERAL: Mrs. Oro is an 88-year-old elderly obese female, well-built, well-nourished, not in distress; on BiPAP. HEENT: Pupils normal and reactive to light and accommodation. Conjunctiva pink. Sclerae anicteric. On BiPAP. NECK: Trachea is midline. LUNGS: Symmetric on both sides. Bilateral breath sounds present. No crackles. CARDIOVASCULAR SYSTEM: [place] at the fifth intercostal space midclavicular line. S1 and S2 audible. The patient has ejection systolic murmur present in the aortic area. ABDOMEN: Slightly protuberant, soft, tympanitic. No guarding. No rigidity. No hepatosplenomegaly. No abdominal bruit. CENTRAL NERVOUS SYSTEM: The patient is awake, following simple commands. On BiPAP. EXTREMITIES: No cyanosis, no clubbing, no edema. Chronic skin changes in both lower extremities and some scratch ortiz. LABORATORY DATA: Include as follows: As of 10/20/2018, WBC 7.7, hemoglobin 12.2, hematocrit is 40.1, platelets 79, neutrophils 81, lymphs 9, monos 10, and nucleated RBC 19. VBG, pH is 7.11, pCO2 is 55, bicarb is 14, saturation 69.9. Sodium 141, potassium 7.2, chloride 112, CO2 of 14, BUN 101, creatinine 7.2, glucose is 127. Hemoglobin A1c is 5.3 and calcium 8.4. Total bilirubin 6.2, AST 1025, ALT 983, alkaline phosphatase 266, and troponin is 0.33. Total protein 7.6, albumin is 4.1. Cholesterol is 150, LDL is 110, HDL is 17; and the repeat potassium on 10/21/2018 at 12:41 a.m. potassium 6.4 and chloride 108, CO2 of 22, BUN 100, creatinine 7; and as of 06:23 a.m. this morning, 10/21/2018, sodium 144, potassium 5.3, chloride 105, CO2 of 24, BUN 104, creatinine 6.7, glucose 208. Lactic acid 5.1, calcium 7.9, phosphorus 6.8, magnesium 2.5, total bilirubin 870, ALT 859, alkaline phosphatase 216, ammonia 24, total protein 6.1, albumin is 3. Baseline creatinine prior to the discharge on 10/15/2018, creatinine 2. Chest x-ray as of 10/20/2018 shows bibasilar atelectasis, prominent interstitial markings, may represent vascular crowding, some hypoinflation rather than pulmonary venous congestion, correlated clinically with cardiomegaly. CT of the head on 10/20/2018 evaluation of the skull base, nonspecific white matter changes and left occipital encephalomalacia, and generalized volume loss. ASSESSMENT: In summary, Mrs. Oro is an 88-year-old elderly obese female with a history of hypertension, hyperlipidemia, coronary artery disease, congestive heart failure, atrial fibrillation, chronic kidney disease, and dementia who was [facility] and admitted with altered mental status, decreased p.o. intake, increased blood urea nitrogen and creatinine and worsening liver function tests. 1. Acute renal failure, on chronic kidney disease stage III. 2. Hyperkalemia secondary to worsening acute renal failure and respiratory acidosis, acute. 3. Hypertension. 4. Dehydration. 5. Atrial fibrillation. 6. Dementia. PLAN: Continue IV fluids, D5W with bicarbonate drip, now bicarbonate improved and consider to change IV fluids to half normal saline at 70 mL/hour and continue monitor to BMP and check urine electrolytes, osmolality, urine culture and sensitivity. We will follow with you. The patient had a recent ultrasound consistent with small left kidney about 7.3 cm. No further workup is needed at this time. Thank you for allowing me to participate in your patient's care. Alfred Lobato MD
[2018-10-22 06:02] LABS: BASO # 0.1 K/uL (0.0-0.2); BASO % 0.6 % (0.0-2.0); EOS # 0.2 K/uL (0.0-0.7); EOS % 2.1 % (0.0-4.0); HEMOGLOBIN 9.9 g/dL (11.0-16.0); LYMPH # 0.3 K/uL (1.0-4.3); LYMPH % 3.2 % (20.0-40.0); MEAN CELL VOLUME 95.6 fL (81.0-99.0); MEAN CORPUSCULAR HGB CONC 31.4 g/dL (33.0-37.0); MEAN PLATELET VOLUME 9.8 fL (7.2-11.7); MONO # 1.4 K/uL (0.0-0.8); MONO % 13.2 % (0.0-10.0); NEUT # 8.8 K/uL (1.8-7.0); NEUT % 80.9 % (50.0-75.0); NRBC % 7.7 % (0.0-2.0); PLATELET COUNT 85 K/uL (130-400); RBC 3.29 Mil/uL (3.80-5.20); RED CELL DISTRIBUTION WIDTH 18.3 % (11.5-14.5); WHITE BLOOD COUNT 10.9 K/uL (4.8-10.8)
[2018-10-22 06:46] LABS: ALB/GLOB RATIO 0.7 (1.0-2.1); ALBUMIN 2.7 g/dL (3.5-5.0); CALCIUM 7.9 mg/dl (8.6-10.4)
[2018-10-22] MEDS: Sodium Chloride 0.45% 1,000 ML IV SCH ×3 (07:45→21:25)
[2018-10-22 08:29] LABS: ANISOCYTOSIS MODERATE; BANDS 1 % (0-2); LYMPHOCYTE 1 % (20-40); MONOCYTE 12 % (0-10); MYELOCYTE 1 % (0-0); NEUTROPHIL 85 % (50-75); NUCLEATED RED BLOOD CELL 6 % (0-0); PLATELET ESTIMATE DECREASED (NORMAL); TOTAL CELLS COUNTED 100
[2018-10-22 08:30] LABS: HYPOCHROMIC SLIGHT; TARGET CELLS MODERATE
--- NOTE | 2018-10-22 08:46 | CP.CCUPN ---
<Albina Leong - Last Filed: 10/22/18 10:28> CCU Subjective - Physician Review Subjective (Free Text): 10/22/18 10:28 ICU Progress Note for Dr. Campos Patient seen and examined at bedside this morning. Patient slightly awake on BiPaP. Due to patient condition ROS unable to be obtained. CCU Objective - Vital Signs / Intake & Output Vital Signs (Last 4 hours): Vital Signs Temp Pulse Resp BP Pulse Ox 10/22/18 08:00 96.9 F L 10/22/18 07:59 111 H 13 91/55 L 98 10/22/18 06:58 111 H 17 90/55 L 99 10/22/18 06:50 112 H 10/22/18 06:05 111 H 10/22/18 05:59 107 H 20 96/65 L 86 L 10/22/18 05:45 109 H 13 98 10/22/18 05:00 109 H 18 112/78 98 Intake and Output (Last 8hrs): Intake & Output 10/21/18 10/22/18 10/22/18 22:59 06:59 14:59 Intake Total 522 560 140 Output Total 500 700 125 Balance 22 -140 15 Weight 362 lb 14.4 oz Intake: Intake, IV Amount 522 560 140 Right Proximal Port 522 560 140 Femoral Output: Urine 500 700 125 Urethral (Davis) 500 700 125 Other: # Bowel Movements 1 - Physical Exam Narrative Physical Exam (Free Text): 10/22/18 10:43 Obese female Head: Positive for: Atraumatic, Normocephalic Extroacular Muscles: Positive for: EOMI Conjunctiva: Positive for: Normal Respiratory/Chest: Positive for: Clear to Auscultation Cardiovascular: Positive for: Murmurs (crescendo descrendo murmur heard on all listening posts), Tachycardic Abdomen: Positive for: Tenderness (RUQ and RLQ tenderness), Normal Bowel Sounds, Other (abdominal obesity). Negative for: Distention, Peritoneal Signs, Rebound, Guarding Upper Extremity: Positive for: Edema (non pitting). Negative for: Cyanosis, Tenderness Lower Extremity: Negative for: Normal Inspection (chronic skin changes below knee bilaterally), Edema Skin: Positive for: Dry, Normal Color, Other (cool extremities) Psychiatric: Positive for: Alert - Medications Active Medications: Active Medications Generic Name Dose Route Start Last Admin Trade Name Zoya PRN Reason Stop Dose Admin Famotidine 20 mg 10/21/18 10:00 10/21/18 10:04 Pepcid IVP 20 mg DAILY SANDI Administration Heparin Sodium (Porcine) 5,000 units 10/21/18 10:00 10/21/18 22:31 Heparin SC 5,000 units Q12 SANDI Administration Sodium Chloride 1,000 mls @ 70 mls/hr 10/21/18 16:30 10/22/18 07:45 Sodium Chloride 0.45% IV Not Given .[id number] SANDI - Patient Studies Lab Studies: Lab Studies 10/22/18 10/22/18 10/21/18 Range/Units 05:55 05:55 18:35 WBC 10.9 H (4.8-10.8) K/uL RBC 3.29 L (3.80-5.20) Mil/uL Hgb 9.9 L (11.0-16.0) g/dL Hct 31.5 L (34.0-47.0) % MCV 95.6 (81.0-99.0) fL MCH 30.0 (27.0-31.0) pg MCHC 31.4 L (33.0-37.0) g/dL RDW 18.3 H (11.5-14.5) % Plt Count 85 L (130-400) K/uL MPV 9.8 (7.2-11.7) fL Neut % (Auto) 80.9 H (50.0-75.0) % Lymph % (Auto) 3.2 L (20.0-40.0) % Wilkinson % (Auto) 13.2 H (0.0-10.0) % Eos % (Auto) 2.1 (0.0-4.0) % Baso % (Auto) 0.6 (0.0-2.0) % Neut # (Auto) 8.8 H (1.8-7.0) K/uL Lymph # (Auto) 0.3 L (1.0-4.3) K/uL Wilkinson # (Auto) 1.4 H (0.0-0.8) K/uL Eos # (Auto) 0.2 (0.0-0.7) K/uL Baso # (Auto) 0.1 (0.0-0.2) K/uL Neutrophils % (Manual) 85 H (50-75) % Band Neutrophils % 1 (0-2) % Lymphocytes % (Manual) 1 L (20-40) % Monocytes % (Manual) 12 H (0-10) % Myelocytes % 1 H (0-0) % Nucleated RBC % 6 H (0-0) % Platelet Estimate Decreased L (NORMAL) Hypochromasia (manual) Slight Anisocytosis (manual) Moderate Target Cells Moderate Puncture Site Rba pCO2 52 H (35-45) mm/Hg pO2 93 (80-100) mm/Hg HCO3 27.1 (21-28) mmol/L ABG pH 7.36 (7.35-7.45) ABG Total CO2 31.0 H (22-28) mmol/L ABG O2 Saturation 98.7 H (95-98) % ABG Base Excess 2.8 (-2.0-3.0) mmol/L Jason Test Na ABG Potassium 4.3 (3.6-5.2) mmol/L A-a O2 Difference 56.0 mm/Hg Respiratory Index 0.6 Sodium 145 149.0 H (132-148) mmol/l Chloride 104 112.0 H (98-107) mmol/L Glucose 121 H (65-105) mg/dl Lactate 1.7 (0.7-2.1) mmol/L Vent Mode Bipap Mechanical Rate 8 FiO2 30.0 % Inspiratory BiPAP 20 Expiratory BiPAP 10 Potassium 4.2 (3.6-5.2) mmol/L Carbon Dioxide 31 H (22-30) mmol/L Anion Gap 14 (10-20) BUN 105 H* (7-17) mg/dL Creatinine 6.1 H (0.7-1.2) mg/dL Est GFR ( Amer) 8 Est GFR (Non-Af Amer) 6 Random Glucose 97 D (65-105) mg/dL Calcium 7.9 L (8.6-10.4) mg/dl Phosphorus 6.0 H (2.5-4.5) mg/dL Magnesium 2.3 (1.6-2.3) mg/dL Total Bilirubin 6.4 H (0.2-1.3) mg/dL AST 540 H D (14-36) U/L ALT 665 H D (9-52) U/L Alkaline Phosphatase 209 H (38-126) U/L Ammonia (9-33) umol/L Total Protein 6.4 (6.3-8.3) g/dL Albumin 2.7 L (3.5-5.0) g/dL Globulin 3.6 (2.2-3.9) gm/dL Albumin/Globulin Ratio 0.7 L (1.0-2.1) Arterial Blood Potassium 4.3 (3.6-5.2) mmol/L Urine Opiates Screen (NEGATIVE) Urine Methadone Screen (NEGATIVE) Ur Barbiturates Screen (NEGATIVE) Ur Phencyclidine Scrn (NEGATIVE) Ur Amphetamines Screen (NEGATIVE) U Benzodiazepines Scrn (NEGATIVE) U Oth Cocaine Metabols (NEGATIVE) U Cannabinoids Screen (NEGATIVE) 10/21/18 10/21/18 Range/Units 12:05 11:05 WBC (4.8-10.8) K/uL RBC (3.80-5.20) Mil/uL Hgb (11.0-16.0) g/dL Hct (34.0-47.0) % MCV (81.0-99.0) fL MCH (27.0-31.0) pg MCHC (33.0-37.0) g/dL RDW (11.5-14.5) % Plt Count (130-400) K/uL MPV (7.2-11.7) fL Neut % (Auto) (50.0-75.0) % Lymph % (Auto) (20.0-40.0) % Wilkinson % (Auto) (0.0-10.0) % Eos % (Auto) (0.0-4.0) % Baso % (Auto) (0.0-2.0) % Neut # (Auto) (1.8-7.0) K/uL Lymph # (Auto) (1.0-4.3) K/uL Wilkinson # (Auto) (0.0-0.8) K/uL Eos # (Auto) (0.0-0.7) K/uL Baso # (Auto) (0.0-0.2) K/uL Neutrophils % (Manual) (50-75) % Band Neutrophils % (0-2) % Lymphocytes % (Manual) (20-40) % Monocytes % (Manual) (0-10) % Myelocytes % (0-0) % Nucleated RBC % (0-0) % Platelet Estimate (NORMAL) Hypochromasia (manual) Anisocytosis (manual) Target Cells Puncture Site pCO2 (35-45) mm/Hg pO2 (80-100) mm/Hg HCO3 (21-28) mmol/L ABG pH (7.35-7.45) ABG Total CO2 (22-28) mmol/L ABG O2 Saturation (95-98) % ABG Base Excess (-2.0-3.0) mmol/L Jason Test ABG Potassium (3.6-5.2) mmol/L A-a O2 Difference mm/Hg Respiratory Index Sodium (132-148) mmol/l Chloride (98-107) mmol/L Glucose (65-105) mg/dl Lactate (0.7-2.1) mmol/L Vent Mode Mechanical Rate FiO2 % Inspiratory BiPAP Expiratory BiPAP Potassium (3.6-5.2) mmol/L Carbon Dioxide (22-30) mmol/L Anion Gap (10-20) BUN (7-17) mg/dL Creatinine (0.7-1.2) mg/dL Est GFR ( Amer) Est GFR (Non-Af Amer) Random Glucose (65-105) mg/dL Calcium (8.6-10.4) mg/dl Phosphorus (2.5-4.5) mg/dL Magnesium (1.6-2.3) mg/dL Total Bilirubin (0.2-1.3) mg/dL AST (14-36) U/L ALT (9-52) U/L Alkaline Phosphatase (38-126) U/L Ammonia 24 D (9-33) umol/L Total Protein (6.3-8.3) g/dL Albumin (3.5-5.0) g/dL Globulin (2.2-3.9) gm/dL Albumin/Globulin Ratio (1.0-2.1) Arterial Blood Potassium (3.6-5.2) mmol/L Urine Opiates Screen Negative (NEGATIVE) Urine Methadone Screen Negative (NEGATIVE) Ur Barbiturates Screen Negative (NEGATIVE) Ur Phencyclidine Scrn Negative (NEGATIVE) Ur Amphetamines Screen Negative (NEGATIVE) U Benzodiazepines Scrn Negative (NEGATIVE) U Oth Cocaine Metabols Negative (NEGATIVE) U Cannabinoids Screen Negative (NEGATIVE) Laboratory Results - last 24 hr 10/21/18 10/21/18 10/21/18 11:05 12:05 18:35 WBC RBC Hgb Hct MCV MCH MCHC RDW Plt Count MPV Neut % (Auto) Lymph % (Auto) Wilkinson % (Auto) Eos % (Auto) Baso % (Auto) Neut # (Auto) Lymph # (Auto) Wilkinson # (Auto) Eos # (Auto) Baso # (Auto) Neutrophils % (Manual) Band Neutrophils % Lymphocytes % (Manual) Monocytes % (Manual) Myelocytes % Nucleated RBC % Platelet Estimate Hypochromasia (manual) Anisocytosis (manual) Target Cells Puncture Site Rba pCO2 52 H pO2 93 HCO3 27.1 ABG pH 7.36 ABG Total CO2 31.0 H ABG O2 Saturation 98.7 H ABG Base Excess 2.8 Jason Test Na ABG Potassium 4.3 A-a O2 Difference 56.0 Respiratory Index 0.6 Sodium 149.0 H Chloride 112.0 H Glucose 121 H Lactate 1.7 Vent Mode Bipap Mechanical Rate 8 FiO2 30.0 Inspiratory BiPAP 20 Expiratory BiPAP 10 Potassium Carbon Dioxide Anion Gap BUN Creatinine Est GFR ( Amer) Est GFR (Non-Af Amer) Random Glucose Calcium Phosphorus Magnesium Total Bilirubin AST ALT Alkaline Phosphatase Ammonia 24 D Total Protein Albumin Globulin Albumin/Globulin Ratio Arterial Blood Potassium 4.3 Urine Opiates Screen Negative Urine Methadone Screen Negative Ur Barbiturates Screen Negative Ur Phencyclidine Scrn Negative Ur Amphetamines Screen Negative U Benzodiazepines Scrn Negative U Oth Cocaine Metabols Negative U Cannabinoids Screen Negative 10/22/18 10/22/18 05:55 05:55 WBC 10.9 H RBC 3.29 L Hgb 9.9 L Hct 31.5 L MCV 95.6 MCH 30.0 MCHC 31.4 L RDW 18.3 H Plt Count 85 L MPV 9.8 Neut % (Auto) 80.9 H Lymph % (Auto) 3.2 L Wilkinson % (Auto) 13.2 H Eos % (Auto) 2.1 Baso % (Auto) 0.6 Neut # (Auto) 8.8 H Lymph # (Auto) 0.3 L Wilkinson # (Auto) 1.4 H Eos # (Auto) 0.2 Baso # (Auto) 0.1 Neutrophils % (Manual) 85 H Band Neutrophils % 1 Lymphocytes % (Manual) 1 L Monocytes % (Manual) 12 H Myelocytes % 1 H Nucleated RBC % 6 H Platelet Estimate Decreased L Hypochromasia (manual) Slight Anisocytosis (manual) Moderate Target Cells Moderate Puncture Site pCO2 pO2 HCO3 ABG pH ABG Total CO2 ABG O2 Saturation ABG Base Excess Jason Test ABG Potassium A-a O2 Difference Respiratory Index Sodium 145 Chloride 104 Glucose Lactate Vent Mode Mechanical Rate FiO2 Inspiratory BiPAP Expiratory BiPAP Potassium 4.2 Carbon Dioxide 31 H Anion Gap 14 BUN 105 H* Creatinine 6.1 H Est GFR ( Amer) 8 Est GFR (Non-Af Amer) 6 Random Glucose 97 D Calcium 7.9 L Phosphorus 6.0 H Magnesium 2.3 Total Bilirubin 6.4 H AST 540 H D ALT 665 H D Alkaline Phosphatase 209 H Ammonia Total Protein 6.4 Albumin 2.7 L Globulin 3.6 Albumin/Globulin Ratio 0.7 L Arterial Blood Potassium Urine Opiates Screen Urine Methadone Screen Ur Barbiturates Screen Ur Phencyclidine Scrn Ur Amphetamines Screen U Benzodiazepines Scrn U Oth Cocaine Metabols U Cannabinoids Screen Radiology Impressions: Radiology Impressions Chest X-Ray 10/20/18 19:21 IMPRESSION: Bibasilar atelectasis. Prominent interstitial markings may represent vascular crowding from hypoinflation rather than pulmonary venous congestion. Correlate clinically. Cardiomegaly. Study marked for PA review. Head CT 10/20/18 19:21 IMPRESSION: Streak artifact obscures evaluation of the skull base. Nonspecific white matter changes. Left occipital encephalomalacia. Generalized volume loss. Preliminary impression was provided by [facility]. Fingerstick Blood Sugar Results: 115 Critical Care Progress Note - Nutrition Nutrition: Nutrition Category Date Time Status NPO Diet [DIET] Diets 10/21/18 Breakfast Active Assessment/Plan - Assessment and Plan (Free Text) Assessment: 88 year old female wiht PMHx of Afib, CHF, CAD, CVA, dementia in ICU after being found unresponsive in care home on 10/20. neuro -awake, unsedated -neuro consulted for possible reinfarction, Dr. Mcmahon -Dr. Mcmahon recs: ammonia, MRI Brain w/o clementine, ECHO -swallow eval ordered, pending CV -patient w/ severe -consider ECHO Pulm -Bipap settings: 8/30%/I: 20, E: 10 -obesity hypoventilation syndrome likely pH 7.36, pCO2, 52, HCO3 27, O2 sat 98.7 -s/p bicarb treatment -albuterol PRN at home but not here in ICU, continue to monitor -10/20 CXR: bibasilar atelectasis, cardiomegaly -ABG qAM Renal -admitted with hyperkalemia 7.2, now 4.2 -KENNY currently with BUN/Cr 105/61. -per admission note, patient's family refuses hemodialysis -Dr. Raza forde, recs: urine lytes, urine osm, urine Cr -will speak to patient's family again about possibility of hemodialysis -If patient no dialysis, will downgrade to tele -CMP qAM GI -patient w/ transaminitis AST 870 -> 540, ALT 859 -> 665, AP 216 -> 209, likely 2/2 organ failure -trend CMP qAM -avoid hepatotoxic medications; patient not on home tylenol PRN Heme -patient with stable anemia -CBC qAM DVT ppx: heparin 5000U sq q12 GI ppx: pepcid 20 mg IV daily Diet: pending swallow eval, will start diet if swallow eval negative case discussed w/ Dr. Andres Leong PGY1 <Raleigh Campos - Last Filed: 10/22/18 19:06> CCU Subjective - Physician Review Critical Care Time Spent (in minutes): 40 CCU Objective - Vital Signs / Intake & Output Vital Signs (Last 4 hours): Vital Signs Pulse Resp BP Pulse Ox 10/22/18 18:18 107 H 18 94/52 L 100 10/22/18 18:00 106 H 22 100 10/22/18 17:47 108 H 15 104/53 L 100 10/22/18 17:33 104 H 11 L 106/61 98 10/22/18 17:26 103 H 13 90/55 L 95 10/22/18 17:17 108 H 14 83/51 L 96 10/22/18 17:02 107 H 15 103/55 L 97 10/22/18 17:00 108 H 14 97 10/22/18 16:47 109 H 16 104/44 L 99 01/02/19 16:32 112 H 24 100/61 98 10/22/18 16:17 113 H 10 L 95/58 L 98 10/22/18 16:10 106 H 10/22/18 16:02 113 H 10 L 95/55 L 97 10/22/18 15:39 111 H 11 L 90/51 L 99 10/22/18 15:36 110 H 19 71/53 L 100 10/22/18 15:31 111 H 24 78/50 L 98 10/22/18 15:20 113 H 16 86/58 L 100 10/22/18 15:19 114 H 16 88/56 L 100 Intake and Output (Last 8hrs): Intake & Output 10/22/18 10/22/18 10/22/18 06:59 14:59 22:59 Intake Total 560 560 70 Output Total 700 500 Balance -140 60 70 Weight 362 lb 14.4 oz Intake: Intake, IV Amount 560 560 70 Right Proximal Port 560 560 70 Femoral Output: Urine 700 500 Urethral (Davis) 700 500 - Medications Active Medications: Active Medications Generic Name Dose Route Start Last Admin Trade Name Freq PRN Reason Stop Dose Admin Famotidine 20 mg 10/21/18 10:00 10/22/18 09:36 Pepcid IVP 20 mg DAILY SANDI Administration Heparin Sodium (Porcine) 5,000 units 10/21/18 10:00 10/22/18 09:34 Heparin SC 5,000 units Q12 SANDI Administration Sodium Chloride 1,000 mls @ 70 mls/hr 10/21/18 16:30 10/22/18 09:36 Sodium Chloride 0.45% IV 70 mls/hr .[id number] SANDI Administration Norepinephrine Bitartrate 4 mg 250 mls @ 18.75 mls/hr 10/22/18 16:00 / Sodium Chloride IV .[id number] PRN TITRATE PER MD ORDER Protocol 5 MCG/MIN Mupirocin 0.25 gm 10/22/18 18:00 10/22/18 17:29 Bactroban 2% Nasal HENRRY 0.25 gm BID SANDI Administration Nystatin 1 applic 10/22/18 18:00 10/22/18 17:29 Nystop Topical Powder TOP 1 applic BID SANDI Administration - Patient Studies Lab Studies: Microbiology Studies 10/21/18 06:12 MRSA Culture (Admit) - Final Naris MRSA DETECTED Lab Studies 10/22/18 10/22/18 10/22/18 Range/Units 14:40 11:52 05:55 WBC (4.8-10.8) K/uL RBC (3.80-5.20) Mil/uL Hgb (11.0-16.0) g/dL Hct (34.0-47.0) % MCV (81.0-99.0) fL MCH (27.0-31.0) pg MCHC (33.0-37.0) g/dL RDW (11.5-14.5) % Plt Count (130-400) K/uL MPV (7.2-11.7) fL Neut % (Auto) (50.0-75.0) % Lymph % (Auto) (20.0-40.0) % Wilkinson % (Auto) (0.0-10.0) % Eos % (Auto) (0.0-4.0) % Baso % (Auto) (0.0-2.0) % Neut # (Auto) (1.8-7.0) K/uL Lymph # (Auto) (1.0-4.3) K/uL Wilkinson # (Auto) (0.0-0.8) K/uL Eos # (Auto) (0.0-0.7) K/uL Baso # (Auto) (0.0-0.2) K/uL Neutrophils % (Manual) (50-75) % Band Neutrophils % (0-2) % Lymphocytes % (Manual) (20-40) % Monocytes % (Manual) (0-10) % Myelocytes % (0-0) % Nucleated RBC % (0-0) % Platelet Estimate (NORMAL) Hypochromasia (manual) Anisocytosis (manual) Target Cells PT 16.8 H (9.7-12.2) SECONDS INR 1.5 APTT 30 (21-34) SECONDS Sodium 145 (132-148) mmol/L Potassium 4.2 (3.6-5.2) mmol/L Chloride 104 (98-107) mmol/L Carbon Dioxide 31 H (22-30) mmol/L Anion Gap 14 (10-20) BUN 105 H* (7-17) mg/dL Creatinine 6.1 H (0.7-1.2) mg/dL Est GFR ( Amer) 8 Est GFR (Non-Af Amer) 6 Random Glucose 97 D (65-105) mg/dL Calcium 7.9 L (8.6-10.4) mg/dl Phosphorus 6.0 H (2.5-4.5) mg/dL Magnesium 2.3 (1.6-2.3) mg/dL Total Bilirubin 6.4 H (0.2-1.3) mg/dL AST 540 H D (14-36) U/L ALT 665 H D (9-52) U/L Alkaline Phosphatase 209 H (38-126) U/L Total Protein 6.4 (6.3-8.3) g/dL Albumin 2.7 L (3.5-5.0) g/dL Globulin 3.6 (2.2-3.9) gm/dL Albumin/Globulin Ratio 0.7 L (1.0-2.1) Triglycerides 116 (0-149) mg/dL Cholesterol 152 (0-199) mg/dL LDL Cholesterol Direct 113 (0-129) mg/dL HDL Cholesterol 16 L (30-70) mg/dL Urine Osmolality 383 (300-1000) mosm/kg Ur Random Creatinine 44.8 mg/dL Ur Random Sodium 88 mmol/L Ur Random Potassium 30.4 mmol/L 10/22/18 Range/Units 05:55 WBC 10.9 H (4.8-10.8) K/uL RBC 3.29 L (3.80-5.20) Mil/uL Hgb 9.9 L (11.0-16.0) g/dL Hct 31.5 L (34.0-47.0) % MCV 95.6 (81.0-99.0) fL MCH 30.0 (27.0-31.0) pg MCHC 31.4 L (33.0-37.0) g/dL RDW 18.3 H (11.5-14.5) % Plt Count 85 L (130-400) K/uL MPV 9.8 (7.2-11.7) fL Neut % (Auto) 80.9 H (50.0-75.0) % Lymph % (Auto) 3.2 L (20.0-40.0) % Wilkinson % (Auto) 13.2 H (0.0-10.0) % Eos % (Auto) 2.1 (0.0-4.0) % Baso % (Auto) 0.6 (0.0-2.0) % Neut # (Auto) 8.8 H (1.8-7.0) K/uL Lymph # (Auto) 0.3 L (1.0-4.3) K/uL Wilkinson # (Auto) 1.4 H (0.0-0.8) K/uL Eos # (Auto) 0.2 (0.0-0.7) K/uL Baso # (Auto) 0.1 (0.0-0.2) K/uL Neutrophils % (Manual) 85 H (50-75) % Band Neutrophils % 1 (0-2) % Lymphocytes % (Manual) 1 L (20-40) % Monocytes % (Manual) 12 H (0-10) % Myelocytes % 1 H (0-0) % Nucleated RBC % 6 H (0-0) % Platelet Estimate Decreased L (NORMAL) Hypochromasia (manual) Slight Anisocytosis (manual) Moderate Target Cells Moderate PT (9.7-12.2) SECONDS INR APTT (21-34) SECONDS Sodium (132-148) mmol/L Potassium (3.6-5.2) mmol/L Chloride (98-107) mmol/L Carbon Dioxide (22-30) mmol/L Anion Gap (10-20) BUN (7-17) mg/dL Creatinine (0.7-1.2) mg/dL Est GFR ( Amer) Est GFR (Non-Af Amer) Random Glucose (65-105) mg/dL Calcium (8.6-10.4) mg/dl Phosphorus (2.5-4.5) mg/dL Magnesium (1.6-2.3) mg/dL Total Bilirubin (0.2-1.3) mg/dL AST (14-36) U/L ALT (9-52) U/L Alkaline Phosphatase (38-126) U/L Total Protein (6.3-8.3) g/dL Albumin (3.5-5.0) g/dL Globulin (2.2-3.9) gm/dL Albumin/Globulin Ratio (1.0-2.1) Triglycerides (0-149) mg/dL Cholesterol (0-199) mg/dL LDL Cholesterol Direct (0-129) mg/dL HDL Cholesterol (30-70) mg/dL Urine Osmolality (300-1000) mosm/kg Ur Random Creatinine mg/dL Ur Random Sodium mmol/L Ur Random Potassium mmol/L Laboratory Results - last 24 hr 10/22/18 10/22/18 10/22/18 05:55 05:55 11:52 WBC 10.9 H RBC 3.29 L Hgb 9.9 L Hct 31.5 L MCV 95.6 MCH 30.0 MCHC 31.4 L RDW 18.3 H Plt Count 85 L MPV 9.8 Neut % (Auto) 80.9 H Lymph % (Auto) 3.2 L Wilkinson % (Auto) 13.2 H Eos % (Auto) 2.1 Baso % (Auto) 0.6 Neut # (Auto) 8.8 H Lymph # (Auto) 0.3 L Wilkinson # (Auto) 1.4 H Eos # (Auto) 0.2 Baso # (Auto) 0.1 Neutrophils % (Manual) 85 H Band Neutrophils % 1 Lymphocytes % (Manual) 1 L Monocytes % (Manual) 12 H Myelocytes % 1 H Nucleated RBC % 6 H Platelet Estimate Decreased L Hypochromasia (manual) Slight Anisocytosis (manual) Moderate Target Cells Moderate PT 16.8 H INR 1.5 APTT 30 Sodium 145 Potassium 4.2 Chloride 104 Carbon Dioxide 31 H Anion Gap 14 BUN 105 H* Creatinine 6.1 H Est GFR ( Amer) 8 Est GFR (Non-Af Amer) 6 Random Glucose 97 D Calcium 7.9 L Phosphorus 6.0 H Magnesium 2.3 Total Bilirubin 6.4 H AST 540 H D ALT 665 H D Alkaline Phosphatase 209 H Total Protein 6.4 Albumin 2.7 L Globulin 3.6 Albumin/Globulin Ratio 0.7 L Triglycerides 116 Cholesterol 152 LDL Cholesterol Direct 113 HDL Cholesterol 16 L Urine Osmolality Ur Random Creatinine Ur Random Sodium Ur Random Potassium 10/22/18 14:40 WBC RBC Hgb Hct MCV MCH MCHC RDW Plt Count MPV Neut % (Auto) Lymph % (Auto) Wilkinson % (Auto) Eos % (Auto) Baso % (Auto) Neut # (Auto) Lymph # (Auto) Wilkinson # (Auto) Eos # (Auto) Baso # (Auto) Neutrophils % (Manual) Band Neutrophils % Lymphocytes % (Manual) Monocytes % (Manual) Myelocytes % Nucleated RBC % Platelet Estimate Hypochromasia (manual) Anisocytosis (manual) Target Cells PT INR APTT Sodium Potassium Chloride Carbon Dioxide Anion Gap BUN Creatinine Est GFR ( Amer) Est GFR (Non-Af Amer) Random Glucose Calcium Phosphorus Magnesium Total Bilirubin AST ALT Alkaline Phosphatase Total Protein Albumin Globulin Albumin/Globulin Ratio Triglycerides Cholesterol LDL Cholesterol Direct HDL Cholesterol Urine Osmolality 383 Ur Random Creatinine 44.8 Ur Random Sodium 88 Ur Random Potassium 30.4 Radiology Impressions: Radiology Impressions Head/Neck CTA 10/20/18 19:22 IMPRESSION: 1. 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 2. High-grade near critical stenosis origin right ICA with moderate origin left ICA stenosis. Both ICAs appear to be patent nevertheless. 3. Moderate distal CCA stenoses bilaterally with additional mild stenosis proximal left CCA. 4. No occlusion or significant intracranial stenosis appreciable. Preliminary report provided by Lupe, 10/20/2018 8:03 p.m.. Critical Care Progress Note - Nutrition Nutrition: Nutrition Category Date Time Status Dysphagia/Modified Consistency Diet [DIET] Diets 10/22/18 Lunch Active Attending/Attestation - Attestation I have personally seen and examined this patient.: Yes I have fully participated in the care of the patient.: Yes I have reviewed all pertinent clinical information: Yes Notes (Text): 10/22/18 19:06 patient was examined assessment and plan as per resident note Continue IV fluids Monitor renal function Nephrology follow-up
[2018-10-22] MEDS ORDERED: Digoxin 500 mcg/2ml (0.5 mg/2ml) Inj IVP ONE (09:48)
--- NOTE | 2018-10-22 12:16 | CT ---
Date of service: 10/20/2018 PROCEDURE: CT Angiography of the Brain and Neck. HISTORY: R facial droop, dim mental status COMPARISON: None available. TECHNIQUE: CT angiography of the head and neck was performed following intravenous contrast administration. Coronal and sagittal maximum intensity projection reformatted images were generated. Contrast Dose: Visipaque 320, 100 cc Radiation dose: Total exam DLP = 574.97 mGy-cm. This CT exam was performed using one or more of the following dose reduction techniques: Automated exposure control, adjustment of the mA and/or kV according to patient size, and/or use of iterative reconstruction technique. FINDINGS: INTERNAL CEREBRAL ARTERIES: Extensive atherosclerotic partially calcified atherosclerotic changes are identified at the cavernous internal carotid artery segments resulting in moderate bilateral stenoses well under 70 percent approximating 50-60 percent at the most. The skull base, petrous, and supraclinoid segments are bilaterally widely patent. ANTERIOR CEREBRAL ARTERIES: Unremarkable. A1 and A2 segments are widely patent. Smaller distal branches unremarkable, as visualized. MIDDLE CEREBRAL ARTERIES: Unremarkable. M1 and M2 segments are widely patent. Perisylvian branches grossly symmetric. POSTERIOR CIRCULATION: Basilar Artery: Unremarkable. 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 Posterior Inferior Cerebellar Arteries: Unremarkable. NECK CTA: Common Carotid arteries: Extensive common carotid atherosclerotic change identified at the bilateral carotid bulbs predominantly without occlusion. Moderate narrowing of the distal most right CCA is noted as well as at the left. Limited atherosclerotic plaques identified in the proximal bilateral common carotid arteries as well with mild right and moderate left proximal CCA stenoses resulting. Mild proximal left CCA stenosis identified. No evidence to suggest common carotid artery dissection. Internal Carotid arteries: High-grade potential critical stenosis proximal right ICA at its origin moderate to severe origin and proximal left ICA stenosis. No occlusion bilaterally. No definitive IC dissection bilaterally. External Carotid arteries: Appear patent bilaterally. Vertebral arteries: The bilateral vertebral arteries appear normal in caliber from their origins to their distal cervical segments. No significant stenosis or definite pattern of dissection. Mild proximal left vertebral artery stenosis appreciated ANEURYSM/ VASCULAR MALFORMATIONS: None. OTHER FINDINGS: Incidental high-grade stenosis proximal left subclavian artery. IMPRESSION: 1. 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 2. High-grade near critical stenosis origin right ICA with moderate origin left ICA stenosis. Both ICAs appear to be patent nevertheless. 3. Moderate distal CCA stenoses bilaterally with additional mild stenosis proximal left CCA. 4. No occlusion or significant intracranial stenosis appreciable. Preliminary report provided by [facility], 10/20/2018 8:03 p.m..
[2018-10-22 12:57] LABS: INR 1.5; PROTHROMBIN TIME 16.8 SECONDS (9.7-12.2)
--- NOTE | 2018-10-22 13:08 | CP.PCM.CON ---
History of Present Illness - History of Present Illness History of Present Illness: Palliative consult requested by Doctor Law for goals of care discussion Patient is a 88 yo female found at home by her son, slumped over the bed and unresponsive. 911 was called and patient was initially diagnosed with CVA but was not eligible for TPA. In ED patient was arousable and able to move all her extremities. In ED BUn and [place] Knitter 105 and 6.1. K 7.2. Patient started on IV fluids and Bicarbs. However, the BUN and [place] Kn[place] remain high despite those interventions. Renal consult called. HD is still to be discussed with patient's son. Palliative care was asked to assist in this discussion and goals of care. PMH: CVA, CHF, CKD, A Fib Soc. Hx: , lives at home with son Casa. Hx: denied Review of Systems - Review of Systems All systems: reviewed and no additional remarkable complaints except (ROS unobtainable fro patient due to BiPap and respiratory distress. BiPap) Review of Systems: ROS unobtainable from patient due to BiPap. ROS obtained from nursing. Patient had no acute over night events. Son was coming today to discuss HD Past Patient History - Infectious Disease Hx of Infectious Diseases: None - Tetanus Immunizations Tetanus Immunization: Unknown - Past Medical History & Family History Past Medical History?: Yes - Past Social History Smoking Status: unknown Alcohol: None Home Situation {Lives}: [facility] Domestic Violence: Negative - CARDIAC Hx Congestive Heart Failure: Yes Hx Hypertension: Yes - PULMONARY Hx Respiratory Disorders: No - NEUROLOGICAL Hx Dementia: Yes - HEENT Hx HEENT Problems: Yes Hx Cataracts: Yes Hx Glaucoma: Yes - RENAL Hx Chronic Kidney Disease: No - ENDOCRINE/METABOLIC Hx Endocrine Disorders: No - HEMATOLOGICAL/ONCOLOGICAL Hx Anemia: Yes - INTEGUMENTARY Hx Dermatological Problems: Yes - MUSCULOSKELETAL/RHEUMATOLOGICAL Hx Arthritis: Yes - GASTROINTESTINAL Hx Gastrointestinal Disorders: Yes Hx Constipation: Yes - GENITOURINARY/GYNECOLOGICAL Hx Genitourinary Disorders: Yes Hx Incontinence: Yes - PSYCHIATRIC Hx Substance Use: No - SURGICAL HISTORY Hx Coronary Stent: Yes - ANESTHESIA Hx Anesthesia: Yes Hx Anesthesia Reactions: No Hx Malignant Hyperthermia: No Meds Allergies/Adverse Reactions: Allergies Allergy/AdvReac Type Severity Reaction Status Date / Time No Known Allergies Allergy Verified 10/20/18 18:36 - Medications Medications: Current Medications Famotidine (Pepcid) 20 mg IVP DAILY [facility] Last Admin: 10/22/18 09:36 Dose: 20 mg Heparin Sodium (Porcine) (Heparin) 5,000 units SC Q12 [facility] Last Admin: 10/22/18 09:34 Dose: 5,000 units Sodium Chloride (Sodium Chloride 0.45%) 1,000 mls @ 70 mls/hr IV .[id number] [facility] Last Admin: 10/22/18 09:36 Dose: 70 mls/hr Nystatin (Nystop Topical Powder) 1 applic TOP BID [facility] Physical Exam - Constitutional Appears: In Acute Distress, Chronically Ill - Head Exam Head Exam: ATRAUMATIC, NORMAL INSPECTION, NORMOCEPHALIC - Eye Exam Eye Exam: EOMI, Normal appearance, PERRL Pupil Exam: NORMAL ACCOMODATION, PERRL - ENT Exam ENT Exam: Mucous Membranes Dry - Neck Exam Neck exam: Positive for: Normal Inspection - Respiratory Exam Respiratory Exam: Decreased Breath Sounds, Prolonged Expiratory Phase, Respiratory Distress - Cardiovascular Exam Cardiovascular Exam: Tachycardia - GI/Abdominal Exam GI & Abdominal Exam: Distended, Hypoactive Bowel Sounds - Rectal Exam Rectal Exam: Deferred - Extremities Exam Extremities exam: Positive for: pedal edema Additional comments: multiple superficial excoriations to anterior LEs, under both breasts and under the abdominal folds - Back Exam Back exam: NORMAL INSPECTION - Neurological Exam Neurological exam: Alert, Altered - Psychiatric Exam Psychiatric exam: Flat Affect - Skin Skin Exam: Abrasion, Mottled, Rash Results - Vital Signs Recent Vital Signs: Last Vital Signs Temp 96.9 F L 10/22/18 08:00 Pulse 109 H 10/22/18 10:59 Resp 11 L 10/22/18 10:59 BP 101/53 L 10/22/18 10:59 Pulse Ox 98 10/22/18 10:59 - Labs Result Diagrams: 10/22/18 05:55 10/22/18 05:55 Labs: Laboratory Results - last 24 hr 10/21/18 10/22/18 10/22/18 18:35 05:55 05:55 WBC 10.9 H RBC 3.29 L Hgb 9.9 L Hct 31.5 L MCV 95.6 MCH 30.0 MCHC 31.4 L RDW 18.3 H Plt Count 85 L MPV 9.8 Neut % (Auto) 80.9 H Lymph % (Auto) 3.2 L [place] % (Auto) 13.2 H Eos % (Auto) 2.1 Baso % (Auto) 0.6 Neut # (Auto) 8.8 H Lymph # (Auto) 0.3 L [place] # (Auto) 1.4 H Eos # (Auto) 0.2 Baso # (Auto) 0.1 Neutrophils % (Manual) 85 H Band Neutrophils % 1 Lymphocytes % (Manual) 1 L Monocytes % (Manual) 12 H Myelocytes % 1 H Nucleated RBC % 6 H Platelet Estimate Decreased L Hypochromasia (manual) Slight Anisocytosis (manual) Moderate Target Cells Moderate PT INR APTT Puncture Site Rba pCO2 52 H pO2 93 HCO3 27.1 ABG pH 7.36 ABG Total CO2 31.0 H ABG O2 Saturation 98.7 H ABG Base Excess 2.8 Jason Test Na ABG Potassium 4.3 A-a O2 Difference 56.0 Respiratory Index 0.6 Sodium 149.0 H 145 Chloride 112.0 H 104 Glucose 121 H Lactate 1.7 Vent Mode Bipap Mechanical Rate 8 FiO2 30.0 Inspiratory BiPAP 20 Expiratory BiPAP 10 Potassium 4.2 Carbon Dioxide 31 H Anion Gap 14 BUN 105 H* Creatinine 6.1 H Est GFR ( Amer) 8 Est GFR (Non-Af Amer) 6 Random Glucose 97 D Calcium 7.9 L Phosphorus 6.0 H Magnesium 2.3 Total Bilirubin 6.4 H AST 540 H D ALT 665 H D Alkaline Phosphatase 209 H Total Protein 6.4 Albumin 2.7 L Globulin 3.6 Albumin/Globulin Ratio 0.7 L Arterial Blood Potassium 4.3 10/22/18 11:52 WBC RBC Hgb Hct MCV MCH MCHC RDW Plt Count MPV Neut % (Auto) Lymph % (Auto) [place] % (Auto) Eos % (Auto) Baso % (Auto) Neut # (Auto) Lymph # (Auto) [place] # (Auto) Eos # (Auto) Baso # (Auto) Neutrophils % (Manual) Band Neutrophils % Lymphocytes % (Manual) Monocytes % (Manual) Myelocytes % Nucleated RBC % Platelet Estimate Hypochromasia (manual) Anisocytosis (manual) Target Cells PT 16.8 H INR 1.5 APTT 30 Puncture Site pCO2 pO2 HCO3 ABG pH ABG Total CO2 ABG O2 Saturation ABG Base Excess Jason Test ABG Potassium A-a O2 Difference Respiratory Index Sodium Chloride Glucose Lactate Vent Mode Mechanical Rate FiO2 Inspiratory BiPAP Expiratory BiPAP Potassium Carbon Dioxide Anion Gap BUN Creatinine Est GFR ( Amer) Est GFR (Non-Af Amer) Random Glucose Calcium Phosphorus Magnesium Total Bilirubin AST ALT Alkaline Phosphatase Total Protein Albumin Globulin Albumin/Globulin Ratio Arterial Blood Potassium Assessment & Plan - Assessment and Plan (Free Text) Assessment: Palliative consult Code DNR/DNI, there is no Advance Directive on chart, odred by ED Physician, PPS 10% I reviewed all medical reports and diagnostic studies, examined patient in the bed and discussed her condition with ICU team Patient is alert, makes eye contacts, has difficulties speaking due to BiPap. Skin is pale. Edema to low and upper extremities. Multiple abrasions, open blisters and excoriations to anterior LEs, under the breasts and under the abdominal folds. Skin care called on consult. Breathing is fast and shallow. O2 Sat 100 % on BiPap. Abdomen softly distended. Patient makes urine. BUN and [place] Knitter still elevated. AV fistula creation is being considered. Son is coming in today to discuss HD. BP 101/53, HR 109 BUN 105, [place] Knitter 6.7, venous potassium 6.1 I spoke to patient's son over the phone and he agreed to a Family meeting at 2 pm today. 2 pm Goals of care discussed with patient's son , Mr. Oro, at bed side in presence of Doctor Law. I reviewed patient's clinical presentation and elicited more i nformation from the son, about patient's condition before this hospitalization. The son admitted disappointment with Care provided to his mother at the [place] and was looking for different one upon discharge. The son claims, patient was more alert and more verbal. I offered that at this point we had goals of higher priorities to discuss such as very bad kidney functions. I helped son understand the affect of poor renal functions to the rest of the body and made him aware about suggested HD. After detailed discussion regarding HD the son agreed with it. He understoodthat AV shunt would need to be placed and that patient would start HD here at the hospital and most likely as an outpatient too. I discussed DNR/DNI status ordered for patient in ED. The son stated that if his mother's condition worsens despite all conservative measures plus HD, he would not want her to be further treated with CPR and intubation. Impression * Chronically ill lady with acute episode of CKD * AMS * Needs assistance with ADLs especially with feedings * Respiratory distress * Unable to participate in own care planing 2 nd to AMS * Son advocates for patient and agreed with HD * Son supports DNR/DNI Suggestions * Start HD as suggested * promote safety * Assist with feedings * Aspiration precautions * DNR/DNI * Discharge planing to [facility] Palliative care will remain on board for further family support. Advance care planing 46 min
--- NOTE | 2018-10-22 14:37 | CP.PCM.PCO ---
Physician Communication Note - Physician Communication Note Physician Communication Note: see above
[2018-10-22 15:08] LABS: CREATININE, RANDOM URINE 44.8 mg/dL
[2018-10-22] MEDS: Mupirocin 2% Ointment (NASAL) NAS SCH (17:29)
--- NOTE | 2018-10-22 18:37 | CP.PCM.PN ---
Subjective - Date & Time of Evaluation Date of Evaluation: 10/22/18 Time of Evaluation: 18:37 - Subjective Subjective: pt is seen and examined, follow up consult is dictated #[id number] Objective - Vital Signs/Intake and Output Vital Signs (last 24 hours): Temp Pulse Resp BP Pulse Ox 96.9 F L 106 H 11 L 90/51 L 99 10/22/18 12:00 10/22/18 16:10 10/22/18 15:39 10/22/18 15:39 10/22/18 15:39 Intake and Output: 10/22/18 10/22/18 06:59 18:59 Intake Total 842 630 Output Total 1000 500 Balance -158 130 - Medications Medications: Current Medications Famotidine (Pepcid) 20 mg IVP DAILY [facility] Last Admin: 10/22/18 09:36 Dose: 20 mg Heparin Sodium (Porcine) (Heparin) 5,000 units SC Q12 [facility] Last Admin: 10/22/18 09:34 Dose: 5,000 units Sodium Chloride (Sodium Chloride 0.45%) 1,000 mls @ 70 mls/hr IV .[id number] [facility] Last Admin: 10/22/18 09:36 Dose: 70 mls/hr Norepinephrine Bitartrate 4 mg (/ Sodium Chloride) 250 mls @ 18.75 mls/hr IV .[id number] PRN; Protocol PRN Reason: TITRATE PER MD ORDER Mupirocin (Bactroban 2% Nasal) 0.25 gm HENRRY BID [facility] Last Admin: 10/22/18 17:29 Dose: 0.25 gm Nystatin (Nystop Topical Powder) 1 applic TOP BID [facility] Last Admin: 10/22/18 17:29 Dose: 1 applic - Labs Labs: 10/22/18 05:55 10/22/18 05:55 PT 16.8 SECONDS (9.7-12.2) H 10/22/18 11:52 INR 1.5 10/22/18 11:52 APTT 30 SECONDS (21-34) 10/22/18 11:52
--- NOTE | 2018-10-22 21:19 | CP.PCM.PN ---
Subjective - Date & Time of Evaluation Date of Evaluation: 10/22/18 Time of Evaluation: 11:15 - Subjective Subjective: clinically same Objective - Vital Signs/Intake and Output Vital Signs (last 24 hours): Temp Pulse Resp BP Pulse Ox 98.1 F 110 H 16 65/42 L 98 10/22/18 16:00 10/22/18 20:00 10/22/18 20:00 10/22/18 20:20 10/22/18 20:00 Intake and Output: 10/22/18 10/23/18 18:59 06:59 Intake Total 1080 70 Output Total 600 50 Balance 480 20 - Medications Medications: Current Medications Famotidine (Pepcid) 20 mg IVP DAILY [facility] Last Admin: 10/22/18 09:36 Dose: 20 mg Heparin Sodium (Porcine) (Heparin) 5,000 units SC Q12 [facility] Last Admin: 10/22/18 09:34 Dose: 5,000 units Sodium Chloride (Sodium Chloride 0.45%) 1,000 mls @ 70 mls/hr IV .[id number] [facility] Last Admin: 10/22/18 09:36 Dose: 70 mls/hr Norepinephrine Bitartrate 4 mg (/ Sodium Chloride) 250 mls @ 18.75 mls/hr IV .Q 13H20M PRN; Protocol PRN Reason: TITRATE PER MD ORDER Last Admin: 10/22/18 20:20 Dose: 5 mcg/min, 18.75 mls/hr Mupirocin (Bactroban 2% Nasal) 0.25 gm HENRRY BID [facility] Last Admin: 10/22/18 17:29 Dose: 0.25 gm Nystatin (Nystop Topical Powder) 1 applic TOP BID [facility] Last Admin: 10/22/18 17:29 Dose: 1 applic - Labs Labs: 10/22/18 05:55 10/22/18 05:55 PT 16.8 SECONDS (9.7-12.2) H 10/22/18 11:52 INR 1.5 10/22/18 11:52 APTT 30 SECONDS (21-34) 10/22/18 11:52 - Constitutional Appears: Well - Head Exam Head Exam: ATRAUMATIC, NORMAL INSPECTION, NORMOCEPHALIC - Eye Exam Eye Exam: EOMI, Normal appearance, PERRL Pupil Exam: NORMAL ACCOMODATION, PERRL - ENT Exam ENT Exam: Mucous Membranes Moist, Normal Exam - Neck Exam Neck Exam: Full ROM, Normal Inspection. absent: Lymphadenopathy - Respiratory Exam Respiratory Exam: Decreased Breath Sounds - Cardiovascular Exam Cardiovascular Exam: REGULAR RHYTHM, +S1, +S2 - GI/Abdominal Exam GI & Abdominal Exam: Soft, Diminished Bowel Sounds - Rectal Exam Rectal Exam: Deferred Assessment and Plan (1) Acute hyperkalemia Status: Acute (2) Acute renal failure Status: Acute (3) NSTEMI (non-ST elevated myocardial infarction) Status: Acute (4) A-fib Status: Chronic (5) CHF (congestive heart failure) Status: Acute (6) Cellulitis Status: Acute (7) Decubitus ulcer Status: Acute (8) Hyperkalemia Status: Acute (9) Leg ulcer, left Status: Acute (10) Peripheral edema Status: Acute (11) Renal insufficiency Status: Acute - Assessment and Plan (Free Text) Plan: IV vasopressors GI DVT prophylaxis New prednisone GI Nephrology As ordered
--- NOTE | 2018-10-23 01:34 | PN ---
DATE: 10/22/2018 FOLLOWUP RENAL CONSULTATION LOCATION: The patient is located in ICU, room 16. REQUESTED BY: Scottie Alberto MD REASON FOR RENAL FOLLOWUP: Acute renal failure, chronic kidney disease stage III. SUBJECTIVE: Mrs. Oro is an 88-year-old elderly, obese -[place] female with a past medical history significant for hypertension, hyperlipidemia, coronary artery disease, CHF, CKD stage III and unilateral small left kidney, who was discharged from [facility] on 10/16/2018 to the assisted. The patient was sent back from the assisted on 10/20/2018 in 4 days with altered mental status, decreased p.o. intake, dehydration and hypotension. The patient was also found to have acute renal failure on admission with hyperkalemia, metabolic acidosis and respiratory acidosis, status post treatment for hyperkalemia with medication and also IV fluids with D5W and bicarbonate drip. The patient is off BiPAP. The patient is not in acute distress. Denies any complaints. Denies any chest pain or palpitation. Denies any fever or cough. Denies any abdominal pain. No nausea, vomiting or diarrhea. PHYSICAL EXAMINATION VITAL SIGNS: Blood pressure 94/52, pulse 107, respirations 18, saturation 100% and temperature 96.9. Height is 5 feet, weight is about 260 pounds. GENERAL: Mrs. Oro is an 88-year-old elderly, obese -[place] female, well-built, well-nourished, not in acute distress. HEENT: Pupils are normal and reactive to light and accommodation. Conjunctivae pink. Sclerae anicteric. Tongue is dry. NECK: Trachea is midline. LUNGS: Symmetric on both sides. Bilateral breath sounds present. No crackles. CARDIOVASCULAR SYSTEM: [place] at the fifth intercostal space, midclavicular line. S1 and S2 audible, occasionally irregularly irregular. The patient has an ejection systolic murmur present. ABDOMEN: Slightly protuberant, soft, tympanitic. No guarding. No rigidity. No hepatosplenomegaly. CENTRAL NERVOUS SYSTEM: The patient is alert, awake, oriented x2. Sensory and motor system is grossly within normal limits. Cranial nerves II through XII grossly intact. EXTREMITIES: No cyanosis, no clubbing, no edema. The patient has chronic skin changes in both lower extremities. MEDICATIONS: Her current medications include as follows: Mupirocin ointment nasal 2% 0.25 g b.i.d. in both nares, subcu heparin 5000 every 12 hours, nystatin topical powder, Pepcid 20 mg IV daily, IV fluids half-normal saline at 70 mL/hour. INTAKE AND OUTPUT: In the last 24 hours, intake is 1782 and output is 1335. In the last 12 hours, intake is 630 and output is 500 mL. LABORATORY DATA: Include as follows: As of 10/22/2018, WBC 10.9, hemoglobin 9.9, hematocrit 31.5, platelets 85; neutrophils 85, band 1, lymph 1, monocytes 12, myelocyte 1, nucleated RBC 6. PT 16.8, INR 1.5, PTT 30. Sodium is 145, potassium is 4.2, chloride 104, CO2 of 31, anion gap is 14, BUN 105, creatinine 6.1, glucose 97, calcium 7.9, phosphorus 6, magnesium 2.3. Total bili 6.4, AST 540, ALT 665, alkaline phosphatase 209, total protein 6.4, albumin is 2.7. Cholesterol 152, triglyceride 116, LDL is 113 and HDL is 16. Urine osmolality is 383. Urine creatinine is 44.8, urine sodium is 88 and urine potassium is 30.4. MRSA screening is positive. Chest x-ray as of 10/20/2018: Bibasilar atelectasis, prominent interstitial markings, may represent vascular crowding with hypoinflation rather than pulmonary venous congestion, correlate clinically cardiomegaly. ASSESSMENT AND PLAN: In summary, Mrs. Oro is an 88-year-old elderly -[place] female with hypertension, hyperlipidemia, coronary artery disease, congestive heart failure, chronic kidney disease III with a baseline creatinine of about 2 on 10/15/2018, unilateral small left kidney, was sent from the assisted after 4 days, discharge from [facility] on 10/16/2018 and admitted again on 10/20/2018 with altered mental status and increased blood urea nitrogen and creatinine, hyperkalemia and metabolic acidosis. 1. Acute renal failure on chronic kidney disease, most likely secondary to acute tubular necrosis on chronic kidney disease III. The patient has a baseline creatinine four days ago of about 2. 2. Dehydration. 3. Abnormal liver function tests. 4. Atrial fibrillation. 5. Coronary artery disease. The patient is still volume depleted and clinically dry. We will continue IV fluids half-normal saline at 70 mL/hour. Abnormal LFTs, cannot rule out shock liver versus medication induced. Consider ultrasound of the right upper quadrant to rule out any gallstones. Renal function is slowly improving with good urine output. No need for emergency hemodialysis at this time. We will continue to monitor BMP, continue IV fluids. We will follow with you. The patient is back to her baseline mental status. Thank you for allowing me to participate in your patient's care. Alfred Lobato MD [email or web address]
[2018-10-23 06:55] LABS: BASO % 0.2 % (0.0-2.0); EOS # 0.2 K/uL (0.0-0.7); EOS % 1.8 % (0.0-4.0); HEMOGLOBIN 9.7 g/dL (11.0-16.0); LYMPH # 0.6 K/uL (1.0-4.3); LYMPH % 5.6 % (20.0-40.0); MEAN CELL VOLUME 95.6 fL (81.0-99.0); MEAN CORPUSCULAR HEMOGLOBIN 29.9 pg (27.0-31.0); MEAN CORPUSCULAR HGB CONC 31.3 g/dL (33.0-37.0); MEAN PLATELET VOLUME 9.6 fL (7.2-11.7); MONO # 1.2 K/uL (0.0-0.8); MONO % 12.6 % (0.0-10.0); NEUT # 7.8 K/uL (1.8-7.0); NEUT % 79.8 % (50.0-75.0); NRBC % 7.1 % (0.0-2.0); PLATELET COUNT 78 K/uL (130-400); RBC 3.24 Mil/uL (3.80-5.20); RED CELL DISTRIBUTION WIDTH 19.1 % (11.5-14.5); WHITE BLOOD COUNT 9.8 K/uL (4.8-10.8)
[2018-10-23 07:02] LABS: ALB/GLOB RATIO 0.7 (1.0-2.1); ALBUMIN 2.7 g/dL (3.5-5.0)
[2018-10-23 08:45] LABS: ANISOCYTOSIS MODERATE; BANDS 1 % (0-2); EOSINOPHIL 1 % (0-4); LYMPHOCYTE 3 % (20-40); MONOCYTE 10 % (0-10); NEUTROPHIL 85 % (50-75); NUCLEATED RED BLOOD CELL 7 % (0-0); PLATELET ESTIMATE DECREASED (NORMAL); TOTAL CELLS COUNTED 100
[2018-10-23 08:46] LABS: TARGET CELLS MODERATE
[2018-10-23] MEDS: Mupirocin 2% Ointment (NASAL) NAS SCH ×2 (09:03→18:08)
--- NOTE | 2018-10-23 12:35 | CP.CCUPN ---
<Albina Leong - Last Filed: 10/23/18 12:43> CCU Subjective - Physician Review Subjective (Free Text): 10/22/18 10:28 ICU Progress Note for Dr. Reyes Patient seen and examined at bedside this morning. Patient slightly awake on BiPaP. Due to patient condition ROS unable to be obtained. During rounds, attending and team notified that patient doing well on NC. 10/23/18 12:34 CCU Objective - Vital Signs / Intake & Output Vital Signs (Last 4 hours): Vital Signs Pulse Resp BP Pulse Ox 10/23/18 09:44 114 H 18 109/76 100 10/23/18 08:45 116 H 18 101/65 100 Intake and Output (Last 8hrs): Intake & Output 10/22/18 10/23/18 10/23/18 22:59 06:59 14:59 Intake Total 767.6 777.6 258.8 Output Total 425 475 115 Balance 342.6 302.6 143.8 Weight 366 lb 8 oz Intake: IV 100 30 Intake, IV Amount 597.6 627.6 228.8 Right Medial Port Femoral 37.6 67.6 18.8 Right Proximal Port 560 560 210 Femoral Oral 170 50 Output: Urine 425 475 115 Urethral (Davis) 425 475 115 Other: # Bowel Movements 0 - Physical Exam Physical Exam Limitations: Positive for: Altered Mental Status Head: Positive for: Atraumatic, Normocephalic Extroacular Muscles: Positive for: EOMI Conjunctiva: Positive for: Normal Respiratory/Chest: Positive for: Clear to Auscultation Cardiovascular: Positive for: Murmurs (crescendo descrendo murmur heard on all listening posts), Tachycardic Abdomen: Positive for: Tenderness (RUQ and RLQ tenderness), Normal Bowel Sounds, Other (abdominal obesity). Negative for: Distention, Peritoneal Signs, Rebound, Guarding Upper Extremity: Positive for: Edema (non pitting). Negative for: Cyanosis, Tenderness Lower Extremity: Negative for: Normal Inspection (chronic skin changes below knee bilaterally), Edema Skin: Positive for: Dry, Normal Color, Other (cool extremities) Psychiatric: Positive for: Alert - Medications Active Medications: Active Medications Generic Name Dose Route Start Last Admin Trade Name Freq PRN Reason Stop Dose Admin Calcium Acetate 667 mg 10/23/18 08:00 10/23/18 09:03 Phoslo PO 10/23/18 17:01 667 mg BIDCC SANDI Administration Famotidine 20 mg 10/21/18 10:00 10/23/18 09:03 Pepcid IVP 20 mg DAILY SANDI Administration Heparin Sodium (Porcine) 5,000 units 10/21/18 10:00 10/23/18 09:03 Heparin SC 5,000 units Q12 SANDI Administration Sodium Chloride 1,000 mls @ 70 mls/hr 10/21/18 16:30 10/22/18 21:25 Sodium Chloride 0.45% IV Not Given .[id number] SANDI Norepinephrine Bitartrate 4 mg 250 mls @ 18.75 mls/hr 10/22/18 16:00 10/23/18 08:51 / Sodium Chloride IV 1 mcg/min .[id number] PRN 3.75 mls/hr TITRATE PER MD ORDER Titration Protocol 5 MCG/MIN Mupirocin 0.25 gm 10/22/18 18:00 10/23/18 09:03 Bactroban 2% Nasal HENRRY 0.25 gm BID SANDI Administration Nystatin 1 applic 10/22/18 18:00 10/23/18 09:03 Nystop Topical Powder TOP 1 applic BID SANDI Administration - Patient Studies Lab Studies: Microbiology Studies 10/21/18 06:12 MRSA Culture (Admit) - Final Naris MRSA DETECTED Lab Studies 10/23/18 10/23/18 10/22/18 Range/Units 06:26 06:26 14:40 WBC 9.8 (4.8-10.8) K/uL RBC 3.24 L (3.80-5.20) Mil/uL Hgb 9.7 L (11.0-16.0) g/dL Hct 30.9 L (34.0-47.0) % MCV 95.6 (81.0-99.0) fL MCH 29.9 (27.0-31.0) pg MCHC 31.3 L (33.0-37.0) g/dL RDW 19.1 H (11.5-14.5) % Plt Count 78 L (130-400) K/uL MPV 9.6 (7.2-11.7) fL Neut % (Auto) 79.8 H (50.0-75.0) % Lymph % (Auto) 5.6 L (20.0-40.0) % [place] % (Auto) 12.6 H (0.0-10.0) % Eos % (Auto) 1.8 (0.0-4.0) % Baso % (Auto) 0.2 (0.0-2.0) % Neut # (Auto) 7.8 H (1.8-7.0) K/uL Lymph # (Auto) 0.6 L (1.0-4.3) K/uL [place] # (Auto) 1.2 H (0.0-0.8) K/uL Eos # (Auto) 0.2 (0.0-0.7) K/uL Baso # (Auto) 0.0 (0.0-0.2) K/uL Neutrophils % (Manual) 85 H (50-75) % Band Neutrophils % 1 (0-2) % Lymphocytes % (Manual) 3 L (20-40) % Monocytes % (Manual) 10 (0-10) % Eosinophils % (Manual) 1 (0-4) % Nucleated RBC % 7 H (0-0) % Platelet Estimate Decreased L (NORMAL) Anisocytosis (manual) Moderate Target Cells Moderate PT (9.7-12.2) SECONDS INR APTT (21-34) SECONDS Sodium 144 (132-148) mmol/L Potassium 3.8 (3.6-5.2) mmol/L Chloride 103 (98-107) mmol/L Carbon Dioxide 30 (22-30) mmol/L Anion Gap 15 (10-20) BUN 99 H (7-17) mg/dL Creatinine 5.4 H (0.7-1.2) mg/dL Est GFR ( Amer) 9 Est GFR (Non-Af Amer) 7 Random Glucose 88 (65-105) mg/dL Calcium 8.0 L (8.6-10.4) mg/dl Phosphorus 5.7 H (2.5-4.5) mg/dL Magnesium 2.1 (1.6-2.3) mg/dL Total Bilirubin 6.7 H (0.2-1.3) mg/dL AST 241 H D (14-36) U/L ALT 496 H D (9-52) U/L Alkaline Phosphatase 189 H (38-126) U/L Total Protein 6.3 (6.3-8.3) g/dL Albumin 2.7 L (3.5-5.0) g/dL Globulin 3.6 (2.2-3.9) gm/dL Albumin/Globulin Ratio 0.7 L (1.0-2.1) Triglycerides (0-149) mg/dL Cholesterol (0-199) mg/dL LDL Cholesterol Direct (0-129) mg/dL HDL Cholesterol (30-70) mg/dL Ethanolamine Urine Osmolality 383 (300-1000) mosm/kg Ur Random Creatinine 44.8 mg/dL Ur Random Sodium 88 mmol/L Ur Random Potassium 30.4 mmol/L Opiates (GC/MS) Ur Opiates (GC/MS) (Negative) 300 Methadone (GC/MS) Ur Methadone, Qual (Negative) 300 Propoxyphenes Urine Propoxyphene (Negative) 300 Methaqualone (Negative) 300 Barbiturates Ur Barbiturates, Qual (Negative) 300 Phencyclidine (PCP) Ur Phencyclidine (PCP) (Negative) 25 Amphetamines Ur Amphetamines Screen (Negative) 1000 Benzodiazepines U Benzodiazepines Qual (Negative) 300 Cocaine & Metabolite Urine Cocaine (Negative) 300 Marijuana U Marijuana (THC) Screen (Negative) 50 Drugs of Abuse Note Drugs of Abuse Comment Methyl Alcohol Level Isopropanol Acetone Level 10/22/18 10/22/18 10/21/18 Range/Units 11:52 05:55 12:05 WBC (4.8-10.8) K/uL RBC (3.80-5.20) Mil/uL Hgb (11.0-16.0) g/dL Hct (34.0-47.0) % MCV (81.0-99.0) fL MCH (27.0-31.0) pg MCHC (33.0-37.0) g/dL RDW (11.5-14.5) % Plt Count (130-400) K/uL MPV (7.2-11.7) fL Neut % (Auto) (50.0-75.0) % Lymph % (Auto) (20.0-40.0) % [place] % (Auto) (0.0-10.0) % Eos % (Auto) (0.0-4.0) % Baso % (Auto) (0.0-2.0) % Neut # (Auto) (1.8-7.0) K/uL Lymph # (Auto) (1.0-4.3) K/uL [place] # (Auto) (0.0-0.8) K/uL Eos # (Auto) (0.0-0.7) K/uL Baso # (Auto) (0.0-0.2) K/uL Neutrophils % (Manual) (50-75) % Band Neutrophils % (0-2) % Lymphocytes % (Manual) (20-40) % Monocytes % (Manual) (0-10) % Eosinophils % (Manual) (0-4) % Nucleated RBC % (0-0) % Platelet Estimate (NORMAL) Anisocytosis (manual) Target Cells PT 16.8 H (9.7-12.2) SECONDS INR 1.5 APTT 30 (21-34) SECONDS Sodium 145 (132-148) mmol/L Potassium 4.2 (3.6-5.2) mmol/L Chloride 104 (98-107) mmol/L Carbon Dioxide 31 H (22-30) mmol/L Anion Gap 14 (10-20) BUN 105 H* (7-17) mg/dL Creatinine 6.1 H (0.7-1.2) mg/dL Est GFR ( Amer) 8 Est GFR (Non-Af Amer) 6 Random Glucose 97 D (65-105) mg/dL Calcium 7.9 L (8.6-10.4) mg/dl Phosphorus 6.0 H (2.5-4.5) mg/dL Magnesium 2.3 (1.6-2.3) mg/dL Total Bilirubin 6.4 H (0.2-1.3) mg/dL AST 540 H D (14-36) U/L ALT 665 H D (9-52) U/L Alkaline Phosphatase 209 H (38-126) U/L Total Protein 6.4 (6.3-8.3) g/dL Albumin 2.7 L (3.5-5.0) g/dL Globulin 3.6 (2.2-3.9) gm/dL Albumin/Globulin Ratio 0.7 L (1.0-2.1) Triglycerides 116 (0-149) mg/dL Cholesterol 152 (0-199) mg/dL LDL Cholesterol Direct 113 (0-129) mg/dL HDL Cholesterol 16 L (30-70) mg/dL Ethanolamine Urine Osmolality (300-1000) mosm/kg Ur Random Creatinine mg/dL Ur Random Sodium mmol/L Ur Random Potassium mmol/L Opiates (GC/MS) Ur Opiates (GC/MS) Negative (Negative) 300 Methadone (GC/MS) Ur Methadone, Qual Negative (Negative) 300 Propoxyphenes Urine Propoxyphene Negative (Negative) 300 Methaqualone Negative (Negative) 300 Barbiturates Ur Barbiturates, Qual Negative (Negative) 300 Phencyclidine (PCP) Ur Phencyclidine (PCP) Negative (Negative) 25 Amphetamines Ur Amphetamines Screen Negative (Negative) 1000 Benzodiazepines U Benzodiazepines Qual Negative (Negative) 300 Cocaine & Metabolite Urine Cocaine Negative (Negative) 300 Marijuana U Marijuana (THC) Screen Negative (Negative) 50 Drugs of Abuse Note See note Drugs of Abuse Comment Methyl Alcohol Level Isopropanol Acetone Level 10/21/18 Range/Units 11:05 WBC (4.8-10.8) K/uL RBC (3.80-5.20) Mil/uL Hgb (11.0-16.0) g/dL Hct (34.0-47.0) % MCV (81.0-99.0) fL MCH (27.0-31.0) pg MCHC (33.0-37.0) g/dL RDW (11.5-14.5) % Plt Count (130-400) K/uL MPV (7.2-11.7) fL Neut % (Auto) (50.0-75.0) % Lymph % (Auto) (20.0-40.0) % [place] % (Auto) (0.0-10.0) % Eos % (Auto) (0.0-4.0) % Baso % (Auto) (0.0-2.0) % Neut # (Auto) (1.8-7.0) K/uL Lymph # (Auto) (1.0-4.3) K/uL [place] # (Auto) (0.0-0.8) K/uL Eos # (Auto) (0.0-0.7) K/uL Baso # (Auto) (0.0-0.2) K/uL Neutrophils % (Manual) (50-75) % Band Neutrophils % (0-2) % Lymphocytes % (Manual) (20-40) % Monocytes % (Manual) (0-10) % Eosinophils % (Manual) (0-4) % Nucleated RBC % (0-0) % Platelet Estimate (NORMAL) Anisocytosis (manual) Target Cells PT (9.7-12.2) SECONDS INR APTT (21-34) SECONDS Sodium (132-148) mmol/L Potassium (3.6-5.2) mmol/L Chloride (98-107) mmol/L Carbon Dioxide (22-30) mmol/L Anion Gap (10-20) BUN (7-17) mg/dL Creatinine (0.7-1.2) mg/dL Est GFR ( Amer) Est GFR (Non-Af Amer) Random Glucose (65-105) mg/dL Calcium (8.6-10.4) mg/dl Phosphorus (2.5-4.5) mg/dL Magnesium (1.6-2.3) mg/dL Total Bilirubin (0.2-1.3) mg/dL AST (14-36) U/L ALT (9-52) U/L Alkaline Phosphatase (38-126) U/L Total Protein (6.3-8.3) g/dL Albumin (3.5-5.0) g/dL Globulin (2.2-3.9) gm/dL Albumin/Globulin Ratio (1.0-2.1) Triglycerides (0-149) mg/dL Cholesterol (0-199) mg/dL LDL Cholesterol Direct (0-129) mg/dL HDL Cholesterol (30-70) mg/dL Ethanolamine None detected Urine Osmolality (300-1000) mosm/kg Ur Random Creatinine mg/dL Ur Random Sodium mmol/L Ur Random Potassium mmol/L Opiates (GC/MS) negative Ur Opiates (GC/MS) (Negative) 300 Methadone (GC/MS) negative Ur Methadone, Qual (Negative) 300 Propoxyphenes negative Urine Propoxyphene (Negative) 300 Methaqualone (Negative) 300 Barbiturates negative Ur Barbiturates, Qual (Negative) 300 Phencyclidine (PCP) negative Ur Phencyclidine (PCP) (Negative) 25 Amphetamines negative Ur Amphetamines Screen (Negative) 1000 Benzodiazepines negative U Benzodiazepines Qual (Negative) 300 Cocaine & Metabolite negative Urine Cocaine (Negative) 300 Marijuana negative U Marijuana (THC) Screen (Negative) 50 Drugs of Abuse Note Drugs of Abuse Comment See note Methyl Alcohol Level None detected Isopropanol None detected Acetone Level None detected Laboratory Results - last 24 hr 10/21/18 10/21/18 10/22/18 11:05 12:05 05:55 WBC RBC Hgb Hct MCV MCH MCHC RDW Plt Count MPV Neut % (Auto) Lymph % (Auto) [place] % (Auto) Eos % (Auto) Baso % (Auto) Neut # (Auto) Lymph # (Auto) [place] # (Auto) Eos # (Auto) Baso # (Auto) Neutrophils % (Manual) Band Neutrophils % Lymphocytes % (Manual) Monocytes % (Manual) Eosinophils % (Manual) Nucleated RBC % Platelet Estimate Anisocytosis (manual) Target Cells PT INR APTT Sodium 145 Potassium 4.2 Chloride 104 Carbon Dioxide 31 H Anion Gap 14 BUN 105 H* Creatinine 6.1 H Est GFR ( Amer) 8 Est GFR (Non-Af Amer) 6 Random Glucose 97 D Calcium 7.9 L Phosphorus 6.0 H Magnesium 2.3 Total Bilirubin 6.4 H AST 540 H D ALT 665 H D Alkaline Phosphatase 209 H Total Protein 6.4 Albumin 2.7 L Globulin 3.6 Albumin/Globulin Ratio 0.7 L Triglycerides 116 Cholesterol 152 LDL Cholesterol Direct 113 HDL Cholesterol 16 L Ethanolamine None detected Urine Osmolality Ur Random Creatinine Ur Random Sodium Ur Random Potassium Opiates (GC/MS) negative Ur Opiates (GC/MS) Negative Methadone (GC/MS) negative Ur Methadone, Qual Negative Propoxyphenes negative Urine Propoxyphene Negative Methaqualone Negative Barbiturates negative Ur Barbiturates, Qual Negative Phencyclidine (PCP) negative Ur Phencyclidine (PCP) Negative Amphetamines negative Ur Amphetamines Screen Negative Benzodiazepines negative U Benzodiazepines Qual Negative Cocaine & Metabolite negative Urine Cocaine Negative Marijuana negative U Marijuana (THC) Screen Negative Drugs of Abuse Note See note Drugs of Abuse Comment See note Methyl Alcohol Level None detected Isopropanol None detected Acetone Level None detected 10/22/18 10/22/18 10/23/18 11:52 14:40 06:26 WBC 9.8 RBC 3.24 L Hgb 9.7 L Hct 30.9 L MCV 95.6 MCH 29.9 MCHC 31.3 L RDW 19.1 H Plt Count 78 L MPV 9.6 Neut % (Auto) 79.8 H Lymph % (Auto) 5.6 L [place] % (Auto) 12.6 H Eos % (Auto) 1.8 Baso % (Auto) 0.2 Neut # (Auto) 7.8 H Lymph # (Auto) 0.6 L [place] # (Auto) 1.2 H Eos # (Auto) 0.2 Baso # (Auto) 0.0 Neutrophils % (Manual) 85 H Band Neutrophils % 1 Lymphocytes % (Manual) 3 L Monocytes % (Manual) 10 Eosinophils % (Manual) 1 Nucleated RBC % 7 H Platelet Estimate Decreased L Anisocytosis (manual) Moderate Target Cells Moderate PT 16.8 H INR 1.5 APTT 30 Sodium Potassium Chloride Carbon Dioxide Anion Gap BUN Creatinine Est GFR ( Amer) Est GFR (Non-Af Amer) Random Glucose Calcium Phosphorus Magnesium Total Bilirubin AST ALT Alkaline Phosphatase Total Protein Albumin Globulin Albumin/Globulin Ratio Triglycerides Cholesterol LDL Cholesterol Direct HDL Cholesterol Ethanolamine Urine Osmolality 383 Ur Random Creatinine 44.8 Ur Random Sodium 88 Ur Random Potassium 30.4 Opiates (GC/MS) Ur Opiates (GC/MS) Methadone (GC/MS) Ur Methadone, Qual Propoxyphenes Urine Propoxyphene Methaqualone Barbiturates Ur Barbiturates, Qual Phencyclidine (PCP) Ur Phencyclidine (PCP) Amphetamines Ur Amphetamines Screen Benzodiazepines U Benzodiazepines Qual Cocaine & Metabolite Urine Cocaine Marijuana U Marijuana (THC) Screen Drugs of Abuse Note Drugs of Abuse Comment Methyl Alcohol Level Isopropanol Acetone Level 10/23/18 06:26 WBC RBC Hgb Hct MCV MCH MCHC RDW Plt Count MPV Neut % (Auto) Lymph % (Auto) [place] % (Auto) Eos % (Auto) Baso % (Auto) Neut # (Auto) Lymph # (Auto) [place] # (Auto) Eos # (Auto) Baso # (Auto) Neutrophils % (Manual) Band Neutrophils % Lymphocytes % (Manual) Monocytes % (Manual) Eosinophils % (Manual) Nucleated RBC % Platelet Estimate Anisocytosis (manual) Target Cells PT INR APTT Sodium 144 Potassium 3.8 Chloride 103 Carbon Dioxide 30 Anion Gap 15 BUN 99 H Creatinine 5.4 H Est GFR ( Amer) 9 Est GFR (Non-Af Amer) 7 Random Glucose 88 Calcium 8.0 L Phosphorus 5.7 H Magnesium 2.1 Total Bilirubin 6.7 H AST 241 H D ALT 496 H D Alkaline Phosphatase 189 H Total Protein 6.3 Albumin 2.7 L Globulin 3.6 Albumin/Globulin Ratio 0.7 L Triglycerides Cholesterol LDL Cholesterol Direct HDL Cholesterol Ethanolamine Urine Osmolality Ur Random Creatinine Ur Random Sodium Ur Random Potassium Opiates (GC/MS) Ur Opiates (GC/MS) Methadone (GC/MS) Ur Methadone, Qual Propoxyphenes Urine Propoxyphene Methaqualone Barbiturates Ur Barbiturates, Qual Phencyclidine (PCP) Ur Phencyclidine (PCP) Amphetamines Ur Amphetamines Screen Benzodiazepines U Benzodiazepines Qual Cocaine & Metabolite Urine Cocaine Marijuana U Marijuana (THC) Screen Drugs of Abuse Note Drugs of Abuse Comment Methyl Alcohol Level Isopropanol Acetone Level Radiology Impressions: Radiology Impressions Head/Neck CTA 10/20/18 19:22 IMPRESSION: 1. 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 2. High-grade near critical stenosis origin right ICA with moderate origin left ICA stenosis. Both ICAs appear to be patent nevertheless. 3. Moderate distal CCA stenoses bilaterally with additional mild stenosis proximal left CCA. 4. No occlusion or significant intracranial stenosis appreciable. Preliminary report provided by Lupe, 10/20/2018 8:03 p.m.. Fingerstick Blood Sugar Results: 115 Critical Care Progress Note - Nutrition Nutrition: Nutrition Category Date Time Status Dysphagia/Modified Consistency Diet [DIET] Diets 10/22/18 Lunch Active Assessment/Plan - Assessment and Plan (Free Text) Assessment: 88 year old female wiht PMHx of Afib, CHF, CAD, CVA, dementia in ICU after [facility]. neuro -awake, unsedated -AMS per son -neuro consulted for possible reinfarction, Dr. Mcmahon -ammonia wnl -swallow eval ordered, patient's diet ordered per their recs CV -patient w/ severe -ECHO 09/2018 separate admission: LVH, EF 55-60%, severe -avoid BB Pulm -Bipap settings: 8/30%/I: 20, E: 10 (unchanged) -obesity hypoventilation syndrome likely pH 7.36, pCO2 52, HCO3 27.1, O2 sat 98.7 -s/p bicarb treatment -albuterol PRN at home but not here in ICU, continue to monitor -10/20 CXR: bibasilar atelectasis, cardiomegaly -ABG qAM Renal -admitted with hyperkalemia 7.2, now 3.8 -KENNY currently with BUN/Cr 105/61 -> 99/5.4 (downtrending). Possible uremic encephalopathy. -nephro, Dr. Person, recs: urine lytes, urine osm, urine Cr -> FeNA 8.3% (postrenal/obstructive). Renal US pending. -CMP qAM GI -patient w/ transaminitis AST 870 -> 540 -> 241, ALT 859 -> 665 -> 496, AP 216 - > 209 -> 189 -pending hep panel -RUQUS and HIDA scan ordered to check for biliary obstruction -Dr. Gomez, GI consult, ordered. Appreciate recs. -avoid hepatotoxic medications; patient not on home tylenol PRN -trend CMP qAM Heme -patient with stable anemia -patient w/ thrombocytopenia 78 -CBC qAM DVT ppx: heparin 5000U sq q12 GI ppx: pepcid 20 mg IV daily Diet: pureed and thin per speech therapy recs case discussed w/ Dr. Amy Leong PGY1 <Nato Reyes - Last Filed: 10/23/18 17:24> CCU Objective - Vital Signs / Intake & Output Vital Signs (Last 4 hours): Vital Signs Temp Pulse Resp BP Pulse Ox 10/23/18 16:44 109 H 13 87/54 L 100 10/23/18 16:00 97.7 F 10/23/18 15:44 107 H 11 L 91/51 L 100 10/23/18 14:44 112 H 16 90/59 L 100 10/23/18 13:44 112 H 15 91/60 L 100 Intake and Output (Last 8hrs): Intake & Output 10/23/18 10/23/18 10/23/18 06:59 14:59 22:59 Intake Total 777.6 617.6 210 Output Total 475 300 74 Balance 302.6 317.6 136 Weight 366 lb 8 oz Intake: IV 100 35 Intake, IV Amount 627.6 582.6 210 Right Medial Port Femoral 67.6 22.6 Right Proximal Port 560 560 210 Femoral Oral 50 Output: Urine 475 300 74 Urethral (Davis) 475 300 74 Other: # Bowel Movements 0 - Medications Active Medications: Active Medications Generic Name Dose Route Start Last Admin Trade Name Freq PRN Reason Stop Dose Admin Famotidine 20 mg 10/21/18 10:00 10/23/18 09:03 Pepcid IVP 20 mg DAILY SANDI Administration Heparin Sodium (Porcine) 5,000 units 10/21/18 10:00 10/23/18 09:03 Heparin SC 5,000 units Q12 SANDI Administration Sodium Chloride 1,000 mls @ 70 mls/hr 10/21/18 16:30 10/22/18 21:25 Sodium Chloride 0.45% IV Not Given .[id number] SANDI Norepinephrine Bitartrate 4 mg 250 mls @ 18.75 mls/hr 10/22/18 16:00 10/23/18 10:30 / Sodium Chloride IV 0 mcg/min .[id number] PRN 0 mls/hr TITRATE PER MD ORDER Titration Protocol 5 MCG/MIN Mupirocin 0.25 gm 10/22/18 18:00 10/23/18 09:03 Bactroban 2% Nasal HENRRY 0.25 gm BID SANDI Administration Nystatin 1 applic 10/22/18 18:00 10/23/18 09:03 Nystop Topical Powder TOP 1 applic BID SANDI Administration - Patient Studies Lab Studies: Microbiology Studies 10/21/18 06:12 MRSA Culture (Admit) - Final Naris MRSA DETECTED Lab Studies 10/23/18 10/23/18 10/21/18 Range/Units 06:26 06:26 12:05 WBC 9.8 (4.8-10.8) K/uL RBC 3.24 L (3.80-5.20) Mil/uL Hgb 9.7 L (11.0-16.0) g/dL Hct 30.9 L (34.0-47.0) % MCV 95.6 (81.0-99.0) fL MCH 29.9 (27.0-31.0) pg MCHC 31.3 L (33.0-37.0) g/dL RDW 19.1 H (11.5-14.5) % Plt Count 78 L (130-400) K/uL MPV 9.6 (7.2-11.7) fL Neut % (Auto) 79.8 H (50.0-75.0) % Lymph % (Auto) 5.6 L (20.0-40.0) % [place] % (Auto) 12.6 H (0.0-10.0) % Eos % (Auto) 1.8 (0.0-4.0) % Baso % (Auto) 0.2 (0.0-2.0) % Neut # (Auto) 7.8 H (1.8-7.0) K/uL Lymph # (Auto) 0.6 L (1.0-4.3) K/uL [place] # (Auto) 1.2 H (0.0-0.8) K/uL Eos # (Auto) 0.2 (0.0-0.7) K/uL Baso # (Auto) 0.0 (0.0-0.2) K/uL Neutrophils % (Manual) 85 H (50-75) % Band Neutrophils % 1 (0-2) % Lymphocytes % (Manual) 3 L (20-40) % Monocytes % (Manual) 10 (0-10) % Eosinophils % (Manual) 1 (0-4) % Nucleated RBC % 7 H (0-0) % Platelet Estimate Decreased L (NORMAL) Anisocytosis (manual) Moderate Target Cells Moderate Sodium 144 (132-148) mmol/L Potassium 3.8 (3.6-5.2) mmol/L Chloride 103 (98-107) mmol/L Carbon Dioxide 30 (22-30) mmol/L Anion Gap 15 (10-20) BUN 99 H (7-17) mg/dL Creatinine 5.4 H (0.7-1.2) mg/dL Est GFR ( Amer) 9 Est GFR (Non-Af Amer) 7 Random Glucose 88 (65-105) mg/dL Calcium 8.0 L (8.6-10.4) mg/dl Phosphorus 5.7 H (2.5-4.5) mg/dL Magnesium 2.1 (1.6-2.3) mg/dL Total Bilirubin 6.7 H (0.2-1.3) mg/dL AST 241 H D (14-36) U/L ALT 496 H D (9-52) U/L Alkaline Phosphatase 189 H (38-126) U/L Total Protein 6.3 (6.3-8.3) g/dL Albumin 2.7 L (3.5-5.0) g/dL Globulin 3.6 (2.2-3.9) gm/dL Albumin/Globulin Ratio 0.7 L (1.0-2.1) Ethanolamine Opiates (GC/MS) Ur Opiates (GC/MS) Negative (Negative) 300 Methadone (GC/MS) Ur Methadone, Qual Negative (Negative) 300 Propoxyphenes Urine Propoxyphene Negative (Negative) 300 Methaqualone Negative (Negative) 300 Barbiturates Ur Barbiturates, Qual Negative (Negative) 300 Phencyclidine (PCP) Ur Phencyclidine (PCP) Negative (Negative) 25 Amphetamines Ur Amphetamines Screen Negative (Negative) 1000 Benzodiazepines U Benzodiazepines Qual Negative (Negative) 300 Cocaine & Metabolite Urine Cocaine Negative (Negative) 300 Marijuana U Marijuana (THC) Screen Negative (Negative) 50 Drugs of Abuse Note See note Drugs of Abuse Comment Methyl Alcohol Level Isopropanol Acetone Level 10/21/18 Range/Units 11:05 WBC (4.8-10.8) K/uL RBC (3.80-5.20) Mil/uL Hgb (11.0-16.0) g/dL Hct (34.0-47.0) % MCV (81.0-99.0) fL MCH (27.0-31.0) pg MCHC (33.0-37.0) g/dL RDW (11.5-14.5) % Plt Count (130-400) K/uL MPV (7.2-11.7) fL Neut % (Auto) (50.0-75.0) % Lymph % (Auto) (20.0-40.0) % [place] % (Auto) (0.0-10.0) % Eos % (Auto) (0.0-4.0) % Baso % (Auto) (0.0-2.0) % Neut # (Auto) (1.8-7.0) K/uL Lymph # (Auto) (1.0-4.3) K/uL [place] # (Auto) (0.0-0.8) K/uL Eos # (Auto) (0.0-0.7) K/uL Baso # (Auto) (0.0-0.2) K/uL Neutrophils % (Manual) (50-75) % Band Neutrophils % (0-2) % Lymphocytes % (Manual) (20-40) % Monocytes % (Manual) (0-10) % Eosinophils % (Manual) (0-4) % Nucleated RBC % (0-0) % Platelet Estimate (NORMAL) Anisocytosis (manual) Target Cells Sodium (132-148) mmol/L Potassium (3.6-5.2) mmol/L Chloride (98-107) mmol/L Carbon Dioxide (22-30) mmol/L Anion Gap (10-20) BUN (7-17) mg/dL Creatinine (0.7-1.2) mg/dL Est GFR ( Amer) Est GFR (Non-Af Amer) Random Glucose (65-105) mg/dL Calcium (8.6-10.4) mg/dl Phosphorus (2.5-4.5) mg/dL Magnesium (1.6-2.3) mg/dL Total Bilirubin (0.2-1.3) mg/dL AST (14-36) U/L ALT (9-52) U/L Alkaline Phosphatase (38-126) U/L Total Protein (6.3-8.3) g/dL Albumin (3.5-5.0) g/dL Globulin (2.2-3.9) gm/dL Albumin/Globulin Ratio (1.0-2.1) Ethanolamine None detected Opiates (GC/MS) negative Ur Opiates (GC/MS) (Negative) 300 Methadone (GC/MS) negative Ur Methadone, Qual (Negative) 300 Propoxyphenes negative Urine Propoxyphene (Negative) 300 Methaqualone (Negative) 300 Barbiturates negative Ur Barbiturates, Qual (Negative) 300 Phencyclidine (PCP) negative Ur Phencyclidine (PCP) (Negative) 25 Amphetamines negative Ur Amphetamines Screen (Negative) 1000 Benzodiazepines negative U Benzodiazepines Qual (Negative) 300 Cocaine & Metabolite negative Urine Cocaine (Negative) 300 Marijuana negative U Marijuana (THC) Screen (Negative) 50 Drugs of Abuse Note Drugs of Abuse Comment See note Methyl Alcohol Level None detected Isopropanol None detected Acetone Level None detected Laboratory Results - last 24 hr 10/21/18 10/21/18 10/23/18 11:05 12:05 06:26 WBC 9.8 RBC 3.24 L Hgb 9.7 L Hct 30.9 L MCV 95.6 MCH 29.9 MCHC 31.3 L RDW 19.1 H Plt Count 78 L MPV 9.6 Neut % (Auto) 79.8 H Lymph % (Auto) 5.6 L [place] % (Auto) 12.6 H Eos % (Auto) 1.8 Baso % (Auto) 0.2 Neut # (Auto) 7.8 H Lymph # (Auto) 0.6 L [place] # (Auto) 1.2 H Eos # (Auto) 0.2 Baso # (Auto) 0.0 Neutrophils % (Manual) 85 H Band Neutrophils % 1 Lymphocytes % (Manual) 3 L Monocytes % (Manual) 10 Eosinophils % (Manual) 1 Nucleated RBC % 7 H Platelet Estimate Decreased L Anisocytosis (manual) Moderate Target Cells Moderate Sodium Potassium Chloride Carbon Dioxide Anion Gap BUN Creatinine Est GFR ( Amer) Est GFR (Non-Af Amer) Random Glucose Calcium Phosphorus Magnesium Total Bilirubin AST ALT Alkaline Phosphatase Total Protein Albumin Globulin Albumin/Globulin Ratio Ethanolamine None detected Opiates (GC/MS) negative Ur Opiates (GC/MS) Negative Methadone (GC/MS) negative Ur Methadone, Qual Negative Propoxyphenes negative Urine Propoxyphene Negative Methaqualone Negative Barbiturates negative Ur Barbiturates, Qual Negative Phencyclidine (PCP) negative Ur Phencyclidine (PCP) Negative Amphetamines negative Ur Amphetamines Screen Negative Benzodiazepines negative U Benzodiazepines Qual Negative Cocaine & Metabolite negative Urine Cocaine Negative Marijuana negative U Marijuana (THC) Screen Negative Drugs of Abuse Note See note Drugs of Abuse Comment See note Methyl Alcohol Level None detected Isopropanol None detected Acetone Level None detected 10/23/18 06:26 WBC RBC Hgb Hct MCV MCH MCHC RDW Plt Count MPV Neut % (Auto) Lymph % (Auto) [place] % (Auto) Eos % (Auto) Baso % (Auto) Neut # (Auto) Lymph # (Auto) [place] # (Auto) Eos # (Auto) Baso # (Auto) Neutrophils % (Manual) Band Neutrophils % Lymphocytes % (Manual) Monocytes % (Manual) Eosinophils % (Manual) Nucleated RBC % Platelet Estimate Anisocytosis (manual) Target Cells Sodium 144 Potassium 3.8 Chloride 103 Carbon Dioxide 30 Anion Gap 15 BUN 99 H Creatinine 5.4 H Est GFR ( Amer) 9 Est GFR (Non-Af Amer) 7 Random Glucose 88 Calcium 8.0 L Phosphorus 5.7 H Magnesium 2.1 Total Bilirubin 6.7 H AST 241 H D ALT 496 H D Alkaline Phosphatase 189 H Total Protein 6.3 Albumin 2.7 L Globulin 3.6 Albumin/Globulin Ratio 0.7 L Ethanolamine Opiates (GC/MS) Ur Opiates (GC/MS) Methadone (GC/MS) Ur Methadone, Qual Propoxyphenes Urine Propoxyphene Methaqualone Barbiturates Ur Barbiturates, Qual Phencyclidine (PCP) Ur Phencyclidine (PCP) Amphetamines Ur Amphetamines Screen Benzodiazepines U Benzodiazepines Qual Cocaine & Metabolite Urine Cocaine Marijuana U Marijuana (THC) Screen Drugs of Abuse Note Drugs of Abuse Comment Methyl Alcohol Level Isopropanol Acetone Level Radiology Impressions: Radiology Impressions Renal Ultrasound 10/22/18 18:55 IMPRESSION: Left upper pole renal cyst measures approximately 4.0 x 3.3 x 3.7 cm. Davis catheter within a decompressed urinary bladder. Preliminary impression was provided by [facility] Progress Note - Nutrition Nutrition: Nutrition Category Date Time Status Dysphagia/Modified Consistency Diet [DIET] Diets 10/22/18 Lunch Active Attending/Attestation - Attestation I have personally seen and examined this patient.: Yes I have fully participated in the care of the patient.: Yes I have reviewed all pertinent clinical information: Yes Notes (Text): 10/23/18 17:24 Today: October The Patient was seen and examined at the bedside, Medical records reviewed, and management issues were discussed and formulated with the house staff. I have reviewed all the relevant clinical, laboratory, hemodynamic, radiographic data and medications Events reviewed Pain issues, skin care, head of the bed elevation, glycemic control were addressed. Agree with above resident's assessment and treatment plans of care as transcribed in Dr. Leong's note.
--- NOTE | 2018-10-23 13:23 | US ---
Date of service: 10/22/2018 PROCEDURE: Ultrasound of the Kidneys HISTORY: r/o obstruction COMPARISON: Abdominal ultrasound performed 09/25/14 TECHNIQUE: Sonogram of the kidneys. FINDINGS: RIGHT KIDNEY: Measures: 11.1 x 5.0 x 5.0 cm. No obstructing calculus, hydronephrosis, or renal cyst identified. LEFT KIDNEY: Measures: 8.9 x 4.0 x 3.9 cm. No obstructing calculus or hydronephrosis. Left upper pole hypoechoic avascular mass 4.0 x 3.3 x 3.7 cm consistent with renal cyst. OTHER FINDINGS: Davis catheter within a decompressed urinary bladder. IMPRESSION: Left upper pole renal cyst measures approximately 4.0 x 3.3 x 3.7 cm. Davis catheter within a decompressed urinary bladder. Preliminary impression was provided by [employer].
--- NOTE | 2018-10-23 13:55 | CP.PCM.PN ---
Subjective - Date & Time of Evaluation Date of Evaluation: 10/23/18 Time of Evaluation: 13:00 - Subjective Subjective: clinically same Objective - Vital Signs/Intake and Output Vital Signs (last 24 hours): Temp Pulse Resp BP Pulse Ox 98 F 114 H 18 109/76 100 10/23/18 04:00 10/23/18 09:44 10/23/18 09:44 10/23/18 09:44 10/23/18 09:44 Intake and Output: 10/23/18 10/23/18 06:59 18:59 Intake Total 1145.2 258.8 Output Total 700 115 Balance 445.2 143.8 - Medications Medications: Current Medications Calcium Acetate (Phoslo) 667 mg PO BIDCC [facility] Stop: 10/23/18 17:01 Last Admin: 10/23/18 09:03 Dose: 667 mg Famotidine (Pepcid) 20 mg IVP DAILY [facility] Last Admin: 10/23/18 09:03 Dose: 20 mg Heparin Sodium (Porcine) (Heparin) 5,000 units SC Q12 [facility] Last Admin: 10/23/18 09:03 Dose: 5,000 units Sodium Chloride (Sodium Chloride 0.45%) 1,000 mls @ 70 mls/hr IV .[id number] [facility] Last Admin: 10/22/18 21:25 Dose: Not Given Norepinephrine Bitartrate 4 mg (/ Sodium Chloride) 250 mls @ 18.75 mls/hr IV .[id number] PRN; Protocol PRN Reason: TITRATE PER MD ORDER Last Titration: 10/23/18 08:51 Dose: 1 mcg/min, 3.75 mls/hr Mupirocin (Bactroban 2% Nasal) 0.25 gm HENRRY BID [facility] Last Admin: 10/23/18 09:03 Dose: 0.25 gm Nystatin (Nystop Topical Powder) 1 applic TOP BID [facility] Last Admin: 10/23/18 09:03 Dose: 1 applic - Labs Labs: 10/23/18 06:26 10/23/18 06:26 PT 16.8 SECONDS (9.7-12.2) H 10/22/18 11:52 INR 1.5 10/22/18 11:52 APTT 30 SECONDS (21-34) 10/22/18 11:52 - Constitutional Appears: Well - Head Exam Head Exam: ATRAUMATIC, NORMAL INSPECTION, NORMOCEPHALIC - Eye Exam Eye Exam: EOMI, Normal appearance, PERRL Pupil Exam: NORMAL ACCOMODATION, PERRL - ENT Exam ENT Exam: Mucous Membranes Moist, Normal Exam - Neck Exam Neck Exam: Full ROM, Normal Inspection. absent: Lymphadenopathy - Respiratory Exam Respiratory Exam: Decreased Breath Sounds - Cardiovascular Exam Cardiovascular Exam: REGULAR RHYTHM, +S1, +S2 - GI/Abdominal Exam GI & Abdominal Exam: Soft, Diminished Bowel Sounds - Rectal Exam Rectal Exam: Deferred Assessment and Plan (1) Acute hyperkalemia Status: Acute (2) Acute renal failure Status: Acute (3) NSTEMI (non-ST elevated myocardial infarction) Status: Acute (4) A-fib Status: Chronic (5) CHF (congestive heart failure) Status: Acute (6) Cellulitis Status: Acute (7) Decubitus ulcer Status: Acute (8) Hyperkalemia Status: Acute (9) Leg ulcer, left Status: Acute (10) Peripheral edema Status: Acute (11) Renal insufficiency Status: Acute - Assessment and Plan (Free Text) Plan: 88 year old female wiht PMHx of Afib, CHF, CAD, CVA, dementia in ICU after being found unresponsive in intermediate on 10/20. neuro -awake, unsedated -AMS per son -neuro consulted for possible reinfarction, Dr. Mcmahon -ammonia wnl -swallow eval ordered, patient's diet ordered per their recs CV -patient w/ severe -ECHO 09/2018 separate admission: LVH, EF 55-60%, severe -avoid BB Pulm -Bipap settings: 8/30%/I: 20, E: 10 (unchanged) -obesity hypoventilation syndrome likely pH 7.36, pCO2 52, HCO3 27.1, O2 sat 98.7 -s/p bicarb treatment -albuterol PRN at home but not here in ICU, continue to monitor -10/20 CXR: bibasilar atelectasis, cardiomegaly -ABG qAM Renal -admitted with hyperkalemia 7.2, now 3.8 -KENNY currently with BUN/Cr 105/61 -> 99/5.4 (downtrending). Possible uremic encephalopathy. -nephro, Dr. Jonalagadda, recs: urine lytes, urine osm, urine Cr -> FeNA 8.3% (postrenal/obstructive). Renal US pending. -CMP qAM GI -patient w/ transaminitis AST 870 -> 540 -> 241, ALT 859 -> 665 -> 496, AP 216 - > 209 -> 189 -pending hep panel -RUQUS and HIDA scan ordered to check for biliary obstruction -Dr. Gomez, GI consult, ordered. Appreciate recs. -avoid hepatotoxic medications; patient not on home tylenol PRN -trend CMP qAM Heme -patient with stable anemia -patient w/ thrombocytopenia 78 -CBC qAM DVT ppx: heparin 5000U sq q12 GI ppx: pepcid 20 mg IV daily Diet: pureed and thin per speech therapy recs
[2018-10-23 17:27] LABS: HEPATITIS B SURFACE AG Negative (NEGATIVE)
[2018-10-23 17:33] LABS: HEPATITIS A IGM NEGATIVE (NEGATIVE); HEPATITIS B CORE AB NEGATIVE (NEGATIVE)
[2018-10-23 17:44] LABS: HEPATITIS C ANTIBODY NEGATIVE (NEGATIVE)
[2018-10-23] MEDS: Sodium Chloride 0.45% 1,000 ML IV SCH (18:08)
--- NOTE | 2018-10-23 18:09 | CP.PCM.PN ---
Subjective - Date & Time of Evaluation Date of Evaluation: 10/23/18 Time of Evaluation: 18:08 - Subjective Subjective: pt is seen and examined, follow up consult is dictated #[id number] c/w ivf renal function is improving Objective - Vital Signs/Intake and Output Vital Signs (last 24 hours): Temp Pulse Resp BP Pulse Ox 97.7 F 109 H 14 97/61 L 100 10/23/18 16:00 10/23/18 17:44 10/23/18 17:44 10/23/18 17:44 10/23/18 17:44 Intake and Output: 10/23/18 10/23/18 06:59 18:59 Intake Total 1145.2 827.6 Output Total 700 374 Balance 445.2 453.6 - Medications Medications: Current Medications Famotidine (Pepcid) 20 mg IVP DAILY [facility] Last Admin: 10/23/18 09:03 Dose: 20 mg Heparin Sodium (Porcine) (Heparin) 5,000 units SC Q12 [facility] Last Admin: 10/23/18 09:03 Dose: 5,000 units Sodium Chloride (Sodium Chloride 0.45%) 1,000 mls @ 70 mls/hr IV .[id number] [facility] Last Admin: 10/22/18 21:25 Dose: Not Given Norepinephrine Bitartrate 4 mg (/ Sodium Chloride) 250 mls @ 18.75 mls/hr IV .Q 13H20M PRN; Protocol PRN Reason: TITRATE PER MD ORDER Last Titration: 10/23/18 10:30 Dose: 0 mcg/min, 0 mls/hr Mupirocin (Bactroban 2% Nasal) 0.25 gm HENRRY BID [facility] Last Admin: 10/23/18 09:03 Dose: 0.25 gm Nystatin (Nystop Topical Powder) 1 applic TOP BID [facility] Last Admin: 10/23/18 09:03 Dose: 1 applic - Labs Labs: 10/23/18 06:26 10/23/18 06:26 PT 16.8 SECONDS (9.7-12.2) H 10/22/18 11:52 INR 1.5 10/22/18 11:52 APTT 30 SECONDS (21-34) 10/22/18 11:52
--- NOTE | 2018-10-23 23:55 | PN ---
DATE: 10/23/2018 FOLLOWUP RENAL CONSULTATION LOCATION: The patient is located in ICU, bed 16. REQUESTED BY: Scottie Alberto MD. REASON FOR FOLLOWUP: Acute renal failure, chronic kidney disease, metabolic acidosis, and hyperkalemia. HISTORY OF PRESENT ILLNESS: Mrs. Oro is an 88-year-old elderly obese female with a past medical history significant for longstanding hypertension, hyperlipidemia, coronary artery disease, CHF, CKD, atrial fibrillation, dementia, arthritis, unilateral small left kidney who was admitted on 10/20/2018 with chief complaints of altered mental status and weakness and found to have increased BUN and creatinine, hyperkalemic metabolic acidosis, started on IV sodium bicarb drip, and also treated medically for hyperkalemia. The patient is on IV fluids. The patient is not in acute distress. Denies any complaints. No chest pain. No palpitation. No fever. No cough. No abdominal pain. No nausea, vomiting, diarrhea. PHYSICAL EXAMINATIONS: VITAL SIGNS: As follows: Blood pressure 97/61, pulse 109, respirations 14, and temperature 97.7. Height is 5 feet. GENERAL: Mrs. Oro is an 88-year-old elderly female, moderately built, moderately nourished, not in acute distress. HEENT: Pupils normal and reactive to light and accommodation. Conjunctivae pink. Sclerae anicteric. Tongue is moist. Trachea is midline. LUNGS: Symmetric on both sides. Bilateral breath sounds present. Clear to auscultation. CARDIOVASCULAR SYSTEM: [place] at the fifth intercostal space, midclavicular line. S1, S2 audible. Irregularly irregular. ABDOMEN: Normal in appearance, soft, tympanitic. No guarding. No rigidity. No hepatosplenomegaly. CENTRAL NERVOUS SYSTEM: The patient is awake, alert, and oriented x2. Sensory and motor system is grossly within normal limits. EXTREMITIES: No cyanosis, no clubbing, no edema. I's and O's in the last 24 hours, intake is 2225 and output is 1300. LABORATORY DATA: Her laboratory data include as follows: As of 10/23/2018, WBC 9.8, hemoglobin 9.7, hematocrit is 30.9, platelets 78. Sodium 144, potassium 3.8, chloride 103, CO2 of 30, BUN 99, creatinine 5.4, glucose 88, calcium 8, phosphorus 5.7, magnesium 2.1. Total bili 6.7, AST 241, ALT 496, alkaline phosphatase 189, total protein 6.3, albumin is 2.7. Hepatitis B surface antigen negative. Hepatitis B core antibody IgM negative. Hep C antibody is negative. CURRENT MEDICATIONS: Include as follows: Bactroban nasal b.i.d., subcu heparin 5000 units every 12 hours, Nystatin powder topical, Pepcid 20 mg daily IV piggyback, PhosLo 667 mg p.o. once, IV fluids half-normal saline at 70 mL/hour. IMPRESSION: In summary, Mrs. Oro is an 88-year-old elderly female with hypertension, hyperlipidemia, coronary artery disease, congestive heart failure, status post coronary stenting, atrial fibrillation, chronic kidney disease, dementia, arthritis who was admitted with altered mental status and worsening renal function and abnormal liver function tests. 1. Acute renal failure, on chronic kidney disease stage III. 2. Unilateral small left kidney. 3. Atrial fibrillation. 4. Status post hyperkalemia and metabolic acidosis. Both are corrected now. Continue IV fluids half-normal saline at 70 mL/hour. 5. Abnormal liver function tests, etiology is not clear. Consider ultrasound of the right upper quadrant if not done recently. Consider Gastroenterology evaluation. We will follow with you. Thank you for allowing me to participate in your patient's care. Renal function is improving gradually. No need for hemodialysis at this time. Alfred Lobato MD
[2018-10-24] MEDS: Sodium Chloride 0.45% 1,000 ML IV SCH ×2 (02:46→15:56)
[2018-10-24 06:39] LABS: BASO % 0.5 % (0.0-2.0); EOS # 0.2 K/uL (0.0-0.7); EOS % 2.7 % (0.0-4.0); HEMOGLOBIN 9.3 g/dL (11.0-16.0); LYMPH # 0.5 K/uL (1.0-4.3); LYMPH % 5.8 % (20.0-40.0); MEAN CELL VOLUME 97.6 fL (81.0-99.0); MEAN CORPUSCULAR HEMOGLOBIN 30.2 pg (27.0-31.0); MEAN PLATELET VOLUME 9.8 fL (7.2-11.7); MONO # 1.1 K/uL (0.0-0.8); MONO % 11.9 % (0.0-10.0); NEUT % 79.1 % (50.0-75.0); NRBC % 5.3 % (0.0-2.0); PLATELET COUNT 67 K/uL (130-400); RBC 3.09 Mil/uL (3.80-5.20); RED CELL DISTRIBUTION WIDTH 18.9 % (11.5-14.5); WHITE BLOOD COUNT 8.9 K/uL (4.8-10.8)
[2018-10-24 06:50] LABS: ALB/GLOB RATIO 0.8 (1.0-2.1); ALBUMIN 2.8 g/dL (3.5-5.0); CALCIUM 8.3 mg/dl (8.6-10.4)
[2018-10-24 08:12] LABS: ANISOCYTOSIS SLIGHT; EOSINOPHIL 1 % (0-4); LYMPHOCYTE 7 % (20-40); MONOCYTE 6 % (0-10); NEUTROPHIL 86 % (50-75); NUCLEATED RED BLOOD CELL 2 % (0-0); PLATELET ESTIMATE DECREASED (NORMAL); TOTAL CELLS COUNTED 100
[2018-10-24 08:13] LABS: HYPOCHROMIC SLIGHT; POLYCHROMIC SLIGHT; TARGET CELLS SLIGHT
--- NOTE | 2018-10-24 08:52 | CP.CCUPN ---
<Albina Leong - Last Filed: 10/24/18 10:31> CCU Subjective - Physician Review Subjective (Free Text): 10/22/18 10:28 ICU Progress Note for Dr. Campos Patient seen and examined at bedside this morning. She denies any pain. Due to AMS, ROS unable to be obtained. 10/23/18 12:34 10/24/18 08:51 10/24/18 10:31 10/24/18 10:38 CCU Objective - Vital Signs / Intake & Output Vital Signs (Last 4 hours): Vital Signs Pulse Resp BP Pulse Ox 10/24/18 07:25 111 H 10/24/18 07:00 111 H 18 109/71 98 10/24/18 06:03 112 H 15 94/58 L 98 10/24/18 06:00 112 H 17 99 10/24/18 05:00 109 H 15 99 Intake and Output (Last 8hrs): Intake & Output 10/23/18 10/24/18 10/24/18 22:59 06:59 14:59 Intake Total 560 630 Output Total 281 300 Balance 279 330 Weight 363 lb 12.8 oz Intake: Intake, IV Amount 560 630 Right Midline 70 Right Proximal Port 560 560 Femoral Oral 0 Output: Urine 281 300 Urethral (Davis) 281 300 Other: # Bowel Movements 0 - Physical Exam Physical Exam Limitations: Positive for: Altered Mental Status Head: Positive for: Atraumatic, Normocephalic Extroacular Muscles: Positive for: EOMI Conjunctiva: Positive for: Normal Respiratory/Chest: Positive for: Clear to Auscultation Cardiovascular: Positive for: Murmurs (crescendo descrendo murmur heard on all listening posts), Tachycardic Abdomen: Positive for: Normal Bowel Sounds, Other (abdominal obesity). Negative for: Tenderness, Distention, Peritoneal Signs, Rebound, Guarding Upper Extremity: Positive for: Edema (non pitting). Negative for: Cyanosis, Tenderness Lower Extremity: Negative for: Normal Inspection (chronic skin changes below knee bilaterally), Edema Neurological: Positive for: Other (Patient unable to recall her correct date of . She knows her name and her son's name.) Skin: Positive for: Dry, Normal Color, Other (cool extremities) Psychiatric: Positive for: Alert Other physical findings (Free Text): Patient with bilateral LE 2/5 strength and UE 1/5 strength - Medications Active Medications: Active Medications Generic Name Dose Route Start Last Admin Trade Name Freq PRN Reason Stop Dose Admin Calcium Acetate 667 mg 10/23/18 09:15 Phoslo PO 10/23/18 09:16 ONCE ONE Calcium Acetate 667 mg 10/24/18 09:00 Phoslo PO 10/24/18 09:01 BIDCC ONE Famotidine 20 mg 10/21/18 10:00 10/23/18 09:03 Pepcid IVP 20 mg DAILY SANDI Administration Heparin Sodium (Porcine) 5,000 units 10/21/18 10:00 10/23/18 21:18 Heparin SC 5,000 units Q12 SANDI Administration Sodium Chloride 1,000 mls @ 70 mls/hr 10/21/18 16:30 10/24/18 02:46 Sodium Chloride 0.45% IV Not Given .[id number] SANDI Norepinephrine Bitartrate 4 mg 250 mls @ 18.75 mls/hr 10/22/18 16:00 10/23/18 10:30 / Sodium Chloride IV 0 mcg/min .[id number] PRN 0 mls/hr TITRATE PER MD ORDER Titration Protocol 5 MCG/MIN Mupirocin 0.25 gm 10/22/18 18:00 10/23/18 18:08 Bactroban 2% Nasal HENRRY 0.25 gm BID SANDI Administration Nystatin 1 applic 10/22/18 18:00 10/23/18 18:08 Nystop Topical Powder TOP 1 applic BID SANDI Administration - Patient Studies Lab Studies: Lab Studies 10/24/18 10/24/18 10/23/18 Range/Units 06:06 06:06 16:31 WBC 8.9 (4.8-10.8) K/uL RBC 3.09 L (3.80-5.20) Mil/uL Hgb 9.3 L (11.0-16.0) g/dL Hct 30.2 L (34.0-47.0) % MCV 97.6 D (81.0-99.0) fL MCH 30.2 (27.0-31.0) pg MCHC 31.0 L (33.0-37.0) g/dL RDW 18.9 H (11.5-14.5) % Plt Count 67 L (130-400) K/uL MPV 9.8 (7.2-11.7) fL Neut % (Auto) 79.1 H (50.0-75.0) % Lymph % (Auto) 5.8 L (20.0-40.0) % [place] % (Auto) 11.9 H (0.0-10.0) % Eos % (Auto) 2.7 (0.0-4.0) % Baso % (Auto) 0.5 (0.0-2.0) % Neut # (Auto) 7.0 (1.8-7.0) K/uL Lymph # (Auto) 0.5 L (1.0-4.3) K/uL [place] # (Auto) 1.1 H (0.0-0.8) K/uL Eos # (Auto) 0.2 (0.0-0.7) K/uL Baso # (Auto) 0.0 (0.0-0.2) K/uL Neutrophils % (Manual) 86 H (50-75) % Lymphocytes % (Manual) 7 L (20-40) % Monocytes % (Manual) 6 (0-10) % Eosinophils % (Manual) 1 (0-4) % Nucleated RBC % 2 H (0-0) % Platelet Estimate Decreased L (NORMAL) Polychromasia Slight Hypochromasia (manual) Slight Anisocytosis (manual) Slight Macrocytosis (manual) Slight Target Cells Slight Sodium 144 (132-148) mmol/L Potassium 3.8 (3.6-5.2) mmol/L Chloride 106 (98-107) mmol/L Carbon Dioxide 31 H (22-30) mmol/L Anion Gap 11 (10-20) BUN 97 H (7-17) mg/dL Creatinine 4.4 H (0.7-1.2) mg/dL Est GFR ( Amer) 11 Est GFR (Non-Af Amer) 9 Random Glucose 95 (65-105) mg/dL Calcium 8.3 L (8.6-10.4) mg/dl Phosphorus 5.3 H (2.5-4.5) mg/dL Magnesium 1.9 (1.6-2.3) mg/dL Total Bilirubin 6.1 H (0.2-1.3) mg/dL AST 139 H D (14-36) U/L ALT 398 H (9-52) U/L Alkaline Phosphatase 172 H (38-126) U/L Total Protein 6.5 (6.3-8.3) g/dL Albumin 2.8 L (3.5-5.0) g/dL Globulin 3.7 (2.2-3.9) gm/dL Albumin/Globulin Ratio 0.8 L (1.0-2.1) Ethanolamine Ur Opiates (GC/MS) (Negative) 300 Ur Methadone, Qual (Negative) 300 Urine Propoxyphene (Negative) 300 Methaqualone (Negative) 300 Ur Barbiturates, Qual (Negative) 300 Ur Phencyclidine (PCP) (Negative) 25 Ur Amphetamines Screen (Negative) 1000 U Benzodiazepines Qual (Negative) 300 Urine Cocaine (Negative) 300 U Marijuana (THC) Screen (Negative) 50 Drugs of Abuse Note Methyl Alcohol Level Isopropanol Acetone Level Hepatitis A IgM Ab Negative (NEGATIVE) Hep Bs Antigen Negative (NEGATIVE) Hep B Core IgM Ab Negative (NEGATIVE) Hepatitis C Antibody Negative (NEGATIVE) 10/21/18 10/21/18 Range/Units 12:05 11:05 WBC (4.8-10.8) K/uL RBC (3.80-5.20) Mil/uL Hgb (11.0-16.0) g/dL Hct (34.0-47.0) % MCV (81.0-99.0) fL MCH (27.0-31.0) pg MCHC (33.0-37.0) g/dL RDW (11.5-14.5) % Plt Count (130-400) K/uL MPV (7.2-11.7) fL Neut % (Auto) (50.0-75.0) % Lymph % (Auto) (20.0-40.0) % [place] % (Auto) (0.0-10.0) % Eos % (Auto) (0.0-4.0) % Baso % (Auto) (0.0-2.0) % Neut # (Auto) (1.8-7.0) K/uL Lymph # (Auto) (1.0-4.3) K/uL [place] # (Auto) (0.0-0.8) K/uL Eos # (Auto) (0.0-0.7) K/uL Baso # (Auto) (0.0-0.2) K/uL Neutrophils % (Manual) (50-75) % Lymphocytes % (Manual) (20-40) % Monocytes % (Manual) (0-10) % Eosinophils % (Manual) (0-4) % Nucleated RBC % (0-0) % Platelet Estimate (NORMAL) Polychromasia Hypochromasia (manual) Anisocytosis (manual) Macrocytosis (manual) Target Cells Sodium (132-148) mmol/L Potassium (3.6-5.2) mmol/L Chloride (98-107) mmol/L Carbon Dioxide (22-30) mmol/L Anion Gap (10-20) BUN (7-17) mg/dL Creatinine (0.7-1.2) mg/dL Est GFR ( Amer) Est GFR (Non-Af Amer) Random Glucose (65-105) mg/dL Calcium (8.6-10.4) mg/dl Phosphorus (2.5-4.5) mg/dL Magnesium (1.6-2.3) mg/dL Total Bilirubin (0.2-1.3) mg/dL AST (14-36) U/L ALT (9-52) U/L Alkaline Phosphatase (38-126) U/L Total Protein (6.3-8.3) g/dL Albumin (3.5-5.0) g/dL Globulin (2.2-3.9) gm/dL Albumin/Globulin Ratio (1.0-2.1) Ethanolamine None detected Ur Opiates (GC/MS) Negative (Negative) 300 Ur Methadone, Qual Negative (Negative) 300 Urine Propoxyphene Negative (Negative) 300 Methaqualone Negative (Negative) 300 Ur Barbiturates, Qual Negative (Negative) 300 Ur Phencyclidine (PCP) Negative (Negative) 25 Ur Amphetamines Screen Negative (Negative) 1000 U Benzodiazepines Qual Negative (Negative) 300 Urine Cocaine Negative (Negative) 300 U Marijuana (THC) Screen Negative (Negative) 50 Drugs of Abuse Note See note Methyl Alcohol Level None detected Isopropanol None detected Acetone Level None detected Hepatitis A IgM Ab (NEGATIVE) Hep Bs Antigen (NEGATIVE) Hep B Core IgM Ab (NEGATIVE) Hepatitis C Antibody (NEGATIVE) Laboratory Results - last 24 hr 10/21/18 10/21/18 10/23/18 11:05 12:05 16:31 WBC RBC Hgb Hct MCV MCH MCHC RDW Plt Count MPV Neut % (Auto) Lymph % (Auto) [place] % (Auto) Eos % (Auto) Baso % (Auto) Neut # (Auto) Lymph # (Auto) [place] # (Auto) Eos # (Auto) Baso # (Auto) Neutrophils % (Manual) Lymphocytes % (Manual) Monocytes % (Manual) Eosinophils % (Manual) Nucleated RBC % Platelet Estimate Polychromasia Hypochromasia (manual) Anisocytosis (manual) Macrocytosis (manual) Target Cells Sodium Potassium Chloride Carbon Dioxide Anion Gap BUN Creatinine Est GFR ( Amer) Est GFR (Non-Af Amer) Random Glucose Calcium Phosphorus Magnesium Total Bilirubin AST ALT Alkaline Phosphatase Total Protein Albumin Globulin Albumin/Globulin Ratio Ethanolamine None detected Ur Opiates (GC/MS) Negative Ur Methadone, Qual Negative Urine Propoxyphene Negative Methaqualone Negative Ur Barbiturates, Qual Negative Ur Phencyclidine (PCP) Negative Ur Amphetamines Screen Negative U Benzodiazepines Qual Negative Urine Cocaine Negative U Marijuana (THC) Screen Negative Drugs of Abuse Note See note Methyl Alcohol Level None detected Isopropanol None detected Acetone Level None detected Hepatitis A IgM Ab Negative Hep Bs Antigen Negative Hep B Core IgM Ab Negative Hepatitis C Antibody Negative 10/24/18 10/24/18 06:06 06:06 WBC 8.9 RBC 3.09 L Hgb 9.3 L Hct 30.2 L MCV 97.6 D MCH 30.2 MCHC 31.0 L RDW 18.9 H Plt Count 67 L MPV 9.8 Neut % (Auto) 79.1 H Lymph % (Auto) 5.8 L [place] % (Auto) 11.9 H Eos % (Auto) 2.7 Baso % (Auto) 0.5 Neut # (Auto) 7.0 Lymph # (Auto) 0.5 L [place] # (Auto) 1.1 H Eos # (Auto) 0.2 Baso # (Auto) 0.0 Neutrophils % (Manual) 86 H Lymphocytes % (Manual) 7 L Monocytes % (Manual) 6 Eosinophils % (Manual) 1 Nucleated RBC % 2 H Platelet Estimate Decreased L Polychromasia Slight Hypochromasia (manual) Slight Anisocytosis (manual) Slight Macrocytosis (manual) Slight Target Cells Slight Sodium 144 Potassium 3.8 Chloride 106 Carbon Dioxide 31 H Anion Gap 11 BUN 97 H Creatinine 4.4 H Est GFR ( Amer) 11 Est GFR (Non-Af Amer) 9 Random Glucose 95 Calcium 8.3 L Phosphorus 5.3 H Magnesium 1.9 Total Bilirubin 6.1 H AST 139 H D ALT 398 H Alkaline Phosphatase 172 H Total Protein 6.5 Albumin 2.8 L Globulin 3.7 Albumin/Globulin Ratio 0.8 L Ethanolamine Ur Opiates (GC/MS) Ur Methadone, Qual Urine Propoxyphene Methaqualone Ur Barbiturates, Qual Ur Phencyclidine (PCP) Ur Amphetamines Screen U Benzodiazepines Qual Urine Cocaine U Marijuana (THC) Screen Drugs of Abuse Note Methyl Alcohol Level Isopropanol Acetone Level Hepatitis A IgM Ab Hep Bs Antigen Hep B Core IgM Ab Hepatitis C Antibody Radiology Impressions: Radiology Impressions Renal Ultrasound 10/22/18 18:55 IMPRESSION: Left upper pole renal cyst measures approximately 4.0 x 3.3 x 3.7 cm. Davis catheter within a decompressed urinary bladder. Preliminary impression was provided by [employer] [place]. Fingerstick Blood Sugar Results: 115 Critical Care Progress Note - Nutrition Nutrition: Nutrition Category Date Time Status Dysphagia/Modified Consistency Diet [DIET] Diets 10/22/18 Lunch Active Assessment/Plan - Assessment and Plan (Free Text) Assessment: 88 year old female wiht PMHx of Afib, CHF, CAD, CVA, dementia in ICU after being found unresponsive in [facility] on 10/20. neuro -awake, unsedated -per RN, patient lethargic in the ED was the reason why code stroke was called. But it was cancelled. 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 Possible uremic encephalopathy. -nephro, Dr. Person, recs: urine lytes, urine osm, urine Cr -> FeNA 8.3% (postrenal/obstructive). Renal US 1/3 left upper pole renal cyst [id number]. No obstruction. -CMP qAM -continue with Dr. Person recs GI -patient w/ transaminitis (downtrending) AST 870 -> 540 -> 241 -> 139, ALT 859 -> 665 -> 496 -> 398, AP 216 -> 209 -> 189 -> 172 -hep panel negative -RUQUS and HIDA scan ordered to check for biliary obstruction - pending results -Dr. Gomez, GI consult, ordered. Appreciate recs. -avoid hepatotoxic medications; patient not on home tylenol PRN -trend CMP qAM Heme -patient with stable anemia -patient w/ thrombocytopenia 78 -> 95 -CBC qAM DVT ppx: heparin 5000U sq q12 GI ppx: pepcid 20 mg IV daily Diet: pureed and thin liquid dispo: patient downgraded to med surg. Dr. Person to continue management. case discussed with Dr. Andres Leong PGY1 <Raleigh Campos - Last Filed: 10/24/18 16:27> CCU Subjective - Physician Review Critical Care Time Spent (in minutes): 30 CCU Objective - Vital Signs / Intake & Output Vital Signs (Last 4 hours): Vital Signs Pulse Resp BP Pulse Ox 10/24/18 15:00 111 H 15 99 10/24/18 14:59 112 H 17 108/68 99 10/24/18 14:23 110 H 10/24/18 14:00 110 H 14 100 10/24/18 13:00 112 H 18 Intake and Output (Last 8hrs): Intake & Output 10/24/18 10/24/18 10/24/18 06:59 14:59 22:59 Intake Total 630 450 0 Output Total 300 260 Balance 330 190 0 Weight 363 lb 12.8 oz Intake: Intake, IV Amount 630 350 0 Right Midline 70 350 Right Proximal Port 560 Femoral Right arm Midline 0 0 Oral 0 100 0 Output: Urine 300 260 Urethral (Davis) 300 260 Other: # Voids Urine, Voided 0 # Bowel Movements 0 0 0 - Medications Active Medications: Active Medications Generic Name Dose Route Start Last Admin Trade Name Freq PRN Reason Stop Dose Admin Calcium Acetate 667 mg 10/24/18 09:00 10/24/18 16:05 Phoslo PO 10/24/18 17:01 667 mg BIDCC SANDI Administration Famotidine 20 mg 10/21/18 10:00 10/24/18 10:58 Pepcid IVP 20 mg DAILY SANDI Administration Heparin Sodium (Porcine) 5,000 units 10/21/18 10:00 10/24/18 10:58 Heparin SC 5,000 units Q12 SANDI Administration Sodium Chloride 1,000 mls @ 70 mls/hr 10/21/18 16:30 10/24/18 15:56 Sodium Chloride 0.45% IV 70 mls/hr .[id number] SANDI Administration Norepinephrine Bitartrate 4 mg 250 mls @ 18.75 mls/hr 10/22/18 16:00 10/23/18 10:30 / Sodium Chloride IV 0 mcg/min .[id number] PRN 0 mls/hr TITRATE PER MD ORDER Titration Protocol 5 MCG/MIN Mupirocin 0.25 gm 10/22/18 18:00 10/24/18 10:58 Bactroban 2% Nasal HENRRY 0.25 gm BID SANDI Administration Nystatin 1 applic 10/22/18 18:00 10/24/18 10:59 Nystop Topical Powder TOP 1 applic BID SANDI Administration - Patient Studies Lab Studies: Lab Studies 10/24/18 10/24/18 10/24/18 Range/Units 16:08 12:05 12:05 WBC (4.8-10.8) K/uL RBC (3.80-5.20) Mil/uL Hgb (11.0-16.0) g/dL Hct (34.0-47.0) % MCV (81.0-99.0) fL MCH (27.0-31.0) pg MCHC (33.0-37.0) g/dL RDW (11.5-14.5) % Plt Count (130-400) K/uL MPV (7.2-11.7) fL Neut % (Auto) (50.0-75.0) % Lymph % (Auto) (20.0-40.0) % [place] % (Auto) (0.0-10.0) % Eos % (Auto) (0.0-4.0) % Baso % (Auto) (0.0-2.0) % Neut # (Auto) (1.8-7.0) K/uL Lymph # (Auto) (1.0-4.3) K/uL [place] # (Auto) (0.0-0.8) K/uL Eos # (Auto) (0.0-0.7) K/uL Baso # (Auto) (0.0-0.2) K/uL Neutrophils % (Manual) (50-75) % Lymphocytes % (Manual) (20-40) % Monocytes % (Manual) (0-10) % Eosinophils % (Manual) (0-4) % Nucleated RBC % (0-0) % Platelet Estimate (NORMAL) Polychromasia Hypochromasia (manual) Anisocytosis (manual) Macrocytosis (manual) Target Cells Sodium (132-148) mmol/L Potassium (3.6-5.2) mmol/L Chloride (98-107) mmol/L Carbon Dioxide (22-30) mmol/L Anion Gap (10-20) BUN (7-17) mg/dL Creatinine (0.7-1.2) mg/dL Est GFR ( Amer) Est GFR (Non-Af Amer) POC Glucose (mg/dL) 135 H (65-110) mg/dL Random Glucose (65-105) mg/dL Calcium (8.6-10.4) mg/dl Phosphorus (2.5-4.5) mg/dL Magnesium (1.6-2.3) mg/dL Total Bilirubin (0.2-1.3) mg/dL AST (14-36) U/L ALT (9-52) U/L Alkaline Phosphatase (38-126) U/L Total Protein (6.3-8.3) g/dL Albumin (3.5-5.0) g/dL Globulin (2.2-3.9) gm/dL Albumin/Globulin Ratio (1.0-2.1) Amylase 252 H (30-110) U/L Lipase 200 (23-300) U/L Alpha Fetoprotein (0.0-7.5) ng/mL Carcinoembryonic Ag 11.9 H (0-3.0) ng/mL CA 19-9 Antigen 11.4 (0-37) U/mL CA 125 Antigen 224 H (0-35) U/mL Toxicology Panel Hepatitis A IgM Ab Negative (NEGATIVE) Hep Bs Antigen Negative (NEGATIVE) Hep B Core IgM Ab Negative (NEGATIVE) Hepatitis C Antibody Negative (NEGATIVE) 10/24/18 10/24/18 10/24/18 Range/Units 12:05 06:06 06:06 WBC 8.9 (4.8-10.8) K/uL RBC 3.09 L (3.80-5.20) Mil/uL Hgb 9.3 L (11.0-16.0) g/dL Hct 30.2 L (34.0-47.0) % MCV 97.6 D (81.0-99.0) fL MCH 30.2 (27.0-31.0) pg MCHC 31.0 L (33.0-37.0) g/dL RDW 18.9 H (11.5-14.5) % Plt Count 67 L (130-400) K/uL MPV 9.8 (7.2-11.7) fL Neut % (Auto) 79.1 H (50.0-75.0) % Lymph % (Auto) 5.8 L (20.0-40.0) % [place] % (Auto) 11.9 H (0.0-10.0) % Eos % (Auto) 2.7 (0.0-4.0) % Baso % (Auto) 0.5 (0.0-2.0) % Neut # (Auto) 7.0 (1.8-7.0) K/uL Lymph # (Auto) 0.5 L (1.0-4.3) K/uL [place] # (Auto) 1.1 H (0.0-0.8) K/uL Eos # (Auto) 0.2 (0.0-0.7) K/uL Baso # (Auto) 0.0 (0.0-0.2) K/uL Neutrophils % (Manual) 86 H (50-75) % Lymphocytes % (Manual) 7 L (20-40) % Monocytes % (Manual) 6 (0-10) % Eosinophils % (Manual) 1 (0-4) % Nucleated RBC % 2 H (0-0) % Platelet Estimate Decreased L (NORMAL) Polychromasia Slight Hypochromasia (manual) Slight Anisocytosis (manual) Slight Macrocytosis (manual) Slight Target Cells Slight Sodium 144 (132-148) mmol/L Potassium 3.8 (3.6-5.2) mmol/L Chloride 106 (98-107) mmol/L Carbon Dioxide 31 H (22-30) mmol/L Anion Gap 11 (10-20) BUN 97 H (7-17) mg/dL Creatinine 4.4 H (0.7-1.2) mg/dL Est GFR ( Amer) 11 Est GFR (Non-Af Amer) 9 POC Glucose (mg/dL) (65-110) mg/dL Random Glucose 95 (65-105) mg/dL Calcium 8.3 L (8.6-10.4) mg/dl Phosphorus 5.3 H (2.5-4.5) mg/dL Magnesium 1.9 (1.6-2.3) mg/dL Total Bilirubin 6.1 H (0.2-1.3) mg/dL AST 139 H D (14-36) U/L ALT 398 H (9-52) U/L Alkaline Phosphatase 172 H (38-126) U/L Total Protein 6.5 (6.3-8.3) g/dL Albumin 2.8 L (3.5-5.0) g/dL Globulin 3.7 (2.2-3.9) gm/dL Albumin/Globulin Ratio 0.8 L (1.0-2.1) Amylase (30-110) U/L Lipase (23-300) U/L Alpha Fetoprotein 3.9 (0.0-7.5) ng/mL Carcinoembryonic Ag (0-3.0) ng/mL CA 19-9 Antigen (0-37) U/mL CA 125 Antigen (0-35) U/mL Toxicology Panel Hepatitis A IgM Ab (NEGATIVE) Hep Bs Antigen (NEGATIVE) Hep B Core IgM Ab (NEGATIVE) Hepatitis C Antibody (NEGATIVE) 10/23/18 10/21/18 Range/Units 16:31 11:05 WBC (4.8-10.8) K/uL RBC (3.80-5.20) Mil/uL Hgb (11.0-16.0) g/dL Hct (34.0-47.0) % MCV (81.0-99.0) fL MCH (27.0-31.0) pg MCHC (33.0-37.0) g/dL RDW (11.5-14.5) % Plt Count (130-400) K/uL MPV (7.2-11.7) fL Neut % (Auto) (50.0-75.0) % Lymph % (Auto) (20.0-40.0) % [place] % (Auto) (0.0-10.0) % Eos % (Auto) (0.0-4.0) % Baso % (Auto) (0.0-2.0) % Neut # (Auto) (1.8-7.0) K/uL Lymph # (Auto) (1.0-4.3) K/uL [place] # (Auto) (0.0-0.8) K/uL Eos # (Auto) (0.0-0.7) K/uL Baso # (Auto) (0.0-0.2) K/uL Neutrophils % (Manual) (50-75) % Lymphocytes % (Manual) (20-40) % Monocytes % (Manual) (0-10) % Eosinophils % (Manual) (0-4) % Nucleated RBC % (0-0) % Platelet Estimate (NORMAL) Polychromasia Hypochromasia (manual) Anisocytosis (manual) Macrocytosis (manual) Target Cells Sodium (132-148) mmol/L Potassium (3.6-5.2) mmol/L Chloride (98-107) mmol/L Carbon Dioxide (22-30) mmol/L Anion Gap (10-20) BUN (7-17) mg/dL Creatinine (0.7-1.2) mg/dL Est GFR ( Amer) Est GFR (Non-Af Amer) POC Glucose (mg/dL) (65-110) mg/dL Random Glucose (65-105) mg/dL Calcium (8.6-10.4) mg/dl Phosphorus (2.5-4.5) mg/dL Magnesium (1.6-2.3) mg/dL Total Bilirubin (0.2-1.3) mg/dL AST (14-36) U/L ALT (9-52) U/L Alkaline Phosphatase (38-126) U/L Total Protein (6.3-8.3) g/dL Albumin (3.5-5.0) g/dL Globulin (2.2-3.9) gm/dL Albumin/Globulin Ratio (1.0-2.1) Amylase (30-110) U/L Lipase (23-300) U/L Alpha Fetoprotein (0.0-7.5) ng/mL Carcinoembryonic Ag (0-3.0) ng/mL CA 19-9 Antigen (0-37) U/mL CA 125 Antigen (0-35) U/mL Toxicology Panel see note Hepatitis A IgM Ab Negative (NEGATIVE) Hep Bs Antigen Negative (NEGATIVE) Hep B Core IgM Ab Negative (NEGATIVE) Hepatitis C Antibody Negative (NEGATIVE) Laboratory Results - last 24 hr 10/21/18 10/23/18 10/24/18 11:05 16:31 06:06 WBC 8.9 RBC 3.09 L Hgb 9.3 L Hct 30.2 L MCV 97.6 D MCH 30.2 MCHC 31.0 L RDW 18.9 H Plt Count 67 L MPV 9.8 Neut % (Auto) 79.1 H Lymph % (Auto) 5.8 L [place] % (Auto) 11.9 H Eos % (Auto) 2.7 Baso % (Auto) 0.5 Neut # (Auto) 7.0 Lymph # (Auto) 0.5 L [place] # (Auto) 1.1 H Eos # (Auto) 0.2 Baso # (Auto) 0.0 Neutrophils % (Manual) 86 H Lymphocytes % (Manual) 7 L Monocytes % (Manual) 6 Eosinophils % (Manual) 1 Nucleated RBC % 2 H Platelet Estimate Decreased L Polychromasia Slight Hypochromasia (manual) Slight Anisocytosis (manual) Slight Macrocytosis (manual) Slight Target Cells Slight Sodium Potassium Chloride Carbon Dioxide Anion Gap BUN Creatinine Est GFR ( Amer) Est GFR (Non-Af Amer) POC Glucose (mg/dL) Random Glucose Calcium Phosphorus Magnesium Total Bilirubin AST ALT Alkaline Phosphatase Total Protein Albumin Globulin Albumin/Globulin Ratio Amylase Lipase Alpha Fetoprotein Carcinoembryonic Ag CA 19-9 Antigen CA 125 Antigen Toxicology Panel see note Hepatitis A IgM Ab Negative Hep Bs Antigen Negative Hep B Core IgM Ab Negative Hepatitis C Antibody Negative 10/24/18 10/24/18 10/24/18 06:06 12:05 12:05 WBC RBC Hgb Hct MCV MCH MCHC RDW Plt Count MPV Neut % (Auto) Lymph % (Auto) [place] % (Auto) Eos % (Auto) Baso % (Auto) Neut # (Auto) Lymph # (Auto) [place] # (Auto) Eos # (Auto) Baso # (Auto) Neutrophils % (Manual) Lymphocytes % (Manual) Monocytes % (Manual) Eosinophils % (Manual) Nucleated RBC % Platelet Estimate Polychromasia Hypochromasia (manual) Anisocytosis (manual) Macrocytosis (manual) Target Cells Sodium 144 Potassium 3.8 Chloride 106 Carbon Dioxide 31 H Anion Gap 11 BUN 97 H Creatinine 4.4 H Est GFR ( Amer) 11 Est GFR (Non-Af Amer) 9 POC Glucose (mg/dL) Random Glucose 95 Calcium 8.3 L Phosphorus 5.3 H Magnesium 1.9 Total Bilirubin 6.1 H AST 139 H D ALT 398 H Alkaline Phosphatase 172 H Total Protein 6.5 Albumin 2.8 L Globulin 3.7 Albumin/Globulin Ratio 0.8 L Amylase 252 H Lipase 200 Alpha Fetoprotein 3.9 Carcinoembryonic Ag 11.9 H CA 19-9 Antigen 11.4 CA 125 Antigen 224 H Toxicology Panel Hepatitis A IgM Ab Hep Bs Antigen Hep B Core IgM Ab Hepatitis C Antibody 10/24/18 10/24/18 12:05 16:08 WBC RBC Hgb Hct MCV MCH MCHC RDW Plt Count MPV Neut % (Auto) Lymph % (Auto) [place] % (Auto) Eos % (Auto) Baso % (Auto) Neut # (Auto) Lymph # (Auto) [place] # (Auto) Eos # (Auto) Baso # (Auto) Neutrophils % (Manual) Lymphocytes % (Manual) Monocytes % (Manual) Eosinophils % (Manual) Nucleated RBC % Platelet Estimate Polychromasia Hypochromasia (manual) Anisocytosis (manual) Macrocytosis (manual) Target Cells Sodium Potassium Chloride Carbon Dioxide Anion Gap BUN Creatinine Est GFR ( Amer) Est GFR (Non-Af Amer) POC Glucose (mg/dL) 135 H Random Glucose Calcium Phosphorus Magnesium Total Bilirubin AST ALT Alkaline Phosphatase Total Protein Albumin Globulin Albumin/Globulin Ratio Amylase Lipase Alpha Fetoprotein Carcinoembryonic Ag CA 19-9 Antigen CA 125 Antigen Toxicology Panel Hepatitis A IgM Ab Negative Hep Bs Antigen Negative Hep B Core IgM Ab Negative Hepatitis C Antibody Negative Radiology Impressions: Radiology Impressions Abdomen Ultrasound 10/23/18 10:54 IMPRESSION: Small liver with coarse echotexture. Six 9 Diffuse increased echogenicity in the liver may reflect hepatic steatosis however parenchymal infectious/ inflammatory etiologies cannot be entirely excluded. Clinical and laboratory correlation is advised. No cholelithiasis or biliary dilatation. Small right pleural effusion. Hepatobiliary Scan Nuclear Medicine 10/24/18 10:27 IMPRESSION: Positive/abnormal hepatobiliary Scan. The cystic duct is occluded, presumptive evidence for acute cholecystitis. Critical Care Progress Note - Nutrition Nutrition: Nutrition Category Date Time Status Dysphagia/Modified Consistency Diet [DIET] Diets 10/22/18 Lunch Active Attending/Attestation - Attestation I have personally seen and examined this patient.: Yes I have fully participated in the care of the patient.: Yes I have reviewed all pertinent clinical information: Yes Notes (Text): 10/24/18 16:26 Patient seen and examined in the intensive care unit. Stable for transfer to floor Continue present management Nephrology follow-up
--- NOTE | 2018-10-24 09:06 | US ---
Date of service: 10/23/2018 HISTORY: elevated lfts COMPARISON: None. TECHNIQUE: Sonographic evaluation of the right upper quadrant of the abdomen. FINDINGS: LIVER: Measures 10.9 cm in length. There is diffuse increased echogenicity and coarse echotexture of the liver parenchyma. No mass. No intrahepatic bile duct dilatation. GALLBLADDER: There are no gallstones, wall thickening or pericholecystic fluid. The sonographic Santiago's sign is negative. COMMON BILE DUCT: Measures 3.9 mm. No stones. No dilatation. PANCREAS: Unremarkable as visualized. No mass. No ductal dilatation. AORTA: No aneurysmal dilatation. IVC: Unremarkable. OTHER FINDINGS: Incidentally noted is a small right pleural effusion. IMPRESSION: Small liver with coarse echotexture. Six 9 Diffuse increased echogenicity in the liver may reflect hepatic steatosis however parenchymal infectious/ inflammatory etiologies cannot be entirely excluded. Clinical and laboratory correlation is advised. No cholelithiasis or biliary dilatation. Small right pleural effusion.
[2018-10-24] MEDS: Mupirocin 2% Ointment (NASAL) NAS SCH ×2 (10:58→17:35)
[2018-10-24 12:57] LABS: HEPATITIS B SURFACE AG Negative (NEGATIVE)
--- NOTE | 2018-10-24 12:59 | NM ---
Date of service: 10/24/2018 PROCEDURE: Nuclear Medicine Hepatobiliary Scan HISTORY: elevated lfts COMPARISON: 09/25/2014 abdominal ultrasound TECHNIQUE: 5.1 mCi of technetium 99m Mebrofenin was administered intravenously. Planar images of the abdomen were obtained at 5 min intervals to 60 mins. Delayed images were also obtained. FINDINGS: LIVER: Timely and homogenous uptake. COMMON BILE DUCT: identified at 20 mins. GALLBLADDER: Not visible at 03:00 hours.. SMALL BOWEL: Identified at 20 mins. IMPRESSION: Positive/abnormal hepatobiliary Scan. The cystic duct is occluded, presumptive evidence for acute cholecystitis.
[2018-10-24 13:04] LABS: HEPATITIS A IGM NEGATIVE (NEGATIVE); HEPATITIS B CORE AB NEGATIVE (NEGATIVE)
[2018-10-24 13:14] LABS: HEPATITIS C ANTIBODY NEGATIVE (NEGATIVE)
--- NOTE | 2018-10-24 16:53 | CARD ---
APPROVED REPORT Date of service: 10/20/2018 EKG Measurement Heart [id number] <Conclusion> Marked sinus bradycardia Low voltage QRS Septal infarct, age undetermined Possible Inferior infarct, age undetermined Abnormal ECG
--- NOTE | 2018-10-24 16:53 | CARD ---
APPROVED REPORT Date of service: 10/20/2018 EKG Measurement Heart [id number] <Conclusion> Sinus bradycardia with premature atrial complexes Low voltage QRS Inferior infarct, age undetermined Abnormal ECG
--- NOTE | 2018-10-24 18:40 | CP.PCM.PN ---
Subjective - Date & Time of Evaluation Date of Evaluation: 10/24/18 Time of Evaluation: 18:40 - Subjective Subjective: pt is seen and examined, follow up consult is dictated #[phone] add epogen, bmp in am Objective - Vital Signs/Intake and Output Vital Signs (last 24 hours): Temp Pulse Resp BP Pulse Ox 97.3 F L 107 H 11 L 105/74 100 10/24/18 16:00 10/24/18 18:00 10/24/18 18:00 10/24/18 17:40 10/24/18 18:00 Intake and Output: 10/24/18 10/24/18 06:59 18:59 Intake Total 910 970 Output Total 427 360 Balance 483 610 - Medications Medications: Current Medications Famotidine (Pepcid) 20 mg IVP DAILY [facility] Last Admin: 10/24/18 10:58 Dose: 20 mg Heparin Sodium (Porcine) (Heparin) 5,000 units SC Q12 [facility] Last Admin: 10/24/18 10:58 Dose: 5,000 units Sodium Chloride (Sodium Chloride 0.45%) 1,000 mls @ 70 mls/hr IV .[id number] [facility] Last Admin: 10/24/18 15:56 Dose: 70 mls/hr Norepinephrine Bitartrate 4 mg (/ Sodium Chloride) 250 mls @ 18.75 mls/hr IV .[id number] PRN; Protocol PRN Reason: TITRATE PER MD ORDER Last Titration: 10/23/18 10:30 Dose: 0 mcg/min, 0 mls/hr Mupirocin (Bactroban 2% Nasal) 0.25 gm HENRRY BID [facility] Last Admin: 10/24/18 17:35 Dose: 0.25 gm Nystatin (Nystop Topical Powder) 1 applic TOP BID [facility] Last Admin: 10/24/18 17:35 Dose: 1 applic - Labs Labs: 10/24/18 06:06 10/24/18 06:06 PT 16.8 SECONDS (9.7-12.2) H 10/22/18 11:52 INR 1.5 10/22/18 11:52 APTT 30 SECONDS (21-34) 10/22/18 11:52
--- NOTE | 2018-10-24 21:19 | CP.PCM.PN ---
Subjective - Date & Time of Evaluation Date of Evaluation: 10/24/18 Time of Evaluation: 11:00 - Subjective Subjective: clinically same Objective - Vital Signs/Intake and Output Vital Signs (last 24 hours): Temp Pulse Resp BP Pulse Ox 96.8 F L 109 H 19 104/63 100 10/24/18 20:00 10/24/18 19:40 10/24/18 19:40 10/24/18 19:40 10/24/18 19:40 Intake and Output: 10/24/18 10/25/18 18:59 06:59 Intake Total 970 70 Output Total 360 Balance 610 70 - Medications Medications: Current Medications Famotidine (Pepcid) 20 mg IVP DAILY [facility] Last Admin: 10/24/18 10:58 Dose: 20 mg Heparin Sodium (Porcine) (Heparin) 5,000 units SC Q12 [facility] Last Admin: 10/24/18 10:58 Dose: 5,000 units Sodium Chloride (Sodium Chloride 0.45%) 1,000 mls @ 70 mls/hr IV .[id number] [facility] Last Admin: 10/24/18 15:56 Dose: 70 mls/hr Norepinephrine Bitartrate 4 mg (/ Sodium Chloride) 250 mls @ 18.75 mls/hr IV .[id number] PRN; Protocol PRN Reason: TITRATE PER MD ORDER Last Titration: 10/23/18 10:30 Dose: 0 mcg/min, 0 mls/hr Mupirocin (Bactroban 2% Nasal) 0.25 gm HENRRY BID [facility] Last Admin: 10/24/18 17:35 Dose: 0.25 gm Nystatin (Nystop Topical Powder) 1 applic TOP BID [facility] Last Admin: 10/24/18 17:35 Dose: 1 applic - Labs Labs: 10/24/18 06:06 10/24/18 06:06 PT 16.8 SECONDS (9.7-12.2) H 10/22/18 11:52 INR 1.5 10/22/18 11:52 APTT 30 SECONDS (21-34) 10/22/18 11:52 - Constitutional Appears: Well - Head Exam Head Exam: ATRAUMATIC, NORMAL INSPECTION, NORMOCEPHALIC - Eye Exam Eye Exam: EOMI, Normal appearance, PERRL Pupil Exam: NORMAL ACCOMODATION, PERRL - ENT Exam ENT Exam: Mucous Membranes Moist, Normal Exam - Neck Exam Neck Exam: Full ROM, Normal Inspection. absent: Lymphadenopathy - Respiratory Exam Respiratory Exam: Decreased Breath Sounds - Cardiovascular Exam Cardiovascular Exam: REGULAR RHYTHM, +S1, +S2 - GI/Abdominal Exam GI & Abdominal Exam: Soft, Diminished Bowel Sounds - Rectal Exam Rectal Exam: Deferred Assessment and Plan (1) Acute hyperkalemia Status: Acute (2) Acute renal failure Status: Acute (3) NSTEMI (non-ST elevated myocardial infarction) Status: Acute (4) A-fib Status: Chronic (5) CHF (congestive heart failure) Status: Acute (6) Cellulitis Status: Acute (7) Decubitus ulcer Status: Acute (8) Hyperkalemia Status: Acute (9) Leg ulcer, left Status: Acute (10) Peripheral edema Status: Acute (11) Renal insufficiency Status: Acute - Assessment and Plan (Free Text) Plan: Nephrology consultations GI DVT prophylaxis Vasopressin ICU follow-up Space[employer] Systems [employer] follow-up CBC CMP seen Status post abdominal sonogram As ordered
--- NOTE | 2018-10-25 02:36 | CON ---
DATE: 10/24/2018 FOLLOWUP RENAL CONSULTATION LOCATION: The patient is located in ICU, bed 16. REQUESTED BY: Scottie Alberto MD REASON FOR RENAL CONSULTATION: Acute renal failure, chronic kidney disease. SUBJECTIVE: Mrs. Oro is an 88-year-old elderly obese -Martiniquais female with a past medical history significant for longstanding hypertension, hyperlipidemia, coronary artery disease, CHF, CKD, unilateral small left kidney, AFib, dementia, arthritis, who was recently admitted to [facility] after she slipped and fell on the floor when she tried to get out of the bed and unable to get back to the bed. The patient was admitted and found to have acute renal failure, and subsequently, the patient was discharged to rehab on 10/16/2018 and the patient was sent back to [facility] for further evaluation on 10/20/2018 with altered mental status, dehydration, increased BUN and creatinine, hyperkalemia, metabolic acidosis. The patient is feeling much better, not in acute distress, denies any chest pain or palpitation. Denies any fever or cough. No abdominal pain. No nausea, vomiting. PHYSICAL EXAMINATION: VITAL SIGNS: As follows: Blood pressure 104/63, pulse 109, respiration 19, temperature 96.8, saturation 100%. Height 5 feet. GENERAL: Mrs. Oro is an 88-year-old elderly female, well-built, well-nourished, not in distress. HEENT: Pupils normal, reactive to light and accommodation. Conjunctivae pink. Sclerae anicteric. Tongue is slightly dry and trachea is midline. No thyroid enlargement. LUNGS: Symmetric on both sides. Bilateral breath sounds present. Clear to auscultation. CARDIOVASCULAR SYSTEM: [place] at the fifth intercostal space, midclavicular line. S1 and S2 audible. No murmur or gallop. ABDOMEN: Normal in appearance. Soft, tympanitic. No guarding. No rigidity. No hepatosplenomegaly. CENTRAL NERVOUS SYSTEM: The patient is alert, awake and oriented x2. Sensory and motor system is within normal limits. EXTREMITIES: No cyanosis, no clubbing, no edema. CURRENT MEDICATIONS: Include as follows: Bactroban ointment 2% international unit b.i.d. in each nostril and subcu heparin 5000 every 12 hours, Pepcid 20 mg IV daily, IV fluids half-normal saline 70 mL/hour. Intake and output in the last 24 hours, intake is 1807 mL and output is 881 mL. LABORATORY DATA: Include as follows as of 10/24/2018: WBC 8.9, hemoglobin 9.3, hematocrit is 30.2 and platelets 67. Sodium 144, potassium is 3.8, chloride 106, CO2 of 31, BUN 97, creatinine 4.4, glucose is 95, calcium 8.3, phosphorus 5.3, magnesium 1.9. Total bilirubin 6.1, AST 139, ALT 398, alkaline phosphatase is 172, total protein 6.5, amylase 252, lipase is 200, alpha-fetoprotein 3.9. Carcinoembryonic antigen is 11.9, CA19-9 is 11.4, CA-125 is 224, and hepatitis antibody IgM is negative, hepatitis B surface antigen negative, hepatitis B core antibody IgM is negative, hepatitis C antibody is negative. Hepatobiliary scan as of 10/24/2018: Positive abnormal hepatobiliary scan, cystic duct is occluded, gallbladder is not visible at 3 hours, and presumptive evidence for acute cholecystitis. Abdominal ultrasound as of 10/23/2018: Liver measures 10.9 cm in length and there are no gallstones, wall thickening, or pericholecystic fluid. Sonographic Santiago's sign is negative. No cholelithiasis or biliary dilatation. Small right pleural effusion. ASSESSMENT: In summary, Mrs. Oro is an 88-year-old elderly -Martiniquais female with hypertension, hyperlipidemia, coronary artery disease, status post stent, congestive heart failure, chronic kidney disease 3, unilateral small kidney, dementia, arthritis, who was admitted with worsening renal function, dehydration, and worsening liver function tests. 1. Acute renal failure on chronic kidney disease stage 3. 2. Dehydration. 3. Abnormal liver function tests. 4. Status post hypotension. 5. Atrial fibrillation. 6. Thrombocytopenia. PLAN: Continue gentle IV hydration. Renal function is improving nicely. No need for hemodialysis at this time. Continue to monitor liver function tests and we will add Epogen 10,000 units subcu x1 dose in a.m. and also we will add Nephrocaps 1 tablet daily. We will follow with you. Thank you for allowing me to participate in your patient's care. Alfred Lobato MD [facility] # [id number]
[2018-10-25 06:28] LABS: BASO % 0.3 % (0.0-2.0); EOS # 0.2 K/uL (0.0-0.7); EOS % 2.3 % (0.0-4.0); HEMOGLOBIN 9.2 g/dL (11.0-16.0); LYMPH # 2.6 K/uL (1.0-4.3); LYMPH % 30.6 % (20.0-40.0); MEAN CELL VOLUME 99.4 fL (81.0-99.0); MEAN CORPUSCULAR HEMOGLOBIN 30.9 pg (27.0-31.0); MEAN CORPUSCULAR HGB CONC 31.1 g/dL (33.0-37.0); MEAN PLATELET VOLUME 9.5 fL (7.2-11.7); MONO # 0.8 K/uL (0.0-0.8); MONO % 9.5 % (0.0-10.0); NEUT # 4.8 K/uL (1.8-7.0); NEUT % 57.3 % (50.0-75.0); NRBC % 4.9 % (0.0-2.0); RBC 2.99 Mil/uL (3.80-5.20); RED CELL DISTRIBUTION WIDTH 19.3 % (11.5-14.5); WHITE BLOOD COUNT 8.4 K/uL (4.8-10.8)
[2018-10-25] MEDS: Sodium Chloride 0.45% 1,000 ML IV SCH ×2 (06:42→20:36)
[2018-10-25 06:46] LABS: ALB/GLOB RATIO 0.8 (1.0-2.1); ALBUMIN 3.1 g/dL (3.5-5.0); CALCIUM 8.5 mg/dl (8.6-10.4)
[2018-10-25] MEDS: Mupirocin 2% Ointment (NASAL) NAS SCH ×2 (09:09→17:44)
--- NOTE | 2018-10-25 10:10 | PN ---
DATE: 10/25/2018 LOCATION: ICU 16. SUBJECTIVE: This is an 88-year-old female, seen and examined in rounds without any significant clinical changes, appeared to be somewhat more mildly awake and alert, denying any actual chest pain or palpitation, still on nasal cannula for O2 supplement. The most recent lab results showed hemoglobin of 9.2, hematocrit 29.7 with thrombocytopenia of 62 but normal white blood cells, BUN of 87, creatinine 3.7, calcium 8.5, phosphorus 5, total bilirubin 6.2, ALT of 327, AST 95, alkaline phosphatase 178, albumin 3.1 with reported elevated amylase to 252 with increased CEA to 11.9 and increased CA-125 to 224 raising the question of the possibility of colon and/or ovarian CA. The patient had hepatobiliary scan yesterday indicative of occluded cystic duct with possible evidence of acute cholecystitis. PHYSICAL EXAMINATION: GENERAL: An 88-year-old female. VITAL SIGNS: Afebrile with pulse of 74, respiratory rate 20 to 22, blood pressure 110/52. HEENT: Showed pale dry oral mucoid membrane. Nonicteric sclerae. LUNGS: Few scattered crepitation. Decreased air entry at bases. HEART: Positive S1 and S2. ABDOMEN: Soft with mild distention, mildly obese with generalized [id number]-[id number] tenderness. No mass or organomegaly. No rebound tenderness or guarding. EXTREMITIES: With mild lower extremities edematous changes. NEUROLOGIC: No reported new neurological deficits, sensory or motor. IMPRESSION: 1. Re-exacerbation of peptic ulcer disease. 2. Possible acute cholecystitis 3. Acute renal failure on top of chronic renal disease. 4. Abnormal liver function test with jaundice, most likely secondary to above. No evidence of obstructive jaundice that could be secondary to hepatocellular injury. 5. Reported history of atrial fibrillation, hypertension by history, coronary artery disease with status post cardiac stent insertion as well as history of congestive heart failure and hyperlipidemia. 6. Anemia, secondary to above. SUGGESTIONS: 1. Continue current management. 2. Conservative treatment at this point keeping in mind the patient's age group. The patient is in a status of DNR and DNI. 3. Repeat serum lipase, amylase level. 4. Sectional abdominal and pelvic CAT scan due to the elevated cancer markers. 5. Repeat stool for occult blood. 6. Further recommendation to follow. Avni Gimenez MD [facility] # [id number]
--- NOTE | 2018-10-25 10:31 | CP.PCM.PN ---
<Re Martinez - Last Filed: 10/25/18 12:48> Subjective - Date & Time of Evaluation Date of Evaluation: 10/25/18 Time of Evaluation: 10:30 - Subjective Subjective: Neurology Follow-Up Note: Mrs. Oro was evaluated this afternoon in the ICU. She was downgraded to med- surg 10/24/18. She was sitting in chair at bedside. Pt baseline mental status is confused but she is calm and cooperative today. She denies any complaints and states "I feel fine." Denies h/a, dizziness, visual changes, chest pain, sob, cough, n/v/d. Objective - Vital Signs/Intake and Output Vital Signs (last 24 hours): Temp Pulse Resp BP Pulse Ox 97.6 F 111 H 12 102/69 98 10/25/18 08:00 10/25/18 10:06 10/25/18 10:06 10/25/18 09:57 10/25/18 10:06 Intake and Output: 10/25/18 10/25/18 06:59 18:59 Intake Total 70 1250 Output Total 500 Balance 70 750 - Medications Medications: Current Medications Famotidine (Pepcid) 20 mg IVP DAILY [facility] Last Admin: 10/25/18 09:09 Dose: 20 mg Heparin Sodium (Porcine) (Heparin) 5,000 units SC Q12 [facility] Last Admin: 10/25/18 09:09 Dose: 5,000 units Sodium Chloride (Sodium Chloride 0.45%) 1,000 mls @ 70 mls/hr IV .[id number] [facility] Last Admin: 10/25/18 06:42 Dose: 70 mls/hr Norepinephrine Bitartrate 4 mg (/ Sodium Chloride) 250 mls @ 18.75 mls/hr IV .[id number] PRN; Protocol PRN Reason: TITRATE PER MD ORDER Last Titration: 10/23/18 10:30 Dose: 0 mcg/min, 0 mls/hr Mupirocin (Bactroban 2% Nasal) 0.25 gm HENRRY BID [facility] Last Admin: 10/25/18 09:09 Dose: 0.25 gm Nystatin (Nystop Topical Powder) 1 applic TOP BID [facility] Last Admin: 10/25/18 09:10 Dose: 1 applic - Labs Labs: 10/25/18 06:26 10/25/18 06:26 PT 16.8 SECONDS (9.7-12.2) H 10/22/18 11:52 INR 1.5 10/22/18 11:52 APTT 30 SECONDS (21-34) 10/22/18 11:52 - Constitutional Appears: Well, Non-toxic, No Acute Distress - Head Exam Head Exam: NORMAL INSPECTION, NORMOCEPHALIC - Eye Exam Eye Exam: EOMI Pupil Exam: NORMAL ACCOMODATION, PERRL - ENT Exam ENT Exam: Mucous Membranes Moist - Neck Exam Neck Exam: Normal Inspection - Respiratory Exam Respiratory Exam: NORMAL BREATHING PATTERN - Cardiovascular Exam Cardiovascular Exam: Tachycardia (at 109) - GI/Abdominal Exam Additional comments: obese - Extremities Exam Extremities Exam: absent: Calf Tenderness, Full ROM, Pedal Edema Additional comments: decreased rom 2/2 generalized weakness to all extremities skin wound covered with dressing to lle - Neurological Exam Neurological Exam: Alert, Awake, Reflexes Normal. absent: Oriented x3 Neuro motor strength exam: Left Upper Extremity: 4 (marketing technologist 5/5), Right Upper Extremity: 4 (marketing technologist 5/5), Left Lower Extremity: 3, Right Lower Extremity: 3 Additional comments: speech clear pt has baseline confusion; disoriented x3 calm, cooperative follows some simple commands unable to assess fine motor and sensation 2/2 pt not following commands hypersensitivity noted to plantar aspect of b/l feet no tremors, no clonus - Psychiatric Exam Psychiatric exam: Normal Affect, Normal Mood (pt has baseline confusion) - Skin Skin Exam: Normal Color Assessment and Plan (1) Altered mental status Assessment & Plan: Imaging reviewed: -CTA Head and neck (10/20/18): 1. 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 2. High-grade near critical stenosis origin right ICA with moderate origin left ICA stenosis. Both ICAs appear to be patent nevertheless. 3. Moderate distal CCA stenoses bilaterally with additional mild stenosis proximal left CCA. 4. No occlusion or significant intracranial stenosis appreciable. -CT Head (10/20/18): Streak artifact obscures evaluation of the skull base. Nonspecific white matter changes. Left occipital encephalomalacia. Generalized volume loss. -ECHO (done on 10/09/18): EF 55-60% Mrs. Oro is at her baseline---confused, calm, cooperative, pleasant. AMS on a dmission likely related to acute medical issues and her dementia. -MRI brain was cancelled twice, however, we would recommend it be done daniel to r/o acute or subacute infarcts given pt presentation upon admission to the ED and her history. -No need to repeat ECHO at this time. -Continue current treatment and management. -Notify neuro for abnormal MRI results or change in pt condition. Case discussed with Dr. Mcmahon. Status: Acute <Denis Mcmahon - Last Filed: 10/26/18 18:26> Objective - Vital Signs/Intake and Output Vital Signs (last 24 hours): Temp Pulse Resp BP Pulse Ox 98.0 F 110 H 16 104/42 L 100 10/26/18 16:00 10/26/18 16:00 10/26/18 16:00 10/26/18 16:00 10/26/18 16:00 Intake and Output: 10/26/18 10/26/18 06:59 18:59 Intake Total 840 1020 Output Total 300 500 Balance 540 520 - Medications Medications: Current Medications Aspirin (Ecotrin) 81 mg PO DAILY [facility] Clopidogrel Bisulfate (Plavix) 75 mg PO DAILY [facility] Famotidine (Pepcid) 20 mg PO DAILY [facility] Heparin Sodium (Porcine) (Heparin) 5,000 units SC Q12H [facility] Sodium Chloride (Sodium Chloride 0.45%) 1,000 mls @ 70 mls/hr IV .[id number] [facility] Last Admin: 10/26/18 17:16 Dose: 70 mls/hr Megestrol Acetate (Megace) 400 mg PO DAILY [facility] Last Admin: 10/26/18 14:50 Dose: 400 mg Multivitamins/Vitamin C (Multi-Delyn Liquid) 5 ml PO DAILY [facility] Last Admin: 10/26/18 14:40 Dose: 5 ml Mupirocin (Bactroban 2% Nasal) 0.25 gm HENRRY BID [facility] Last Admin: 10/26/18 17:17 Dose: 0.25 gm Nystatin (Nystop Topical Powder) 1 applic TOP BID [facility] Last Admin: 10/26/18 17:18 Dose: 1 applic - Labs Labs: 10/25/18 06:26 10/25/18 06:26 PT 16.8 SECONDS (9.7-12.2) H 10/22/18 11:52 INR 1.5 10/22/18 11:52 APTT 30 SECONDS (21-34) 10/22/18 11:52 Assessment and Plan - Assessment and Plan (Free Text) Assessment: I agree with the assessment and plan. Dr. Mcmahon Neurology
--- NOTE | 2018-10-25 14:03 | CP.PCM.PN ---
Subjective - Date & Time of Evaluation Date of Evaluation: 10/25/18 Time of Evaluation: 14:02 - Subjective Subjective: pt is seen and examined, follow up consult is dictated #[id number] renal function is improving c/w ivf 1/2 ns at 70 ml/hr consider surgery consult for cholecystitis, Objective - Vital Signs/Intake and Output Vital Signs (last 24 hours): Temp Pulse Resp BP Pulse Ox 97.9 F 110 H 20 116/56 L 100 10/25/18 12:00 10/25/18 12:00 10/25/18 12:00 10/25/18 12:00 10/25/18 12:00 Intake and Output: 10/25/18 10/25/18 06:59 18:59 Intake Total 70 1490 Output Total 500 Balance 70 990 - Medications Medications: Current Medications Famotidine (Pepcid) 20 mg IVP DAILY [facility] Last Admin: 10/25/18 09:09 Dose: 20 mg Heparin Sodium (Porcine) (Heparin) 5,000 units SC Q12 [facility] Last Admin: 10/25/18 09:09 Dose: 5,000 units Sodium Chloride (Sodium Chloride 0.45%) 1,000 mls @ 70 mls/hr IV .[id number] [facility] Last Admin: 10/25/18 06:42 Dose: 70 mls/hr Norepinephrine Bitartrate 4 mg (/ Sodium Chloride) 250 mls @ 18.75 mls/hr IV .[id number] PRN; Protocol PRN Reason: TITRATE PER MD ORDER Last Titration: 10/23/18 10:30 Dose: 0 mcg/min, 0 mls/hr Mupirocin (Bactroban 2% Nasal) 0.25 gm HENRRY BID [facility] Last Admin: 10/25/18 09:09 Dose: 0.25 gm Nystatin (Nystop Topical Powder) 1 applic TOP BID [facility] Last Admin: 10/25/18 09:10 Dose: 1 applic - Labs Labs: 10/25/18 06:26 10/25/18 06:26 PT 16.8 SECONDS (9.7-12.2) H 10/22/18 11:52 INR 1.5 10/22/18 11:52 APTT 30 SECONDS (21-34) 10/22/18 11:52
--- NOTE | 2018-10-25 15:02 | MRI ---
Date of service: 10/25/2018 PROCEDURE: MRI BRAIN WITHOUT CONTRAST HISTORY: r/o acute infarct; AMS prior to admission COMPARISON: 10/20/2018 CT TECHNIQUE: Multiplanar, multisequence MR images of the brain were obtained without intravenous contrast enhancement. FINDINGS: HEMORRHAGE: None DWI: Small areas of restricted diffusion are seen in the right parietal white matter, the right occipital lobe and the left cerebellar hemisphere. These could represent acute infarcts. The findings are not verified on the ADC map images. It is possible that the findings are artifactual. There is no corresponding abnormality seen on FLAIR or T2 images. BRAIN PARENCHYMA: There is a well-defined area of cystic encephalomalacia in the left occipital lobe. Chronic microvascular changes in the periventricular white matter. VENTRICLES: Unremarkable. No hydrocephalus. CRANIUM: Unremarkable. ORBITS: Grossly unremarkable. PARANASAL SINUSES/MASTOIDS: Clear VASCULAR SYSTEM: Skull base flow voids intact. OTHER FINDINGS: None. IMPRESSION: Small areas of restricted diffusion are seen in the right parietal white matter, the right occipital lobe and the left cerebellar hemisphere. These could represent acute infarcts. However, the findings are not verified on the ADC map images. It is possible that the findings are artifactual. There is no corresponding abnormality seen on FLAIR or T2 images.
--- NOTE | 2018-10-25 21:34 | CP.PCM.PN ---
Subjective - Date & Time of Evaluation Date of Evaluation: 10/25/18 Time of Evaluation: 11:45 - Subjective Subjective: clinically same Objective - Vital Signs/Intake and Output Vital Signs (last 24 hours): Temp Pulse Resp BP Pulse Ox 97.7 F 111 H 18 123/76 100 10/25/18 16:00 10/25/18 18:00 10/25/18 18:00 10/25/18 18:00 10/25/18 18:00 Intake and Output: 10/25/18 10/26/18 18:59 06:59 Intake Total 2009 210 Output Total 620 Balance 1390 210 - Medications Medications: Current Medications Famotidine (Pepcid) 20 mg IVP DAILY [facility] Last Admin: 10/25/18 09:09 Dose: 20 mg Heparin Sodium (Porcine) (Heparin) 5,000 units SC Q12 [facility] Last Admin: 10/25/18 09:09 Dose: 5,000 units Sodium Chloride (Sodium Chloride 0.45%) 1,000 mls @ 70 mls/hr IV .[id number] [facility] Last Admin: 10/25/18 06:42 Dose: 70 mls/hr Norepinephrine Bitartrate 4 mg (/ Sodium Chloride) 250 mls @ 18.75 mls/hr IV .[id number] PRN; Protocol PRN Reason: TITRATE PER MD ORDER Last Titration: 10/23/18 10:30 Dose: 0 mcg/min, 0 mls/hr Mupirocin (Bactroban 2% Nasal) 0.25 gm HENRRY BID [facility] Last Admin: 10/25/18 17:44 Dose: 0.25 gm Nystatin (Nystop Topical Powder) 1 applic TOP BID [facility] Last Admin: 10/25/18 17:45 Dose: 1 applic - Labs Labs: 10/25/18 06:26 10/25/18 06:26 PT 16.8 SECONDS (9.7-12.2) H 10/22/18 11:52 INR 1.5 10/22/18 11:52 APTT 30 SECONDS (21-34) 10/22/18 11:52 - Constitutional Appears: Well - Head Exam Head Exam: ATRAUMATIC, NORMAL INSPECTION, NORMOCEPHALIC - Eye Exam Eye Exam: EOMI, Normal appearance, PERRL Pupil Exam: NORMAL ACCOMODATION, PERRL - ENT Exam ENT Exam: Mucous Membranes Moist, Normal Exam - Respiratory Exam Respiratory Exam: Decreased Breath Sounds - Cardiovascular Exam Cardiovascular Exam: +S1, +S2 - GI/Abdominal Exam GI & Abdominal Exam: Soft, Diminished Bowel Sounds - Rectal Exam Rectal Exam: Deferred Assessment and Plan (1) Acute hyperkalemia Status: Acute (2) Acute renal failure Status: Acute (3) NSTEMI (non-ST elevated myocardial infarction) Status: Acute (4) A-fib Status: Chronic (5) CHF (congestive heart failure) Status: Acute (6) Cellulitis Status: Acute (7) Decubitus ulcer Status: Acute (8) Hyperkalemia Status: Acute (9) Leg ulcer, left Status: Acute (10) Peripheral edema Status: Acute (11) Renal insufficiency Status: Acute - Assessment and Plan (Free Text) Plan: Reconditioning Associate on consultation follow-up Nephrology vaso pressures Poor prognosis Feeding as ordered
[2018-10-26] MEDS: Sodium Chloride 0.45% 1,000 ML IV SCH ×3 (00:48→17:16)
--- NOTE | 2018-10-26 03:14 | PN ---
DATE: 10/25/2018 FOLLOW-UP RENAL CONSULTATION LOCATION: The patient is located in ICU, bed 16. REQUESTED BY: Scottie Alberto MD REASON FOR FOLLOWUP: Acute renal failure, chronic kidney disease. HISTORY OF PRESENT ILLNESS: Mrs. Oro is an 88-year-old elderly obese female with a past medical history significant for hypertension, hyperlipidemia, coronary artery disease, CHF, CKD, status post coronary stent placement, AFib, arthritis, and dementia, was recently discharged from the [facility] on 10[facility]16/2018, and the patient was sent back after 4 days with altered mental status and decreased p.o. intake. The patient was found to have acute renal failure on chronic kidney disease, hyperkalemia, metabolic acidosis, initially admitted to ICU for further management. The patient is feeling much better, back to her baseline mental status. No chest pain or palpitation. No abdominal pain. No nausea, vomiting, or diarrhea. PHYSICAL EXAMINATION: VITAL SIGNS: Blood pressure is in the borderline. Her blood pressure 106/61, pulse 106-112, respirations 16, temperature 97.7, saturation 100%. Height 5 feet, weight is 197 pounds. GENERAL: Mrs. Oro is an 88-year-old elderly female, moderately built, moderately nourished, not in distress. HEENT: Pupils normal, reactive to light and accommodation. Conjunctivae pink. Sclerae anicteric. Tongue is moist, and trachea is midline. LUNGS: Symmetric on both sides. Bilateral breath sounds present. Clear to auscultation. CARDIOVASCULAR SYSTEM: Dodge at the fifth intercostal space and midclavicular line. S1, S2 audible. Irregularly irregular. ABDOMEN: Normal in appearance. Protuberant, soft, tympanic. No guarding. No rigidity. No hepatosplenomegaly. CENTRAL NERVOUS SYSTEM: The patient is alert, awake, oriented x2. Sensory and motor system is grossly within normal limits. EXTREMITIES: No cyanosis, no clubbing, no edema. CURRENT MEDICATIONS: Include as follows: Bactroban ointment to both nostrils intranasal twice a day and subcu heparin 5000 units every 12 hours, Pepcid 20 mg IV piggyback daily, nystatin powder topical, and also IV fluids half-normal saline 70 mL per hour. LABORATORY DATA: Include as follows: As of 10/25/2018, WBC 8.4, hemoglobin 9.2, hematocrit is 29.7, platelets 62. Sodium 143, potassium 4.1, chloride 106, CO 29, BUN 87, creatinine 3.7, glucose is 89, calcium 8.5, phosphorus is 5, magnesium 1.8. Total bili 6.2, AST 95, ALT 327, alkaline phos of 178, total protein 6.9, albumin is 3.1. Hepatobiliary scan as of 10/24/2018, positive abnormal hepatobiliary scan. The cystic duct is occluded. MRI of the brain, impression, small areas of restricted diffusion are seen in the right parietal white matter, right occipital lobe, and left cerebellar hemisphere. These could represent acute infarcts, however, the findings are not verified on the ADC map images. It is possible that the findings are artifactual. There is no corresponding abnormality seen on FLAIR or T2 images. ASSESSMENT AND PLAN: In summary, Mrs. Oro is an 88-year-old elderly female with a history of hypertension, hyperlipidemia, coronary artery disease, congestive heart failure, atrial fibrillation, arthritis, dementia, unilateral small kidney, and chronic kidney disease, who was admitted with altered mental status and decreased n.p.o. intake. 1. Acute renal failure, on chronic kidney disease stage III. 2. Unilateral small left kidney. 3. Atrial fibrillation. 4. Status post dehydration. 5. Rule out cholecystitis. 6. Abnormal liver function tests, most likely secondary to cholecystitis and common bile duct obstruction and common bile duct occlusion. PLAN: Continue gentle IV fluids, and follow up with Surgery. If not seen by Surgery, consider surgery consult for cholecystitis. We will follow with you. Thank you for allowing me to participate in your patient's care. Renal function is improving nicely with hydration. Alfred Lobato MD
[2018-10-26] MEDS: Mupirocin 2% Ointment (NASAL) NAS SCH ×2 (09:21→17:17)
--- NOTE | 2018-10-26 10:18 | PN ---
DATE: 10/26/2018 LOCATION: ICU 16 SUBJECTIVE: This is a an 88 year-old female seen and examined, appeared to be more awake, somewhat alert without reported significant clinical changes or active bleeding, post MRI of the brain yesterday, official report is seen. No reported active bleeding, actual chest pain, chills or fever or significant shortness of breath, still on nasal cannula with O2 supplement. It has to be mentioned that the patient's oral intake is very poor. Today's lab results still pending, but the patient has persistent low hemoglobin and hematocrit with thrombocytopenia with increased BUN and creatinine, elevated phosphorus, increased blood glucose level with abnormal liver function test including total bilirubin of 6.2. Albumin is still low 3.21 with elevated amylase, but normal lipase level, CEA is elevated to 11.9 and CA-125 antigen 224, elevated. PHYSICAL EXAMINATION: GENERAL: A 88-year-old female. VITAL SIGNS: Afebrile with pulse of 104, respiratory rate 14-16, blood pressure 110/66. HEENT: Showed pale dry oral mucous membrane. Bilateral icteric sclerae. LUNGS: Few scattered crepitation with decreased air entry at bases. HEART: Positive S1 and S2 with increased rate. ABDOMEN: Soft, mildly obese with mild distention and generalized tenderness. No mass or organomegaly. No rebound tenderness or guarding. RECTAL: Examination deferred due to patient's clinical status. EXTREMITIES: Without significant clubbing, cyanosis or edema. NEUROLOGIC: No reported new neurological deficits, sensory or motor. No reported new focal deficits. IMPRESSION: 1. Abnormal liver function tests, most likely secondary to hepatocellular injury, that could be secondary to drug induced versus viral infection. 2. Re-exacerbation of peptic ulcer disease. 3. Elevated CEA level with anemia, to rule out occult gastrointestinal malignancy. 4. Elevated CA-125 antigen raising the question of possible ovarian neoplasm. 5. Acute renal failure on top of chronic renal disease. 6. Jaundice secondary to above. 7. Reported history of hypertension, atrial fibrillation, coronary artery disease status post cardiac stent insertion and congestive heart failure in the past. 8. Hyperlipidemia, diabetes mellitus by history. 9. Anemia secondary to above. SUGGESTIONS: 1. Continue current management. 2. Treat underlying electrolyte imbalance as well as infectious process. 3. Monospot. 4. Guaiac all the stools daily x3. 5. Conservative treatment in the meantime until the patient is more stable clinically, keeping in mind the patient's age group and her general clinical status. However, the patient may need endoscopic evaluation of the GI tract when she is more stable clinically, and if there is significant drop of hemoglobin and hematocrit or guaiac-positive stool, that to be discussed with the admitting medical staff. Avni Gimenez MD
[2018-10-26] MEDS: Multiple Vitamins Oral Solution PO SCH (14:40)
[2018-10-26] MEDS: Megestrol Acetate 40 mg/ml Cup PO SCH (14:50)
--- NOTE | 2018-10-26 16:14 | CP.PCM.PN ---
Subjective - Date & Time of Evaluation Date of Evaluation: 10/26/18 Time of Evaluation: 16:14 - Subjective Subjective: pt is seen and examined, follow up consult is dictated #[id number] Objective - Vital Signs/Intake and Output Vital Signs (last 24 hours): Temp Pulse Resp BP Pulse Ox 97.2 F L 114 H 20 124/64 100 10/26/18 12:00 10/26/18 12:00 10/26/18 12:00 10/26/18 12:00 10/26/18 12:00 Intake and Output: 10/26/18 10/26/18 06:59 18:59 Intake Total 840 830 Output Total 300 250 Balance 540 580 - Medications Medications: Current Medications Aspirin (Ecotrin) 81 mg PO DAILY [facility] Clopidogrel Bisulfate (Plavix) 75 mg PO DAILY [facility] Famotidine (Pepcid) 20 mg PO DAILY [facility] Sodium Chloride (Sodium Chloride 0.45%) 1,000 mls @ 70 mls/hr IV .[id number] [facility] Last Admin: 10/26/18 10:45 Dose: Not Given Norepinephrine Bitartrate 4 mg (/ Sodium Chloride) 250 mls @ 18.75 mls/hr IV .[id number] PRN; Protocol PRN Reason: TITRATE PER MD ORDER Last Titration: 10/23/18 10:30 Dose: 0 mcg/min, 0 mls/hr Megestrol Acetate (Megace) 400 mg PO DAILY [facility] Last Admin: 10/26/18 14:50 Dose: 400 mg Multivitamins/Vitamin C (Multi-Delyn Liquid) 5 ml PO DAILY [facility] Mupirocin (Bactroban 2% Nasal) 0.25 gm HENRRY BID [facility] Last Admin: 10/26/18 09:21 Dose: 0.25 gm Nystatin (Nystop Topical Powder) 1 applic TOP BID [facility] Last Admin: 10/26/18 09:22 Dose: 1 applic - Labs Labs: 10/25/18 06:26 10/25/18 06:26 PT 16.8 SECONDS (9.7-12.2) H 10/22/18 11:52 INR 1.5 10/22/18 11:52 APTT 30 SECONDS (21-34) 10/22/18 11:52
--- NOTE | 2018-10-26 16:45 | US ---
Date of service: 10/26/2018 HISTORY: abnormal Ca125 COMPARISON: None available. TECHNIQUE: Transabdominal pelvic ultrasound FINDINGS: UTERUS: Measures 9.1 x 3.4 x 5.9 cm. Anteverted. ENDOMETRIUM: Measures 4 mm in diameter. CERVIX: No cervical abnormality identified. RIGHT OVARY: Not visualized. LEFT OVARY: Not visualized. FREE FLUID: Small pelvic free fluid. OTHER FINDINGS: None. IMPRESSION: Markedly limited examination due to patient condition. Ovaries were not visualized. Small pelvic free fluid.
--- NOTE | 2018-10-26 20:46 | CP.PCM.PN ---
Subjective - Date & Time of Evaluation Date of Evaluation: 10/26/18 Time of Evaluation: 11:15 - Subjective Subjective: clinically same Objective - Vital Signs/Intake and Output Vital Signs (last 24 hours): Temp Pulse Resp BP Pulse Ox 98.0 F 111 H 14 118/70 100 10/26/18 16:00 10/26/18 20:00 10/26/18 20:00 10/26/18 20:00 10/26/18 20:00 Intake and Output: 10/26/18 10/27/18 18:59 06:59 Intake Total 1160 70 Output Total 500 0 Balance 660 70 - Medications Medications: Current Medications Aspirin (Ecotrin) 81 mg PO DAILY [facility] Clopidogrel Bisulfate (Plavix) 75 mg PO DAILY [facility] Famotidine (Pepcid) 20 mg PO DAILY [facility] Heparin Sodium (Porcine) (Heparin) 5,000 units SC Q12H [facility] Sodium Chloride (Sodium Chloride 0.45%) 1,000 mls @ 70 mls/hr IV .[id number] [facility] Last Admin: 10/26/18 17:16 Dose: 70 mls/hr Megestrol Acetate (Megace) 400 mg PO DAILY [facility] Last Admin: 10/26/18 14:50 Dose: 400 mg Multivitamins/Vitamin C (Multi-Delyn Liquid) 5 ml PO DAILY [facility] Last Admin: 10/26/18 14:40 Dose: 5 ml Mupirocin (Bactroban 2% Nasal) 0.25 gm HENRRY BID [facility] Last Admin: 10/26/18 17:17 Dose: 0.25 gm Nystatin (Nystop Topical Powder) 1 applic TOP BID [facility] Last Admin: 10/26/18 17:18 Dose: 1 applic - Labs Labs: 10/25/18 06:26 10/25/18 06:26 PT 16.8 SECONDS (9.7-12.2) H 10/22/18 11:52 INR 1.5 10/22/18 11:52 APTT 30 SECONDS (21-34) 10/22/18 11:52 - Constitutional Appears: Well - Head Exam Head Exam: ATRAUMATIC, NORMAL INSPECTION, NORMOCEPHALIC - Eye Exam Eye Exam: EOMI, Normal appearance, PERRL Pupil Exam: NORMAL ACCOMODATION, PERRL - ENT Exam ENT Exam: Mucous Membranes Moist, Normal Exam - Neck Exam Neck Exam: Full ROM, Normal Inspection. absent: Lymphadenopathy - Respiratory Exam Respiratory Exam: Decreased Breath Sounds - Cardiovascular Exam Cardiovascular Exam: REGULAR RHYTHM, +S1, +S2 - GI/Abdominal Exam GI & Abdominal Exam: Soft, Diminished Bowel Sounds - Rectal Exam Rectal Exam: Deferred Assessment and Plan (1) Acute hyperkalemia Status: Acute (2) Acute renal failure Status: Acute (3) NSTEMI (non-ST elevated myocardial infarction) Status: Acute (4) A-fib Status: Chronic (5) CHF (congestive heart failure) Status: Acute (6) Cellulitis Status: Acute (7) Decubitus ulcer Status: Acute (8) Hyperkalemia Status: Acute (9) Leg ulcer, left Status: Acute (10) Peripheral edema Status: Acute (11) Renal insufficiency Status: Acute
[2018-10-27] MEDS: Sodium Chloride 0.45% 1,000 ML IV SCH (01:12)
--- NOTE | 2018-10-27 01:39 | PN ---
DATE: 10/26/2018 SUBJECTIVE: Mrs. Oro is an 88-year-old elderly obese female with a past medical history significant for hypertension, hyperlipidemia, coronary artery disease, CHF, status post coronary stent, AFib, CKD, unilateral small left kidney, dementia, arthritis, was recently discharged from [facility] on 10/16/2018 and readmitted after sent from the half-way on 10/20/2018 with chief complaints of altered mental status, decreased p.o. intake and increased BUN and creatinine. The patient is feeling much better, not in acute distress, following commands appropriately. No chest pain, no palpitation. No abdominal pain. No nausea, vomiting, diarrhea. OBJECTIVE: VITAL SIGNS: As follows, blood pressure of 124/64, pulse 114, respirations 20, temperature 97.2, saturation 100%. Height 5 feet and weight is 197 pounds. GENERAL: Mrs. Oro is a 88-year-old elderly obese female, moderately built, moderate nourished, not in distress. HEENT: Pupils are normal, reactive to light and accommodation. Conjunctiva pink. Sclerae anicteric. Tongue is moist and trachea is midline. LUNGS: Symmetric on both sides. Bilateral breath sounds present. Clear to auscultation. CVS: Abbott at the fifth intercostal space, tachycardic. S1 and S2 audible and irregularly irregular. ABDOMEN: Slightly protuberant, soft, tympanitic. No guarding, no rigidity. No hepatosplenomegaly. No abdominal bruit. WET SANDER: The patient is alert, awake, oriented x2. Sensory and motor system is grossly within normal limits. EXTREMITIES: No cyanosis, no clubbing, no edema. CURRENT MEDICATIONS: Include as follows, Bactroban ointment in both nostrils b.i.d., aspirin 81 mg daily, subcu heparin 5000 every 12 hours,Megace 400 mg p.o. daily, multivitamin liquid 5 mL p.o. daily, nystatin topical powder b.i.d., Pepcid 20 mg p.o. daily, Plavix 75 mg p.o. daily, and IV fluids half-normal saline at 70 mL/hour. LABORATORY DATA: No new labs are available for today. As of 10/25/2018, BUN and creatinine 87/3.7. H and H 9.2/29.7. ASSESSMENT AND PLAN: In summary, Mrs. Oro is 88-year-old elderly female with hypertension, hyperlipidemia, coronary artery disease status post coronary stents, congestive heart failure, atrial fibrillation, chronic kidney disease, dementia, arthritis, was admitted with altered mental status, decreased p.o. intake from the half-way. 1. Acute renal failure on chronic kidney disease. A second intravascular volume depletion secondary to decreased oral intake. 2. Atrial fibrillation. 3. Mild anemia secondary to renal failure. We will give Epogen in a.m. subcutaneous 10,000 units. 4. Unilateral small left kidney, cannot rule out renovascular disease. Overall prognosis is guarded. Thank you for allowing me to participate in your patient's care. Continue all her current medications. Repeat basic metabolic panel in a.m. Alfred Lobato MD
[2018-10-27 06:01] LABS: BASO % 0.5 % (0.0-2.0); EOS # 0.3 K/uL (0.0-0.7); EOS % 3.8 % (0.0-4.0); LYMPH # 0.6 K/uL (1.0-4.3); LYMPH % 7.5 % (20.0-40.0); MEAN CELL VOLUME 101.3 fL (81.0-99.0); MEAN CORPUSCULAR HEMOGLOBIN 31.2 pg (27.0-31.0); MEAN CORPUSCULAR HGB CONC 30.8 g/dL (33.0-37.0); MEAN PLATELET VOLUME 10.4 fL (7.2-11.7); MONO # 1.3 K/uL (0.0-0.8); MONO % 16.4 % (0.0-10.0); NEUT # 5.9 K/uL (1.8-7.0); NEUT % 71.8 % (50.0-75.0); NRBC % 5.3 % (0.0-2.0); PLATELET COUNT 72 K/uL (130-400); RBC 2.89 Mil/uL (3.80-5.20); RED CELL DISTRIBUTION WIDTH 20.7 % (11.5-14.5); WHITE BLOOD COUNT 8.2 K/uL (4.8-10.8)
[2018-10-27 06:18] LABS: ALB/GLOB RATIO 0.8 (1.0-2.1); ALBUMIN 3.1 g/dL (3.5-5.0); CALCIUM 8.5 mg/dl (8.6-10.4)
[2018-10-27 08:36] LABS: EOSINOPHIL 1 % (0-4); LYMPHOCYTE 2 % (20-40); MONOCYTE 11 % (0-10); NEUTROPHIL 86 % (50-75); NUCLEATED RED BLOOD CELL 1 % (0-0); TOTAL CELLS COUNTED 100
[2018-10-27 08:37] LABS: ANISOCYTOSIS SLIGHT; HYPOCHROMIC SLIGHT; PLATELET ESTIMATE DECREASED (NORMAL); POLYCHROMIC SLIGHT; TARGET CELLS SLIGHT
--- NOTE | 2018-10-27 09:12 | PN ---
DATE: 10/24/2018 LOCATION: ICU 16, room #9. SUBJECTIVE: This is an 88-year-old female seen and examined initially for GI consultation on 10/23/2018, re-examined again today in the intensive care unit. The patient appeared to be somewhat more alert and awake, but in the status of DNR and DNI, able to follow simple commands without reported active bleeding, actual chest pain, palpitation and no complaint of significant shortness of breath more than before, still on O2 by nasal cannula. The patient is scheduled for HIDA scan today as per the record. The entire chart is reviewed and today's lab showed hemoglobin 9.3, hematocrit 30.2 with thrombocytopenia of 67. CO2 content 31, BUN 97, creatinine 4.4, calcium 8.3, phosphorous 5.3 and total bilirubin 6.1 with AST 139, ALT 398, alkaline phosphatase 172 with albumin 2.8. Most recently done abdominal ultrasound yesterday, official report is seen without reported cholelithiasis or dilated biliary tree but small pleural effusions. PHYSICAL EXAMINATION: GENERAL: A 88-year-old female. VITAL SIGNS: Afebrile with respiratory rate of 16 to 18, pulse of 106 with blood pressure of 98/64. HEENT: Showed pale, dry oral mucoid membrane with bilateral icteric sclera. LUNGS: Few scattered crepitation. Decreased air entry at bases. HEART: Positive S1 and S2. ABDOMEN: Soft with mild generalized tenderness, but mainly in the midepigastric and midabdominal line. No mass or organomegaly. No rebound tenderness or guarding. EXTREMITIES: Without significant clubbing, cyanosis, or edema. CENTRAL NERVOUS SYSTEM: No reported new neurological deficits, sensory or motor. NEUROLOGIC: No reported new focal deficits. IMPRESSION: 1. Jaundice with abnormal liver function test that could be secondary to chronic disease versus early hepatic insufficiency versus drug induced. 2. Abnormal liver function tests secondary to above. Again, rule out possible viral hepatitis. 3. Anemia. 4. Electrolyte imbalance. 5. Known history of hyperlipidemia, hypertension, congestive heart failure, atrial fibrillation as well as chronic arthritis. 6. Osteoarthritis by history. 7. Acute renal insufficiency. 8. Reported history of dementia. The patient appears to be more awake, alert. SUGGESTIONS: 1. Agree with your plan. 2. Cancer markers. 3. Guaiac all the stools every day x3. 4. The patient may need MRCP before any further aggressive gastrointestinal workup. 5. Further recommendation to follow. Avni Gimenez MD
--- NOTE | 2018-10-27 09:16 | CON ---
DATE: 10/23/[address] Gimenez to Dr. Scottie Alberto. I was called for GI consultation by the admitting medical team. The patient is seen and fully examined on 10/23/2018 in the intensive care unit in the presence of the medical staff. The entire chart is reviewed, including, but not limited to the most recent lab and radiology study results, current and the previous medication list, current and previous medical events, allergy to medication list as well as all the available current and the previous medical records. Case discussed with the staff at length. HISTORY OF PRESENT ILLNESS: This is a an 88-year-old female with multiple complicated past medical history, was admitted to the hospital from the halfway through the emergency room due to change of mental status with very poor oral intake, generalized weakness, and malaise, with recent previous admission to the hospital for the same complaint, was found to have subsequent drop of hemoglobin and hematocrit. The patient was found also as recently diagnosed acute renal failure on top of her chronic kidney disease with electrolyte imbalance. No reported actual chest pain, palpitation, nausea, or vomiting, but dyspepsia. PAST MEDICAL HISTORY: Including mainly, but not limited to: 1. Hypertension, congestive heart failure, coronary artery disease, and atrial fibrillation. 2. Hyperlipidemia. 3. Osteoarthritis. 4. Anemia on and off recently. 5. Status post cardiac stent insertion. 6. It was reported also that the patient may have history of dementia, mild. FAMILY HISTORY: Noncontributory. SOCIAL HISTORY: No reported recent history of cigarette smoking or alcohol intake. CURRENT MEDICATIONS: Post admission medication list reviewed. ALLERGIES TO MEDICATIONS: UNCLEAR. LABORATORY DATA: Most recent lab results showed white blood cells of 9.8, hemoglobin 9.7 with hematocrit 30.9 with thrombocytopenia of 78, potassium 3.8, sodium 144, CO content of 30, BUN 99, creatinine 5.4 with total bilirubin of 6.7, AST 241, ALT 496, alkaline phosphatase 189 with low albumin 2.7. Hepatitis profile was reported to be negative. PHYSICAL EXAMINATION: GENERAL: A 88-year-old female, known case for me from a previous admission. The patient is afebrile, somewhat more awake, alert. VITAL SIGNS: Blood pressure of 100/62, pulse 102 with respiratory rate 16-18. HEENT: Showed pale, dry oral mucous membrane. Bilateral icteric sclerae. LYMPH NODES: No lymphadenitis or lymphadenopathy. LUNGS: Scattered bilateral crepitation with decreased air entry at bases. HEART: Positive S1 and S2 with increased rate. ABDOMEN: Soft, mildly obese with generalized tenderness. No mass or organomegaly. No rebound tenderness or guarding. RECTAL: Deferred due to the patient's clinical presentation. EXTREMITIES: With lower extremity edematous changes. No clubbing or cyanosis. NEUROLOGIC: No reported new neurological deficits, sensory or motor. No reported new focal deficits. IMPRESSION: 1. Abnormal liver function test with jaundice, but most likely secondary to right-sided heart failure, however, with the possibility of hyperlipidemia and the possibility of drug-induced direct cellular injury should be ruled in or out. To rule out biliary tree disorder, less likely. 2. Re-exacerbation of peptic ulcer disease. 3. Acute renal failure. Multiple past medical history as mentioned above. To rule out gastrointestinal blood loss, upper versus lower versus occult gastrointestinal malignancy. SUGGESTION: 1. Agree with your plan. 2. Monospot. 3. Cancer markers. 4. Sectional abdominal and pelvic CAT scan when the patient is more stable clinically. 5. Correct underlying electrolyte imbalance and renal insufficiency. 6. Serum lipase, amylase level. Keeping in mind that the patient conservative treatment so far is recommended. Otherwise, as indicated. Further recommendation to follow. Thank you for letting me to participate in your patient's case management. Avni Gimenez MD
[2018-10-27] MEDS: Megestrol Acetate 40 mg/ml Cup PO SCH (09:35)
[2018-10-27] MEDS: Mupirocin 2% Ointment (NASAL) NAS SCH ×2 (09:35→17:25)
--- NOTE | 2018-10-27 09:35 | PN ---
DATE: 10/26/2018 SUBJECTIVE: This patient is patient of mine attending for many years, 88 years old female who was admitted on 09/10/2018 by me but was closer to DrEv and because I was going on vacation the patient was considered to admit back to physical therapy and the patient returned to the hospital on the 10/20/2018 because the patient was found to have a degree of altered mental status and hyperkalemia and acute renal failure and respiratory distress. The patient was admitted to ICU and the patient was put on BiPAP. The patient was treated at this time by . The patient has history of hypertension and hyperlipidemia. She has history of CAD, , dementia, anemia and also atrial fibrillation. So now the patient is seen in the ICU and the patient is still somewhat not completely oriented,but is still alert and awake, on soft diet. The patient has answered to questions appropriately and to repeat the answers. The patient now as per nurse is anorexic, but no shortness of breath at rest and no palpitation. The patient could not give much more information. PHYSICAL EXAMINATION: GENERAL: The patient on admission is alert and awake, , and answering the complex questions. VITAL SIGNS: Blood pressure is 175/64, pulse 64, respirations 20, and temperature 97.2. HEENT: Head is normocephalic. No tooth is noted. NECK: Supple. LUNGS: Has some rhonchi noted. HEART: Irregular and positive murmur. ABDOMEN: Soft, obese, and nontender. No palpable mass. Positive bowel sounds. EXTREMITIES: There is no edema, but there is diabetic ulcer noted and also redness in the left foot. LABORATORY DATA: The last lab done on 10/25/2018 showed sodium 142, potassium 4.1, chloride 106, bicarb 29, BUN 87, and creatinine 3.7. On 10/23/2018, the creatinine was 5.4 and that is going down. The glucose is 135. AST is 95, ALT 327, alkaline phosphatase is 178, albumin is 2.1, total protein is 6.9 and globulin 2.8. Amylase is 252, lipase 200. The CEA is 11.9 the patient had CA 125 at 224. PLAN: So, the patient now is still in ICU, but is improving. The plan is that we are going to add the Megace at 400 mg daily, the progress note from was appreciated and also . We will consider ultrasound of the pelvis to resect the ovaries and also CA 125 was elevated and finally the ultrasound of the abdomen was done. Shailesh Brunson MD
[2018-10-27] MEDS: Multiple Vitamins Oral Solution PO SCH (09:36)
--- NOTE | 2018-10-27 10:53 | CP.PCM.PN ---
Subjective - Date & Time of Evaluation Date of Evaluation: 10/27/18 Time of Evaluation: 10:52 - Subjective Subjective: pt is seen and examined, follow up consult is dictated #[id number] d/c ivf Objective - Vital Signs/Intake and Output Vital Signs (last 24 hours): Temp Pulse Resp BP Pulse Ox 97.3 F L 114 H 16 122/74 100 10/27/18 08:00 10/27/18 07:20 10/27/18 04:00 10/27/18 04:00 10/27/18 08:00 Intake and Output: 10/27/18 10/27/18 06:59 18:59 Intake Total 770 580 Output Total 450 Balance 320 580 - Medications Medications: Current Medications Aspirin (Ecotrin) 81 mg PO DAILY [facility] Last Admin: 10/27/18 09:36 Dose: 81 mg Clopidogrel Bisulfate (Plavix) 75 mg PO DAILY [facility] Last Admin: 10/27/18 09:36 Dose: 75 mg Famotidine (Pepcid) 20 mg PO DAILY [facility] Last Admin: 10/27/18 09:36 Dose: 20 mg Heparin Sodium (Porcine) (Heparin) 5,000 units SC Q12H [facility] Last Admin: 10/27/18 09:35 Dose: 5,000 units Megestrol Acetate (Megace) 400 mg PO DAILY [facility] Last Admin: 10/27/18 09:35 Dose: 400 mg Multivitamins/Vitamin C (Multi-Delyn Liquid) 5 ml PO DAILY [facility] Last Admin: 10/27/18 09:36 Dose: 5 ml Mupirocin (Bactroban 2% Nasal) 0.25 gm HENRRY BID [facility] Last Admin: 10/27/18 09:35 Dose: 0.25 gm Nystatin (Nystop Topical Powder) 1 applic TOP BID [facility] Last Admin: 10/27/18 09:36 Dose: 1 applic - Labs Labs: 10/27/18 05:52 10/27/18 05:52 PT 16.8 SECONDS (9.7-12.2) H 10/22/18 11:52 INR 1.5 10/22/18 11:52 APTT 30 SECONDS (21-34) 10/22/18 11:52
--- NOTE | 2018-10-27 11:51 | CP.PCM.PN ---
Subjective - Date & Time of Evaluation Date of Evaluation: 10/27/18 Time of Evaluation: 11:50 - Subjective Subjective: Neurology Follow-Up Note: Mrs. Oro was evaluated this afternoon in the ICU, however, she was downgraded to med-surg 10/24/18. Evaluated in bed. She denies any complaints and admits feeling "much better" today. Denies h/a, dizziness, visual changes, chest pain, palpitations, sob, cough, abd pain, n/v/d. Objective - Vital Signs/Intake and Output Vital Signs (last 24 hours): Temp Pulse Resp BP Pulse Ox 97.3 F L 114 H 16 122/74 100 10/27/18 08:00 10/27/18 11:12 10/27/18 04:00 10/27/18 04:00 10/27/18 08:00 Intake and Output: 10/27/18 10/27/18 06:59 18:59 Intake Total 770 650 Output Total 450 Balance 320 650 - Medications Medications: Current Medications Aspirin (Ecotrin) 81 mg PO DAILY [facility] Last Admin: 10/27/18 09:36 Dose: 81 mg Clopidogrel Bisulfate (Plavix) 75 mg PO DAILY [facility] Last Admin: 10/27/18 09:36 Dose: 75 mg Famotidine (Pepcid) 20 mg PO DAILY [facility] Last Admin: 10/27/18 09:36 Dose: 20 mg Heparin Sodium (Porcine) (Heparin) 5,000 units SC Q12H [facility] Last Admin: 10/27/18 09:35 Dose: 5,000 units Megestrol Acetate (Megace) 400 mg PO DAILY [facility] Last Admin: 10/27/18 09:35 Dose: 400 mg Multivitamins/Vitamin C (Multi-Delyn Liquid) 5 ml PO DAILY [facility] Last Admin: 10/27/18 09:36 Dose: 5 ml Mupirocin (Bactroban 2% Nasal) 0.25 gm HENRRY BID [facility] Last Admin: 10/27/18 09:35 Dose: 0.25 gm Nystatin (Nystop Topical Powder) 1 applic TOP BID [facility] Last Admin: 10/27/18 09:36 Dose: 1 applic - Labs Labs: 10/27/18 05:52 10/27/18 05:52 PT 16.8 SECONDS (9.7-12.2) H 10/22/18 11:52 INR 1.5 10/22/18 11:52 APTT 30 SECONDS (21-34) 10/22/18 11:52 - Constitutional Appears: Well, Non-toxic, No Acute Distress - Head Exam Head Exam: ATRAUMATIC, NORMAL INSPECTION, NORMOCEPHALIC - Eye Exam Eye Exam: EOMI, Normal appearance, PERRL Pupil Exam: NORMAL ACCOMODATION, PERRL - ENT Exam ENT Exam: Mucous Membranes Moist - Neck Exam Neck Exam: Normal Inspection - Respiratory Exam Respiratory Exam: NORMAL BREATHING PATTERN - GI/Abdominal Exam Additional comments: obese - Extremities Exam Extremities Exam: absent: Calf Tenderness, Pedal Edema Additional comments: generalized weakness wound to LLE covered with gauze dressing - Neurological Exam Neurological Exam: Alert, Awake, CN II-XII Intact, Reflexes Normal. 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 knotter 5/5), Left Lower Extremity: 3, Right Lower Extremity: 3 Additional comments: Speech clear; no aphasia She has baseline confusion; disoriented x3 She is pleasant, calm, cooperative Able to follow some simple commands Sensation intact b/l Unable to assess fine motor 2/2 pt not following commands Still has hypersensitivity noted to plantar aspect of b/l feet No tremors, no clonus - Psychiatric Exam Psychiatric exam: Normal Affect (pt is at her baseline confusion, however she is pleasant and calm), Normal Mood - Skin Additional comments: wound to LLE covered with gauze Assessment and Plan (1) Altered mental status Assessment & Plan: Imaging reviewed: -MRI Brain (10/25/18): Small areas of restricted diffusion are seen in the right parietal white matter, the right occipital lobe and the left cerebellar hemisphere. These could represent acute infarcts. However, the findings are not verified on the ADC map images. It is possible that the findings are artifactual. There is no corresponding abnormality seen on FLAIR or T2 images. -CTA Head and neck (10/20/18): 1. Moderate bilateral ICA stenosis at the cavernous segments. 2. High-grade near critical stenosis origin right ICA with moderate origin left ICA stenosis. Both ICAs appear to be patent nevertheless. 3. Moderate distal CCA stenosis bilaterally with additional mild stenosis proximal left CCA. 4. No occlusion or significant intracranial stenosis appreciable. -CT Head (10/20/18): Streak artifact obscures evaluation of the skull base. Nonspecific white matter changes. Left occipital encephalomalacia. Generalized volume loss. -ECHO (done on 10/09/18): EF 55-60% Mrs. Oro is at her baseline---confused, calm, cooperative, pleasant. AMS on admission likely related to acute medical issues and her dementia. -No need to repeat ECHO at this time. -Continue ASA 81 mg PO daily and Plavix 75 mg PO daily. -Statin on hold for now: lipid panel reviewed and normal; pt has elevated LFTs. -Continue current treatment and management. -Notify neuro for any change in pt condition. Case discussed with Dr. Joseph Status: Acute
--- NOTE | 2018-10-27 13:31 | PQF ---
PROVIDER RESPONSE TEXT: Metabolic Encephalopathy REVIEWER QUERY TEXT: Encephalopathy Type AMS is documented in the Medical Record. Other, please specify Unable to determine The patient's Clinical Indicators include: ?88 year old female with PMHx of Atrial Fibrillation, CAD, CHF, Dementia and HTN presents to the ED f rom the [facility] for altered mental status and poor PO intake?. Patient with diagnosis: NSTEMI Respiratory failure with hypercapnia Acidosis AKF Please consider verify if the AMS documented in the medical record match with Encephalopathy and docu ment it, if agree. Query created by: Jah Delgado on 10/22/2018 4:12 PM Electronically signed by: Stanislaw ODOM 10/27/2018 1:28 PM
--- NOTE | 2018-10-27 13:31 | PQF ---
PROVIDER RESPONSE TEXT: Acute renal failure on top of chronic renal failure REVIEWER QUERY TEXT: Kidney Failure, Acute - Associated Conditions Acute Kidney Failure is documented in the Medical Record. Please specify the associated condition (i ncluding probable or suspected) Such as: -- Acute Tubular Necrosis -- Cortical Necrosis -- Papillary or Medullary Necrosis -- Traumatic Anuria -- None are likely contributors -- Other, please specify The patient's Clinical Indicators include: "88 year old female with PMHx of Atrial Fibrillation, CAD, CHF, Dementia and HTN presents to the ED f rom the [facility] for altered mental status and poor PO intake?. Acute Renal Failure Hypotension Please consider verify and specify, if agree. Query created by: Jah Delgado on 10/22/2018 4:05 PM Electronically signed by: Stanislaw ODOM 10/27/2018 1:28 PM
--- NOTE | 2018-10-28 01:17 | PN ---
DATE: 10/27/2018 FOLLOWUP RENAL CONSULTATION LOCATION: The patient is located in ICU, bed 16. REQUESTED BY: Scottie Alebrto MD REASON FOR FOLLOWUP: Acute renal failure, chronic kidney disease. HISTORY OF PRESENT ILLNESS: Mrs. Oro is an 88-year-old elderly female with a past medical history significant for hypertension, hyperlipidemia, coronary artery disease, CHF, atrial fibrillation, CKD with unilateral small left kidney, dementia, who was recently discharged from the [facility] on 10/16/2018 to alf, and subsequently, the patient was sent back after 4 days on 10/20/2018 with altered mental status and decreased p.o. intake and worsening renal function, hyperkalemia, and metabolic acidosis. The patient is feeling much better on IV hydration. Renal function is nicely improved back to almost to her baseline. Denies any chest pain or palpitation. Denies any fever or cough. No abdominal pain. No nausea, vomiting, or diarrhea. PHYSICAL EXAMINATION: VITAL SIGNS: As follows this morning, blood pressure is 120/75, pulse 114, respirations 22, temperature 97.8, saturation 100%. Height 5 feet, weight is 197 pounds. GENERAL: Mrs. Oro is an 88-year-old elderly obese female, moderately built, moderately nourished, not in distress. HEENT: Pupils normal, reactive to light and accommodation. Conjunctivae pink. Sclerae anicteric. Tongue is moist, and trachea is midline. LUNGS: Symmetric on both sides. Bilateral breath sounds present. Clear to auscultation. CARDIOVASCULAR SYSTEM: [place] at the fifth intercostal space and midclavicular line. S1, S2 audible. No murmur or gallop. ABDOMEN: Normal in appearance, soft, tympanic, [id number] right upper quadrant tenderness present. No guarding. No rigidity. No abdominal bruit. CENTRAL NERVOUS SYSTEM: The patient is alert, awake, oriented x2. Sensory and motor system is grossly within normal limits. Cranial nerves II through XII grossly intact. EXTREMITIES: No cyanosis, no clubbing. Trace edema in both lower extremities. CURRENT MEDICATIONS: Include as follows: Bactroban ointment in both nostrils, aspirin 81 mg daily, subcu heparin 5000 units every 12 hours, Megace 400 mg p.o. daily, multivitamin liquid 5 mL daily, nystatin topical powder b.i.d., Pepcid 20 mg p.o. daily, IV fluids half-normal saline 70 mL per hour. CURRENT LABORATORY DATA: Include as follows: As of 10/27/2018, WBC 8.2, hemoglobin 9, hematocrit is 29.3, platelets 72. Sodium 142, potassium 5.3, chloride 107, CO2 29, BUN 74, creatinine 2.4, glucose is 83, calcium 8.5, phosphorus 3.9, magnesium 1.7. Total bili 4.2, AST 84, ALT 215, alkaline phosphatase 160, total protein 7.2, albumin is 3.1. ASSESSMENT AND PLAN: In summary, Mrs. Oro is an 88-year-old elderly female with a history of hypertension, hyperlipidemia, coronary artery disease, status post stent, coronary artery disease, congestive heart failure, chronic kidney disease, unilateral small left kidney, was admitted with altered mental status and decreased p.o. intake and dehydration and worsening renal function. 1. Acute renal failure on chronic kidney disease secondary to most likely intravascular depletion secondary to decreased p.o. intake, cannot rule out acute tubular necrosis. 2. Anemia secondary to renal failure. 3. Thrombocytopenia. 4. Atrial fibrillation. 5. Dementia. PLAN: We will discontinue IV fluids and continue to monitor BMP. Rule out chronic cholecystitis. LFTs are improving slowly. Repeat CBC, CMP in a.m. Thank you for allowing me to participate in your patient's care. Alfred Lobato MD
--- NOTE | 2018-10-28 06:57 | PN ---
DATE: 10/27/2018 LOCATION: ICU 16. SUBJECTIVE: This is an 88-year-old female, seen and examined in rounds without significant clinical changes, somewhat appears to be more awake, without any reported active bleeding. The entire chart is reviewed including but not limited to the most recent and lab and radiology study results is seen. Today's lab showed low hemoglobin of 9, hematocrit 29.3, thrombocytopenia of 72 with normal white blood cells, increased potassium 5.3, BUN is 74, creatinine 2.4, calcium 8.5, total bilirubin 4.2 with increased AST, ALT and alkaline phosphatase with albumin 3.21. The patient had pelvic ultrasound, report is seen. PHYSICAL EXAMINATION: GENERAL: An 88-year-old female. VITAL SIGNS: Afebrile with pulse of 106, respiratory rate 18 to 20, blood pressure 124/70. HEENT: Showed pale dry oral mucoid membrane. Bilateral icteric sclerae. LUNGS: Few scattered crepitation. Decreased air entry at bases. HEART: Positive S1 and S2. ABDOMEN: Soft with mild generalized tenderness, mildly obese. No mass or organomegaly. No rebound tenderness or guarding. EXTREMITIES: With lower extremities mild edematous changes. No clubbing or cyanosis. NEUROLOGIC: No reported new neurological deficits, sensory or motor. It has to be mentioned that the patient is still in a status of DNI. IMPRESSION: 1. Abnormal liver function test. Again, most likely secondary to hepatocellular injury by right-sided heart failure versus drug induced. 2. Elevated CEA level, with hypochromic microcytic anemia, the possibility of occult lower gastrointestinal bleeding was raised versus occult gastrointestinal cancer. 3. Acute renal failure on top of chronic renal disease. 4. Jaundice, secondary to above. 5. Known history of but not limited to hyperlipidemia, hypertension, atrial fibrillation, congestive heart failure, coronary artery disease with status post cardiac stent insertion. 6. Known history of poorly controlled diabetes mellitus. SUGGESTIONS: 1. Agree with your plan. 2. Repeat stool for occult blood. 3. Blood transfusion to keep hemoglobin around 10 g percent as needed. 4. Peripheral hyperalimentation. 5. Swallow evaluation. 6. The patient may need endoscopic evaluation of the upper gastrointestinal tract if there is subsequent drop of hemoglobin and hematocrit and/or poor oral intake. Further recommendation to follow. Avni Gimenez MD [facility] # [id number]
--- NOTE | 2018-10-28 08:10 | PN ---
DATE: 10/27/2018 SUBJECTIVE: The patient is still in ICU, and the patient was seen early this morning, lying in bed. The patient is alert and awake, but apparently weak, responding to simple questions, but sometimes the patient has some kind of slurred speech. The patient denies any chest pain or palpitation, but the patient is really anorexic. PHYSICAL EXAMINATION: VITAL SIGNS: Blood pressure is 108/72, pulse 140, respirations 16, temperature 97.7. The patient is on nasal cannula. HEENT: Mouth is moist. NECK: Supple. No JVD. LUNGS: Poor respiratory effort. HEART: Tachycardic. ABDOMEN: Soft, obese, and nontender. EXTREMITIES: There is edema, but there are some chronic changes of the skin of the lower extremity. The patient had the test done. 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 PLAN: The patient will be put on heparin subcu and also will have a consult with Dr. Montiel, Cardiology, and a neuro consult with Dr. [place]. The patient is still DNR but regarding the anorexia, the patient is put on Megace. We are going to continue to follow this patient. The case was discussed with Re Martinez, the neuro [facility]. Shailesh Brunson MD
[2018-10-28] MEDS: Megestrol Acetate 40 mg/ml Cup PO SCH (10:35)
[2018-10-28] MEDS: Multiple Vitamins Oral Solution PO SCH (10:36)
[2018-10-28] MEDS: Mupirocin 2% Ointment (NASAL) NAS SCH ×2 (10:41→17:33)
--- NOTE | 2018-10-28 12:20 | CP.PCM.PN ---
Subjective - Date & Time of Evaluation Date of Evaluation: 10/28/18 Time of Evaluation: 12:20 - Subjective Subjective: pt is seen and examined, follow up consult is dictated #[id number] Objective - Vital Signs/Intake and Output Vital Signs (last 24 hours): Temp Pulse Resp BP Pulse Ox 96.8 F L 104 H 18 133/93 H 98 10/28/18 12:00 10/28/18 11:11 10/28/18 12:00 10/28/18 08:00 10/28/18 08:00 Intake and Output: 10/28/18 10/28/18 06:59 18:59 Intake Total 0 400 Output Total 450 Balance -450 400 - Medications Medications: Current Medications Aspirin (Ecotrin) 81 mg PO DAILY [facility] Last Admin: 10/28/18 10:35 Dose: 81 mg Famotidine (Pepcid) 20 mg PO DAILY [facility] Last Admin: 10/28/18 10:35 Dose: 20 mg Heparin Sodium (Porcine) (Heparin) 5,000 units SC Q12H [facility] Last Admin: 10/28/18 10:35 Dose: 5,000 units Megestrol Acetate (Megace) 400 mg PO DAILY [facility] Last Admin: 10/28/18 10:35 Dose: 400 mg Multivitamins/Vitamin C (Multi-Delyn Liquid) 5 ml PO DAILY [facility] Last Admin: 10/28/18 10:36 Dose: 5 ml Mupirocin (Bactroban 2% Nasal) 0.25 gm HENRRY BID [facility] Last Admin: 10/28/18 10:41 Dose: 0.25 gm Nystatin (Nystop Topical Powder) 1 applic TOP BID [facility] Last Admin: 10/28/18 10:41 Dose: 1 applic - Labs Labs: 10/27/18 05:52 10/27/18 05:52 PT 16.8 SECONDS (9.7-12.2) H 10/22/18 11:52 INR 1.5 10/22/18 11:52 APTT 30 SECONDS (21-34) 10/22/18 11:52
--- NOTE | 2018-10-28 14:22 | CP.PCM.PN ---
Subjective - Date & Time of Evaluation Date of Evaluation: 10/28/18 Time of Evaluation: 14:19 - Subjective Subjective: Neurology Follow-Up Note: Mrs. Oro was evaluated this afternoon in the ICU. She was upgraded to telemetry by primary. Today she is slightly more drowsy and sleepy compared to yesterday, however, she states that she feels fine and is much better than before. Per primary RN, pt has been like this all day with periods of being fully awake and alert. She is able to follow most commands. She offers no complaints. Denies h/a, dizziness, visual changes, chest pain, palpitations, sob, cough, abd pain, n/v/d. Objective - Vital Signs/Intake and Output Vital Signs (last 24 hours): Temp Pulse Resp BP Pulse Ox 96.8 F L 104 H 18 133/93 H 98 10/28/18 12:00 10/28/18 14:02 10/28/18 12:00 10/28/18 08:00 10/28/18 08:00 Intake and Output: 10/28/18 10/28/18 06:59 18:59 Intake Total 0 400 Output Total 450 Balance -450 400 - Medications Medications: Current Medications Aspirin (Ecotrin) 81 mg PO DAILY [facility] Last Admin: 10/28/18 10:35 Dose: 81 mg Famotidine (Pepcid) 20 mg PO DAILY [facility] Last Admin: 10/28/18 10:35 Dose: 20 mg Heparin Sodium (Porcine) (Heparin) 5,000 units SC Q12H [facility] Last Admin: 10/28/18 10:35 Dose: 5,000 units Megestrol Acetate (Megace) 400 mg PO DAILY [facility] Last Admin: 10/28/18 10:35 Dose: 400 mg Multivitamins/Vitamin C (Multi-Delyn Liquid) 5 ml PO DAILY [facility] Last Admin: 10/28/18 10:36 Dose: 5 ml Mupirocin (Bactroban 2% Nasal) 0.25 gm HENRRY BID [facility] Last Admin: 10/28/18 10:41 Dose: 0.25 gm Nystatin (Nystop Topical Powder) 1 applic TOP BID [facility] Last Admin: 10/28/18 10:41 Dose: 1 applic - Labs Labs: 10/27/18 05:52 10/27/18 05:52 PT 16.8 SECONDS (9.7-12.2) H 10/22/18 11:52 INR 1.5 10/22/18 11:52 APTT 30 SECONDS (21-34) 10/22/18 11:52 - Constitutional Appears: Well, Non-toxic, No Acute Distress - Head Exam Head Exam: ATRAUMATIC, NORMAL INSPECTION, NORMOCEPHALIC - Eye Exam Eye Exam: EOMI, Normal appearance Pupil Exam: NORMAL ACCOMODATION, PERRL - ENT Exam ENT Exam: Mucous Membranes Moist - Neck Exam Neck Exam: Full ROM, Normal Inspection - Respiratory Exam Respiratory Exam: NORMAL BREATHING PATTERN - Cardiovascular Exam Cardiovascular Exam: Tachycardia, REGULAR RHYTHM Additional comments: h/o afib; during exam pt is normal sinus on the monitor, tachy at 113. - GI/Abdominal Exam Additional comments: obese - Extremities Exam Extremities Exam: absent: Calf Tenderness, Full ROM, Pedal Edema Additional comments: generalized weakness wound to LLE covered with dry dressing - Neurological Exam Neurological Exam: Altered, Awake. absent: Oriented x3 Neuro motor strength exam: Left Upper Extremity: 4, Right Upper Extremity: 4, Left Lower Extremity: 3, Right Lower Extremity: 3 Additional comments: Speech clear; no aphasia. She remains confused; disoriented x3. Today she is drowsier than yesterday, however, responds to questions and able to follow some simple commands. Sensation intact b/l Unable to assess fine motor 2/2 pt not following commands Still has hypersensitivity noted to plantar aspect of b/l feet No tremors, no clonus - Psychiatric Exam Psychiatric exam: Normal Mood Additional comments: pt more drowsy compared to yesterday but awake and conversing; remains pleasantly confused. - Skin Skin Exam: Dry, Normal Color, Warm Additional comments: wound to LLE covered with dry dressing Assessment and Plan (1) Acute CVA (cerebrovascular accident) Assessment & Plan: Imaging reviewed: -MRI Brain (10/25/18): Small areas of restricted diffusion are seen in the right parietal white matter, the right occipital lobe and the left cerebellar hemisphere. These could represent acute infarcts. However, the findings are not verified on the ADC map images. It is possible that the findings are artifactual. There is no corresponding abnormality seen on FLAIR or T2 images. -CTA Head and neck (10/20/18): 1. Moderate bilateral ICA stenosis at the cavernous segments. 2. High-grade near critical stenosis origin right ICA with moderate origin left ICA stenosis. Both ICAs appear to be patent nevertheless. 3. Moderate distal CCA stenosis bilaterally with additional mild stenosis proximal left CCA. 4. No occlusion or significant intracranial stenosis dunia reciable. -CT Head (10/20/18): Streak artifact obscures evaluation of the skull base. Nonspecific white matter changes. Left occipital encephalomalacia. Generalized volume loss. -ECHO (done on 10/09/18): EF 55-60% Mrs. Oro remains at her baseline mental status. She is slightly more drowsy and is slower to respond compared to yesterday. MRI brain reviewed with Dr. Joseph yesterday shows 3 acute infarcts. Pt has a h/o afib (not on AC outpatient, only ASA and Plavix). She also has a h/o HTN with periods of hypotension (SBP can go as low as 80). Her afib and hypotension could be the cause of her multiple acute infarcts. Dr. Montiel is the accounting manager assistant controller that usually manages her cardiac issues while in the hospital. I discussed the pt with both him and Dr. Brunson. -Continue ASA 81 mg PO daily. -PRU level done yesterday was low; Plavix d/c'd by primary and started Heparin 5, 000 units SQ Q12. -Cardiology consult on board for acute CVA and afib/BP control. -Statin on hold for now: lipid panel reviewed and normal; pt has elevated LFTs. -Continue telemetry. -ECHO w Bubble Study cancelled by department yesterday / "pt is a DNR"---I have re-ordered it--will f/u with results once completed. -Continue PT -Notify neuro for any change in pt condition. Case discussed with Dr. Joseph Status: Acute
--- NOTE | 2018-10-28 21:02 | CON ---
DATE: 10/28/2018 REASON FOR CONSULTATION: Atrial flutter. HISTORY OF PRESENT ILLNESS: The patient is an 88-year-old female who was recently discharged from [facility] to be re-admitted on 10/20/2018 with altered mental status and poor oral intake. The patient was re-admitted four days after her prior discharge to a halfway. During her most recent hospitalization, the patient suffered non-ST elevation myocardial infarction and cardiac workups including an echocardiographic study were consistent with severely calcific aortic stenosis with calculated valve area of 0.5 cm2 as well as moderate pulmonary hypertension. The patient is known to have chronic renal insufficiency. No invasive cardiac workup was considered given the patient's poor general condition as well as underlying renal insufficiency. During this admission, the patient was found on brain MRI to have small areas of restricted diffusion in the right parietal white matter, right occipital lobe,and left cerebellar hemisphere which could represent acute infarcts. The patient is known to have cholelithiasis and hepatobiliary scan was performed this time and was positive. The cystic duct was occluded. The patient at this time is in atrial flutter with 2:1 conduction and is confused. SOCIAL HISTORY: Nonsmoker and nondrinker. She lives with her son until her recent admission last month to [facility] where she was discharged to a halfway. MEDICATIONS: Aspirin 81 mg once a day, heparin 5000 units subcutaneously every 12 hours, multivitamin 5 mL p.o. daily, and Pepcid 20 mg p.o. daily. PAST MEDICAL HISTORY: History of CVA, history of severe aortic stenosis, history of cholelithiasis, history of chronic renal insufficiency, and history of recent non-ST elevation myocardial infarction. PHYSICAL EXAMINATION: GENERAL: The patient is an elderly female who does not appear to be in acute distress. VITAL SIGNS: Blood pressure 133/93, heart rate 104, temperature 97.4, and respirations 16. HEENT: Pale conjunctivae. CHEST: Diminished breath sounds over the bases. HEART: S1 and S2 regular. ABDOMEN: Soft. EXTREMITIES: 2+ pitting edema. Dressings applied to the left lower extremity. DIAGNOSTIC DATA: Chest x-ray revealed normal cardiac silhouette and mild CHF. Head and neck CT angio showed moderate bilateral internal carotid artery stenosis at the cavernous system, high-grade stenosis of the right internal carotid artery with moderate origin left internal carotid artery stenosis. Both internal carotid artery appears to be patent nevertheless. Moderate distal CCA stenosis bilaterally with additional mild stenosis of proximal left CCA. No occlusion or significant intracranial stenosis appreciable. EKG on admission, initial one revealed sinus bradycardia at the rate of 45 with premature disease with old inferior infarct. Subsequent EKG revealed sinus bradycardia at the rate of 42 with possible inferior infarct. LABORATORY DATA: Most recent hemoglobin and hematocrit 9 and 29.3, white count 8.2, platelet count 72,000. SMA-7 yesterday: Sodium 142, potassium 5.3, chloride 107, CO2 of 29, glucose 83, BUN 74, and creatinine 2.4. ASSESSMENT: 1. Marked acute cerebrovascular accident. 2. Acute carotid stenosis. 3. Acute cholecystitis with evidence of occlusion of cystic duct and hepatobiliary stent. 4. Chronic renal insufficiency which is slightly improving now. 5. Mild hyperkalemia. 6. Moderate pulmonary hypertension. 7. Atrial flutter. RECOMMENDATIONS: Continue aspirin 81 mg once a day and subcutaneous heparin 5000 units every 12 hours. Full anticoagulation will be discussed with the primary physician and needs to be cleared by the neurologist first. I requested stat 12-lead EKG now. I will obtain TSH level and follow up echocardiographic study with bubble contrast. Shiv Montiel MD
--- NOTE | 2018-10-29 01:28 | PN ---
DATE: 10/28/2018 FOLLOWUP RENAL CONSULTATION LOCATION: The patient is located in ICU, bed 16. REQUESTED BY: Scottie Alebrto MD REASON FOR FOLLOWUP: Acute renal failure, chronic kidney disease. HISTORY OF PRESENT ILLNESS: Mrs. Oro is an 88-year-old elderly female, obese with a past medical history significant for hypertension, hyperlipidemia, CHF, coronary artery disease, CKD, unilateral small left kidney, dementia, AFib who was admitted from the assisted with altered mental status, increased BUN and creatinine, decreased p.o. intake, hyperkalemia, metabolic acidosis. The patient was treated for hyperkalemia, acidosis initially, and started on IV fluids. The patient is feeling much better, not in acute distress. Off IV fluids. No chest pain. no palpitation. No nausea, no vomiting. PHYSICAL EXAMINATION: VITAL SIGNS: This morning, blood pressure 133/93, pulse 104, respirations 16, temperature 97.4, saturation 98%. Height 5 feet, weight is 197 pounds. GENERAL: Mrs. Oro is an 88-year-old elderly female, well-built, well-nourished, not in acute distress. HEENT: Pupils normal and reactive to light and accommodation. Conjunctivae pink. Sclerae anicteric. Tongue is moist. Trachea is midline. LUNGS: Symmetric on both sides. Bilateral breath sounds present. Clear to auscultation. CARDIOVASCULAR SYSTEM: [place] at the fifth intercostal space midclavicular line. S1, S2 audible. Irregularly irregular. ABDOMEN: Normal in appearance. Slightly protuberant. Soft, tympanitic. Mild right upper quadrant tenderness. No guarding. No rigidity. No hepatosplenomegaly. CENTRAL NERVOUS SYSTEM: The patient is alert, awake, oriented x2. Sensory and motor system is within normal limits. EXTREMITIES: No cyanosis, no clubbing, no edema. CURRENT MEDICATIONS: Include as follows: Bactroban ointment to both nostrils, aspirin 81 mg p.o. daily, subcu heparin 5000 units every 12 hours, Megace 400 mg p.o. daily, multivitamin liquid 5 mL p.o. daily, nystatin topical powder, Pepcid 20 mg p.o. daily. LABORATORY DATA: No new labs available for today. As of 10/27/2018, sodium 142, potassium 5.3, chloride 107, CO2 of 29, BUN 74, creatinine 2.4, glucose 83, calcium 8.5. IMPRESSION AND PLAN: In summary, Mrs. Oro is an 88-year-old elderly female with history of hypertension, hyperlipidemia, coronary artery disease, status post stent placement, congestive heart failure, unilateral small left kidney, coronary artery disease, atrial fibrillation, and dementia. 1. Acute renal failure, chronic kidney disease. Renal function is improving nicely with hydration now. 2. Rule out chronic cholecystitis. 3. Atrial fibrillation. 4. Dementia. PLAN: Repeat CBC, CMP in a.m. and, encouraged p.o. intake. We will follow with you. Thank you for allowing me to participate in your patient's care. The patient is a DNR/DNI. Alfred Lobato MD
--- NOTE | 2018-10-29 01:35 | PN ---
DATE: 10/28/2018 SUBJECTIVE: The patient is still in ICU, and the patient is responsive to verbal stimuli, but the patient looked very tired. PHYSICAL EXAMINATION: VITAL SIGNS: Blood pressure 113/67, pulse 112, respirations 16, and temperature 96.9. GENERAL: The patient is somewhat bloated. Still anorexic. LUNGS: Some fine rales at the bases. HEART: Tachycardic and irregular. ABDOMEN: Soft. Positive bowel sounds. EXTREMITIES: There is some edema and there is a wound to the left leg. LABORATORY DATA: The patient has lab that was done on 10/27/2018. WBC 8.2, hemoglobin 9, hematocrit 29.3, and platelet is 72. PLAN: The patient has a consult with Dr. Montiel, the tennis instructor. The consult is appreciated, and the plan is that we are going to continue on the conservative treatment, and the patient may be transferred to telemetry, and the plan was discussed with the nurse, this morning. Shailesh Brunson MD
[2018-10-29 06:02] LABS: HEMOGLOBIN 9.1 g/dL (11.0-16.0); MEAN CELL VOLUME 104.3 fL (81.0-99.0); MEAN CORPUSCULAR HEMOGLOBIN 30.1 pg (27.0-31.0); MEAN CORPUSCULAR HGB CONC 28.9 g/dL (33.0-37.0); MEAN PLATELET VOLUME 9.7 fL (7.2-11.7); RBC 3.02 Mil/uL (3.80-5.20); RED CELL DISTRIBUTION WIDTH 23.1 % (11.5-14.5); WHITE BLOOD COUNT 6.8 K/uL (4.8-10.8)
[2018-10-29 06:25] LABS: ALB/GLOB RATIO 0.7 (1.0-2.1); ALBUMIN 2.9 g/dL (3.5-5.0); CALCIUM 8.5 mg/dl (8.6-10.4)
[2018-10-29] MEDS: Mupirocin 2% Ointment (NASAL) NAS SCH ×2 (09:36→17:41)
[2018-10-29] MEDS: Megestrol Acetate 40 mg/ml Cup PO SCH (09:37)
[2018-10-29] MEDS: Multiple Vitamins Oral Solution PO SCH (09:42)
--- NOTE | 2018-10-29 11:54 | CP.PCM.PN ---
Subjective - Date & Time of Evaluation Date of Evaluation: 10/29/18 Time of Evaluation: 11:53 - Subjective Subjective: pt is seen and examined, follow up consult is dictated #[id number] josé luis is back to her base line 1.7 on 10/15/2018 Objective - Vital Signs/Intake and Output Vital Signs (last 24 hours): Temp Pulse Resp BP Pulse Ox 97.4 F L 109 H 24 108/79 100 10/29/18 08:00 10/29/18 10:00 10/29/18 04:00 10/29/18 04:00 10/29/18 08:00 Intake and Output: 10/29/18 10/29/18 06:59 18:59 Intake Total 50 Output Total 300 Balance -250 - Medications Medications: Current Medications Aspirin (Ecotrin) 81 mg PO DAILY [facility] Last Admin: 10/29/18 09:37 Dose: 81 mg Famotidine (Pepcid) 20 mg PO DAILY [facility] Last Admin: 10/29/18 09:37 Dose: 20 mg Heparin Sodium (Porcine) (Heparin) 5,000 units SC Q12H [facility] Last Admin: 10/29/18 09:36 Dose: 5,000 units Megestrol Acetate (Megace) 400 mg PO DAILY [facility] Last Admin: 10/29/18 09:37 Dose: 400 mg Multivitamins/Vitamin C (Multi-Delyn Liquid) 5 ml PO DAILY [facility] Last Admin: 10/29/18 09:42 Dose: 5 ml Mupirocin (Bactroban 2% Nasal) 0.25 gm HENRRY BID [facility] Last Admin: 10/29/18 09:36 Dose: 0.25 gm Nystatin (Nystop Topical Powder) 1 applic TOP BID [facility] Last Admin: 10/29/18 09:37 Dose: 1 applic - Labs Labs: 10/29/18 05:55 10/29/18 05:55 PT 16.8 SECONDS (9.7-12.2) H 10/22/18 11:52 INR 1.5 10/22/18 11:52 APTT 30 SECONDS (21-34) 10/22/18 11:52
--- NOTE | 2018-10-29 13:11 | PN ---
DATE: 10/29/2018 LOCATION: ICU 16. SUBJECTIVE: This is an 88-year-old female, seen and examined in rounds, in a state of DNR and DNI without significant reported clinical changes. No reported active bleeding, chest pain, palpitation, but generalized weakness and malaise. The most recent lab results showed hemoglobin 9.1, hematocrit 31.5 with thrombocytopenia of 98, BUN 57, creatinine 1.7, calcium 8.5, total bilirubin 3.4, AST 70, ALT 154, alkaline phosphatase 153 with low albumin. PHYSICAL EXAMINATION: GENERAL: An 88-year-old female. VITAL SIGNS: Afebrile with pulse of 106, respiratory rate 20 to 24, blood pressure of 116/82. HEENT: Showed pale dry oral mucoid membrane. Nonicteric sclerae. LUNGS: Few scattered crepitation. Decreased air entry at bases. HEART: Positive S1 and S2. ABDOMEN: Soft with mild generalized tenderness. No mass or organomegaly. No rebound tenderness or guarding. EXTREMITIES: Without significant clubbing, cyanosis or edema. NEUROLOGIC: No reported new neurological deficits, sensory or motor. IMPRESSION: 1. Recent history of cerebrovascular accident. 2. Reported diagnosis of cholelithiasis, severe aortic stenosis, chronic renal insufficiency with possible recent myocardial infarction. 3. Evidence of moderate pulmonary hypertension. 4. Reported atrial flutter, by recent history. 5. Abnormal liver function tests, most likely secondary to right-sided heart failure, slightly improving. 6. Elevated CEA level with hypochromic microcytic anemia, raising the possibility of colon carcinoma. 7. Jaundice, secondary to above. 8. History of hyperlipidemia, coronary artery disease, status post cardiac stent insertion as well as congestive heart failure. 9. Known history of poorly controlled diabetes mellitus. SUGGESTIONS: 1. Continue current management. 2. The patient in a state of DNR and DNI and conservative treatment only to follow. No aggressive GI workup in the meantime. 3. Further recommendation to follow. Avni Gimenez MD
--- NOTE | 2018-10-29 15:11 | CP.PCM.PN ---
Subjective - Date & Time of Evaluation Date of Evaluation: 10/29/18 Time of Evaluation: 15:03 - Subjective Subjective: Neurology Follow-Up Note: Mrs. Oro was evaluated this afternoon in the ICU. She remains on telemetry. Today she is awake and alert compared to yesterday. States that she feels "lowsy" because of being moved around for the ECHO today. She is able to follow simple commands. She offers no specific complaints. Denies h/a, dizziness, visual changes, chest pain, palpitations, sob, cough, abd pain, n/v/d. Objective - Vital Signs/Intake and Output Vital Signs (last 24 hours): Temp Pulse Resp BP Pulse Ox 97.8 F 114 H 16 108/79 100 10/29/18 12:00 10/29/18 12:00 10/29/18 12:00 10/29/18 04:00 10/29/18 12:00 Intake and Output: 10/29/18 10/29/18 06:59 18:59 Intake Total 50 Output Total 300 Balance -250 - Medications Medications: Current Medications Aspirin (Ecotrin) 81 mg PO DAILY [facility] Last Admin: 10/29/18 09:37 Dose: 81 mg Famotidine (Pepcid) 20 mg PO DAILY [facility] Last Admin: 10/29/18 09:37 Dose: 20 mg Heparin Sodium (Porcine) (Heparin) 5,000 units SC Q12H [facility] Last Admin: 10/29/18 09:36 Dose: 5,000 units Megestrol Acetate (Megace) 400 mg PO DAILY [facility] Last Admin: 10/29/18 09:37 Dose: 400 mg Multivitamins/Vitamin C (Multi-Delyn Liquid) 5 ml PO DAILY [facility] Last Admin: 10/29/18 09:42 Dose: 5 ml Mupirocin (Bactroban 2% Nasal) 0.25 gm HENRRY BID [facility] Last Admin: 10/29/18 09:36 Dose: 0.25 gm Nystatin (Nystop Topical Powder) 1 applic TOP BID [facility] Last Admin: 10/29/18 09:37 Dose: 1 applic - Labs Labs: 10/29/18 05:55 10/29/18 05:55 PT 16.8 SECONDS (9.7-12.2) H 10/22/18 11:52 INR 1.5 10/22/18 11:52 APTT 30 SECONDS (21-34) 10/22/18 11:52 - Constitutional Appears: Well, Non-toxic, No Acute Distress - Head Exam Head Exam: ATRAUMATIC, NORMAL INSPECTION, NORMOCEPHALIC - Eye Exam Eye Exam: EOMI, Normal appearance, PERRL Pupil Exam: NORMAL ACCOMODATION, PERRL - ENT Exam ENT Exam: Mucous Membranes Moist - Neck Exam Neck Exam: Full ROM, Normal Inspection - Respiratory Exam Respiratory Exam: NORMAL BREATHING PATTERN - Cardiovascular Exam Cardiovascular Exam: Tachycardia (hr 108- afib ), Irregular Rhythm - GI/Abdominal Exam Additional comments: obese - Neurological Exam Neurological Exam: Alert, Altered, Awake, CN II-XII Intact, Reflexes Normal. absent: Oriented x3 Neuro motor strength exam: Left Upper Extremity: 4 (skates operator 4/5), Right Upper Extremity: 4 (skates operator 4/5), Left Lower Extremity: 3, Right Lower Extremity: 3 Additional comments: Speech clear; no aphasia. She remains confused; disoriented x3. Alert and awake today Able to follow some simple commands. Sensation intact b/l Unable to assess fine motor 2/2 pt not following commands Still has hypersensitivity noted to plantar aspect of b/l feet No tremors, no clonus - Psychiatric Exam Psychiatric exam: Normal Affect, Normal Mood Additional comments: baseline confused - Skin Skin Exam: Normal Color Assessment and Plan (1) Acute CVA (cerebrovascular accident) Assessment & Plan: Imaging reviewed: -MRI Brain (10/25/18): Small areas of restricted diffusion are seen in the right parietal white matter, the right occipital lobe and the left cerebellar hemisphere. These could represent acute infarcts. However, the findings are not verified on the ADC map images. It is possible that the findings are artifactual. There is no corresponding abnormality seen on FLAIR or T2 images. -CTA Head and neck (10/20/18): 1. Moderate bilateral ICA stenosis at the cavernous segments. 2. High-grade near critical stenosis origin right ICA with moderate origin left ICA stenosis. Both ICAs appear to be patent nevertheless. 3. Moderate distal CCA stenosis bilaterally with additional mild stenosis proximal left CCA. 4. No occlusion or significant intracranial stenosis appreciable. -CT Head (10/20/18): Streak artifact obscures evaluation of the skull base. Nonspecific white matter changes. Left occipital encephalomalacia. Generalized volume loss. -ECHO without Bubble (done on 10/09/18): EF 55-60% Mrs. Oro remains at her baseline mental status. She is more alert compared to yesterday. She had the ECHO with bubble today. -Continue ASA 81 mg PO daily. -Continue Heparin 5, 000 units SQ Q12. -ECHO w Bubble Study done today---will f/u with results once completed. -Cardiology consult on board for acute CVA and afib/BP control. -Statin on hold for now: lipid panel reviewed and normal; pt has elevated LFTs. -Continue telemetry. -Continue PT -Will discuss AC options with cardio and primary once ECHO we receive ECHO r esults. -Notify neuro for any change in pt condition. Case discussed with Dr. Joseph Status: Acute
--- NOTE | 2018-10-29 15:19 | PN ---
DATE: 10/29/2018 SUBJECTIVE: The patient is confused. She is in atrial flutter with 2:1 conduction, mildly short of breath. PHYSICAL EXAMINATION: VITAL SIGNS: Blood pressure 108/79, heart rate 114, temperature 97.8, respirations 16. HEENT: Pale conjunctivae. LUNGS: Absent breath sounds over the bases. HEART: S1 and S2 regular. Grade 4/6 ejection systolic murmur over the left sternal border. ABDOMEN: Soft. EXTREMITIES: 2+ pitting edema. LABORATORY DATA: Hemoglobin and hematocrit 9.1 and 31.5. White count 6.8, platelet count 98,000. SMA-7, sodium 145, potassium 4.1, chloride 109, CO2 of 28, glucose 98, BUN 57, creatinine 1.7. EKG done yesterday revealed atrial flutter with 2:1 conduction at rate of 114. ASSESSMENT: 1. Paroxysmal atrial flutter. 2. Improving renal insufficiency. 3. Critical aortic stenosis. 4. Moderate pulmonary hypertension. 5. Cystic duct obstruction. 6. Possible acute cerebellar infarct involving the right parietal white matter and right occipital lobe and left cerebellar hemisphere. RECOMMENDATIONS: Continue current aspirin 81 mg once a day. Consider for anticoagulation therapy if cleared from the neurological point of view. Continue Pepcid 20 mg once a day. I will follow echo with bubble contrast study. The patient will be scheduled for a ventilation-perfusion scan. Shiv Montiel MD
--- NOTE | 2018-10-29 15:59 | NM ---
Date of service: 10/29/2018 COMPARISON: October 29, 2018 single-view chest. TECHNIQUE: 10.1 mCi technetium 99-m Xe-133 Gas. 3.8 mCI technetium 99-m MAA administered intravenously. FINDINGS: VENTILATION COMPONENT: Heterogeneous ventilation. Retention of radionuclide on the delayed images suggest a component COPD. PERFUSION COMPONENT: Heterogeneous distribution of radionuclide. No geographic, segmental, lobar abnormalities apparent on the present examination. IMPRESSION: Low probability ventilation perfusion scan for pulmonary embolism.
--- NOTE | 2018-10-29 16:02 | RAD ---
HISTORY: needed for VQ scan COMPARISON: Chest x-ray performed 10/20/18 TECHNIQUE: Chest, one view. FINDINGS: Examination limited by habitus and hypoinflation. LUNGS: Moderate pulmonary venous congestion. PLEURA: No significant pleural effusion identified. No definite pneumothorax . CARDIOVASCULAR: Cardiomegaly. Dense atherosclerotic calcifications of the aorta. OSSEOUS STRUCTURES: Degenerative changes. Osseous demineralization. Deformities of bilateral humeral heads. VISUALIZED UPPER ABDOMEN: Unremarkable. OTHER FINDINGS: None. IMPRESSION: Moderate pulmonary venous congestion. Cardiomegaly.
[2018-10-29] MEDS ORDERED: EPOETIN ALFA 10,000 UNIT/ML ML SC ONE (20:42)
--- NOTE | 2018-10-29 23:35 | CARD ---
APPROVED REPORT Date of service: 10/29/2018 EXAM: LIMITED Two-dimensional echocardiogram with saline bubble. INDICATION CVA/TIA Atrial Fibrillation Echo Enhancing Agent Indication: Rule Out Septal Defect Agent/Amount Used: Agitated Saline Mitral Valve E/A ratio0.0 TDI E/Lateral E'0.0E/Medial E'0.0 <Conclusion> Using agitated saline as contrast, no clear-cut evidence of bubble crossing the ventricular and atrial septum to suggest presence of ASD or VSD. Moderate mitral annular calcification was noted.
--- NOTE | 2018-10-30 00:38 | PN ---
DATE: 10/29/2018 FOLLOWUP RENAL CONSULTATION LOCATION: The patient is located in ICU, bed 16. REQUESTED BY: Scottie Alberto MD REASON FOR RENAL FOLLOWUP: Acute renal failure, chronic kidney disease. SUBJECTIVE: Mrs. Oro is an 88-year-old elderly obese female with a past medical history significant for hypertension, hyperlipidemia, coronary artery disease, status post coronary stent, CHF, CKD 3, unilateral small left kidney, dementia, AFib, was recently discharged from the [facility], and the patient was admitted on 10/20/2018 with worsening renal function and decreased oral intake, altered mental status, acute renal failure, metabolic acidosis, hyperkalemia. The patient is feeling much better. The patient is out of bed to chair. Denies any shortness of breath. Denies any pain. Denies any diarrhea or vomiting. PHYSICAL EXAMINATION: VITAL SIGNS: As follows: Blood pressure 100/65, pulse 114, respirations 16, temperature 97.8, saturation 100%. Height 5 feet, weight is 195 pounds, BMI 38.2. GENERAL: Mrs. Oro is an 88-year-old elderly female, moderately built, moderately nourished, not in distress. HEENT: Pupils normal, reactive to light and accommodation. Conjunctivae pink. Sclerae anicteric. Tongue is moist. Trachea is midline. LUNGS: Symmetric on both sides. Bilateral breath sounds present. Clear to auscultation. CARDIOVASCULAR SYSTEM: [place] at the fifth intercostal space, midclavicular line. S1 and S2 audible. An ejection systolic murmur is present connecting to both carotids. ABDOMEN: Slightly protuberant, soft. Mild right upper quadrant tenderness present. No guarding. No rigidity. No abdominal bruit. CENTRAL NERVOUS SYSTEM: The patient is alert, awake, oriented x2. Sensory and motor system is grossly within normal limits. EXTREMITIES: No cyanosis, no clubbing. Trace edema in both lower extremities. CURRENT MEDICATIONS: Include as follows: Bactroban ointment in both nostrils b.i.d., aspirin 81 mg p.o. daily, subcu heparin 5000 every 12 hours, Megace 400 mg p.o. daily, multivitamin syrup 5 mL p.o. daily, nystatin topical powder b.i.d., and Pepcid 20 mg p.o. daily. LABORATORY DATA: Include as follows: As of 10/29/2018, WBC 6.8, hemoglobin 9.1, hematocrit is 31.5, platelets 98. Sodium 145, potassium 4.1, chloride 109, CO2 of 28, BUN 57, creatinine 1.7, glucose 98, calcium 8.5. Total bilirubin 3.4, AST 70, ALT 154, alkaline phosphatase 153, total protein 6.9, albumin is 2.9. ASSESSMENT AND PLAN: In summary, Mrs. Oro is an 88-year-old elderly female with hypertension, hyperlipidemia, coronary artery disease, congestive heart failure, chronic kidney disease, atrial fibrillation, was admitted with altered mental status and increased blood urea nitrogen and creatinine. 1. Acute renal failure on chronic kidney disease 3. 2. Status post dehydration. 3. Atrial fibrillation. 4. Rule out chronic cholecystitis. 5. Abnormal liver function tests. Liver function tests are slowly improving. The patient is off intravenous fluids. Continue to monitor basic metabolic profile. 6. Anemia secondary to chronic kidney disease and multiple hospitalizations, rule out iron-deficiency anemia. We will add Procrit 10,000 units subcutaneously x1 dose. Thank you for allowing me to participate in your patient's care. Alfred Lobato MD
--- NOTE | 2018-10-30 02:35 | PN ---
DATE: 10/29/2018 SUBJECTIVE: Today, the patient is somewhat more awake. Denies any chest pain or palpitation. The patient is resting in bed this morning and only feels weak. The patient is still in ICU. PHYSICAL EXAMINATION VITAL SIGNS: The patient has a blood pressure of 100/65, pulse 114, respirations 16, temperature 97.8. HEENT: Head is normocephalic. NECK: Supple. LUNGS: There is poor inspiratory effort; however, there are fine rales on the bases. HEART: Tachycardic and positive murmur. ABDOMEN: Soft, obese, nontender. EXTREMITIES: There is a wound in the left leg. LABORATORY DATA: The patient had a blood test done and it showed WBC 6.8, hemoglobin 9.1, hematocrit 31.5 and platelets 98. Chemistries showed that sodium 145, potassium 4.1, chloride , BUN 67, creatinine 1.7 down and glucose went down to 154 from 215, alkaline phosphatase 163, ALT 154, AST 70, total bilirubin went down also to 2.4. PLAN: We ordered a V/Q scan, that was done also this evening, that showed low probability. The CAT scan of the abdomen and pelvis was ordered and results pending. We are going to continue the current treatment, and we will consider anticoagulants when cleared by neurologist. Shailesh Brunson MD
[2018-10-30] MEDS: Megestrol Acetate 40 mg/ml Cup PO SCH (09:22)
[2018-10-30] MEDS: Multiple Vitamins Oral Solution PO SCH (09:22)
[2018-10-30] MEDS: Mupirocin 2% Ointment (NASAL) NAS SCH ×2 (09:22→18:16)
--- NOTE | 2018-10-30 11:47 | CP.PCM.PN ---
Subjective - Date & Time of Evaluation Date of Evaluation: 10/30/18 Time of Evaluation: 11:46 - Subjective Subjective: pt is seen and examined, follow up consult is dictated #[id number] check labs in am Objective - Vital Signs/Intake and Output Vital Signs (last 24 hours): Temp Pulse Resp BP Pulse Ox 97.9 F 110 H 18 110/72 100 10/30/18 08:00 10/30/18 10:00 10/30/18 08:00 10/30/18 04:00 10/30/18 08:00 Intake and Output: 10/30/18 10/30/18 06:59 18:59 Intake Total 150 Output Total 150 Balance 0 - Medications Medications: Current Medications Aspirin (Ecotrin) 81 mg PO DAILY [facility] Last Admin: 10/30/18 09:21 Dose: 81 mg Famotidine (Pepcid) 20 mg PO DAILY [facility] Last Admin: 10/30/18 09:21 Dose: 20 mg Heparin Sodium (Porcine) (Heparin) 5,000 units SC Q12H [facility] Last Admin: 10/30/18 09:22 Dose: 5,000 units Megestrol Acetate (Megace) 400 mg PO DAILY [facility] Last Admin: 10/30/18 09:22 Dose: 400 mg Multivitamins/Vitamin C (Multi-Delyn Liquid) 5 ml PO DAILY [facility] Last Admin: 10/30/18 09:22 Dose: 5 ml Mupirocin (Bactroban 2% Nasal) 0.25 gm HENRRY BID [facility] Last Admin: 10/30/18 09:22 Dose: 0.25 gm Nystatin (Nystop Topical Powder) 1 applic TOP BID [facility] Last Admin: 10/30/18 09:22 Dose: 1 applic - Labs Labs: 10/29/18 05:55 10/29/18 05:55 PT 16.8 SECONDS (9.7-12.2) H 10/22/18 11:52 INR 1.5 10/22/18 11:52 APTT 30 SECONDS (21-34) 10/22/18 11:52
--- NOTE | 2018-10-30 14:39 | CT ---
Date of service: 10/30/2018 PROCEDURE: CT HEAD WITHOUT CONTRAST. HISTORY: re-eval stroke; r/o hemorrhagic conversion COMPARISON: 10/20/2018 as well as MRI of 10/25/2018. TECHNIQUE: Axial computed tomography images were obtained through the head/brain without intravenous contrast. Radiation dose: Total exam DLP = 2471.9 mGy-cm. This CT exam was performed using one or more of the following dose reduction techniques: Automated exposure control, adjustment of the mA and/or kV according to patient size, and/or use of iterative reconstruction technique. FINDINGS: HEMORRHAGE: No intracranial hemorrhage. BRAIN: No intracranial mass. No evidence of acute infarct extensive left occipital encephalomalacia unchanged from prior. There is moderate periventricular white matter lucency with patchy and confluent deep/subcortical white matter lucency, consistent with microvascular white matter ischemic change. No evidence of acute infarct. VENTRICLES: No hydrocephalus. There is dilatation of the occipital horn of left lateral ventricle secondary to surrounding parenchymal loss there is no midline shift. CALVARIUM: Unremarkable. PARANASAL SINUSES: Unremarkable as visualized. No significant inflammatory changes. MASTOID AIR CELLS: Unremarkable as visualized. No inflammatory changes. OTHER FINDINGS: None. IMPRESSION: No evidence of acute infarct. No intracranial hemorrhage. Left occipital encephalomalacia change unchanged in appearance from 10/20/2018. Moderate chronic white matter ischemic change.
--- NOTE | 2018-10-30 17:42 | PN ---
DATE: 10/30/2018 SUBJECTIVE: The patient is still confused. Monitor as she is in atrial flutter with 2:1 conduction. PHYSICAL EXAMINATION: VITAL SIGNS: Blood pressure 110/72, heart rate 115, temperature 97.5, respirations 20. HEENT: Pale conjunctivae. CHEST: Diminished breath sounds over the bases. HEART: S1 and S2 regular. Grade 4/6 ejection systolic murmur over the left sternal border. ABDOMEN: Soft. EXTREMITIES: 2+ pitting edema. LABORATORY DATA: A ventilation perfusion scan low probability for pulmonary embolism. ASSESSMENT: 1. Atrial flutter residual conduction. 2. Critical aortic stenosis. 3. Moderate pulmonary hypertension. 4. Possible acute cerebellar infarcts involving the right parietal white matter, right occipital lobe and left cerebellar hemisphere. RECOMMENDATIONS: Continue current aspirin 81 mg once daily and consider initiating Eliquis at 2.5 mg daily if cleared from the neurological point of view. In the meantime continue current multivitamin and oral Pepcid. Shiv Montiel MD
--- NOTE | 2018-10-30 18:09 | CP.PCM.PN ---
<TorresTiki - Last Filed: 10/30/18 19:05> Subjective - Date & Time of Evaluation Date of Evaluation: 10/30/18 Time of Evaluation: 10:00 - Subjective Subjective: Neurology Progress Note: Patient was seen and examined at bedside. Patient is awake and alert. She is able to follow simple commands. She offers no specific complaints. Objective - Vital Signs/Intake and Output Vital Signs (last 24 hours): Temp Pulse Resp BP Pulse Ox 97.9 F 108 H 18 110/72 100 10/30/18 08:00 10/30/18 16:00 10/30/18 08:00 10/30/18 04:00 10/30/18 08:00 Intake and Output: 10/30/18 10/30/18 06:59 18:59 Intake Total 150 Output Total 150 Balance 0 - Medications Medications: Current Medications Aspirin (Ecotrin) 81 mg PO DAILY [facility] Last Admin: 10/30/18 09:21 Dose: 81 mg Famotidine (Pepcid) 20 mg PO DAILY [facility] Last Admin: 10/30/18 09:21 Dose: 20 mg Heparin Sodium (Porcine) (Heparin) 5,000 units SC Q12H [facility] Last Admin: 10/30/18 09:22 Dose: 5,000 units Megestrol Acetate (Megace) 400 mg PO DAILY [facility] Last Admin: 10/30/18 09:22 Dose: 400 mg Multivitamins/Vitamin C (Multi-Delyn Liquid) 5 ml PO DAILY [facility] Last Admin: 10/30/18 09:22 Dose: 5 ml Mupirocin (Bactroban 2% Nasal) 0.25 gm HENRRY BID [facility] Last Admin: 10/30/18 09:22 Dose: 0.25 gm Nystatin (Nystop Topical Powder) 1 applic TOP BID [facility] Last Admin: 10/30/18 09:22 Dose: 1 applic - Labs Labs: 10/29/18 05:55 10/29/18 05:55 PT 16.8 SECONDS (9.7-12.2) H 10/22/18 11:52 INR 1.5 10/22/18 11:52 APTT 30 SECONDS (21-34) 10/22/18 11:52 - Constitutional Appears: No Acute Distress, Chronically Ill - Head Exam Head Exam: ATRAUMATIC, NORMAL INSPECTION - Eye Exam Eye Exam: EOMI, Normal appearance - ENT Exam ENT Exam: Mucous Membranes Moist - Respiratory Exam Respiratory Exam: NORMAL BREATHING PATTERN - Cardiovascular Exam Cardiovascular Exam: Tachycardia, Irregular Rhythm - GI/Abdominal Exam GI & Abdominal Exam: Soft, Normal Bowel Sounds. absent: Tenderness - Neurological Exam Neurological Exam: Alert, Awake. absent: Oriented x3 Additional comments: Alert and awake today Able to follow some simple commands. Unable to assess fine motor 2/2 pt not following commands Assessment and Plan - Assessment and Plan (Free Text) Assessment: Acute CVA Imaging reviewed: - MRI Brain (10/25/18): Small areas of restricted diffusion are seen in the right parietal white matter, the right occipital lobe and the left cerebellar he misphere. These could represent acute infarcts. However, the findings are not verified on the ADC map images. It is possible that the findings are artifactual. There is no corresponding abnormality seen on FLAIR or T2 images. - CTA Head and neck (10/20/18): 1. Moderate bilateral ICA stenosis at the cavernous segments. 2. High-grade near critical stenosis origin right ICA with moderate origin left ICA stenosis. Both ICAs appear to be patent nevertheless. 3. Moderate distal CCA stenosis bilaterally with additional mild stenosis proximal left CCA. 4. No occlusion or significant intracranial stenosis appreciable. - CT Head (10/20/18): Streak artifact obscures evaluation of the skull base. Nonspecific white matter changes. Left occipital encephalomalacia. Generalized volume loss. - ECHO without Bubble (done on 10/09/18): EF 55-60% - f/u ECHO with Bubble study - Repeat Head CT (10/30/18): No evidence of acute infarct. No intracranial hemorrhage. - Patient was restarted on Eliquis 2.5mg daily - Continue ASA 81 mg PO daily. - Continue Heparin 5, 000 units SQ Q12. -Cardiology consult on board for acute CVA and afib/BP control. - Statin on hold for now: lipid panel reviewed and normal; pt has elevated LFTs. - Continue telemetry. - Continue PT - Notify neuro for any change in pt condition. Case discussed with Dr. Jake Torres PGY-2 <Aaron Joseph - Last Filed: 11/02/18 13:54> Objective - Vital Signs/Intake and Output Vital Signs (last 24 hours): Temp Pulse Resp BP Pulse Ox 98.4 F 88 18 129/94 H 100 11/02/18 08:00 11/02/18 10:00 11/02/18 08:00 11/02/18 04:00 11/02/18 08:00 Intake and Output: 11/02/18 11/02/18 06:59 18:59 Output Total 0 Balance 0 - Medications Medications: Current Medications Apixaban (Eliquis) 2.5 mg PO DAILY [facility] Last Admin: 11/02/18 09:48 Dose: 2.5 mg Aspirin (Ecotrin) 81 mg PO DAILY [facility] Last Admin: 11/02/18 09:48 Dose: 81 mg Bisacodyl (Dulcolax) 5 mg PO BID [facility] Last Admin: 11/02/18 09:47 Dose: 5 mg Famotidine (Pepcid) 20 mg PO DAILY [facility] Last Admin: 11/02/18 09:48 Dose: 20 mg Megestrol Acetate (Megace) 400 mg PO DAILY [facility] Last Admin: 11/02/18 09:47 Dose: 400 mg Metoprolol Tartrate (Lopressor) 25 mg PO BID [facility] Last Admin: 11/01/18 17:51 Dose: Not Given Multivitamins/Vitamin C (Multi-Delyn Liquid) 5 ml PO DAILY [facility] Last Admin: 11/02/18 09:47 Dose: 5 ml Mupirocin (Bactroban 2% Nasal) 0.25 gm HENRRY BID [facility] Last Admin: 11/01/18 17:51 Dose: 0.25 gm Nystatin (Nystop Topical Powder) 1 applic TOP BID [facility] Last Admin: 11/02/18 09:48 Dose: 1 applic - Labs Labs: 10/29/18 05:55 11/02/18 10:45 PT 16.8 SECONDS (9.7-12.2) H 10/22/18 11:52 INR 1.5 10/22/18 11:52 APTT 30 SECONDS (21-34) 10/22/18 11:52 Attending/Attestation - Attestation I have personally seen and examined this patient.: Yes I have fully participated in the care of the patient.: Yes I have reviewed all pertinent clinical information, including history, physical exam and plan: Yes Notes (Text): I agree with the assessment and plan: - Continue ASA 81 mg PO daily. - Continue Heparin 5, 000 units SQ Q12. -Cardiology consult on board for acute CVA and afib/BP control. - Statin on hold for now: lipid panel reviewed and normal; pt has elevated LFTs. - Continue telemetry. - Continue PT
--- NOTE | 2018-10-30 20:07 | PN ---
DATE: 10/30/2018 LOCATION: ICU 16. SUBJECTIVE: This is an 88-year-old female seen and examined early in rounds, appeared to be somewhat awake, with difficult confusion and mild disorientation, is still on nasal cannula for oxygen supplement with not supple generalized edematous changes. No reported active bleeding or chest pain or significant shortness of breath. No reported chills or fever. The entire chart is reviewed and today's lab results still pending; however, the patient still has persistent low hemoglobin and hematocrit with thrombocytopenia with generalized jaundice and elevated liver function test about gradually improving with low albumin. Today's head CAT scan is seen and official report is evaluated with possible left occipital encephalomalacia changes. PHYSICAL EXAMINATION: GENERAL: An 88-year-old female. VITAL SIGNS: Afebrile with pulse of 106, respiratory rate 22, blood pressure 116/74. HEENT: Showed pale dry oral mucoid membrane. Nonicteric sclerae. LUNGS: Few scattered crepitation. Decreased air entry at bases. HEART: Positive S1 and S2. ABDOMEN: Soft, mildly obese with mild distention. No mass or organomegaly. No rebound tenderness or guarding. EXTREMITIES: Edematous changes. No clubbing or cyanosis. NEUROLOGIC: No reported new neurological deficits, sensory, or motor. IMPRESSION: 1. Recent history of cerebrovascular accident. 2. Elevated carcinoembryonic antigen level raising the question of possible lower gastrointestinal tract neoplasm. 3. Recently diagnosed cholelithiasis, severe aortic stenosis with possible recent myocardial infarction. 4. Chronic renal insufficiency. 5. Evidence of moderate pulmonary hypertension. 6. Atrial fibrillation by recent history. 7. Anemia secondary to above. 8. Abnormal liver function tests, we assume that could be secondary to drug-induced versus infectious process, however, the possibility of right side heart failure inducing cholestatic picture is highly suggested. 9. Known history of hyperlipidemia, coronary artery disease, status post cardiac stent insertion with congestive heart failure. 10. Poorly controlled diabetes mellitus. SUGGESTIONS: 1. Continue current management. 2. The patient will need endoscopic evaluation of the gastrointestinal tract; however, due to clinical status, I prefer to avoid any further aggressive gastrointestinal procedures. Avni Gimenez MD
--- NOTE | 2018-10-31 01:10 | PN ---
DATE: 10/30/2018 SUBJECTIVE: This patient is still in ICU, and the patient was seen early this morning and resting comfortably in bed, but the patient responding to verbal questions but not able to engage to a complex dialogue. The patient denied any chest pain or shortness of breath and still has poor appetite. PHYSICAL EXAMINATION: VITAL SIGNS: The patient has blood pressure of 110/70, pulse is 106, respirations 18, temperature is 98 degree Fahrenheit. The patient has nasal cannula at 2 liters per minute. NECK: Supple. LUNGS: Some fine rales at the bases. HEART: Regular rate and rhythm. Positive murmur. ABDOMEN: Soft. Positive bowel sound. EXTREMITIES: There is wound to the left leg. The plan is that we are going to continue the current treatment and a ventilation/perfusion scan was done. No pulmonary embolism. The patient also was seen by Dr. Montiel, the collator operator. We are going to continue the current treatment. Shailesh Brunson MD
--- NOTE | 2018-10-31 06:56 | CON ---
DATE: 10/30/2018 FOLLOWUP RENAL CONSULTATION LOCATION: The patient is located in ICU 16. REQUESTED BY: Scottie Alberto MD REASON FOR RENAL CONSULTATION: Chronic kidney disease. HISTORY OF PRESENT ILLNESS: Mrs. Oro is an 88-year-old elderly female with a past medical history significant for longstanding hypertension, hyperlipidemia, coronary artery disease, CHF, CKD, unilateral small left kidney, AFib, dementia, was recently discharged from [facility] on 10/16/2018 and readmitted on 10/20/2018 with altered mental status, increased BUN and creatinine, and decreased p.o. intake. The patient was given IV fluids and serum creatinine gradually improved, the last serum creatinine is 1.7. The patient denies any complaints. Denies any chest pain. Denies any shortness of breath. Denies any nausea, vomiting. Denies any abdominal pain this morning. PHYSICAL EXAMINATION: VITAL SIGNS: As follows: Blood pressure this morning 110/72, pulse rate is 114 to 115, respirations 20, temperature 97.9, saturation 100% on 2 liters nasal cannula. Height 5 feet, weight is 195 pounds. GENERAL: Mrs. Oro is an 88-year-old elderly female, well-built, well-nourished, not in acute distress. HEENT: Pupils normal, reactive to light and accommodation. Conjunctivae pink. Sclerae anicteric. Tongue is moist. Trachea is midline. LUNGS: Symmetric on both sides. Bilateral breath sounds present. Clear to auscultation. CARDIOVASCULAR SYSTEM: [place] at the fifth intercostal space, midclavicular line. S1, S2 audible. Irregularly irregular. Slightly tachycardic. ABDOMEN: Normal in appearance. Soft, tympanitic. Mild right upper quadrant tenderness. No guarding. No rigidity. No abdominal bruit. No hepatosplenomegaly. CENTRAL NERVOUS SYSTEM: The patient is alert, awake, oriented x2. Sensory and motor system within normal limits. EXTREMITIES: No cyanosis, no clubbing, no edema. CURRENT MEDICATIONS: Include as follows: Bactroban ointment to both nostrils b.i.d., aspirin 81 mg daily, Eliquis 2.5 mg p.o. daily, subcu heparin 5000 every 12 hours, Megace 400 mg p.o. daily, multivitamin liquid 5 mL p.o. daily, nystatin topical powder b.i.d., and Pepcid 20 mg p.o. daily. LABORATORY DATA: No new labs are available for today. As of 10/29/2018, hemoglobin 9.1, hematocrit is 31.5. BUN and creatinine 57/1.7. Sodium 145, potassium 4.1, chloride 109, CO2 28, glucose 98, calcium 8.5. Total bili is 3.4. AST 70, ALT 154, alkaline phosphatase 153. Total protein 6.9, albumin is 2.9. ASSESSMENT AND PLAN: In summary, Mrs. Oro is an 88-year-old elderly female with history of hypertension, hyperlipidemia, coronary artery disease status post stent, congestive heart failure, chronic kidney disease, unilateral small left kidney, atrial fibrillation, dementia with increased blood urea nitrogen and creatinine, and altered mental status was admitted from the [facility] on 10/20/2018. Now, the patient is back to her mental status, off intravenous fluids. 1. Status post acute renal failure, on chronic kidney disease III. Renal function is back to her baseline 1.7. 2. Atrial fibrillation. 3. Abnormal liver function tests, most likely secondary to chronic cholecystitis. 4. Dementia. 5. Continue her current medications now. Repeat complete blood count, basic metabolic profile in morning, encourage p.o. intake. We will check CBC, CMP, magnesium and phosphorus level in a.m. We will follow with you. Thank you for allowing me to participate in your patient's care. Alfred Lobato MD
--- NOTE | 2018-10-31 09:17 | CP.PCM.PN ---
Subjective - Date & Time of Evaluation Date of Evaluation: 10/31/18 Time of Evaluation: 09:17 - Subjective Subjective: pt is seen and examined, follow up consult is dictated #[id number] Objective - Vital Signs/Intake and Output Vital Signs (last 24 hours): Temp Pulse Resp BP Pulse Ox 97.4 F L 106 H 14 151/79 H 100 10/31/18 04:00 10/31/18 08:00 10/31/18 04:00 10/31/18 04:00 10/31/18 04:00 Intake and Output: 10/31/18 10/31/18 06:59 18:59 Output Total 100 Balance -100 - Medications Medications: Current Medications Apixaban (Eliquis) 2.5 mg PO DAILY [facility] Last Admin: 10/30/18 18:16 Dose: 2.5 mg Aspirin (Ecotrin) 81 mg PO DAILY [facility] Last Admin: 10/30/18 09:21 Dose: 81 mg Famotidine (Pepcid) 20 mg PO DAILY [facility] Last Admin: 10/30/18 09:21 Dose: 20 mg Megestrol Acetate (Megace) 400 mg PO DAILY [facility] Last Admin: 10/30/18 09:22 Dose: 400 mg Multivitamins/Vitamin C (Multi-Delyn Liquid) 5 ml PO DAILY [facility] Last Admin: 10/30/18 09:22 Dose: 5 ml Mupirocin (Bactroban 2% Nasal) 0.25 gm HENRRY BID [facility] Last Admin: 10/30/18 18:16 Dose: 0.25 gm Nystatin (Nystop Topical Powder) 1 applic TOP BID [facility] Last Admin: 10/30/18 18:16 Dose: 1 applic - Labs Labs: 10/29/18 05:55 10/29/18 05:55 PT 16.8 SECONDS (9.7-12.2) H 10/22/18 11:52 INR 1.5 10/22/18 11:52 APTT 30 SECONDS (21-34) 10/22/18 11:52
[2018-10-31] MEDS: Megestrol Acetate 40 mg/ml Cup PO SCH (09:31)
[2018-10-31] MEDS: Mupirocin 2% Ointment (NASAL) NAS SCH ×2 (09:31→17:57)
[2018-10-31] MEDS: Multiple Vitamins Oral Solution PO SCH (09:33)
[2018-10-31] MEDS: Bisacodyl 5mg EC Tab PO SCH ×2 (12:51→17:45)
--- NOTE | 2018-10-31 15:17 | CP.PCM.PN ---
Subjective - Date & Time of Evaluation Date of Evaluation: 10/31/18 Time of Evaluation: 15:14 - Subjective Subjective: Neurology Follow-Up Note: Mrs. Oro was evaluated this afternoon in the ICU. She remains on telemetry. Today she is awake and alert. States that she feels good. She is able to follow simple commands. She offers no specific complaints. Denies h/a, dizziness, visual changes, chest pain, palpitations, sob, cough, abd pain, n/v/d . Objective - Vital Signs/Intake and Output Vital Signs (last 24 hours): Temp Pulse Resp BP Pulse Ox 97.8 F 107 H 16 151/79 H 100 10/31/18 12:00 10/31/18 12:00 10/31/18 12:00 10/31/18 04:00 10/31/18 12:00 Intake and Output: 10/31/18 10/31/18 06:59 18:59 Output Total 100 Balance -100 - Medications Medications: Current Medications Apixaban (Eliquis) 2.5 mg PO DAILY [facility] Last Admin: 10/31/18 09:31 Dose: 2.5 mg Aspirin (Ecotrin) 81 mg PO DAILY [facility] Last Admin: 10/31/18 09:31 Dose: 81 mg Bisacodyl (Dulcolax) 5 mg PO BID [facility] Last Admin: 10/31/18 12:51 Dose: 5 mg Famotidine (Pepcid) 20 mg PO DAILY [facility] Last Admin: 10/31/18 09:31 Dose: 20 mg Megestrol Acetate (Megace) 400 mg PO DAILY [facility] Last Admin: 10/31/18 09:31 Dose: 400 mg Multivitamins/Vitamin C (Multi-Delyn Liquid) 5 ml PO DAILY [facility] Last Admin: 10/31/18 09:33 Dose: 5 ml Mupirocin (Bactroban 2% Nasal) 0.25 gm HENRRY BID [facility] Last Admin: 10/31/18 09:31 Dose: 0.25 gm Nystatin (Nystop Topical Powder) 1 applic TOP BID [facility] Last Admin: 10/31/18 09:31 Dose: 1 applic - Labs Labs: 10/29/18 05:55 10/29/18 05:55 PT 16.8 SECONDS (9.7-12.2) H 10/22/18 11:52 INR 1.5 10/22/18 11:52 APTT 30 SECONDS (21-34) 10/22/18 11:52 - Constitutional Appears: Well, Non-toxic, No Acute Distress - Head Exam Head Exam: ATRAUMATIC, NORMAL INSPECTION, NORMOCEPHALIC - Eye Exam Eye Exam: EOMI, Normal appearance, PERRL Pupil Exam: NORMAL ACCOMODATION, PERRL - ENT Exam ENT Exam: Mucous Membranes Moist - Neck Exam Neck Exam: Full ROM - Respiratory Exam Respiratory Exam: NORMAL BREATHING PATTERN - Cardiovascular Exam Cardiovascular Exam: Tachycardia (hr 120 on monitor), Irregular Rhythm - Extremities Exam Extremities Exam: absent: Calf Tenderness, Full ROM, Pedal Edema Additional comments: generalized weakness - Neurological Exam Neurological Exam: Alert, Awake. absent: Oriented x3 Neuro motor strength exam: Left Upper Extremity: 4, Right Upper Extremity: 3, Left Lower Extremity: 4, Right Lower Extremity: 3 Additional comments: Speech clear; no aphasia. She remains confused; disoriented x3. Alert and awake today Able to follow some simple commands. Sensation intact b/l Unable to assess fine motor 2/2 pt not following commands Still has hypersensitivity noted to plantar aspect of b/l feet No tremors, no clonus - Psychiatric Exam Psychiatric exam: Normal Affect, Normal Mood Additional comments: confused, calm, cooperative; baseline - Skin Skin Exam: Normal Color Additional comments: skin discolorations noted to BLE Assessment and Plan (1) Acute CVA (cerebrovascular accident) Assessment & Plan: Imaging reviewed: -MRI Brain (10/25/18): Small areas of restricted diffusion are seen in the right parietal white matter, the right occipital lobe and the left cerebellar hemisph ere. These could represent acute infarcts. However, the findings are not verified on the ADC map images. It is possible that the findings are artifactual. There is no corresponding abnormality seen on FLAIR or T2 images. -CTA Head and neck (10/20/18): 1. Moderate bilateral ICA stenosis at the ca vernous segments. 2. High-grade near critical stenosis origin right ICA with moderate origin left ICA stenosis. Both ICAs appear to be patent nevertheless. 3. Moderate distal CCA stenosis bilaterally with additional mild stenosis proximal left CCA. 4. No occlusion or significant intracranial stenosis appreciable. -CT Head (10/20/18): Streak artifact obscures evaluation of the skull base. Nons pecific white matter changes. Left occipital encephalomalacia. Generalized volume loss. -ECHO without Bubble (done on 10/09/18): EF 55-60% -ECHO w Bubble Study: no pfo -Continue ASA 81 mg PO daily. -Started on Eliquis 2.5 mg PO Daily yesterday--tolerating well so far--continue upon d/c -Cardiology consult on board for acute CVA and afib/BP control. -Statin on hold for now: lipid panel reviewed and normal; pt has elevated LFTs. -Continue telemetry per cardio and primary -Continue PT -Notify neuro for any change in pt condition. Case discussed with Dr. Joseph Status: Acute
--- NOTE | 2018-10-31 17:59 | PN ---
DATE: 10/31/2018 SUBJECTIVE: The patient is confused. She is currently in atrial flutter with 2:1 conduction or likely atrial tachycardia. PHYSICAL EXAMINATION VITAL SIGNS: Blood pressure 151/79, heart rate 114, temperature 97.4, respirations 14. HEENT: Pale conjunctivae. CHEST: Absent breath sounds over the bases. HEART: S1 and S2 regular. Grade IV/ ejection systolic murmur over the left sternal border. ABDOMEN: Soft. EXTREMITIES: 2+ pitting edema. DIAGNOSTIC DATA: Head CT scan without contrast performed yesterday. No evidence of acute infarct. No intracranial hemorrhage. Left occipital encephalomalacia. ASSESSMENT: 1. Persistent atrial flutter. 2. History of cerebrovascular accident. 3. Critical aortic stenosis. 4. Moderate pulmonary hypertension. 5. Chronic renal insufficiency. 6. Anemia and mild thrombocytopenia. RECOMMENDATIONS: Continue Eliquis 2.5 mg daily, aspirin 81 mg once a day and Pepcid 20 mg orally daily. Shiv Montiel MD
--- NOTE | 2018-10-31 20:03 | PN ---
DATE: 10/31/2018 LOCATION: ICU 60. SUBJECTIVE: This is an 88-year-old female in a status of DNR and DNI, seen and examined early today with a staff in the intensive care unit, without reported significant clinical changes or reported actual chest pain, palpitation or significant shortness of breath. No reported GI blood loss, but the patient has poor oral intake. The most recent lab results reviewed and the patient still has mild generalized jaundice. PHYSICAL EXAMINATION GENERAL: An 88-year-old female. VITAL SIGNS: Afebrile with a pulse of 96, respiratory rate 20-22, blood pressure of 142/76. HEENT: Shows pale, dry oral mucoid membrane. Bilateral icteric sclerae. LUNGS: Few scattered crepitation. Decreased air entry at bases. HEART: Positive S1 and S2. ABDOMEN: Soft with mild distention, mild generalized tenderness. No mass or organomegaly. No rebound tenderness or guarding. EXTREMITIES: Without significant clubbing, cyanosis or edema. NEUROLOGIC: No reported new neurological deficit, sensory or motor. No reported new focal deficit. IMPRESSION: 1. Known history of cerebrovascular accident. 2. Chronic renal insufficiency. 3. Elevated carcinoembryonic antigen level. The possibility of lower gastrointestinal tract carcinoma should be ruled in or out. 4. Recently diagnosed cholelithiasis with severe aortic stenosis and possible recent myocardial infarction. 5. Evidence of moderate pulmonary hypertension. 6. Atrial fibrillation by recent history. 7. Anemia. 8. Persistent abnormal liver function tests, most likely secondary to hepatocellular injury and right-sided heart failure. 9. Poorly controlled diabetes mellitus; hyperlipidemia; coronary artery disease, status post cardiac stent insertion with congestive heart failure by history. SUGGESTIONS: 1. Continue current management. 2. Monospot with a repeat hepatitis profile. 3. Close observation and no aggressive GI workup in the meantime due to the patient's clinical presentation. 4. Further recommendation to follow. Avni Gimenez MD
--- NOTE | 2018-11-01 02:48 | PN ---
DATE: 10/31/2018 FOLLOWUP RENAL CONSULTATION LOCATION: The patient is located in ICU, bed 16. REQUESTED BY: Scottie Alberto MD REASON FOR FOLLOWUP: Acute renal failure, chronic kidney disease. HISTORY OF PRESENT ILLNESS: Mrs. Oro is an 88-year-old elderly obese female with a past medical history significant for hypertension, hyperlipidemia, chronic kidney disease, unilateral small left kidney, coronary artery disease, congestive heart failure, atrial fibrillation, dementia, multiple admissions to the hospital who was sent back from the [facility] on 10/20/2018 with altered mental status, worsening renal function, hyperkalemia, metabolic acidosis. The patient was given initially IV bicarbonate drip, and now the patient has subsequently changed it to half normal saline IV fluids. The patient is feeling better, not in acute distress. The patient is off IV fluids for the last 48 hours and no complaints. The patient claims she is tolerating p.o. intake, not in acute distress. No chest pain. No palpitation. No fever. No cough. No abdominal pain. PHYSICAL EXAMINATION: VITAL SIGNS: As follows: As of this morning, blood pressure 109/51, pulse 114, respirations 14, temperature 98, saturation 100%. Height 5 feet, weight is 195 pounds. GENERAL: Mrs. Oro is an 88-year-old elderly female, well-built, well-nourished, not in acute distress. HEENT: Pupils normal and reactive to light and accommodation. Conjunctivae pink. Sclerae anicteric. Tongue is moist. Trachea is midline. LUNGS: Symmetric on both sides. Bilateral breath sounds present. Clear to auscultation. CARDIOVASCULAR SYSTEM: Vernon at the fifth intercostal space, midclavicular line. S1, S2 audible. The patient has ejection systolic murmur present in the aortic area connecting to both carotids. Irregularly irregular. ABDOMEN: Normal in appearance, soft, tympanitic. No guarding. No rigidity. Mild right upper quadrant tenderness. No hepatosplenomegaly. CENTRAL NERVOUS SYSTEM: The patient is alert, awake, and oriented x2. Sensory and motor system is within normal limits. EXTREMITIES: No cyanosis, no clubbing, no edema. CURRENT MEDICATIONS: Include as follows, mupirocin ointment to both nostrils, Dulcolax 5 mg p.o. b.i.d., aspirin 81 mg p.o. daily, Eliquis 2.5 mg daily, Megace 400 mg p.o. daily, multivitamin 5 mL p.o. daily, nystatin topical powder one application b.i.d., Pepcid 20 mg p.o. daily. LABORATORY DATA: No new labs are available. As of 10/29/2018, BUN and creatinine 57 and 1.7, potassium 4.1, chloride 109, CO2 of 28. Sodium 145. H and H 9.1 and 31.5. IMPRESSION: In summary, Mrs. Oro is an 88-year-old elderly female with hypertension, hyperlipidemia, coronary artery disease, congestive heart failure, atrial fibrillation, unilateral small left kidney with status post acute renal failure, dehydration. 1. Acute renal failure, on chronic kidney disease. Renal function improved back to her baseline 1.7. 2. Atrial fibrillation. 3. Rule out acute cholecystitis. Liver function tests are improving slowly. 4. Anemia secondary to renal failure. Continue Procrit. We will give up Procrit 10,000 units in a.m. We will follow with you. Thank you for allowing me to participate in your patient's care. Alfred Lobato MD
--- NOTE | 2018-11-01 06:01 | PN ---
DATE: 10/31/2018 SUBJECTIVE: Today, the patient is awake and responding to two questions, but is always weak, still weak. PHYSICAL EXAMINATION: VITAL SIGNS: The patient has a blood pressure of 110/70, pulse is 102, respirations are 18, temperature 98.4, and O2 saturation 100% on 3 L nasal cannula. HEENT: Head is normocephalic. Mouth is moist, but teeth. LUNGS: Have some poor inspiratory effort. HEART: Regular rate and rhythm, but tachycardic. ABDOMEN: Soft, nontender. EXTREMITIES: There is a wound to the left leg. ASSESSMENT AND PLAN: On admission, the patient is , and appetite is improving. So, the patient has poor intravenous access. This was to put an intravenous access for medications. The plan is that we are going to continue her current medications, the current treatments. The patient is do not resuscitate and do not intubate, and continue to assist with the tube feeding. Shailesh Brunson MD
[2018-11-01] MEDS: Bisacodyl 5mg EC Tab PO SCH ×2 (09:17→17:42)
[2018-11-01] MEDS: Megestrol Acetate 40 mg/ml Cup PO SCH (09:17)
[2018-11-01] MEDS ORDERED: EPOETIN ALFA 10,000 UNIT/ML ML SC ONE (10:00)
--- NOTE | 2018-11-01 10:16 | CARD ---
APPROVED REPORT Date of service: 10/28/2018 EKG Measurement Heart [id number] <Conclusion> Wide QRS rhythm Nonspecific intraventricular block Abnormal ECG
--- NOTE | 2018-11-01 10:28 | PN ---
DATE: 11/01/2018 LOCATION: ICU 16. SUBJECTIVE: This is an 88-year-old female in a state of DNR and DNI, seen and examined in rounds without significant clinical changes, with reported change of heart rate with intermittent period of shortness of breath on and off before. No reported diarrhea, nausea, or vomiting or actual significant clinical changes, heart rate recently which subsided. Today's lab results still pending; however, the patient reported to have low hemoglobin and hematocrit with thrombocytopenia with elevated liver function tests before. PHYSICAL EXAMINATION: GENERAL: An 88-year-old female. VITAL SIGNS: Afebrile with heart rate of 100, respiratory rate 22 to 24, blood pressure of 142/74. HEENT: Showed pale dry oral mucous membrane. Nonicteric sclerae. LUNGS: Few scattered crepitation. Decreased air entry at bases. HEART: Positive S1 and S2 with increased rate. ABDOMEN: Soft with mild distention. No mass or organomegaly. No rebound tenderness or guarding. Abdominal distention with obesity noted. EXTREMITIES: Lower extremity edematous changes. No clubbing or cyanosis. NEUROLOGIC: No reported new neurological deficits, sensory or motor. IMPRESSION: 1. Hypochromic microcytic anemia. 2. Thrombocytopenia. 3. Known history of cerebrovascular accident. 4. Recently diagnosed cholelithiasis, severe aortic stenosis, possible recent myocardial infarction. 5. Atrial fibrillation by recent history. 6. Re-exacerbation of peptic ulcer disease. 7. Persistent elevation of liver function test, most likely secondary to right-sided heart failure. 8. Electrolyte imbalance. 9. Poorly controlled diabetes mellitus. 10. Known history of hyperlipidemia, coronary artery disease, congestive heart failure with status post cardiac stent insertion, by history. SUGGESTIONS: 1. Continue current management. 2. Repeat stool for occult blood. 3. No aggressive GI workup in the meantime until the patient is more stable clinically, otherwise close observation to follow. Avni Gimenez MD
[2018-11-01] MEDS: Mupirocin 2% Ointment (NASAL) NAS SCH ×2 (10:37→17:51)
[2018-11-01] MEDS: Multiple Vitamins Oral Solution PO SCH (10:37)
--- NOTE | 2018-11-01 16:20 | PN ---
DATE: 11/01/2018 SUBJECTIVE: The patient is confused. She is currently in atrial tachycardia with 2:1 conduction. PHYSICAL EXAMINATION: VITAL SIGNS: Blood pressure 151/79, heart rate 104, temperature 98.2. HEENT: Pale conjunctiva. CHEST: Diminished breath sounds over the bases. HEART: S1 and S2 regular. Grade 4/6 ejection systolic murmur over left sternal border. ABDOMEN: Soft. EXTREMITIES: 2+ pitting edema. ASSESSMENT: 1. Atrial flutter versus atrial tachycardia with 2:1 conduction. 2. Improving renal insufficiency. 3. Multiple cerebrovascular accidents. 4. Critical aortic stenosis. 5. Moderate pulmonary hypertension. RECOMMENDATIONS: Continue aspirin 81 mg once a day, Eliquis 2.5 mg once a day, IV , Lopressor 25 mg twice a day. Continue Pepcid 20 mg once a day. The patient can be transferred to telemetry. Shiv Montiel MD
--- NOTE | 2018-11-02 01:55 | PN ---
DATE: 11/01/2018SUBJECTIVE: Today, the patient is seen and evaluated , and she seems somewhat confused, but at times was able to answer simple questions, however, the patient also was found to be tachycardic early this morning, and Lopressor was given. PHYSICAL EXAMINATION: VITAL SIGNS: Now, the blood pressure is 119/69 and the pulse is 92, respirations are 18, and temperature 97.6. NECK: Supple. No JVD. LUNGS: Poor inspiratory effort, but there are some rales noted. HEART: Regular rate and rhythm. Positive murmur. ABDOMEN: Soft. Positive bowel sound. EXTREMITIES: There is a wound in the left leg, but there is no edema noted. ASSESSMENT AND PLAN: So, the plan is that we are going to continue the current medications, and the patient seems to start eating better, so we are going to order blood work, and Dr. Montiel's cardiology note is also appreciated. Shailesh Brunson MD
[2018-11-02] MEDS ORDERED: Digoxin 500 mcg/2ml (0.5 mg/2ml) Inj IVP ONE ×2 (03:00→14:40)
--- NOTE | 2018-11-02 08:10 | PN ---
DATE: 11/02/2018 LOCATION: ICU 16. SUBJECTIVE: This is an 88-year-old female, reported to be in a status of DNR and DNI, seen and examined in rounds, with period of paroxysmal tachycardia with less oral intake and intermittent period of abdominal pain, but no reported active GI bleeding. The entire chart is reviewed including most recent lab results and today's lab results still pending. However, the latest results showed abnormal liver function test with low hemoglobin and hematocrit. It was reported that the patient has mild increase of oral intake, although it is less adequate than it was supposed to be. PHYSICAL EXAMINATION: GENERAL: An 88-year-old female. VITAL SIGNS: Afebrile with pulse of 108, respiratory rate 20 to 24, blood pressure 124/90. HEENT: Showed pale dry oral mucoid membrane. Nonicteric sclerae. LUNGS: Few scattered crepitation. Decreased air entry at bases. HEART: Positive S1 and S2 with increased rate. ABDOMEN: Soft with mild generalized tenderness, mildly distended and obese. No mass or organomegaly. No rebound tenderness or guarding. EXTREMITIES: With lower extremity edematous changes. No clubbing or cyanosis. NEUROLOGIC: No reported new neurological deficits, sensory or motor. IMPRESSION: 1. Malnutrition with poor oral intake and hypoalbuminemia, hypoproteinemia. 2. Hypochromic microcytic anemia, the possibility of gastrointestinal blood loss was raised. 3. Reported history of multiple cerebrovascular accidents. 4. Cholelithiasis, by recent history. 5. Severe aortic stenosis with possible recent myocardial infarction. 6. Cardiac arrhythmias, atrial fibrillation by recent history. 7. Re-exacerbation of peptic ulcer disease. 8. Abnormal liver function test, most likely secondary to right-sided heart failure versus less likely an infectious process that could be secondary to her cholelithiasis, however. 9. Electrolyte imbalance, poorly controlled diabetes mellitus with known history of hyperlipidemia, coronary artery disease, congestive heart failure with status post cardiac stent insertion, by history. SUGGESTIONS: 1. Continue supportive treatment. 2. Calorie counting. 3. Swallow evaluation. 4. Despite being DNR and DNI, the patient may need PEG insertion depending on the results of the above suggesting studies. Avni Gimenez MD
[2018-11-02] MEDS: Multiple Vitamins Oral Solution PO SCH (09:47)
[2018-11-02] MEDS: Bisacodyl 5mg EC Tab PO SCH ×2 (09:47→17:19)
[2018-11-02] MEDS: Megestrol Acetate 40 mg/ml Cup PO SCH (09:47)
[2018-11-02] MEDS: Mupirocin 2% Ointment (NASAL) NAS SCH ×2 (10:05→18:30)
[2018-11-02 11:09] LABS: CALCIUM 9.4 mg/dl (8.6-10.4)
[2018-11-02 15:16] VITALS: PULSE 78
--- NOTE | 2018-11-02 15:33 | PN ---
DATE: 11/02/2018 SUBJECTIVE: The patient is sleepy, however, according to the nurse she was able to eat her meals and take her oral meds. She is currently in atrial tachycardia with 2:1 conduction. The patient has borderline hypotension and for that reason Lopressor was withheld. OBJECTIVE: VITAL SIGNS: The most recent blood pressure is 129/94, heart rate 125, temperature 97.7, respirations 31. HEENT: Pale conjunctivae. CHEST: Diminished breath sounds over the bases. HEART: S1, S2 regular. Grade 4/6 ejection systolic murmur over left sternal border. ABDOMEN: Soft. EXTREMITIES: One to two plus pitting edema. LABORATORY DATA: SMA-7, sodium 150, potassium 5.1, chloride 112, CO2 30, glucose 163, BUN 62, creatinine to 2.1. ASSESSMENT: 1. Multiple cardiovascular accidents. 2. Critical aortic stenosis. 3. Moderate pulmonary hypertension. 4. Chronic insufficiency. 5. Hypernatremia. 6. Consider non-ST elevation myocardial infarction. 7. Persistent atrial flutter. RECOMMENDATIONS:. Continue aspirin 81 mg once a day, Eliquis 2.5 mg once a day, Pepcid 20 mg once a day. I will administer Lasix at 0.125 mg as a single intravenous dose now. Shiv Montiel MD
--- NOTE | 2018-11-02 17:30 | CP.PCM.PN ---
Subjective - Date & Time of Evaluation Date of Evaluation: 11/02/18 Time of Evaluation: 17:30 - Subjective Subjective: pt is seen and examined, follow up consult is dictated #[id number] start ivf 1/2 ns at 50 ml/hr Objective - Vital Signs/Intake and Output Vital Signs (last 24 hours): Temp Pulse Resp BP Pulse Ox 98.0 F 90 18 129/94 H 100 11/02/18 12:00 11/02/18 16:00 11/02/18 12:00 11/02/18 04:00 11/02/18 12:00 Intake and Output: 11/02/18 11/02/18 06:59 18:59 Output Total 0 Balance 0 - Medications Medications: Current Medications Apixaban (Eliquis) 2.5 mg PO DAILY [facility] Last Admin: 11/02/18 09:48 Dose: 2.5 mg Aspirin (Ecotrin) 81 mg PO DAILY [facility] Last Admin: 11/02/18 09:48 Dose: 81 mg Bisacodyl (Dulcolax) 5 mg PO BID [facility] Last Admin: 11/02/18 17:19 Dose: 5 mg Famotidine (Pepcid) 20 mg PO DAILY [facility] Last Admin: 11/02/18 09:48 Dose: 20 mg Megestrol Acetate (Megace) 400 mg PO DAILY [facility] Last Admin: 11/02/18 09:47 Dose: 400 mg Metoprolol Tartrate (Lopressor) 25 mg PO BID [facility] Last Admin: 11/01/18 17:51 Dose: Not Given Multivitamins/Vitamin C (Multi-Delyn Liquid) 5 ml PO DAILY [facility] Last Admin: 11/02/18 09:47 Dose: 5 ml Mupirocin (Bactroban 2% Nasal) 0.25 gm HENRRY BID [facility] Last Admin: 11/01/18 17:51 Dose: 0.25 gm Nystatin (Nystop Topical Powder) 1 applic TOP BID [facility] Last Admin: 11/02/18 09:48 Dose: 1 applic - Labs Labs: 10/29/18 05:55 11/02/18 10:45 PT 16.8 SECONDS (9.7-12.2) H 10/22/18 11:52 INR 1.5 10/22/18 11:52 APTT 30 SECONDS (21-34) 10/22/18 11:52
[2018-11-02] MEDS: Sodium Chloride 0.45% 1,000 ML IV SCH (18:25)
--- NOTE | 2018-11-03 01:59 | PN ---
DATE: 11/02/2018 SUBJECTIVE: Today, patient is somewhat more awake, responding better to question but also patient was on bed today, somewhat tachycardiac. PHYSICAL EXAMINATION: VITAL SIGNS: Patient has blood pressure of 99/72 at 20 hours but earlier it was 115/70; pulse 78, now is 98. Respirations are 18, on nasal cannula. LUNGS: Had some rhonchi noted. HEART: Regular rate and rhythm with increased murmur. ABDOMEN: Soft, obese, nontender. EXTREMITIES: There is a wound to the left leg, but there is +1 edema. PLAN: We are going to continue the current medication and the case was discussed with the nurse transportation aide. Shailesh Brunson MD
--- NOTE | 2018-11-03 03:37 | PN ---
DATE: 11/02/2018 FOLLOWUP RENAL CONSULTATION LOCATION: The patient is located in room ICU bed 16. REQUESTED BY: Scottie Alberto MD REASON FOR FOLLOWUP: Acute renal failure, chronic kidney disease, for further evaluation. SUBJECTIVE: Mrs. Oro is an 88-year-old elderly obese -[place] female with a past medical history significant for longstanding hypertension, hyperlipidemia, coronary artery disease, CHF, status post stent placement, AFib, dementia, arthritis who was admitted with altered mental status and dehydration and increased BUN and creatinine from the [facility] on 10/20/2018. The patient is feeling much better, back to her baseline with IV hydration. The patient is on hydration for the last 72 hours, and the patient has a decreased p.o. intake as per the registered nurse. The patient is not in acute distress. No abdominal pain. No chest pain. No nausea. No vomiting. Decreased p.o. intake. PHYSICAL EXAMINATION: GENERAL: Mrs. Oro is an 88-year-old elderly obese female, well built, well nourished, not in distress. VITAL SIGNS: As follows: Blood pressure this morning 129/94, pulse 125, respirations about 31, temperature 97.7. This evening, blood pressure about 99/72. Height 5 feet. Weight is 195 pounds. HEENT: Pupils normal and react to light and accommodation. Conjunctivae pink. Sclerae anicteric. Tongue is moist. Trachea is midline. No thyroid enlargement. LUNGS: Symmetric on both sides. Bilateral breath sounds present. Clear to auscultation. CARDIOVASCULAR SYSTEM: [place] at the fifth intercostal space, midclavicular line. S1, S2 audible. No murmur or gallop. Irregularly irregular. ABDOMEN: Normal in appearance. Soft, tympanitic. No guarding, no rigidity. No hepatosplenomegaly. CENTRAL NERVOUS SYSTEM: The patient is alert, awake, oriented x2. Sensory and motor system is within normal limits. EXTREMITIES: No cyanosis, no clubbing, no edema. CURRENT MEDICATIONS: Include as follows: Bactroban ointment to both nostrils b.i.d., Dulcolax 5 mg p.o. b.i.d., aspirin 81 mg daily, Eliquis 2.5 mg p.o. daily, metoprolol 25 mg p.o. b.i.d., Megace 400 mg p.o. daily, multivitamin 5 mL daily, nystatin topical powder one application topical b.i.d., Pepcid 20 mg p.o. daily, and IV fluids started this evening with half-normal saline at 50 mL per hour. LABORATORY DATA: Include as follows: As of 10/29/2018: WBC 6.8, hemoglobin 9.1, hematocrit is 31.5, platelets 98. As of 11/02/2018: Sodium 150, potassium 5.1, chloride 112, CO2 of 30, BUN 62, creatinine 2.1, glucose 163, and calcium 9.4. ASSESSMENT AND PLAN: In summary, Mrs. Oro is an 88-year-old elderly female with a history of hypertension, hyperlipidemia, coronary artery disease, congestive heart failure, unilateral small left kidney, dementia, atrial fibrillation, arthritis who was admitted with altered mental status on 10/20/2018 and creatinine improved on admission 7.2 to 1.7 as of 10/29/2018, and now this morning her creatinine raised to 2.1 and serum sodium 150. 1. Hypernatremia secondary to intravascular depletion secondary to decreased oral intake. 2. Acute renal failure on chronic kidney disease. 3. Atrial fibrillation. 4. Borderline blood pressure. Continue intravenous fluids, half-normal saline at 50 to 60 mL per hour and continue to monitor. Repeat basic metabolic panel in the morning. Follow up with Gastroenterology for possible percutaneous endoscopic gastrostomy tube placement due to decreased oral intake if the patient's family agrees or consider nasogastric tube feeding. We will follow up with you. Thank you for allowing me to participate in your patient's care. Alfred Lobato MD
[2018-11-03 07:01] LABS: CALCIUM 9.3 mg/dl (8.6-10.4)
[2018-11-03] MEDS: Multiple Vitamins Oral Solution PO SCH (09:24)
[2018-11-03] MEDS: Megestrol Acetate 40 mg/ml Cup PO SCH (09:24)
[2018-11-03] MEDS: Bisacodyl 5mg EC Tab PO SCH ×2 (09:25→18:08)
[2018-11-03] MEDS: Sodium Chloride 0.45% 1,000 ML IV SCH ×3 (09:27→23:58)
[2018-11-03] MEDS: Mupirocin 2% Ointment (NASAL) NAS SCH ×2 (09:28→18:07)
--- NOTE | 2018-11-03 12:31 | CP.PCM.PN ---
Subjective - Date & Time of Evaluation Date of Evaluation: 11/03/18 Time of Evaluation: 12:31 - Subjective Subjective: pt is seen and examined, follow up consult is dictated #[id number] Objective - Vital Signs/Intake and Output Vital Signs (last 24 hours): Temp Pulse Resp BP Pulse Ox 97.5 F L 56 L 18 110/62 100 11/03/18 08:00 11/03/18 10:00 11/03/18 08:00 11/03/18 08:00 11/03/18 08:00 Intake and Output: 11/03/18 11/03/18 06:59 18:59 Intake Total 530 Output Total 500 Balance 30 - Medications Medications: Current Medications Apixaban (Eliquis) 2.5 mg PO DAILY [facility] Last Admin: 11/03/18 09:24 Dose: 2.5 mg Aspirin (Ecotrin) 81 mg PO DAILY [facility] Last Admin: 11/03/18 09:24 Dose: 81 mg Bisacodyl (Dulcolax) 5 mg PO BID [facility] Last Admin: 11/03/18 09:25 Dose: Not Given Famotidine (Pepcid) 20 mg PO DAILY [facility] Last Admin: 11/03/18 09:24 Dose: 20 mg Sodium Chloride (Sodium Chloride 0.45%) 1,000 mls @ 50 mls/hr IV .Q20H [facility] Last Admin: 11/03/18 09:27 Dose: 50 mls/hr Megestrol Acetate (Megace) 400 mg PO DAILY [facility] Last Admin: 11/03/18 09:24 Dose: 400 mg Metoprolol Tartrate (Lopressor) 25 mg PO BID [facility] Last Admin: 11/03/18 09:25 Dose: Not Given Multivitamins/Vitamin C (Multi-Delyn Liquid) 5 ml PO DAILY [facility] Last Admin: 11/03/18 09:24 Dose: 5 ml Mupirocin (Bactroban 2% Nasal) 0.25 gm HENRRY BID [facility] Last Admin: 11/03/18 09:28 Dose: 0.25 gm Nystatin (Nystop Topical Powder) 1 applic TOP BID [facility] Last Admin: 11/03/18 09:26 Dose: 1 applic - Labs Labs: 10/29/18 05:55 11/03/18 06:46 PT 16.8 SECONDS (9.7-12.2) H 10/22/18 11:52 INR 1.5 10/22/18 11:52 APTT 30 SECONDS (21-34) 10/22/18 11:52
--- NOTE | 2018-11-03 18:58 | PN ---
DATE: 11/03/2018 SUBJECTIVE: The patient was in atrial flutter earlier this morning, then she converted to sinus bradycardia with occasional PVCs. She is currently borderline hypotensive. PHYSICAL EXAMINATION: VITAL SIGNS: Most recent blood pressure is 83/60, heart rate 62, temperature 97, respirations 22. HEENT: Pale conjunctivae. CHEST: Absent breath sounds at the bases. HEART: S1 and S2 regular. EXTREMITIES: 2+ pitting edema. LABORATORY DATA: Today's SMA-7; sodium 149, potassium 5.9, chloride 110, CO2 of 32, glucose 145, BUN 72, and creatinine 2.1. ASSESSMENT: 1. Atrial flutter; the patient converted this morning to sinus bradycardia. 2. Hypotension. 3. Critical aortic stenosis. 4. Multiple cerebrovascular accidents. RECOMMENDATIONS: Continue aspirin 81 mg once a day, Eliquis 2.5 mg once a day. Discontinue Lopressor. Shiv Montiel MD
--- NOTE | 2018-11-04 01:31 | PN ---
DATE: 11/03/2018 SUBJECTIVE: Today, the patient is somewhat more lethargic and not responding to question. shortness of breath. PHYSICAL EXAMINATION: VITAL SIGNS: Blood pressure 91/43, pulse is 61, respirations 20, and temperature is 97.8. NECK: Supple. LUNGS: There is no rhonchi noted. HEART: Regular rate and rhythm. Positive respiratory distress. Positive murmur. ABDOMEN: Soft. Positive bowel sounds. EXTREMITIES: There is no edema. There is a wound in the left leg. ASSESSMENT: So at this point, the patient is not doing well. . PLAN: We are going to hold all the blood pressure medications and the patient's DNR and DNI. Case was discussed with the nurse in the floor. Shailesh Brunson MD
--- NOTE | 2018-11-04 02:02 | PN ---
DATE: 11/03/2018 LOCATION: The patient is located in ICU, bed 16. REQUESTED BY: Scottie Alberto MD REASON FOR FOLLOWUP: Acute renal failure, chronic kidney disease. SUBJECTIVE: Mrs. Oro is a 88-year-old elderly female with a past medical history significant for longstanding hypertension, hyperlipidemia, coronary artery disease, CHF, CAD, CKD, unilateral small left kidney, dementia, AFib who was [facility]2018 with decreased mental status, decreased p.o. intake, increased BUN and creatinine, hyperkalemia, metabolic acidosis. The patient was initially started on IV fluids and renal function improved gradually from 7.28 improved to 1.7 with hydration. The patient is somewhat drowsy this morning and less responsive today, not in acute distress. OBJECTIVE: VITAL SIGNS: As follows, blood pressure 83/60, pulse 62, respirations 22, temperature 97, saturation 98%. Height 5 feet, weight is 195 pounds. GENERAL: Mrs. Oro is a 88 years old elderly female, well-built, well-nourished, not in distress, very lethargic. HEENT: Pupils normal and reactive to light and accommodation. Conjunctivae pink. Sclera is anicteric. Tongue is dry. Trachea is midline. LUNGS: Symmetric on both sides. Bilateral breath sounds present. Clear to auscultation. CVS: [place] at the fifth intercostal space, midclavicular area. S1, S2 audible, irregularly irregular. ABDOMEN: Normal in appearance, soft, tympanitic. No guarding. No rigidity. No hepatosplenomegaly. [employer]: The patient is very lethargic, not responding to commands, opens eyes. Sensory and motor system is within normal limits. EXTREMITIES: No cyanosis, no clubbing, no edema. CURRENT MEDICATIONS: Include as follows, Bactroban ointment to both nostrils, Dulcolax 5 mg p.o. b.i.d., aspirin 81 mg p.o. daily Eliquis 2.5 mg p.o. daily, Megace 400 mg p.o. daily, multivitamin liquid 5 mL p.o. daily, Pepcid 20 mg p.o. daily, IV fluids half-normal saline at 50 mL/hour. LABORATORY DATA: Her lab data include as follows, as of 11/03/2018 sodium 149, potassium 5.9 and chloride 110, CO2 32, BUN 72, creatinine 2.1, glucose 145, calcium is 9.3. ASSESSMENT AND PLAN: In summary, Mrs. Oro is an 88-year-old elderly female with hypertension, hyperlipidemia, coronary artery disease, congestive heart failure, chronic kidney disease, atrial fibrillation, dementia with altered mental status. 1. Hypernatremia secondary to dehydration secondary to decreased p.o. intake. 2. Hyperkalemia. 3. Acute renal failure on chronic kidney disease. 4. Atrial fibrillation. PLAN: We will give Kayexalate 15 g p.o. x1 dose now and repeat BMP in a.m., increase IV fluids to 100 mL/hour and the patient is a DNR/DNI. Overall prognosis is very, very poor. We will follow with you. Thank you for allowing me to participate in your patient's care. Alfred Lobato MD
[2018-11-04 06:30] LABS: CALCIUM 8.3 mg/dl (8.6-10.4)
--- NOTE | 2018-11-04 07:08 | PN ---
DATE: 11/03/2018 LOCATION: ICU 16 SUBJECTIVE: This is an 88-year-old female seen early in rounds without significant clinical changes or reported active bleeding, appeared to be somewhat mildly disoriented and semi-confused, but no reported active bleeding, with very poor oral intake. The entire chart is reviewed including but not limited to the most recent lab and radiology study results, current and the previous medication list, current and the previous medical events and the case discussed with the staff at length. No reported active GI bleeding, actual chest pain, palpitation or significant shortness of breath so far. Today's lab results showed sodium of 149, potassium 5.9 with CO2 content of 32 indicative of respiratory alkalosis with BUN 72, creatinine 2.1. Blood glucose level 145. PHYSICAL EXAMINATION: GENERAL: A 88-year-old female, awake, alert and afebrile with pulse of 64, respiratory rate 20, 22, blood pressure 116/66. HEENT: Showed pale dry oral mucoid membrane. Nonicteric sclerae. LUNGS: Few scattered crepitation. Decreased air entry at bases. HEART: Positive S1 and S2. ABDOMEN: Soft with mild generalized tenderness. No mass or organomegaly. No rebound tenderness or guarding. EXTREMITIES: Without significant clubbing, cyanosis or edema. NEUROLOGIC: No reported new neurological deficits, sensory or motor. IMPRESSION: 1. Malnutrition with hypoalbuminemia, hypoproteinemia. 2. anemia, hypochromic microcytic with possible GI blood loss upper versus lower. 3. The patient is a candidate for PEG insertion when she is more stable clinically. 4. Rule out cholelithiasis by titration study results. 5. Reported history of multiple cerebrovascular accident. 6. Re-exacerbation of peptic ulcer disease. 7. Abnormal liver function tests, most likely secondary to right-sided heart failure. 8. Electrolyte imbalance, poorly controlled diabetes mellitus, known history of hyperlipidemia, coronary artery disease with congestive heart failure by history as well as status post cardiac stent insertion. SUGGESTIONS: 1. Continue current management. 2. Peripheral hyperalimentation. 3. The patient is a candidate for PEG insertion only when she is more stable clinically. 4. Further recommendation to follow. Avni Gimenez MD
[2018-11-04 07:32] LABS: MEAN CORPUSCULAR HEMOGLOBIN 31.2 pg (27.0-31.0); MEAN CORPUSCULAR HGB CONC 28.8 g/dL (33.0-37.0); MEAN PLATELET VOLUME 10.8 fL (7.2-11.7); RBC 2.85 Mil/uL (3.80-5.20)
[2018-11-04 07:57] LABS: HEMOGLOBIN 8.9 g/dL (11.0-16.0); MEAN CELL VOLUME 108.4 fL (81.0-99.0)
[2018-11-04] MEDS: Sodium Chloride 0.45% 1,000 ML IV SCH ×2 (08:50→18:16)
--- NOTE | 2018-11-04 10:55 | CP.PCM.PN ---
Subjective - Date & Time of Evaluation Date of Evaluation: 11/04/18 Time of Evaluation: 10:54 - Subjective Subjective: pt is seen and examined, follow up consult is dictated #[id number] c/w ivf, consider NGT feeding if pt's family agrees Objective - Vital Signs/Intake and Output Vital Signs (last 24 hours): Temp Pulse Resp BP Pulse Ox 98.3 F 63 17 90/54 L 100 11/04/18 00:00 11/04/18 01:00 11/04/18 00:00 11/04/18 00:00 11/04/18 00:00 Intake and Output: 11/04/18 11/04/18 06:59 18:59 Intake Total 800 Output Total 300 Balance 500 - Medications Medications: Current Medications Apixaban (Eliquis) 2.5 mg PO DAILY [facility] Last Admin: 11/03/18 09:24 Dose: 2.5 mg Aspirin (Ecotrin) 81 mg PO DAILY [facility] Last Admin: 11/03/18 09:24 Dose: 81 mg Bisacodyl (Dulcolax) 5 mg PO BID [facility] Last Admin: 11/03/18 18:08 Dose: Not Given Famotidine (Pepcid) 20 mg PO DAILY [facility] Last Admin: 11/03/18 09:24 Dose: 20 mg Sodium Chloride (Sodium Chloride 0.45%) 1,000 mls @ 100 mls/hr IV .Q10H [facility] Last Admin: 11/04/18 08:50 Dose: 100 mls/hr Megestrol Acetate (Megace) 400 mg PO DAILY [facility] Last Admin: 11/03/18 09:24 Dose: 400 mg Multivitamins/Vitamin C (Multi-Delyn Liquid) 5 ml PO DAILY [facility] Last Admin: 11/03/18 09:24 Dose: 5 ml Mupirocin (Bactroban 2% Nasal) 0.25 gm HENRRY BID [facility] Last Admin: 11/03/18 18:07 Dose: 0.25 gm Nystatin (Nystop Topical Powder) 1 applic TOP BID [facility] Last Admin: 11/03/18 18:07 Dose: 1 applic - Labs Labs: 11/04/18 06:05 11/04/18 06:05 PT 16.8 SECONDS (9.7-12.2) H 10/22/18 11:52 INR 1.5 10/22/18 11:52 APTT 30 SECONDS (21-34) 10/22/18 11:52
[2018-11-04] MEDS: Mupirocin 2% Ointment (NASAL) NAS SCH ×2 (11:00→18:15)
[2018-11-04] MEDS: Megestrol Acetate 40 mg/ml Cup PO SCH (11:00)
[2018-11-04] MEDS: Multiple Vitamins Oral Solution PO SCH (11:00)
[2018-11-04] MEDS: Bisacodyl 5mg EC Tab PO SCH ×2 (11:07→18:14)
--- NOTE | 2018-11-04 13:42 | CP.PCM.PN ---
Subjective - Date & Time of Evaluation Date of Evaluation: 11/04/18 Time of Evaluation: 13:38 - Subjective Subjective: Neurology Follow-Up Note: Mrs. Oro was evaluated this afternoon in the ICU. She remains on telemetry. Today she is lethargic; not verbally responding. She does open her eyes spontaneously and to sternal rub. Per nursing staff, she has been lethargic all day, and per my discussion with Dr. Brunson she was like this yesterday. ROS unobtainable due to pt's change in mental status and current condition. Objective - Vital Signs/Intake and Output Vital Signs (last 24 hours): Temp Pulse Resp BP Pulse Ox 98.3 F 63 17 90/54 L 100 11/04/18 00:00 11/04/18 01:00 11/04/18 00:00 11/04/18 00:00 11/04/18 00:00 Intake and Output: 11/04/18 11/04/18 06:59 18:59 Intake Total 800 Output Total 300 Balance 500 - Medications Medications: Current Medications Apixaban (Eliquis) 2.5 mg PO DAILY [facility] Last Admin: 11/04/18 13:06 Dose: Not Given Aspirin (Ecotrin) 81 mg PO DAILY [facility] Last Admin: 11/04/18 11:00 Dose: Not Given Bisacodyl (Dulcolax) 5 mg PO BID [facility] Last Admin: 11/04/18 11:07 Dose: Not Given Famotidine (Pepcid) 20 mg PO DAILY [facility] Last Admin: 11/04/18 11:00 Dose: Not Given Sodium Chloride (Sodium Chloride 0.45%) 1,000 mls @ 100 mls/hr IV .Q10H [facility] Last Admin: 11/04/18 08:50 Dose: 100 mls/hr Megestrol Acetate (Megace) 400 mg PO DAILY [facility] Last Admin: 11/04/18 11:00 Dose: Not Given Multivitamins/Vitamin C (Multi-Delyn Liquid) 5 ml PO DAILY [facility] Last Admin: 11/04/18 11:00 Dose: Not Given Mupirocin (Bactroban 2% Nasal) 0.25 gm HENRRY BID [facility] Last Admin: 11/04/18 11:00 Dose: 0.25 gm Nystatin (Nystop Topical Powder) 1 applic TOP BID [facility] Last Admin: 11/04/18 11:00 Dose: 1 applic - Labs Labs: 11/04/18 06:05 11/04/18 06:05 PT 16.8 SECONDS (9.7-12.2) H 10/22/18 11:52 INR 1.5 10/22/18 11:52 APTT 30 SECONDS (21-34) 10/22/18 11:52 - Constitutional Appears: Other (lethargic) - Head Exam Head Exam: ATRAUMATIC, NORMAL INSPECTION, NORMOCEPHALIC - Eye Exam Eye Exam: PERRL Pupil Exam: NORMAL ACCOMODATION - ENT Exam ENT Exam: Mucous Membranes Moist - Neck Exam Neck Exam: Normal Inspection - Respiratory Exam Respiratory Exam: absent: NORMAL BREATHING PATTERN Additional comments: labored breathing noted - Cardiovascular Exam Cardiovascular Exam: Bradycardia, Irregular Rhythm - GI/Abdominal Exam GI & Abdominal Exam: Soft Additional comments: obese - Extremities Exam Extremities Exam: absent: Full ROM Additional comments: unable to assess 2/2 pt not following commands today - Neurological Exam Neurological Exam: Altered, CN II-XII Intact Additional comments: pt is lethargic today; not verbally responding, opens eyes spontaneously and to sternal rub. relfexes brisk b/l no tremors; toes downgoing unable to assess strength sensation 2/2 pt lethargic and not following commands today - Psychiatric Exam Psychiatric exam: absent: Normal Affect, Normal Mood Additional comments: lethargic - Skin Skin Exam: Normal Color Assessment and Plan (1) Acute CVA (cerebrovascular accident) Assessment & Plan: Imaging reviewed: -CT head (10/30/18): No evidence of acute infarct. No intracranial hemorrhage. Left occipital encephalomalacia change unchanged in appearance from 10/20/2018. Moderate chronic white matter ischemic change. -MRI Brain (10/25/18): Small areas of restricted diffusion are seen in the right parietal white matter, the right occipital lobe and the left cerebellar hemisphere. These could represent acute infarcts. However, the findings are not verified on the ADC map images. It is possible that the findings are artifactual. There is no corresponding abnormality seen on FLAIR or T2 images. -CTA Head and neck (10/20/18): 1. Moderate bilateral ICA stenosis at the cavernous segments. 2. High-grade near critical stenosis origin right ICA with moderate origin left ICA stenosis. Both ICAs appear to be patent nevertheless. 3. Moderate distal CCA stenosis bilaterally with additional mild stenosis proximal left CCA. 4. No occlusion or significant intracranial stenosis appreciable. -CT Head (10/20/18): Streak artifact obscures evaluation of the skull base. Nonspecific white matter changes. Left occipital encephalomalacia. Generalized volume loss. -ECHO without Bubble (done on 10/09/18): EF 55-60% -ECHO w Bubble Study: no pfo Mrs. Oro today is lethargic compared to when I last saw her on Saturday. I spoke with Dr. Brunson at length regarding how aggressive the neuro team should be in treating her, as she seems to be declining (poor appetite, lethargic). At this time, we are in agreement to repeat a head CT today for this acute change in mental status. Further recommendations pending the CT results. Plan also discussed with Primary RN. -CT head without contrast ordered for today (r/o acute changes; r/o hemorrhagic conversion)---will f/u with results. -Continue ASA 81 mg PO daily. -Eliquis on hold per primary team---pt is for possible PEG insertion. -Cardiology consult on board for acute CVA and afib/BP control. -Statin on hold for now: lipid panel reviewed and normal; pt has elevated LFTs. -Continue telemetry per cardio and primary -Continue PT if pt can tolerate -Pt is already a DNR/DNI -Notify neuro for any change in pt condition. Case discussed with Dr. Mcmahon Status: Acute
--- NOTE | 2018-11-04 17:18 | CP.PCM.PCO ---
Physician Communication Note - Physician Communication Note Physician Communication Note: Family meeting at 1 pm Tomorrow. Comfort care ?
--- NOTE | 2018-11-04 19:04 | PN ---
DATE: 11/04/2018 SUBJECTIVE: The patient is lethargic and confused. The patient's son is at the bedside. OBJECTIVE: VITAL SIGNS: Blood pressure 90/54, heart rate 54, temperature 97.5, respirations 18. HEENT: Pale conjunctivae. CHEST: Absence of breath sounds over the bases. HEART: S1, S2 regular. Grade 4/6 ejection systolic murmur over left sternal border. ABDOMEN: Soft. EXTREMITIES: 2+ pitting edema. LABORATORY DATA: Most recent hemoglobin and hematocrit 8.9 and 30.9, white count 12, platelet count 136,000. Today SMA-7, sodium 147, potassium 5.2, chloride 109, CO2 29, glucose 95, BUN 78, creatinine 2.6. ASSESSMENT: 1. Paroxysmal atrial flutter. The patient is currently in sinus bradycardia. 2. Status post onset [id number] myocardial infarction. 3. Multiple cerebrovascular accidents. 4. Chronic renal insufficiency. 5. Anemia. RECOMMENDATIONS: Case was discussed at length with the patient's son at the bedside. The patient is not a suitable candidate for any aggressive invasive cardiac workup and the patient agrees with that. Continue current conservative medical approach and discontinue telemetry. Shiv Montiel MD
[2018-11-05] MEDS: Sodium Chloride 0.45% 1,000 ML IV SCH ×2 (03:23→05:19)
--- NOTE | 2018-11-05 04:28 | PN ---
DATE: 11/04/2018 FOLLOWUP RENAL CONSULTATION LOCATION: The patient is located in ICU, bed 16. REQUESTED BY: Scottie Alberto MD REASON FOR RENAL FOLLOWUP: Acute renal failure, chronic kidney disease. SUBJECTIVE: Mrs. Oro is an 88-year-old elderly obese female with a past medical history significant for hyperlipidemia, hypertension, coronary artery disease, CHF, AFib, CKD 3, unilateral small kidney, dementia, was admitted from the [facility] on 10/20/2018 with altered mental status and increased BUN and creatinine. The patient was initially treated for hyperkalemia, metabolic acidosis, and with hydration, renal function improved gradually from 7.2 to 1.7. The patient was off IV fluids for about 3 days and now the patient has a decreased p.o. intake, and with worsening renal function, restarted on IV fluids. The patient is more alert today, still not following commands. No complaints. PHYSICAL EXAMINATION: VITAL SIGNS: This morning as follows: Blood pressure 107/47, pulse about 61, respirations 15 and temperature 97.7. Height 5 feet, weight is 195 pounds. GENERAL: Mrs. Oro is an 88-year-old elderly female, moderately built, moderately nourished, not in acute distress. HEENT: Pupils normal, reactive to light and accommodation. Conjunctivae pink. Sclerae anicteric. Tongue is moist and trachea is midline. LUNGS: Symmetric on both sides. Bilateral breath sounds present. Clear to auscultation. CARDIOVASCULAR SYSTEM: [place] at the fifth intercostal space, midclavicular line. S1 and S2 audible. No murmur or gallop. ABDOMEN: Normal in appearance. Soft, tympanitic. No guarding. No rigidity. No hepatosplenomegaly. CENTRAL NERVOUS SYSTEM: The patient is awake, not following commands. EXTREMITIES: No cyanosis, no clubbing, no edema. CURRENT MEDICATIONS: Include as follows: Bactroban ointment to both nostrils b.i.d., Dulcolax 5 mg p.o. daily, aspirin 81 mg daily, Eliquis 2.5 mg p.o. daily on hold, Megace 400 mg p.o. daily, multivitamin liquid p.o. daily, Pepcid 20 mg p.o. daily, and IV fluids half-normal saline at 100 mL/hour. LABORATORY DATA: Include as follows: WBC 12, hemoglobin 8.9, hematocrit is 30.9, platelets 136. Sodium 147, potassium 5.2, chloride 109, CO2 of 29, BUN 78, creatinine 2.6, glucose 95 and calcium 8.3. ASSESSMENT AND PLAN: In summary, Mrs. Oro is an 88-year-old elderly female with hypertension, hyperlipidemia, coronary artery disease, congestive heart failure, chronic kidney disease, unilateral small left kidney, atrial fibrillation, dementia with decreased p.o. intake and also worsening renal function and hypernatremia. 1. Hypernatremia secondary to intravascular depletion secondary decreased p.o. intake. 2. Mild hyperkalemia. Repeat potassium today is 5.2. 3. Acute renal failure on chronic kidney disease secondary to dehydration. Continue IV fluids half-normal saline at 100 mL/hour. 4. Rule out chronic cholecystitis. Overall prognosis is very poor. The patient is now [id number]. Consider nasogastric tube feeding. We will follow with you. Thank you for allowing me to participate in your patient's care. Alfred Lobato MD
--- NOTE | 2018-11-05 06:47 | PN ---
DATE: 11/04/2018 SUBJECTIVE: Today, the patient is still lethargic and not responding to questions and no shortness of breath. PHYSICAL EXAMINATION VITAL SIGNS: The patient has a blood pressure 100/70, pulse 61, respirations was 18. GENERAL: The patient was lethargic. LUNGS: Clear. HEART: Regular rate and rhythm. Positive murmur. ABDOMEN: Soft. Positive bowel sounds. EXTREMITIES: There is +1 edema and a wound to the left leg. LABORATORY DATA: The patient's blood work has shown WBC 12, , platelet is 136. Chemistries showed sodium 127, potassium 5.2, chloride 109, bicarb 29, BUN 78, creatinine 2.6, glucose 95, calcium 8.3. PLAN: The patient is clinically is DNR and DNI and a few hours ago I have received a call from son who wants to do comfort care and so we are going to proceed with current treatment for now and the patient was referred to a hospice. Previously talking to the nurses in the ICU regarding altered mental status, proceeded to have a CAT scan, but since the patient will be in hospice scheduled this order. Shailesh Brunson MD
--- NOTE | 2018-11-05 08:19 | CP.PCM.PN ---
Subjective - Date & Time of Evaluation Date of Evaluation: 11/04/18 Time of Evaluation: 02:00 - Subjective Subjective: Patient examined in bed, alert, lethargic, unable to recognize her son at bed side. Patient is verbal but confused. Very poor PO intake, few sips of Ensure at meal time. Upper and lower extremities edematous. Limited mobility in bed, needs max assistance with care. Patient's son at bed side concerned about her prognosis and asked to discuss goals of care with Palliative Care , again. Objective - Vital Signs/Intake and Output Vital Signs (last 24 hours): Temp Pulse Resp BP Pulse Ox 98.6 F 72 12 110/48 L 100 11/05/18 00:00 11/05/18 00:00 11/05/18 00:00 11/05/18 00:00 11/05/18 00:00 Intake and Output: 11/05/18 11/05/18 06:59 18:59 Intake Total 0 Output Total 100 Balance -100 - Medications Medications: Current Medications Apixaban (Eliquis) 2.5 mg PO DAILY [facility] Last Admin: 11/04/18 13:06 Dose: Not Given Aspirin (Ecotrin) 81 mg PO DAILY [facility] Last Admin: 11/04/18 11:00 Dose: Not Given Bisacodyl (Dulcolax) 5 mg PO BID [facility] Last Admin: 11/04/18 18:14 Dose: Not Given Famotidine (Pepcid) 20 mg PO DAILY [facility] Last Admin: 11/04/18 11:00 Dose: Not Given Sodium Chloride (Sodium Chloride 0.45%) 1,000 mls @ 100 mls/hr IV .Q10H [facility] Last Admin: 11/05/18 05:19 Dose: Not Given Megestrol Acetate (Megace) 400 mg PO DAILY [facility] Last Admin: 11/04/18 11:00 Dose: Not Given Multivitamins/Vitamin C (Multi-Delyn Liquid) 5 ml PO DAILY [facility] Last Admin: 11/04/18 11:00 Dose: Not Given Mupirocin (Bactroban 2% Nasal) 0.25 gm HENRRY BID [facility] Last Admin: 11/04/18 18:15 Dose: 0.25 gm Nystatin (Nystop Topical Powder) 1 applic TOP BID [facility] Last Admin: 11/04/18 18:15 Dose: 1 applic - Labs Labs: 11/04/18 06:05 11/04/18 06:05 PT 16.8 SECONDS (9.7-12.2) H 10/22/18 11:52 INR 1.5 10/22/18 11:52 APTT 30 SECONDS (21-34) 10/22/18 11:52 - Constitutional Appears: No Acute Distress, Chronically Ill - Head Exam Head Exam: ATRAUMATIC, NORMAL INSPECTION, NORMOCEPHALIC - Eye Exam Eye Exam: EOMI, Normal appearance, PERRL Pupil Exam: NORMAL ACCOMODATION, PERRL - ENT Exam ENT Exam: Mucous Membranes Dry - Neck Exam Neck Exam: Normal Inspection - Respiratory Exam Respiratory Exam: Decreased Breath Sounds, Rales, Rhonchi, NORMAL BREATHING PATTERN - Cardiovascular Exam Cardiovascular Exam: Tachycardia, Irregular Rhythm - GI/Abdominal Exam GI & Abdominal Exam: Soft, Hypoactive Bowel Sounds - Rectal Exam Rectal Exam: Deferred - Extremities Exam Extremities Exam: Pedal Edema - Back Exam Back Exam: NORMAL INSPECTION - Neurological Exam Neurological Exam: Alert, Altered Neuro motor strength exam: Left Upper Extremity: 2/1, Right Upper Extremity: 2/1, Left Lower Extremity: 2/1, Right Lower Extremity: 2/1 - Psychiatric Exam Psychiatric exam: Flat Affect - Skin Skin Exam: Mottled, Pallor, Warm Assessment and Plan - Assessment and Plan (Free Text) Assessment: late entry, patient seen 11/04/2018 at 2 pm Patient examined in bed, alert, lethargic, confused, unable to recognize her son at bed side. Patient is verbal, speech soft and hard to understand due to missing teeth. Skin and sclera yellowish, T Patrick 3.4. Oral mucousa very dry. Poor PO intakes, only few spoons of Ensure when assisted. Breath sounds diminished. There is no cough. O2 via NC. Abdomen soft, hypoactive bowel sounds. Patient is incontinent of bladder and bowel. Patient has not started HD just yet as her condition is worsening and risks are higher than benefices. BUN 78, Supervisor Prop Making 2.6. Patient is on gentle hydration. There is edema to upper and lower extremities and discoloration to anterior calfs. Limited mobility in bed. At risk for skin breakdown due to above. BP 110/48, HR 72, afebrile I met with son Mr. Oro who requested palliative visit for re evaluation of goals of care. he noticed that his mother's condition has been declining and is concerned about " overwhelming testing". He wanted to know what his mother's " options and prognosis were". I reviewed his mother's clinical presentation and explained that in light of her advanced age and extensive medical Hx., her life expectancy was limited. We are applying all ordinary measures to preserve her life, but her condition is chronic and can not be cured. he is to expect further decline, and eventually . Mr. Oro confirmed that his expectations and understanding were about the same. Further we discussed patient's poor PO intake and I suggested that due to her lethargy PO feedings are concerning risks of aspiration and if he wanted us to be more agressive, than PEG tube was the option. I offered detailed information about PEG. was very adamant against the PEG and shared with me that he was leaning more towards the comfort measures. Mr. Oro wanted to know Doctor Crandall's opinion and was to call him later this afternoon. We agreed to meet on Saturday11/05/18 at 1 pm and make final de cisions about goals of care, including high probability of comfort measures. Mr. Oro even asked yesterday for all diagnostic studies to be discontinued. I suggested he first talk to Doctor Crandall and he agreed. Impression * An elderly lady with complex medical Hx and clinical presentation * Patient's condition is declining despite all reasonable Medical interventions * At risk for malnutrition due to poor PO inatke * Confusion * lethargy * Edema * Son concerned about quality of life and is considering comfort care * Son is against any further agressive intervention including PEG or NGT Suggestion * Assist with care * Aspiration precautions * promote skin integrity * Agree with the son about Comfort care Final decision on goals of care will be discussed today at family meeting at 1 pm. Advance planing 35 min
[2018-11-05] MEDS ORDERED: Phytonadione 10 mg/ml Inj (Adult) SC STA (10:16)
--- NOTE | 2018-11-05 10:34 | CT ---
Date of service: 11/05/2018 PROCEDURE: CT HEAD WITHOUT CONTRAST. HISTORY: AMS; r/o acute changes COMPARISON: 10/30/2018 TECHNIQUE: Axial computed tomography images were obtained through the head/brain without intravenous contrast. Radiation dose: Total exam DLP = 2270.79 mGy-cm. This CT exam was performed using one or more of the following dose reduction techniques: Automated exposure control, adjustment of the mA and/or kV according to patient size, and/or use of iterative reconstruction technique. FINDINGS: HEMORRHAGE: No intracranial hemorrhage. BRAIN: No mass effect or edema. Stable left occipital encephalomalacia. No evidence of acute infarct. Patchy and confluent deep/subcortical and periventricular white matter lucency consistent with microvascular white matter ischemic change. Age-appropriate. Minimal age-appropriate diffuse atrophy. Examination limited due to patient motion artifact. VENTRICLES: Unremarkable. No hydrocephalus. CALVARIUM: Unremarkable. PARANASAL SINUSES: Unremarkable as visualized. No significant inflammatory changes. MASTOID AIR CELLS: Unremarkable as visualized. No inflammatory changes. OTHER FINDINGS: None. IMPRESSION: No evidence of acute infarct. No intracranial hemorrhage. Stable left occipital encephalomalacia. Chronic white matter ischemic change.
[2018-11-05] MEDS: Bisacodyl 5mg EC Tab PO SCH ×2 (11:27→18:08)
[2018-11-05] MEDS: Multiple Vitamins Oral Solution PO SCH (11:28)
[2018-11-05] MEDS: Megestrol Acetate 40 mg/ml Cup PO SCH (11:28)
[2018-11-05] MEDS ORDERED: Phytonadione 10 mg/ml Inj (Adult) SC ONE (11:45)
[2018-11-05] MEDS: Mupirocin 2% Ointment (NASAL) NAS SCH ×2 (11:56→18:09)
--- NOTE | 2018-11-05 14:15 | CP.PCM.PN ---
Subjective - Date & Time of Evaluation Date of Evaluation: 11/05/18 Time of Evaluation: 14:12 - Subjective Subjective: patient examined in bed, lethargic, alert, speech soft hard to understand. Patient was able to recognize her son today and tried to call his name. However, patient remains to be very weak, with poor PO intake and with SOB. Family meeting held today and comfort care discussed. Objective - Vital Signs/Intake and Output Vital Signs (last 24 hours): Temp Pulse Resp BP Pulse Ox 97.4 F L 70 18 115/79 96 11/05/18 08:25 11/05/18 08:25 11/05/18 08:25 11/05/18 08:25 11/05/18 08:25 Intake and Output: 11/05/18 11/05/18 06:59 18:59 Intake Total 0 Output Total 100 Balance -100 - Medications Medications: Current Medications Apixaban (Eliquis) 2.5 mg PO DAILY [facility] Last Admin: 11/04/18 13:06 Dose: Not Given Aspirin (Ecotrin) 81 mg PO DAILY [facility] Last Admin: 11/05/18 11:27 Dose: Not Given Bisacodyl (Dulcolax) 5 mg PO BID [facility] Last Admin: 11/05/18 11:27 Dose: Not Given Famotidine (Pepcid) 20 mg PO DAILY [facility] Last Admin: 11/05/18 11:32 Dose: Not Given Sodium Chloride (Sodium Chloride 0.45%) 1,000 mls @ 100 mls/hr IV .Q10H [facility] Last Admin: 11/05/18 05:19 Dose: Not Given Megestrol Acetate (Megace) 400 mg PO DAILY [facility] Last Admin: 11/05/18 11:28 Dose: Not Given Multivitamins/Vitamin C (Multi-Delyn Liquid) 5 ml PO DAILY [facility] Last Admin: 11/05/18 11:28 Dose: Not Given Mupirocin (Bactroban 2% Nasal) 0.25 gm HENRRY BID [facility] Last Admin: 11/05/18 11:56 Dose: 0.25 gm Nystatin (Nystop Topical Powder) 1 applic TOP BID [facility] Last Admin: 11/05/18 12:16 Dose: 1 applic - Labs Labs: 11/04/18 06:05 11/04/18 06:05 PT 16.8 SECONDS (9.7-12.2) H 01/02/19 11:52 INR 1.5 10/22/18 11:52 APTT 30 SECONDS (21-34) 10/22/18 11:52 - Constitutional Appears: Chronically Ill - Head Exam Head Exam: ATRAUMATIC, NORMAL INSPECTION, NORMOCEPHALIC - Eye Exam Eye Exam: EOMI, Normal appearance, PERRL Pupil Exam: NORMAL ACCOMODATION - ENT Exam ENT Exam: Mucous Membranes Dry, Normal Exam - Neck Exam Neck Exam: Normal Inspection - Respiratory Exam Respiratory Exam: Decreased Breath Sounds, Rales, Rhonchi - Cardiovascular Exam Cardiovascular Exam: Tachycardia, Irregular Rhythm - GI/Abdominal Exam GI & Abdominal Exam: Hypoactive Bowel Sounds - Rectal Exam Rectal Exam: Deferred - Extremities Exam Extremities Exam: Pedal Edema - Back Exam Back Exam: NORMAL INSPECTION - Neurological Exam Neurological Exam: Alert, Altered Neuro motor strength exam: Left Upper Extremity: 2/, Right Upper Extremity: 2/, Left Lower Extremity: 2, Right Lower Extremity: 2 - Psychiatric Exam Psychiatric exam: Flat Affect - Skin Skin Exam: Dry, Intact, Mottled, Warm Assessment and Plan - Assessment and Plan (Free Text) Assessment: Goals of care discussed with patient's son mr. Oro. After long discussion last night Mr. Oro came to conclusion that he would want to allow her mother to naturally at home and to stop further diagnostic studies and interventions. We further elaborated on patient's condition and quality of life. Mr. Oro feels it was time o let her mother " go with God". He feels that every next diagnostic test is just making his mother suffer more, especially blood works that he does not see the purpose any more. I offered info on Hospice care. Mr. Oro asked gor home hospice. patient already had 4 hr / day Home health aid and he asked if he could keep those services in addition to a Hospice care. I was not sure about it and discussed with rehabilitation case coordinator Loraine. We agreed that Hospice team evaluates patient and give more information about services to Mr. Oro. Impression * Chronically ill lady declining steadily * Poor PO intake * At risk for malnutrition * patient is entering the end stage of her life * Son is concerned with her comfort and requesting Comfort measures only * DNR/DNI confirmed Suggestion * Would discontinue all blood work and further diagnostic studies * Offer pleasure food as tolerated * promote skin integrity * Hospice evaluation for Home hospice * DNR/DNI Palliative care will sign off at this time Advance care planing 46 min
--- NOTE | 2018-11-05 14:16 | CP.PCM.PN ---
Subjective - Date & Time of Evaluation Date of Evaluation: 11/05/18 Time of Evaluation: 14:15 - Subjective Subjective: Neurology Follow-Up Note: Mrs. Oro was evaluated this afternoon at bedside. Son present at bedside today. Today pt is more alert than yesterday and able to follow simple commands. Palliative care SCREEN CLEANER Melissa met with pt's son this afternoon for goals of care--he agrees for hospice at home. At this time pt denies any complaints. Objective - Vital Signs/Intake and Output Vital Signs (last 24 hours): Temp Pulse Resp BP Pulse Ox 97.4 F L 70 18 115/79 96 11/05/18 08:25 11/05/18 08:25 11/05/18 08:25 11/05/18 08:25 11/05/18 08:25 Intake and Output: 11/05/18 11/05/18 06:59 18:59 Intake Total 0 Output Total 100 Balance -100 - Medications Medications: Current Medications Apixaban (Eliquis) 2.5 mg PO DAILY [facility] Last Admin: 11/04/18 13:06 Dose: Not Given Aspirin (Ecotrin) 81 mg PO DAILY [facility] Last Admin: 11/05/18 11:27 Dose: Not Given Bisacodyl (Dulcolax) 5 mg PO BID [facility] Last Admin: 11/05/18 11:27 Dose: Not Given Famotidine (Pepcid) 20 mg PO DAILY [facility] Last Admin: 11/05/18 11:32 Dose: Not Given Sodium Chloride (Sodium Chloride 0.45%) 1,000 mls @ 100 mls/hr IV .Q10H [facility] Last Admin: 11/05/18 05:19 Dose: Not Given Megestrol Acetate (Megace) 400 mg PO DAILY [facility] Last Admin: 11/05/18 11:28 Dose: Not Given Multivitamins/Vitamin C (Multi-Delyn Liquid) 5 ml PO DAILY [facility] Last Admin: 11/05/18 11:28 Dose: Not Given Mupirocin (Bactroban 2% Nasal) 0.25 gm HENRRY BID [facility] Last Admin: 11/05/18 11:56 Dose: 0.25 gm Nystatin (Nystop Topical Powder) 1 applic TOP BID [facility] Last Admin: 11/05/18 12:16 Dose: 1 applic - Labs Labs: 11/04/18 06:05 11/04/18 06:05 PT 16.8 SECONDS (9.7-12.2) H 10/22/18 11:52 INR 1.5 10/22/18 11:52 APTT 30 SECONDS (21-34) 10/22/18 11:52 - Constitutional Appears: No Acute Distress - Head Exam Head Exam: ATRAUMATIC, NORMAL INSPECTION, NORMOCEPHALIC - Eye Exam Eye Exam: EOMI, Normal appearance Pupil Exam: NORMAL ACCOMODATION - ENT Exam ENT Exam: Mucous Membranes Moist - Neck Exam Neck Exam: Full ROM - Respiratory Exam Respiratory Exam: NORMAL BREATHING PATTERN - Extremities Exam Extremities Exam: absent: Calf Tenderness, Full ROM, Pedal Edema Additional comments: generalized weakness 2/2 deconditioning. - Neurological Exam Neurological Exam: Awake. absent: Oriented x3 Additional comments: pt is more alert than yesterday but still not at her baseline. equal strength b/l; sensation intact reflexes brisk b/l no tremors; toes downgoing - Psychiatric Exam Additional comments: more alert than yesterday but not at baseline - Skin Skin Exam: Normal Color Assessment and Plan (1) Acute CVA (cerebrovascular accident) Assessment & Plan: Imaging reviewed: -CT Head (11/04/18): No evidence of acute infarct. No intracranial hemorrhage. Stable left occipital encephalomalacia. Chronic white matter ischemic change. -CT head (10/30/18): No evidence of acute infarct. No intracranial hemorrhage. Left occipital encephalomalacia change unchanged in appearance from 10/20/2018. Moderate chronic white matter ischemic change. -MRI Brain (10/25/18): Small areas of restricted diffusion are seen in the right parietal white matter, the right occipital lobe and the left cerebellar hemisphere. These could represent acute infarcts. However, the findings are not verified on the ADC map images. It is possible that the findings are artifactual. There is no corresponding abnormality seen on FLAIR or T2 images. -CTA Head and neck (10/20/18): 1. Moderate bilateral ICA stenosis at the cavernous segments. 2. High-grade near critical stenosis origin right ICA with moderate origin left ICA stenosis. Both ICAs appear to be patent nevertheless. 3. Moderate distal CCA stenosis bilaterally with additional mild stenosis proximal left CCA. 4. No occlusion or significant intracranial stenosis appreciable. -CT Head (10/20/18): Streak artifact obscures evaluation of the skull base. Nonspecific white matter changes. Left occipital encephalomalacia. Generalized volume loss. -ECHO without Bubble (done on 10/09/18): EF 55-60% -ECHO w Bubble Study: no pfo -Continue ASA 81 mg PO daily. -Continue to hold Eliquis per Dr. Brunson's request (I discussed this with him today). -Cardiology consult on board for acute CVA and afib/BP control. -Statin on hold for now: lipid panel reviewed and normal; pt has elevated LFTs. -Continue telemetry per cardio and primary -Continue PT if pt can tolerate -Pt is already a DNR/DNI -Palliative care met with pt's son today and he is requesting hospice care at home for his mother. I had a lengthy discussion with him as well about his mother and his request for hospice. At this time we will sign off. Please reconsult prn. Thank you for allowing us to participate in this pt's care. Case discussed with Dr. Mcmahon Status: Acute
--- NOTE | 2018-11-05 16:03 | PN ---
DATE: 11/05/2018 LOCATION: 663, bed A. SUBJECTIVE: This is an 88-year-old female in a state of DNR and DNI, appeared to be somewhat alert, but with period of allergy, with mild semi-confusion on and off, reported to have very poor oral intake, loss of appetite with reported significant changes of the lower extremities bilaterally, but mildly at the upper extremities. No reported active bleeding, palpitation, chest pain or significant increase of shortness of breath. No nausea or vomiting reported. The entire chart is reviewed including but not limited to the most recent lab and radiology study results, current and previous medication list, current and previous medical events. Today's lab result is still pending, however, the patient still has leukocytosis with low hemoglobin and hematocrit as well as normal white blood cells with increased BUN to 78, creatinine 2.6, calcium 8.3, mildly elevated liver function test, but total bilirubin of 3.4 before with low albumin. The patient CAT scan is still pending. PHYSICAL EXAMINATION: GENERAL: A 88-year-old female, afebrile. VITAL SIGNS: Pulse of 74, respiratory rate 20-22, blood pressure of 112/72. HEENT: Showed pale dry oral mucous membrane. Mildly icteric sclerae bilaterally. HEART: Positive S1 and S2. ABDOMEN: Soft with mild generalized tenderness, mildly obese. Bowel sounds are hypoactive with possible mild distention. No mass or organomegaly. NEUROLOGIC: No reported new neurological deficits, sensory or motor. EXTREMITIES: With edematous changes. No clubbing or cyanosis. No reported new focal deficits. IMPRESSION: 1. Malnutrition with hypoalbuminemia, hypoproteinemia. 2. Renal failure. 3. Abnormal liver function test with jaundice that could be secondary to an infectious process, medication inducing hepatocellular injury or due to starvation. 3. The patient is a candidate for a percutaneous endoscopic gastrostomy insertion. 4. Anemia most likely secondary to above. 5. Multiple past medical history including but not limited to peptic ulcer disease, hyperlipidemia, poorly controlled diabetes mellitus, congestive heart failure, hypertension with status post cardiac stent insertion. SUGGESTIONS: 1. Continue current management. 2. Central hyperalimentation. 3. The patient is a candidate for a PEG insertion after correcting any underlying coagulopathy to be discussed with a legal guardian to obtain a consent. Further recommendation to follow. Avni Gimenez MD
--- NOTE | 2018-11-05 17:51 | CP.PCM.PN ---
Subjective - Date & Time of Evaluation Date of Evaluation: 11/05/18 Time of Evaluation: 17:51 - Subjective Subjective: pt is seen and examined, follow up consult is dictated #[id number] Objective - Vital Signs/Intake and Output Vital Signs (last 24 hours): Temp Pulse Resp BP Pulse Ox 97.3 F L 67 18 116/84 99 11/05/18 16:00 11/05/18 16:00 11/05/18 16:00 11/05/18 16:00 11/05/18 16:00 Intake and Output: 11/05/18 11/05/18 06:59 18:59 Intake Total 0 Output Total 100 Balance -100 - Medications Medications: Current Medications Apixaban (Eliquis) 2.5 mg PO DAILY [facility] Last Admin: 11/04/18 13:06 Dose: Not Given Aspirin (Ecotrin) 81 mg PO DAILY [facility] Last Admin: 11/05/18 11:27 Dose: Not Given Bisacodyl (Dulcolax) 5 mg PO BID [facility] Last Admin: 11/05/18 11:27 Dose: Not Given Famotidine (Pepcid) 20 mg PO DAILY [facility] Last Admin: 11/05/18 11:32 Dose: Not Given Sodium Chloride (Sodium Chloride 0.45%) 1,000 mls @ 100 mls/hr IV .Q10H [facility] Last Admin: 11/05/18 05:19 Dose: Not Given Megestrol Acetate (Megace) 400 mg PO DAILY [facility] Last Admin: 11/05/18 11:28 Dose: Not Given Multivitamins/Vitamin C (Multi-Delyn Liquid) 5 ml PO DAILY [facility] Last Admin: 11/05/18 11:28 Dose: Not Given Mupirocin (Bactroban 2% Nasal) 0.25 gm HENRRY BID [facility] Last Admin: 11/05/18 11:56 Dose: 0.25 gm Nystatin (Nystop Topical Powder) 1 applic TOP BID [facility] Last Admin: 11/05/18 12:16 Dose: 1 applic - Labs Labs: 11/04/18 06:05 11/04/18 06:05 PT 16.8 SECONDS (9.7-12.2) H 10/22/18 11:52 INR 1.5 10/22/18 11:52 APTT 30 SECONDS (21-34) 10/22/18 11:52
--- NOTE | 2018-11-05 19:28 | PN ---
DATE: 11/05/2018 SUBJECTIVE: The patient is lethargic and is not eating and is being considered for gastrostomy feeding tube placement. PHYSICAL EXAMINATION VITAL SIGNS: Blood pressure 115/79, heart rate 70, temperature 97.4, respirations 18. HEENT: Pale conjunctivae. CHEST: Absent breath sounds over the bases with diminished air entry bilaterally. HEART: S1 and S2 regular. Grade IV/ ejection systolic murmur over the precordium. ABDOMEN: Soft. EXTREMITIES: 1+ pitting edema. DIAGNOSTIC DATA: Repeat head CT scan done yesterday revealed no evidence of acute infarct, no intracranial hemorrhage, stable left occipital encephalomalacia, chronic white matter ischemic changes. ASSESSMENT: 1. Status post non-ST elevation myocardial infarction. 2. Chronic renal insufficiency. 3. Paroxysmal atrial flutter. 4. Multiple recent cerebrovascular accidents. 5. Anemia. RECOMMENDATIONS: All oral medications are currently on hold. The patient can undergo gastrostomy feeding tube from the cardiac point with close preoperative blood pressure monitoring and postoperative telemetry. Shiv Montiel MD
[2018-11-06] MEDS: Sodium Chloride 0.45% 1,000 ML IV SCH ×5 (00:27→20:51)
--- NOTE | 2018-11-06 00:35 | PN ---
DATE: 11/05/2018 SUBJECTIVE: Today, the patient was transferred to 6th floor out of ICU. The patient opens eyes to verbal stimuli but does not answer the questions. The patient is in respiratory distress. PHYSICAL EXAMINATION: VITAL SIGNS: The patient has a blood pressure of 116/84, pulse 67, respirations 18, and temperature is 97.3. HEENT: Face is pale. NECK: Supple. LUNGS: Poor respiratory effort. HEART: Regular rate and rhythm. Positive murmur. ABDOMEN: Soft. Positive bowel sounds. EXTREMITIES: There is ____ +2 pitting edema; and there is a wound to the left leg. The case was discussed with the family and with the son who wants the patient to be in hospice, comfort care, and contact was made this afternoon, and the patient would be transferred to home hospice care. The case was discussed with Kerri Hwang, the nurse practitioner. Shailesh Brunson MD
--- NOTE | 2018-11-06 03:17 | PN ---
DATE: 11/05/2018 LOCATION: Room 667, bed A. REQUESTED BY: Scottie Alberto MD REASON FOR FOLLOWUP: Acute renal failure, chronic kidney disease. SUBJECTIVE: Ms. Oro is an 88-year-old elderly obese female with a past medical history significant for longstanding hypertension; hyperlipidemia; coronary artery disease; CHF, status post stent placement; AFIB; chronic kidney disease with a baseline creatinine of 1.7; unilateral small kidney; dementia; was admitted from the [facility] on 10/20/2018 with the chief complaint of decreased p.o. intake, altered mental status and worsening renal function with creatinine of 7.2, hyperkalemia, metabolic acidosis, started on IV fluids and sodium bicarb and serum creatinine gradually improved back to 1.7 and IV fluids was discontinued. Subsequently the patient stopped taking p.o. intake and her creatinine is not raising again. IV fluids was restarted. The patient is more alert and following simple commands, not in distress, still the patient has decreased p.o. intake. PHYSICAL EXAMINATION: VITAL SIGNS: Blood pressure this morning as follows, 115/79; this afternoon 116/84; pulse 67; respirations 18; temperature 97.3; saturation 99%; height 5 feet; weight is 195 pounds. GENERAL: Ms. Oro is an 88-year-old elderly female, well built, well nourished, not in distress. HEENT: Pupils normal and reactive to light and accommodation. Conjunctivae pink. Sclerae anicteric. Tongue is moist. Trachea is midline. LUNGS: Symmetric on both sides. Bilateral breath sounds present. Clear to auscultation. CVS: [place] at the fifth intercostal space, midclavicular area. S1 and S2 audible. The patient has ejection systolic murmur present in the aortic area connecting to both carotids. ABDOMEN: Normal in appearance. Soft, tympanic. No guarding. No rigidity. No hepatosplenomegaly. EQUALIZER OPERATOR: The patient is alert, awake, oriented x1-2. Sensory and motor system is within normal limits. EXTREMITIES: No cyanosis, no clubbing, no edema. CURRENT MEDICATIONS: Include as follows, Bactroban ointment to both nostrils and Dulcolax 5 mg p.o. b.i.d., aspirin 81 mg p.o. daily and Eliquis on hold and Megace 400 mg p.o. daily and multivitamin liquid 5 mL p.o. daily and nystatin powder topical and Pepcid 20 mg daily and IV fluids half-normal saline at 100 mL/hour. LABORATORY DATA: Include as follows as of 11/04/2018, WBC 12, hemoglobin 8.9, hematocrit is 30.9, platelets of 136. Sodium 147, potassium 5.2, chloride 109, CO2 of 29, BUN 78, creatinine 2.6, glucose 95, calcium 8.3. No new labs available. IMPRESSION AND PLAN: In summary, Ms. Oro is an 88-year-old elderly female with a history of hypertension; hyperlipidemia; coronary artery disease; congestive heart failure; chronic kidney disease, unilateral small kidney; atrial fibrillation; and dementia who was admitted with decreased oral intake, worsening renal function, hyperkalemia, metabolic acidosis. 1. Acute renal failure on chronic kidney disease secondary to decreased oral intake and dehydration. Continue IV fluids, again half-normal saline at 100 mL/hour. Continue to monitor BMP. 2. Anemia secondary to renal failure. 3. Atrial fibrillation. 4. Rule out cholecystitis. Repeat BMP in a.m. Encourage p.o. intake and consider PEG tube placement. We will follow with you. Thank you for allowing me to participate in your patient's care. Overall prognosis is very poor and the patient is a DNR/DNI. Alfred Lobato MD
--- NOTE | 2018-11-06 09:21 | CP.PCM.PN ---
Subjective - Date & Time of Evaluation Date of Evaluation: 11/06/18 Time of Evaluation: 09:21 - Subjective Subjective: pt is seen and examined, follow up consult is dictated #[id number] Objective - Vital Signs/Intake and Output Vital Signs (last 24 hours): Temp Pulse Resp BP Pulse Ox 97.5 F L 70 20 113/70 100 11/06/18 08:30 11/06/18 08:30 11/06/18 08:30 11/06/18 08:30 11/06/18 08:30 - Medications Medications: Current Medications Apixaban (Eliquis) 2.5 mg PO DAILY [facility] Last Admin: 11/04/18 13:06 Dose: Not Given Aspirin (Ecotrin) 81 mg PO DAILY [facility] Last Admin: 11/05/18 11:27 Dose: Not Given Bisacodyl (Dulcolax) 5 mg PO BID [facility] Last Admin: 11/05/18 18:08 Dose: Not Given Famotidine (Pepcid) 20 mg PO DAILY [facility] Last Admin: 11/05/18 11:32 Dose: Not Given Sodium Chloride (Sodium Chloride 0.45%) 1,000 mls @ 100 mls/hr IV .Q10H [facility] Last Admin: 11/06/18 02:00 Dose: 100 mls/hr Megestrol Acetate (Megace) 400 mg PO DAILY [facility] Last Admin: 11/05/18 11:28 Dose: Not Given Multivitamins/Vitamin C (Multi-Delyn Liquid) 5 ml PO DAILY [facility] Last Admin: 11/05/18 11:28 Dose: Not Given Mupirocin (Bactroban 2% Nasal) 0.25 gm HENRRY BID [facility] Last Admin: 11/05/18 18:09 Dose: 0.25 gm Nystatin (Nystop Topical Powder) 1 applic TOP BID [facility] Last Admin: 11/05/18 18:09 Dose: 1 applic - Labs Labs: 11/04/18 06:05 11/04/18 06:05 PT 16.8 SECONDS (9.7-12.2) H 10/22/18 11:52 INR 1.5 10/22/18 11:52 APTT 30 SECONDS (21-34) 10/22/18 11:52
[2018-11-06] MEDS: Megestrol Acetate 40 mg/ml Cup PO SCH (09:55)
[2018-11-06] MEDS: Bisacodyl 5mg EC Tab PO SCH ×2 (09:55→20:50)
[2018-11-06] MEDS: Mupirocin 2% Ointment (NASAL) NAS SCH ×2 (10:35→17:54)
[2018-11-06] MEDS: Multiple Vitamins Oral Solution PO SCH (10:35)
--- NOTE | 2018-11-06 18:59 | PN ---
DATE: 11/06/2018 SUBJECTIVE: The patient is lethargic, but does not appear to be in any respiratory distress. PHYSICAL EXAMINATION: VITAL SIGNS: Blood pressure 113/70, heart rate 70, temperature 97.5, respirations 20. HEENT: Pale conjunctivae. CHEST: Poor air entry bilaterally. HEART: S1 and S2 regular. Grade 4/6 ejection systolic murmur over left sternal border. EXTREMITIES: 1+ pitting edema. ASSESSMENT: 1. Multiple cerebrovascular accidents. 2. Lyo-WO-cycwqqrdm myocardial infarction. 3. Paroxysmal atrial flutter. 4. Chronic renal insufficiency. 5. Anemia. RECOMMENDATIONS: Oral medications are being on hold, so far no plans for gastrostomy feeding tube and the plan is to place the patient on hospice. Shiv Montiel MD
[2018-11-06] MEDS: Dextrose 5%/0.45% NS 1,000 ML IV SCH (22:13)
--- NOTE | 2018-11-06 23:20 | PN ---
DATE: 11/06/2018 LOCATION: 667, bed A. SUBJECTIVE: This is an 88-year-old female who is initially scheduled for potential PEG insertion today but due to the family request and decision not to go ahead with PEG insertion, the procedure had to be canceled. The entire chart is reviewed. Case was discussed with the staff at length. Today's lab result is still pending; however, the patient has persistent low albumin with electrolyte imbalance and elevated liver function tests. PHYSICAL EXAMINATION: GENERAL: An 88-year-old female. VITAL SIGNS: Afebrile with pulse of 72, respiratory rate of 20 to 22, blood pressure of 110/68. HEENT: Showed pale dry oral mucous membrane, nonicteric sclerae. LUNGS: Few scattered crepitation. Decreased air entry at bases. HEART: Positive S1 and S2. ABDOMEN: Soft with mild generalized tenderness. No mass or organomegaly. No rebound tenderness or guarding. Mild distention noticed. EXTREMITIES: Lower extremities edematous changes. No clubbing or cyanosis. NEUROLOGICAL: No reported new neurological deficits, sensory or motor. IMPRESSION: 1. Hypoalbuminemia, hypoproteinemia, malnutrition. 2. Renal failure. 3. Abnormal liver function tests. 4. Re-exacerbation of peptic ulcer disease. 5. Anemia. 6. Known history but not limited to barely controlled diabetes mellitus, hyperlipidemia, congestive heart failure with hypertension. 7. Status post cardiac stent insertion. SUGGESTIONS: 1. Agree with your plan. 2. Continue current management. 3. evaluation. 4. No need for further aggressive GI workup. Avni Gimenez MD
--- NOTE | 2018-11-07 02:17 | PN ---
DATE: 11/06/2018 SUBJECTIVE: The patient was seen earlier and the patient is still lethargic but open eyes and answered the simple questions and denies any chest pain or palpitation. However, the patient admits to not being anorexic. PHYSICAL EXAMINATION: VITAL SIGNS: Patient has blood pressure of 107/69, pulse is 78, respiration 20, temperature 98 degrees Fahrenheit. GENERAL: The patient is somewhat bloated. NECK: Supple. LUNGS: Poor inspiratory effort. HEART: Regular rate and rhythm. Positive murmur. ABDOMEN: Soft. Positive bowel sound. EXTREMITIES: There is +1-+2 pitting edema. PLAN: The patient now is DNR/DNI. This patient is going to hospice. A hospice care was involved and waiting for the decision of the family to take patient to home hospice. So, the case was discussed with Kerri Hwang, the nurse practitioner. ADDENDUM: The patient was on half normal saline at 100 mL/hour but I decreased the half normal saline to D5 and half normal saline at the rate of 60 mL/hour. Case also was discussed with the nurse, attending the patient. Shailesh Brunson MD
--- NOTE | 2018-11-07 06:54 | PN ---
DATE: 11/06/2018 FOLLOWUP RENAL CONSULTATION LOCATION: Room 667, bed A. REQUESTED BY: Scottie Alberto MD REASON FOR FOLLOWUP: Acute renal failure, chronic kidney disease. SUBJECTIVE: Mrs. Oro is an 88-year-old elderly, obese female with a past medical history significant for longstanding hypertension, hyperlipidemia, coronary artery disease, CHF, CKD, unilateral small kidney of left, AFib, and dementia, who was admitted on multiple times in the last 1 month with acute renal failure. The patient was recently admitted on 10/20/2018 from the long-term with chief complaints of altered mental status and increased BUN and creatinine and decreased p.o. intake from the long-term. The patient was treated initially for hyperkalemia, metabolic acidosis and subsequently placed on IV fluids with improvement of renal function from serum creatinine 7.2 to 1.7 after hydration after 1 week. The patient is not in acute distress with a decreased p.o. intake. PHYSICAL EXAMINATION: VITAL SIGNS: As follows: Blood pressure 113/70, pulse 70, respirations 20, temperature 97.5, and saturation 100%. Height 5 feet, weight is 195 pounds. GENERAL: Mrs. Oro is an 88-year-old elderly female, moderately built, moderately nourished, not in acute distress. HEENT: Pupils normal, reactive to light and accommodation. Conjunctivae pink. Sclerae anicteric. Tongue is moist and trachea is midline. LUNGS: Symmetric on both sides. Bilateral breath sounds present. Clear to auscultation. CARDIOVASCULAR SYSTEM: [place] at the fifth intercostal space, midclavicular line. S1, S2 audible. Irregularly irregular. ABDOMEN: Normal in appearance. Soft, tympanitic. No guarding. No rigidity. No hepatosplenomegaly. CENTRAL NERVOUS SYSTEM: Awake, following one or simple commands, oriented x1-2. EXTREMITIES: No cyanosis, no clubbing. Trace edema in both lower extremities. CURRENT MEDICATIONS: Include as follows: IV fluids D5 half normal saline at 60 mL/hour, Dulcolax 5 mg p.o. b.i.d., aspirin 81 mg daily, Eliquis on hold, Megace 400 mg p.o. daily, multivitamin liquid 5 mL p.o. daily, nystatin topical powder, and Pepcid 20 mg p.o. daily. LABORATORY DATA: No new labs available. Labs as of 11/04/2018, WBC 12, hemoglobin 8.9, hematocrit 30.9, platelets 136. Sodium 147, potassium 5.2, chloride 109, CO2 of 29, BUN 78, creatinine 2.6, glucose 95, and calcium 8.3. MRSA screening as of 11/05/2018 is negative. DC the isolation. ASSESSMENT: In summary, Mrs. Oro is an 88-year-old elderly female with a history of multiple medical problems including hypertension, hyperlipidemia, coronary artery disease, congestive heart failure, chronic kidney disease, unilateral small left kidney, atrial fibrillation, dementia, who was admitted from the long-term after altered mental status, decreased oral intake, acute renal failure with a creatinine of 7.2, hyperkalemia, metabolic acidosis, on admission was treated with hydration and serum creatinine decreased to 1.7 and fluid was discontinued. Then, the patient was started on oral liquids and with decreased oral intake, subsequently, her serum creatinine started worsening, restarted on intravenous fluids. Now, the patient's family is refusing percutaneous endoscopic gastrostomy tube placement and considering hospice evaluation. Does not want any aggressive measures as per the registered nurse this morning, refused a percutaneous endoscopic gastrostomy tube placement. 1. Acute renal failure on chronic kidney disease. 2. Anemia. 3. Atrial fibrillation. 4. Dementia. 5. Abnormal liver function tests, rule out acute cholecystitis. PLAN: Continue to monitor the patient. The patient's family refused a percutaneous endoscopic gastrostomy tube placement this morning as per the registered nurse and no aggressive measures, wants hospice evaluation. The patient is [id number]. Continue to monitor as per the primary medical doctor's recommendations. Thank you for allowing me to participate in your patient's care. Overall prognosis is very poor. No further labs at this time. Alfred Lobato MD
[2018-11-07] MEDS: Bisacodyl 5mg EC Tab PO SCH ×2 (11:38→17:44)
[2018-11-07] MEDS: Megestrol Acetate 40 mg/ml Cup PO SCH (11:38)
[2018-11-07] MEDS: Multiple Vitamins Oral Solution PO SCH (11:39)
--- NOTE | 2018-11-07 17:23 | PN ---
DATE: 11/07/2018 LOCATION: 667, bed A. SUBJECTIVE: This is an 88-year-old female seen and examined early in rounds without significant clinical changes or reported active bleeding with very poor oral intake. Family refused NG tube insertion as well and refusing PEG insertion. The entire chart is reviewed including but not limited to the most recent lab and radiology study results. Case discussed at length with the staff. No lab results obtained, however, today, but the latest lab results showed elevated liver function test with low hemoglobin and hematocrit. PHYSICAL EXAMINATION: GENERAL: An 88-year-old female. VITAL SIGNS: Afebrile with pulse of 84, respiratory rate 20-22, blood pressure 116/60. HEENT: Showed pale dry oral mucous membrane. Nonicteric sclerae. LUNGS: Few scattered crepitation. Decreased air entry at bases. HEART: Positive S1 and S2. ABDOMEN: Soft with mild generalized tenderness. No mass or organomegaly. No rebound tenderness or guarding. EXTREMITIES: Lower extremity edematous changes. No clubbing or cyanosis. NEUROLOGIC: No reported new neurological deficits, sensory or motor. IMPRESSION: 1. Malnutrition with dysphagia and failure to thrive. 2. Hypoalbuminemia, hypoproteinemia. 3. Re-exacerbation of peptic ulcer disease. 4. Abnormal liver function test, most likely secondary to starvation and/or infectious process. 5. Renal failure by recent history. 6. Anemia secondary to above. 7. Multiple past medical history including but not limited to hyperlipidemia, poorly controlled diabetes mellitus, congestive heart failure with hypertension. 8. Coronary artery disease with status post cardiac stent insertion. SUGGESTIONS: 1. Continue current management. 2. Central versus peripheral hyperalimentation. The patient is in a state of DNR and DNI and the son refusing NG tube insertion and possible PEG insertion. Will follow up closely with you. Avni Gimenez MD
--- NOTE | 2018-11-07 19:03 | PN ---
DATE: 11/07/2018 SUBJECTIVE: The patient is lethargic, mildly tachypneic, but does not appear to be in acute distress. PHYSICAL EXAMINATION VITAL SIGNS: Blood pressure 120/65, heart rate 87, temperature 97.9, respirations 20. HEENT: Pale conjunctivae. CHEST: Diminished breath sounds bilaterally. HEART: S1 and S2 regular. Grade IV/ ejection systolic murmur over the left sternal area. EXTREMITIES: 1+ pitting edema. ASSESSMENT: 1. Multiple cerebrovascular accidents. 2. Hln-FI-jrlidrnsm myocardial infarction. 3. Chronic renal insufficiency. 4. Paroxysmal atrial flutter. 5. Anemia. RECOMMENDATIONS: Continue aspirin 81 mg daily, Pepcid 20 mg orally daily. Eliquis is on hold for now. Shiv Montiel MD
--- NOTE | 2018-11-08 01:12 | PN ---
DATE: 11/07/2018 SUBJECTIVE: The patient is seen this morning and examined. The patient has opened eyes to verbal stimuli and able to answer simple questions, and the patient is very weak. PHYSICAL EXAMINATION: VITAL SIGNS: The patient has blood pressure of 111/65, pulse 81, respirations 18, and temperature 97.2. NECK: Supple. LUNGS: Poor inspiratory effort. HEART: Regular rate and rhythm. Positive S1 and S2. ABDOMEN: Soft. Positive bowel sounds. EXTREMITIES: There is a +2 pitting edema. PLAN AND RECOMMENDATIONS: The patient is DNR and DNI, and is scheduled to be transferred to hospice care, and we are going to continue to monitor the patient, and the patient is on D5 half-normal saline, and also recommendation is to help the patient during feeding as much possible. Shailesh Brunson MD
[2018-11-08] MEDS: Megestrol Acetate 40 mg/ml Cup PO SCH (09:41)
[2018-11-08] MEDS: Multiple Vitamins Oral Solution PO SCH (09:41)
[2018-11-08] MEDS: Bisacodyl 5mg EC Tab PO SCH ×2 (09:42→17:53)
--- NOTE | 2018-11-08 20:07 | PN ---
DATE: 10/08/2019 SUBJECTIVE: The patient is less lethargic. She knows that she is in hospital. She does not appear to be in any respiratory distress. PHYSICAL EXAMINATION: VITAL SIGNS: Blood pressure 115/71, heart rate 74, temperature 97.2, and respirations 20. HEENT: Pale conjunctivae. CHEST: Absent breath sounds and poor air entry over the bases. HEART: S1 and S2 regular, grade 4/6 ejection systolic murmur over left sternal border. EXTREMITIES: 1+ pitting edema. ASSESSMENT: 1. Paroxysmal atrial flutter. 2. Multiple cerebrovascular accidents. 3. Non-ST elevation myocardial infarction. 4. Anemia. 5. Chronic renal insufficiency. RECOMMENDATIONS: Continue D5 half normal saline at 60 mL an hour. Continue aspirin 81 mg once a day, resume Eliquis as there is no neurological contraindication. Continue Lasix 20 mg orally once a day. Shiv Montiel MD
--- NOTE | 2018-11-08 22:48 | PN ---
DATE: 11/08/2018 SUBJECTIVE: Today, the patient is somewhat weak, but responded to simple questions. Denied any pain. The patient had no shortness of breath. PHYSICAL EXAMINATION: VITAL SIGNS: The patient has a blood pressure of 157/69, pulse 85, respirations 20, and temperature 98.6. NECK: Supple. LUNGS: Positive effort. HEART: Regular rate and rhythm. . ABDOMEN: Soft. Obese. EXTREMITIES: There is pitting edema noted in the upper and lower extremities. LABORATORY DATA: Not done. ASSESSMENT AND PLAN: The patient is Do Not Resuscitate and Do Not Intubate. Continue conservative treatment and supportive care. The patient will be put on thick puree diet and intravenous . The patient is due to go to hospice. Shailesh Brunson MD
[2018-11-09] MEDS: Dextrose 5%/0.45% NS 1,000 ML IV SCH ×2 (05:02→19:26)
[2018-11-09] MEDS ORDERED: Phytonadione 10 mg/ml Inj (Adult) SC STA (07:57)
[2018-11-09 08:48] LABS: BASO % 0.8 % (0.0-2.0); EOS # 0.2 K/uL (0.0-0.7); EOS % 3.7 % (0.0-4.0); HEMOGLOBIN 9.7 g/dL (11.0-16.0); LYMPH # 0.4 K/uL (1.0-4.3); MEAN CELL VOLUME 109.6 fL (81.0-99.0); MEAN CORPUSCULAR HEMOGLOBIN 32.3 pg (27.0-31.0); MEAN CORPUSCULAR HGB CONC 29.4 g/dL (33.0-37.0); MEAN PLATELET VOLUME 10.3 fL (7.2-11.7); MONO # 0.7 K/uL (0.0-0.8); MONO % 16.2 % (0.0-10.0); NEUT # 3.2 K/uL (1.8-7.0); NEUT % 71.3 % (50.0-75.0); NRBC % 7.3 % (0.0-2.0); PLATELET COUNT 139 K/uL (130-400); RBC 2.99 Mil/uL (3.80-5.20); RED CELL DISTRIBUTION WIDTH 24.1 % (11.5-14.5); WHITE BLOOD COUNT 4.5 K/uL (4.8-10.8)
[2018-11-09 09:07] LABS: INR 1.4; PROTHROMBIN TIME 15.6 SECONDS (9.7-12.2)
[2018-11-09 09:14] LABS: ALB/GLOB RATIO 0.8 (1.0-2.1); ALBUMIN 3.2 g/dL (3.5-5.0); CALCIUM 8.2 mg/dl (8.6-10.4)
[2018-11-09] MEDS: metroNIDAZOLE IV 500 mg/100 ml 500 MG/100 ML BAG IVPB SCH ×2 (09:51→16:25)
[2018-11-09] MEDS: Bisacodyl 5mg EC Tab PO SCH ×2 (09:53→18:26)
[2018-11-09] MEDS: Megestrol Acetate 40 mg/ml Cup PO SCH (09:53)
[2018-11-09] MEDS: Multiple Vitamins Oral Solution PO SCH (09:53)
[2018-11-09 10:01] LABS: EOSINOPHIL 2 % (0-4); LYMPHOCYTE 9 % (20-40); NUCLEATED RED BLOOD CELL 5 % (0-0); TOTAL CELLS COUNTED 100
[2018-11-09 10:02] LABS: ANISOCYTOSIS MODERATE; MONOCYTE 16 % (0-10); NEUTROPHIL 73 % (50-75); PLATELET ESTIMATE NORMAL (NORMAL); POIKILOCYTOSIS SLIGHT
[2018-11-09 10:03] LABS: HYPOCHROMIC SLIGHT
[2018-11-09 10:04] LABS: BURR CELLS SLIGHT; LARGE PLATELETS PRESENT; OVALOCYTES SLIGHT; POLYCHROMIC SLIGHT; SCHISTOCYTES SLIGHT; TEARDROP CELLS SLIGHT
--- NOTE | 2018-11-09 11:37 | PN ---
DATE: 11/09/2018 LOCATION: 667, bed A. SUBJECTIVE: This is an 88-year-old female, seen and examined in rounds without significant clinical changes in the presence of the staff on the floor with persistent dysphagia and poor oral intake. NG tube was in place. The patient appeared to be somewhat weak with generalized fatigue without reported chest pain, palpitations or significant increase of shortness of breath. I was informed by the nursing and medical staff that the son and the daughter reported his decision to sign a consent for PEG insertion. The patient has no recent lab results and the latest PT was 16.8 with low hemoglobin and hematocrit. She is still in DNR/DNI status. PHYSICAL EXAMINATION: GENERAL: An 88-year-old female. VITAL SIGNS: Afebrile with heart rate of 98, respiratory rate 20 to 22, blood pressure 130/88. HEENT: Showed pale dry oral mucoid membrane. Anicteric sclerae. LUNGS: Few scattered crepitation. Decreased air entry at bases. HEART: Positive S1 and S2 with increased rate. ABDOMEN: Soft, mildly distended, bowel sounds are present. No mass or organomegaly. No rebound tenderness or guarding. EXTREMITIES: Without significant clubbing, cyanosis or edema. NEUROLOGIC: No reported new neurological deficits, sensory or motor. IMPRESSION: 1. Malnutrition. 2. Hypochromic microcytic anemia. 3. Known history of cerebrovascular accident. 4. Peptic ulcer disease. 5. Abnormal liver function test, most likely secondary to infectious process before. 6. Multiple past medical history including mainly cerebrovascular accident, hypertension, hyperlipidemia and coronary artery disease, status post cardiac stent insertion. SUGGESTIONS: 1. Continue current management. 2. The patient to be scheduled for PEG insertion, awaiting her son to sign the consent. 3. Correct any underlying electrolyte imbalance. 4. Correct any underlying coagulopathy. 5. Further recommendation to follow. Avni Gimenez MD
--- NOTE | 2018-11-09 18:33 | PN ---
DATE: 11/09/2018 SUBJECTIVE: Today, the patient is more lethargic, did not answer to the questions, but mumbling . PHYSICAL EXAMINATION: VITAL SIGNS: The patient has a blood pressure of 141/91, pulse 101, respirations 20, and temperature 98.8. LUNGS: He has some poor inspiratory effort, but clear. HEART: Tachycardic, positive murmur. ABDOMEN: Soft. EXTREMITIES: There is 2+ edema. LABORATORY DATA: Today blood work showed that WBC is 4.5, hemoglobin 9.7, hematocrit is 32.8, and platelet is 139. Sodium 144, potassium 4.3, chloride 101, bicarbonate is 26, BUN 67, creatinine 2.6, glucose 118, and calcium 8.2. AST 72, ALT 69, alkaline phosphatase 130. ASSESSMENT AND PLAN: Continue conservative treatment. We are going to continue the same medications. The patient is DNR/DNI and hospice care is ordered and hospice is in contact with her son. Shailesh Brunson MD
--- NOTE | 2018-11-09 21:30 | PN ---
DATE: 11/09/2018 SUBJECTIVE: The patient is lethargic but does not appear to be in respiratory distress. PHYSICAL EXAMINATION: VITAL SIGNS: Blood pressure 141/91, heart rate 101, temperature 98.8, respirations 20. HEENT: Pale conjunctivae. CHEST: Absent breath sounds over the bases. HEART: S1 and S2 regular. EXTREMITIES: 1+ leg edema and 2+ left arm edema. LABORATORY DATA: Today's hemoglobin and hematocrit 9.7 and 32.8. White count 4.5, platelet count 139,000. Today's SMA-7: Sodium 144, potassium 4.3, chloride 110, CO2 of 26, glucose 118, BUN 67, creatinine 2.6. ASSESSMENT: 1. Coronary artery disease, status post non-ST elevation myocardial infarction. 2. Multiple recent acute cerebrovascular accidents. 3. Paroxysmal atrial flutter. 4. Rule out left upper extremity deep venous thrombosis. 5. Chronic renal insufficiency. 6. Critical aortic stenosis. RECOMMENDATIONS: Continue aspirin 81 mg once a day. Continue IV Flagyl 500 mg every 8 hours, oral Pepcid 20 mg once a day. The patient's INR today is 1.4, and she did receive one dose of subcutaneous vitamin K at 10 mg. I would request a venous Doppler of the left upper extremity. Shiv Montiel MD
[2018-11-10] MEDS: metroNIDAZOLE IV 500 mg/100 ml 500 MG/100 ML BAG IVPB SCH ×3 (00:43→17:50)
--- NOTE | 2018-11-10 10:44 | CP.PCM.PN ---
Subjective - Date & Time of Evaluation Date of Evaluation: 11/10/18 Time of Evaluation: 10:40 - Subjective Subjective: Patient initially consented to PEG earlier this AM, but now would like to wait for PEG at this time. Objective - Vital Signs/Intake and Output Vital Signs (last 24 hours): Temp Pulse Resp BP Pulse Ox 97.7 F 94 H 18 105/70 96 11/10/18 08:36 11/10/18 08:36 11/10/18 08:36 11/10/18 08:36 11/10/18 08:36 Intake and Output: 11/10/18 11/10/18 06:59 18:59 Intake Total 480 Balance 480 - Medications Medications: Current Medications Apixaban (Eliquis) 2.5 mg PO DAILY [facility] Last Admin: 11/04/18 13:06 Dose: Not Given Aspirin (Ecotrin) 81 mg PO DAILY [facility] Last Admin: 11/09/18 09:53 Dose: 81 mg Bisacodyl (Dulcolax) 5 mg PO BID [facility] Last Admin: 11/09/18 18:26 Dose: Not Given Famotidine (Pepcid) 20 mg PO DAILY [facility] Last Admin: 11/09/18 09:53 Dose: 20 mg Metronidazole (Flagyl) 500 mg in 100 mls @ 100 mls/hr IVPB Q8H [facility]; Protocol Last Admin: 11/10/18 08:37 Dose: 100 mls/hr Cefazolin Sodium/Dextrose (Ancef Iv 1 Gm Duplex) 1 gm in 50 mls @ 100 mls/hr IVPB ONCE ONE; Protocol Stop: 11/10/18 10:55 Megestrol Acetate (Megace) 400 mg PO DAILY [facility] Last Admin: 11/09/18 09:53 Dose: 400 mg Multivitamins/Vitamin C (Multi-Delyn Liquid) 5 ml PO DAILY [facility] Last Admin: 11/09/18 09:53 Dose: 5 ml Nystatin (Nystop Topical Powder) 1 applic TOP BID [facility] Last Admin: 11/09/18 18:25 Dose: 1 applic - Labs Labs: 11/09/18 08:42 11/09/18 08:42 PT 15.6 SECONDS (9.7-12.2) H 11/09/18 08:42 INR 1.4 11/09/18 08:42 APTT 27 SECONDS (21-34) 11/09/18 08:42 - Constitutional Appears: Non-toxic, No Acute Distress, Confused, Chronically Ill - Head Exam Head Exam: ATRAUMATIC, NORMAL INSPECTION - Respiratory Exam Respiratory Exam: Clear to Ausculation Bilateral, NORMAL BREATHING PATTERN - Cardiovascular Exam Cardiovascular Exam: REGULAR RHYTHM, +S1, +S2 - GI/Abdominal Exam GI & Abdominal Exam: Soft, Normal Bowel Sounds. absent: Tenderness - Extremities Exam Extremities Exam: Normal Inspection. absent: Pedal Edema - Neurological Exam Neurological Exam: Awake. absent: Oriented x3 - Psychiatric Exam Psychiatric exam: Flat Affect - Skin Skin Exam: Normal Color, Warm Assessment and Plan - Assessment and Plan (Free Text) Assessment: #Dysphagia #Failure to thrive #Afib on OAC PLAN: -Reschedule PEG when Venkat RODRIGUEZ, gives consent. -Possible hospice -Defer OAC to cardiology, neurology -Will need to hold Eliquis x 3days prior to PEG
[2018-11-10] MEDS: Megestrol Acetate 40 mg/ml Cup PO SCH (10:47)
[2018-11-10] MEDS: Bisacodyl 5mg EC Tab PO SCH ×2 (10:47→17:48)
[2018-11-10] MEDS: Multiple Vitamins Oral Solution PO SCH (10:48)
[2018-11-10] MEDS ORDERED: ceFAZolin 1 GM in Sodium Chloride 0.9% 100 ML IVPB ONE (11:30)
--- NOTE | 2018-11-10 14:13 | CP.PCM.PN ---
Subjective - Date & Time of Evaluation Date of Evaluation: 11/10/18 Time of Evaluation: 01:00 - Subjective Subjective: Patient examined in bed, lethargic, non verbal, eyes closed. Patient looks very swollen to the face, arms, abdomen and legs. Patient is returned from [facility] after the son Mr. Oro had refused the PEG which he agreed with over the weekend. Originally, Mr. Oro had advocated for Hospice care on when we last met. He was against PEG, CPR and intubation and wanted his mother to natural . For some reason Mr. Oro has changed his midn and went for a PEG than he cancelled it. Objective - Vital Signs/Intake and Output Vital Signs (last 24 hours): Temp Pulse Resp BP Pulse Ox 97.7 F 94 H 18 105/70 96 11/10/18 08:36 11/10/18 08:36 11/10/18 08:36 11/10/18 08:36 11/10/18 08:36 Intake and Output: 11/10/18 11/10/18 06:59 18:59 Intake Total 480 Balance 480 - Medications Medications: Current Medications Apixaban (Eliquis) 2.5 mg PO DAILY [facility] Last Admin: 11/04/18 13:06 Dose: Not Given Aspirin (Ecotrin) 81 mg PO DAILY [facility] Last Admin: 11/10/18 10:47 Dose: Not Given Bisacodyl (Dulcolax) 5 mg PO BID [facility] Last Admin: 11/10/18 10:47 Dose: Not Given Famotidine (Pepcid) 20 mg PO DAILY [facility] Last Admin: 11/10/18 10:48 Dose: Not Given Metronidazole (Flagyl) 500 mg in 100 mls @ 100 mls/hr IVPB Q8H [facility]; Protocol Last Admin: 11/10/18 08:37 Dose: 100 mls/hr Nystatin (Nystop Topical Powder) 1 applic TOP BID [facility] Last Admin: 11/10/18 12:00 Dose: 1 applic - Labs Labs: 11/09/18 08:42 11/09/18 08:42 PT 15.6 SECONDS (9.7-12.2) H 11/09/18 08:42 INR 1.4 11/09/18 08:42 APTT 27 SECONDS (21-34) 11/09/18 08:42 - Constitutional Appears: Chronically Ill - Head Exam Head Exam: ATRAUMATIC, NORMAL INSPECTION, NORMOCEPHALIC - Eye Exam Eye Exam: EOMI, Normal appearance, PERRL Pupil Exam: NORMAL ACCOMODATION, PERRL - ENT Exam ENT Exam: Mucous Membranes Dry - Neck Exam Neck Exam: Normal Inspection - Respiratory Exam Respiratory Exam: Decreased Breath Sounds, Prolonged Expiratory Phase, NORMAL BREATHING PATTERN - Cardiovascular Exam Cardiovascular Exam: Tachycardia, Irregular Rhythm - GI/Abdominal Exam GI & Abdominal Exam: Distended, Hypoactive Bowel Sounds - Rectal Exam Rectal Exam: Deferred - Extremities Exam Extremities Exam: Pedal Edema - Back Exam Back Exam: NORMAL INSPECTION - Neurological Exam Neurological Exam: Alert, Altered Neuro motor strength exam: Left Upper Extremity: 0, Right Upper Extremity: 0, Left Lower Extremity: 0, Right Lower Extremity: 0 - Psychiatric Exam Psychiatric exam: Flat Affect - Skin Skin Exam: Mottled, Pallor Assessment and Plan - Assessment and Plan (Free Text) Assessment: Palliative progress note Patient examined in bed, lethargic with eyes closed, non verbal. Patient looks like if she has gained a lot of weight since , the last time I saw her. urine output 100 - 159 cc / day. PO intakes are zero. Patient was on IVF but no anymore. Sclera yellow, skin has yellow under ton. T Patrick 3.9. Oral mucousa dry. Breathing sounds congested. Patient unable to reposition on her own. Generalized edema throughout whole body. Alb 3.2 BP 105/70, HR 94, afebrile I met with patient's son Mr. Oro. I tried to understand his concerns and worries regarding his mother's care and his expectations. Mr. Oro said he was concerned about his mother not being able to eat. He felt sorry that she could be hungry and did some research on his own regarding PEG. His understanding was that PEG could of been beneficial for his mother. After speaking today with Anesthesiologist Mr. Oro felt that benefices from PEG would not outweigh possible risks associated with procedure . Than I discussed plan of care after PEG was cancelled. Mr. Oro said he was going with previous plan for Hospice care. He said that two Hospice technical service representative from two different hospices had discussed comfort care with him. Mr. Oro is looking for a Hospice placement at the institution. He asked me to leave the POLST the way it was and no to make any changes. Impression * Chronically ill lady with very complex clinical status * Anascra * Poor urine output * Poor PO intake, malnutrition, risk for pressure sores * Lethargy * Entering end stage of life * Son is debating between goals and plans of care * PEG cancelled by son, Hospice care chosen instead * Patient remains DNR/DNI Suggestions * Would provide comfort measures only, at location of son's preferences * Agree with DNR/DNI * Oral care * Very gentle IV Hydration * Keep NPO * Hold off all PO meds I made sure Mr. Oro understands that without nutrition and hydration, his mother may soon . he stated understanding. Advance care planing 55 min Palliative care will sign off at this time.
--- NOTE | 2018-11-10 18:11 | PN ---
DATE: 11/10/2018 SUBJECTIVE: The patient was supposed to undergo gastrostomy feeding tube placement today. However, the son elected to postpone it. The patient is currently lethargic, but does not appear to be in respiratory distress. PHYSICAL EXAMINATION: VITAL SIGNS: Blood pressure 105/70, heart rate 94, temperature 97.7, respirations 18. HEENT: Pale conjunctivae. CHEST: Diminished breath sounds at the bases. HEART: S1 and S2 regular. Grade 4/6 ejection systolic murmur over left sternal border. EXTREMITIES: 1+ pitting edema. ASSESSMENT: 1. Multiple cerebrovascular accidents. 2. Consider [id number] myocardial infarction. 3. Critical aortic stenosis. 4. Chronic renal insufficiency. 5. Paroxysmal atrial flutter. RECOMMENDATIONS The case was discussed at length with the patient's son at the bedside. The patient can undergo gastrostomy feeding tube under light sedation. The son's concern is the patient may panic from the procedure under light sedation but the son was assured that the patient in a lethargic condition would not pose any issue with her anxiety during the procedure. However, the patient will further discuss the issue with primary physician, Dr. Shailesh Brunson. Decision of hospice by the son has not been made up yet. May resume current aspirin and Eliquis if there is no planned procedure and hospice is not a choice by the son. Shiv Montiel MD
--- NOTE | 2018-11-10 21:31 | PN ---
DATE: 11/10/2018 SUBJECTIVE: Today, the patient is more lethargic and just opened eyes to verbal stimuli, and remembers the month, but the patient has no apparent respiratory distress. PHYSICAL EXAMINATION: VITAL SIGNS: The patient has a blood pressure of 130/65, pulse 74, respirations 18, temperature 98.2. The patient is swollen. NECK: Supple. No JVD. LUNGS: Positive effort. Some rhonchi noted. HEART: Regular rate and rhythm. There is positive murmur. Positive extrasystole. ABDOMEN: Soft. Positive bowel sounds. EXTREMITIES: There is +2 pitting edema throughout both extremities. PLAN: The plan is to send the patient to hospice, but however after that, the patient agreed to have a PEG inserted, but however, consent was given, but later on the son, Mr. Robledo has refused to the anesthesia, so therefore, we hold the PEG at this point. Also, we are going to discuss with the son regarding the status and the PEG or no PEG, hospice, or maintain the patient DNI/DNR. At this point, the patient is n.p.o. We plan to put the patient on TPN now until decision is made what to do exactly for the patient. So, the case was reviewed and discussed with Kerri Hwang, the nurse practitioner. Shailesh Brunson MD
[2018-11-11] MEDS: metroNIDAZOLE IV 500 mg/100 ml 500 MG/100 ML BAG IVPB SCH ×3 (00:58→17:00)
[2018-11-11] MEDS: Bisacodyl 5mg EC Tab PO SCH ×2 (10:41→18:27)
--- NOTE | 2018-11-11 12:20 | VASCLAB ---
Date of service: 11/10/2018 PROCEDURE: Left Lower Extremity Venous Duplex Exam. HISTORY: r/o dvt PRIORS: None. TECHNIQUE: Left common femoral, femoral, popliteal and posterior tibial, peroneal and great saphenous veins were evaluated. Flow was assessed with color Doppler, compressibility, assessment of phasic flow and augmentation response. Report prepared by MARITZA Snowden FINDINGS: LEFT: 1. Common Femoral Vein: 1.1. Compressibility - Fully compressible: Thrombus - None : Flow - Phasic: Augmentation -Normal: Reflux - None. 2. Femoral Vein: (Proximal view only) 2.1. Compressibility - Fully compressible: Thrombus - None: Flow - Phasic: Augmentation -Normal: Reflux - None. 3. Popliteal Vein: 4. Posterior Tibial Vein: 5. Peroneal Vein: 6. Great Saphenous Vein: 6.1. Compressibility - Fully compressible: Thrombus - None: Flow - Phasic: Augmentation - Normal: Reflux - None. OTHER FINDINGS: Normal venous flow noted in the RIGHT common femoral vein. IMPRESSION: No evidence of deep or superficial vein thrombosis of the left lower extremity common femoral, proximal femoral and great saphenous veins. Limited exam due to edema and diminutive caliber veins. Technically difficult exam.
--- NOTE | 2018-11-11 14:21 | CP.PCM.PN ---
Subjective - Date & Time of Evaluation Date of Evaluation: 11/11/18 Time of Evaluation: 14:19 - Subjective Subjective: No acute changes. Patient's POA will meet with palliative care regarding PEG tube. Objective - Vital Signs/Intake and Output Vital Signs (last 24 hours): Temp Pulse Resp BP Pulse Ox 97.5 F L 110 H 18 139/91 H 93 L 11/11/18 07:00 11/11/18 07:00 11/11/18 07:00 11/11/18 07:00 11/11/18 07:00 Intake and Output: 11/11/18 11/11/18 06:59 18:59 Intake Total 420 100 Output Total 300 200 Balance 120 -100 - Medications Medications: Current Medications Acetaminophen (Tylenol 650 Mg Supp) 650 mg AR Q6 PRN PRN Reason: Fever >100.4 F Apixaban (Eliquis) 2.5 mg PO DAILY [facility] Last Admin: 11/04/18 13:06 Dose: Not Given Aspirin (Ecotrin) 81 mg PO DAILY [facility] Last Admin: 11/10/18 10:47 Dose: Not Given Bisacodyl (Dulcolax) 5 mg PO BID [facility] Last Admin: 11/11/18 10:41 Dose: Not Given Famotidine (Pepcid) 20 mg IVP DAILY [facility] Last Admin: 11/11/18 10:46 Dose: 20 mg Metronidazole (Flagyl) 500 mg in 100 mls @ 100 mls/hr IVPB Q8H [facility]; Protocol Last Admin: 11/11/18 08:22 Dose: 100 mls/hr Multivitamins/Vitamin C 10 ml/Chromium/Copper/Manganese/Zinc 1 ml/ Amino Acids 1,011 mls @ 42 mls/hr IV .Q24H ONE Stop: 11/12/18 17:59 Fat Emulsion Intravenous (Intralipid 20%) 500 mls @ 43 mls/hr IV TTS@1800 [facility] Stop: 11/16/18 05:38 Nystatin (Nystop Topical Powder) 1 applic TOP BID [facility] Last Admin: 11/11/18 10:47 Dose: 1 applic - Labs Labs: 11/09/18 08:42 11/09/18 08:42 PT 15.6 SECONDS (9.7-12.2) H 11/09/18 08:42 INR 1.4 11/09/18 08:42 APTT 27 SECONDS (21-34) 11/09/18 08:42 - Constitutional Appears: Non-toxic, No Acute Distress - Head Exam Head Exam: ATRAUMATIC, NORMAL INSPECTION - Respiratory Exam Respiratory Exam: Clear to Ausculation Bilateral, NORMAL BREATHING PATTERN - Cardiovascular Exam Cardiovascular Exam: REGULAR RHYTHM, +S1, +S2 - GI/Abdominal Exam GI & Abdominal Exam: Soft, Normal Bowel Sounds. absent: Tenderness - Extremities Exam Extremities Exam: Normal Inspection. absent: Pedal Edema - Neurological Exam Neurological Exam: absent: Oriented x3 - Psychiatric Exam Psychiatric exam: Normal Affect, Normal Mood - Skin Skin Exam: Normal Color, Warm Assessment and Plan - Assessment and Plan (Free Text) Assessment: #Dysphagia #Failure to thrive #Afib on OAC PLAN: -Reschedule PEG when Venkat RODRIGUEZ, gives consent. -Possible hospice -Defer OAC to cardiology, neurology -Will need to hold Eliquis x 3days prior to PEG
[2018-11-11] MEDS ORDERED: Fat Emulsion 20% IV 500 ML IV SCH (18:00)
[2018-11-11] MEDS ORDERED: PPN #1 IV ONE (18:00)
--- NOTE | 2018-11-11 19:00 | PN ---
DATE: 11/11/2018 FOLLOWUP SUBJECTIVE: The patient is still lethargic. She does not appear to be in acute respiratory distress. PHYSICAL EXAMINATION: VITAL SIGNS: Blood pressure 139/91, heart rate 110, temperature 97.5, respirations 18. HEENT: Pale conjunctivae. CHEST: Diminished breath sounds over the bases. HEART: S1 and S2 regular. Grade 4/6 ejection systolic murmur over the left sternal border. EXTREMITIES: There is 2+ lower extremity edema and 2+ left upper extremity edema. ASSESSMENT: 1. Multiple cerebrovascular accidents. 2. Non-ST elevation myocardial infarction. 3. Critical aortic stenosis. 4. Pulmonary hypertension. 5. Paroxysmal atrial flutter. RECOMMENDATIONS: Continue IV Flagyl 500 mg every 8 hours. Resume aspirin and Eliquis if there are no surgical plans, and the patient is not going to be placed on hospice. Obtain venous Doppler of the left upper extremity. Shiv Montiel MD
[2018-11-12] MEDS: metroNIDAZOLE IV 500 mg/100 ml 500 MG/100 ML BAG IVPB SCH ×3 (00:27→17:20)
--- NOTE | 2018-11-12 06:19 | PN ---
DATE: 11/11/2018 SUBJECTIVE: The patient was seen early this morning. The patient was still lethargic, just opened eyes weakly to verbal stimuli, and the patient does not appear in any distress. PHYSICAL EXAMINATION: VITAL SIGNS: The patient has a blood pressure of 129/91, pulse 110, respirations 18, temperature 97.5, on nasal cannula, O2 saturation is 93%. NECK: Supple. LUNGS: Poor respiratory effort. HEART: Regular rate and rhythm. Positive murmur. Positive extrasystole. ABDOMEN: Soft. EXTREMITIES: There is +2 pitting edema. PLAN: The patient is for palliative care, and son has refused PEG insertion at this point. So the patient will be put on PPN for now, and we will continue the current medications and Palliative Care would be contacted hospice care. Case was discussed with Brian, the nurse practitioner. Shailesh Brunson MD
[2018-11-12] MEDS: Bisacodyl 5mg EC Tab PO SCH ×2 (10:10→17:38)
[2018-11-12] MEDS ORDERED: PPN #2 IV ONE (18:00)
--- NOTE | 2018-11-12 20:14 | PN ---
DATE: 11/12/2018 LOCATION: 667, bed A. SUBJECTIVE: This is an 88-year-old female seen and examined early in rounds without significant clinical changes, appeared to be more lethargic, not responding well to any verbal stimuli, but no reported active GI bleeding, chest pain, or palpitations. The patient is in some respiratory distress at the time she was seen this morning. The entire chart is reviewed including but not limited to the most recent lab and radiology study results, current and previous medication list, current and previous medical events. Case discussed with the staff at length. PHYSICAL EXAMINATION: GENERAL: An 88-year-old female. VITAL SIGNS: Afebrile with pulse 102, respiratory rate 24 and 26 with very poorly reported blood pressure. HEENT: Showed pale and dry, oral mucoid membranes. Mild icteric sclerae bilaterally. HEART: Positive S1 and S2. ABDOMEN: Soft with slight distention. Mildly obese. Bowel sounds are hypoactive. EXTREMITIES: Without significant clubbing, cyanosis, or edema. NEUROLOGIC: No reported neurologic deficits, sensory or motor. IMPRESSION: 1. Failure to thrive. 2. Dysphagia. 3. Anemia. 4. Cardiac arrhythmias. 5. Electrolyte imbalance. 6. Abnormal liver function test that was most likely right-sided heart failure. 7. Clinical aortic stenosis. 8. Pulmonary hypertension. 9. Paroxysmal atrial fibrillation. SUGGESTION: 1. Continue current management. 2. Continue supportive treatment. 3. Sign off the case. Follow up with you only ppaul. Patient is DNR/DNI. Avni Gimenez MD
--- NOTE | 2018-11-12 21:18 | PN ---
DATE: 11/12/2018 SUBJECTIVE: The patient is lethargic. There is no obtainable blood pressure. PHYSICAL EXAMINATION: VITAL SIGNS: Heart rate 94 and temperature 97.5. HEENT: Pale conjunctivae. CHEST: Bilateral expiratory wheezing. HEART: S1 and S2 regular. EXTREMITIES: 2+ leg edema. ASSESSMENT: 1. Hypertension. 2. Multiple cerebrovascular accidents. 3. Anasarca. 4. Non-ST elevation myocardial infarction. 5. Chronic renal insufficiency. RECOMMENDATIONS: I will cancel yesterday's venous Doppler study. The plan is to transfer the patient to hospice care. Overall prognosis is very grave. Shiv Montiel MD
--- NOTE | 2018-11-12 21:52 | CP.PCM.CON ---
History of Present Illness - History of Present Illness History of Present Illness: 88 yo female with hx CVA's /NSTEMI / /Pulm HTN/Parox A-fib /KENNY has been in [facility] with deteriorating condition. Pt was previously in ICU and was DNR /DNI but this was rescinded by son today. ICU consulted for low BP. Pt is n ot giving verbal hx when seen. Nurse claims pt is incontinent and making urine. ROS- as noted All- NKDA Social- Unknown prior tob or etoh Meds- reviewed FH- Unknown PE T-97.7 P-107 R-24 BP 125/70 O2 sat 100% Obese elderly female, lethargic, responds to stim but not verbalizing. Perrl Neck- no jvd lungs- bilat coarse bs, decreased BS at bases Heart-rr, + Syst. Murmur aBd-Obese, bs+, soft, no tenderness elicited Ext- bilat LE edema Labs & x-rays reviewed A&P Encephalopathy-?uremic KENNY ?CKD Fluid overload PUlm HTN Parox A-fib Hx CVA BP is acceptable at present Pt may benefit from dialysis for fluid removal although may not tolerate may repeat labs( not done in few days) consider Midodrine if BP drops again Given pt's age and medical problems her prognosis is poor re-consult Palliative Care sx control re-consult prn Past Patient History - Infectious Disease Hx of Infectious Diseases: None - Tetanus Immunizations Tetanus Immunization: Unknown - Past Medical History & Family History Past Medical History?: Yes - Past Social History Smoking Status: unknown Alcohol: None Home Situation {Lives}: Alf Domestic Violence: Negative - CARDIAC Hx Congestive Heart Failure: Yes Hx Hypertension: Yes - PULMONARY Hx Respiratory Disorders: No - NEUROLOGICAL Hx Dementia: Yes - HEENT Hx HEENT Problems: Yes Hx Cataracts: Yes Hx Glaucoma: Yes - RENAL Hx Chronic Kidney Disease: No - ENDOCRINE/METABOLIC Hx Endocrine Disorders: No - HEMATOLOGICAL/ONCOLOGICAL Hx Anemia: Yes - INTEGUMENTARY Hx Dermatological Problems: Yes - MUSCULOSKELETAL/RHEUMATOLOGICAL Hx Arthritis: Yes - GASTROINTESTINAL Hx Gastrointestinal Disorders: Yes Hx Constipation: Yes - GENITOURINARY/GYNECOLOGICAL Hx Genitourinary Disorders: Yes Hx Incontinence: Yes - PSYCHIATRIC Hx Substance Use: No - SURGICAL HISTORY Hx Coronary Stent: Yes - ANESTHESIA Hx Anesthesia: Yes Hx Anesthesia Reactions: No Hx Malignant Hyperthermia: No Meds Allergies/Adverse Reactions: Allergies Allergy/AdvReac Type Severity Reaction Status Date / Time No Known Allergies Allergy Verified 10/20/18 18:36 - Medications Medications: Current Medications Acetaminophen (Tylenol 650 Mg Supp) 650 mg AL Q6 PRN PRN Reason: Fever >100.4 F Apixaban (Eliquis) 2.5 mg PO DAILY [facility] Last Admin: 11/04/18 13:06 Dose: Not Given Aspirin (Ecotrin) 81 mg PO DAILY [facility] Last Admin: 11/10/18 10:47 Dose: Not Given Bisacodyl (Dulcolax) 5 mg PO BID [facility] Last Admin: 11/12/18 17:38 Dose: Not Given Famotidine (Pepcid) 20 mg IVP DAILY [facility] Last Admin: 11/12/18 10:10 Dose: 20 mg Metronidazole (Flagyl) 500 mg in 100 mls @ 100 mls/hr IVPB Q8H [facility]; Protocol Last Admin: 11/12/18 17:20 Dose: 100 mls/hr Fat Emulsion Intravenous (Intralipid 20%) 500 mls @ 43 mls/hr IV TTS@1800 SANDI Stop: 11/16/18 05:38 Last Admin: 11/11/18 18:24 Dose: 43 mls/hr Multivitamins/Vitamin C 10 ml/Chromium/Copper/Manganese/Zinc 1 ml/ Amino Acids 1,011 mls @ 42 mls/hr IV .Q24H ONE Stop: 11/13/18 17:59 Last Admin: 11/12/18 18:45 Dose: 42 mls/hr Nystatin (Nystop Topical Powder) 1 applic TOP BID [facility] Last Admin: 11/12/18 17:39 Dose: 1 applic Results - Vital Signs Recent Vital Signs: Last Vital Signs Temp 97.7 F 11/12/18 15:32 Pulse 110 H 11/12/18 15:32 Resp 36 H 11/12/18 15:32 BP 139/91 H 11/11/18 07:00 Pulse Ox 100 11/12/18 15:32 - Labs Result Diagrams: 11/09/18 08:42 11/09/18 08:42 Assessment & Plan (1) Encephalopathy Status: Acute (2) Acute renal failure Status: Acute (3) A-fib Status: Chronic (4) Fluid overload Status: Chronic (5) Aortic stenosis Status: Chronic
--- NOTE | 2018-11-12 23:10 | PN ---
DATE: 11/12/2018 SUBJECTIVE: This patient was seen early this morning. The patient is little bit lethargic, does not open eyes and respond to verbal stimuli, and also the patient was bloated. PHYSICAL EXAMINATION: VITAL SIGNS: Blood pressure could not be taken and this was not audible. The pulse was 61 and respirations at 20. The patient was on nasal cannula, saturating at 94% and temperature 97.5. The patient was sleeping. LUNGS: Rales noted. HEART: Regular rate and rhythm. There was positive murmur and positive extrasystole. ABDOMEN: Soft and again edematous. EXTREMITIES: There was positive edema. PLAN: The patient at this time is a DNR and DNI, and the hospice care was working to take the patient to home hospice, and the patient being critical, so apparently, the patient was almost at the end of life. I discussed with Kerri Hwang, the nurse practitioner, and they have left the hospice people to discuss the case with the son who is the power of deputy prosecuting attorney and awaiting for final decision to transfer this patient to home hospice care. Shailesh Brunson MD
[2018-11-12 23:13] LABS: BASO % 0.1 % (0.0-2.0); EOS % 0.2 % (0.0-4.0); HEMOGLOBIN 9.6 g/dL (11.0-16.0); LYMPH # 0.2 K/uL (1.0-4.3); LYMPH % 2.8 % (20.0-40.0); MEAN CELL VOLUME 111.2 fL (81.0-99.0); MEAN CORPUSCULAR HEMOGLOBIN 31.1 pg (27.0-31.0); MEAN PLATELET VOLUME 9.9 fL (7.2-11.7); MONO # 0.7 K/uL (0.0-0.8); MONO % 11.3 % (0.0-10.0); NEUT # 4.9 K/uL (1.8-7.0); NEUT % 85.6 % (50.0-75.0); NRBC % 7.2 % (0.0-2.0); RBC 3.08 Mil/uL (3.80-5.20); RED CELL DISTRIBUTION WIDTH 23.8 % (11.5-14.5); WHITE BLOOD COUNT 5.7 K/uL (4.8-10.8)
[2018-11-12 23:17] LABS: PLATELET COUNT 108 K/uL (130-400)
[2018-11-12 23:43] LABS: CALCIUM 8.3 mg/dl (8.6-10.4)
[2018-11-13 00:01] LABS: ARTERIAL BLOOD GAS HEMOGLOBIN 10.7 g/dL (11.7-17.4); ARTERIAL BLOOD GAS O2 SAT 97.8 % (95-98); ARTERIAL BLOOD GAS PCO2 56 mm/Hg (35-45); ARTERIAL BLOOD GAS PH 7.16 (7.35-7.45); ARTERIAL BLOOD GAS PO2 84 mm/Hg (80-100); ARTERIAL BLOOD GAS TCO2 21.7 mmol/L (22-28)
[2018-11-13 00:33] LABS: EOSINOPHIL 1 % (0-4); LYMPHOCYTE 7 % (20-40); MONOCYTE 8 % (0-10); NEUTROPHIL 84 % (50-75); PLATELET ESTIMATE NORMAL (NORMAL); TOTAL CELLS COUNTED 100
[2018-11-13] MEDS: metroNIDAZOLE IV 500 mg/100 ml 500 MG/100 ML BAG IVPB SCH ×4 (00:53→23:51)
--- NOTE | 2018-11-13 02:10 | CP.PCM.PCO ---
Physician Communication Note - Physician Communication Note Physician Communication Note: see above
[2018-11-13] MEDS ORDERED: MethylPREDNISolone 40 mg Vial IVP STA (03:01)
[2018-11-13] MEDS ORDERED: Propofol 10 mg/ml 1,000 MG/100 ML VIAL IV PRN (03:03)
[2018-11-13] MEDS ORDERED: Albumin Human 25% (12.5 gm/50 ml) IV ONE ×2 (03:12→19:28)
[2018-11-13] MEDS ORDERED: DOPamine 400mg/250ml D5W 400 MG/250 ML BAG IV ONE (03:12)
[2018-11-13] MEDS ORDERED: DOPamine 400mg/250ml D5W 400 MG/250 ML BAG IV PRN (03:13)
--- NOTE | 2018-11-13 03:29 | PCM.PROC ---
Procedures Attestation:: I certify that I have explained the specified Operation(s) or Procedure(s), risks, benefits and reasonable alternatives to the Patient and/or other person responsible. The opportunity was given to ask questions and all questions answered - Intubation Time Out Performed: Yes Sedative: Etomidate (20mg) Laryngoscope: Rosy (3) ET Tube Size: 7.0 ET Tube Uncuffed: No ET Tube Secured Locarion: Lips (24) ET Tube Placement Confirmation: Visualized Passing Through Cords, Breath Sounds Equal Bilaterally, No Breath Sounds Over Epigastrum, Confirmation w/Capnometry Patient Tolerated Procedure: Well Additional comments: Patient intubated due to agonal breathing, tried ET 7.5, unable to pass appeared tight at larynx, then tried size 7 passed with no difficulty, breath sound more on right but patient also had some effusion on the left side. Post procedure CXR showed ET in right main stem, ordered to pull out 4.5cm. Post intubation bp transiently dropped, ordered albumin, dopamine which improved bp. Duoneb, inhaled steroid, and single dose iv steroid ordered due to wheezing. Vent setting PRVC, 450/15/50%. OG tube inserted.
[2018-11-13] MEDS ORDERED: Sodium Chloride 0.9% 250 ML IV ONE (05:25)
[2018-11-13 06:05] LABS: ABG ALLEN TEST POS; ARTERIAL BLOOD GAS HCO3 16.8 mmol/L (21-28); ARTERIAL BLOOD GAS O2 SAT 97.7 % (95-98); ARTERIAL BLOOD GAS PCO2 43 mm/Hg (35-45); ARTERIAL BLOOD GAS PH 7.21 (7.35-7.45); ARTERIAL BLOOD GAS PO2 82 mm/Hg (80-100); ARTERIAL BLOOD GAS TCO2 18.5 mmol/L (22-28)
[2018-11-13 06:51] LABS: ALB/GLOB RATIO 1.1 (1.0-2.1); CALCIUM 8.7 mg/dl (8.6-10.4)
[2018-11-13 07:21] LABS: BASO % 0.2 % (0.0-2.0); EOS % 0.4 % (0.0-4.0); HEMOGLOBIN 9.8 g/dL (11.0-16.0); LYMPH # 0.1 K/uL (1.0-4.3); MEAN CELL VOLUME 112.2 fL (81.0-99.0); MEAN CORPUSCULAR HEMOGLOBIN 31.8 pg (27.0-31.0); MEAN CORPUSCULAR HGB CONC 28.3 g/dL (33.0-37.0); MEAN PLATELET VOLUME 10.3 fL (7.2-11.7); MONO # 0.5 K/uL (0.0-0.8); NEUT # 4.9 K/uL (1.8-7.0); NEUT % 88.4 % (50.0-75.0); NRBC % 11.9 % (0.0-2.0); PLATELET COUNT 118 K/uL (130-400); RBC 3.09 Mil/uL (3.80-5.20); RED CELL DISTRIBUTION WIDTH 23.7 % (11.5-14.5); WHITE BLOOD COUNT 5.5 K/uL (4.8-10.8)
--- NOTE | 2018-11-13 07:40 | RAD ---
Date of service: 11/13/2018 HISTORY: FF UP/ INTUBATED COMPARISON: Portable chest 11/13/2018, 3:15 a.m.. FINDINGS: LUNGS: Endotracheal tube is been adjusted to terminate 4.2 cm above the sunday in the inferior trachea. Nasogastric tube does not appear significantly changed as imaged. Complete left basilar opacification persists reflecting consolidation, atelectasis or pleural effusion or, more likely, combination of all three. No significant interval change. Limited patchy density is seen at the right infrahilar space. No right pleural effusion. No pneumothorax bilaterally. PLEURA: As above. CARDIOVASCULAR: Calcific atherosclerotic changes are seen related to the thoracic aorta. Prominent cardiac silhouette is unchanged in appearance. No definite pulmonary vascular congestion. OSSEOUS STRUCTURES: No significant abnormalities. VISUALIZED UPPER ABDOMEN: Normal. OTHER FINDINGS: None. IMPRESSION: Adequate adjustment of endotracheal tube with nasogastric tube unchanged in position. Prominent opacity at the left base persists reflecting atelectasis or infiltrate with pleural effusion not excluded. Limited patchy density medial right base. Prominent cardiac silhouette stable. No definite pulmonary vascular congestion.
--- NOTE | 2018-11-13 07:45 | RAD ---
Date of service: 11/13/2018 HISTORY: SP INTUBATION COMPARISON: Portable chest 11/13/2018 2:26 a.m.. FINDINGS: LUNGS: Endotracheal tube is been inserted terminating at the proximal segment of the right mainstem bronchus. Retraction several cm is recommended follow-up by chest radiography for confirmation. A nasogastric tube is in placed entering into the abdomen but with the tip off the image. Left hemidiaphragm remains completely silhouetted suggesting consolidation or dense atelectasis with pleural effusion not excluded. Combination of these factors is likely. No right-sided airspace disease identified at this time or pleural effusion. No pneumothorax bilaterally. PLEURA: As above. CARDIOVASCULAR: Calcific atherosclerotic changes are seen related to the thoracic aorta. Stable cardiac size. No pulmonary vascular congestion. OSSEOUS STRUCTURES: No significant abnormalities. VISUALIZED UPPER ABDOMEN: Normal. OTHER FINDINGS: None. IMPRESSION: No interval change in prominent left basilar opacity reflecting atelectasis, infiltrate or pleural effusion. Interval endotracheal tube terminates at the right mainstem bronchus and retraction several cm is recommended follow-up by confirmation radiography. Nasogastric tube has been placed into the abdomen both with the tip off the image.
--- NOTE | 2018-11-13 07:47 | RAD ---
Date of service: 11/13/2018 HISTORY: resp distress COMPARISON: Portable chest 10/29/2018. FINDINGS: LUNGS: No effusion is identified at the left base on a [id number] basis with underlying atelectasis or infiltrate not excluded. Remaining lung healy appear clear. No right pleural effusion. No pneumothorax bilaterally. PLEURA: As above. CARDIOVASCULAR: Calcific atherosclerotic changes are seen related to the thoracic aorta. Cardiomegaly appears stable. No definite pulmonary vascular congestion. OSSEOUS STRUCTURES: Gross bilateral shoulder degenerative changes identified once again. VISUALIZED UPPER ABDOMEN: Normal. OTHER FINDINGS: None. IMPRESSION: Left pleural effusion identified with stable cardiomegaly. Underlying atelectasis or infiltrate not excluded. No definitive pulmonary vascular congestion appreciated at this time. Further clinical correlation advised.
[2018-11-13] MEDS: Budesonide 0.5 mg/2 ml Inhal Susp UD INH SCH ×2 (08:17→20:42)
[2018-11-13] MEDS: Albuterol-Ipratrop 3 mg / 0.5 (3 ml) UD INH SCH ×4 (08:17→20:42)
[2018-11-13 08:46] LABS: LYMPHOCYTE 5 % (20-40); MONOCYTE 13 % (0-10); NEUTROPHIL 83 % (50-75); NUCLEATED RED BLOOD CELL 14 % (0-0); TOTAL CELLS COUNTED 100
[2018-11-13 08:47] LABS: ANISOCYTOSIS SLIGHT; HYPOCHROMIC SLIGHT; PLATELET ESTIMATE SLIGHTLY DECREASED (NORMAL); POIKILOCYTOSIS SLIGHT; TARGET CELLS SLIGHT
[2018-11-13] MEDS: Bisacodyl 5mg EC Tab PO SCH ×2 (09:18→17:51)
[2018-11-13] MEDS: Piperacill/Tazo 2.25gm in Dex 2.25 GM/50 ML BAG IVPB SCH ×2 (11:24→19:37)
[2018-11-13] MEDS ORDERED: Vancomycin 1 gm/NS 200 ml 1 GM/200 ML BAG IVPB ONE (12:00)
--- NOTE | 2018-11-13 12:33 | CP.CCUPN ---
<Romario Vines - Last Filed: 11/13/18 20:50> CCU Subjective - Physician Review Subjective (Free Text): PGY-1 ICU progress note for DR Reyes Patient is seen and examined at bedside. Patient is currently intubated and under sedation. Patient does not repond to verbal stimuli, does not follow command. ROS unattainable due to patient's status Critical Care Time Spent (in minutes): 35 CCU Objective - Vital Signs / Intake & Output Intake and Output (Last 8hrs): Intake & Output 11/12/18 11/13/18 11/13/18 22:59 06:59 14:59 Intake Total 766.7075 551.5425 Output Total 1 0 Balance 765.7075 551.5425 Intake: IV 74.7575 107.2425 Intake, IV Amount 355.95 394.3 R midline y port 35.4 61.2 Right Midline 250 300 right midline y port 70.55 33.1 Oral 0 TPN/PPN 336 Other 50 Output: Urine 0 Urine, Voided 0 Urine/Stool Mix 1 Other: # Bowel Movements 1 - Physical Exam Head: Positive for: Atraumatic, Normocephalic Pupils: Positive for: Other (miosis ) Extroacular Muscles: Positive for: EOMI Conjunctiva: Positive for: Normal Respiratory/Chest: Positive for: Decreased Breath Sounds (left lung ), Other (intubated ) Cardiovascular: Positive for: Murmurs (crescendo descrendo murmur heard on all listening posts), Irregular Rhythm, Tachycardic Abdomen: Positive for: Normal Bowel Sounds, Other (abdominal obesity). Negative for: Tenderness, Distention, Peritoneal Signs, Rebound, Guarding Upper Extremity: Positive for: Edema (non pitting). Negative for: Cyanosis, Tenderness Lower Extremity: Positive for: Edema. Negative for: Normal Inspection (chronic skin changes below knee bilaterally) Neurological: Positive for: Other (not awake, not oriented, does not follow command) Skin: Positive for: Dry, Normal Color, Other (cool extremities) Psychiatric: Positive for: Alert - Medications Active Medications: Active Medications Generic Name Dose Route Start Last Admin Trade Name Freq PRN Reason Stop Dose Admin Acetaminophen 650 mg 11/10/18 16:10 Tylenol 650 Mg Supp DE Q6 PRN Fever >100.4 F Albuterol/Ipratropium 3 ml 11/13/18 04:00 11/13/18 11:11 Duoneb 3 Mg/0.5 Mg (3 Ml) Ud INH 3 ml RQ4 SANDI Administration Apixaban 2.5 mg 10/30/18 18:30 11/04/18 13:06 Eliquis PO Not Given DAILY SANDI Aspirin 81 mg 10/27/18 10:00 11/10/18 10:47 Ecotrin PO Not Given DAILY SANDI Bisacodyl 5 mg 10/31/18 13:00 11/13/18 09:18 Dulcolax PO Not Given BID SANDI Budesonide 0.5 mg 11/13/18 08:00 11/13/18 08:17 Pulmicort Respules INH 0.5 mg RQ12 SANDI Administration Famotidine 20 mg 11/11/18 10:00 11/13/18 09:19 Pepcid IVP 20 mg DAILY SANDI Administration Heparin Sodium (Porcine) 5,000 units 11/13/18 10:30 11/13/18 10:24 Heparin SC 5,000 units Q12H SANDI Administration Metronidazole 500 mg in 100 mls @ 100 mls/hr 11/09/18 08:30 11/13/18 07:42 Flagyl IVPB 100 mls/hr Q8H SANDI Administration Protocol Fat Emulsion Intravenous 500 mls @ 43 mls/hr 11/11/18 18:00 11/11/18 18:24 Intralipid 20% IV 11/16/18 05:38 43 mls/hr TTS@1800 SANDI Administration Multivitamins/Vitamin C 10 ml/ 1,011 mls @ 42 mls/hr 11/12/18 18:00 11/12/18 18:45 Chromium/Copper/Manganese/ IV 11/13/18 17:59 42 mls/hr Zinc 1 ml/ Amino Acids .Q24H ONE Administration Dopamine HCl/Dextrose 400 mg in 250 mls @ 33.237 mls/hr 11/13/18 03:13 11/13/18 08:31 Dopamine 400mg/250ml D5w IV 2 mcg/kg/min .Q7H32M PRN 6.647 mls/hr TITRATE PER MD ORDER Titration Protocol 10 MCG/KG/MIN Fentanyl Citrate 2,500 mcg/ 250 mls @ 17.73 mls/hr 11/13/18 04:30 11/13/18 08:32 Sodium Chloride IV 1 mcg/kg/hr .Q14H7M SANDI 8.86 mls/hr Titration Protocol 2 MCG/KG/HR Doxycycline Hyclate 100 mg/ 100 mls @ 100 mls/hr 11/13/18 10:00 11/13/18 09:19 Sodium Chloride IVPB 100 mls/hr Q12H SNADI Administration Protocol Piperacillin Sod/Tazobactam Sod 2.25 gm in 50 mls @ 100 mls/hr 11/13/18 11:00 11/13/18 11:24 Zosyn 2.25 Gm Iv Premix IVPB 100 mls/hr Q8H SANDI Administration Protocol Vancomycin/Sodium Chloride 1 gm in 200 mls @ 133 mls/hr 11/13/18 12:00 11/13/18 12:05 Vancomycin 1 Gm/Ns 200 Ml IVPB 11/13/18 13:30 133 mls/hr ONCE ONE Administration Protocol Midodrine 10 mg 11/12/18 22:07 11/13/18 09:19 Proamatine PO 10 mg TID SANDI Administration Nystatin 1 applic 10/22/18 18:00 11/13/18 09:42 Nystop Topical Powder TOP 1 applic BID SANDI Administration - Patient Studies Lab Studies: Lab Studies 11/13/18 11/13/18 11/13/18 Range/Units 06:31 06:31 05:23 WBC 5.5 (4.8-10.8) K/uL RBC 3.09 L (3.80-5.20) Mil/uL Hgb 9.8 L (11.0-16.0) g/dL Hct 34.7 (34.0-47.0) % MCV 112.2 H (81.0-99.0) fL MCH 31.8 H (27.0-31.0) pg MCHC 28.3 L (33.0-37.0) g/dL RDW 23.7 H (11.5-14.5) % Plt Count 118 L (130-400) K/uL MPV 10.3 (7.2-11.7) fL Neut % (Auto) 88.4 H (50.0-75.0) % Lymph % (Auto) 2.0 L (20.0-40.0) % [place] % (Auto) 9.0 (0.0-10.0) % Eos % (Auto) 0.4 (0.0-4.0) % Baso % (Auto) 0.2 (0.0-2.0) % Neut # (Auto) 4.9 (1.8-7.0) K/uL Lymph # (Auto) 0.1 L (1.0-4.3) K/uL [place] # (Auto) 0.5 (0.0-0.8) K/uL Eos # (Auto) 0.0 (0.0-0.7) K/uL Baso # (Auto) 0.0 (0.0-0.2) K/uL Neutrophils % (Manual) 83 H (50-75) % Lymphocytes % (Manual) 5 L (20-40) % Monocytes % (Manual) 13 H (0-10) % Eosinophils % (Manual) (0-4) % Nucleated RBC % 14 H (0-0) % Platelet Estimate Slightly decreased L (NORMAL) Hypochromasia (manual) Slight Poikilocytosis (manual Slight Anisocytosis (manual) Slight Macrocytosis (manual) Slight Target Cells Slight Puncture Site L rad pCO2 43 (35-45) mm/Hg pO2 82 (80-100) mm/Hg HCO3 16.8 L (21-28) mmol/L ABG pH 7.21 L (7.35-7.45) ABG Total CO2 18.5 L (22-28) mmol/L ABG O2 Saturation 97.7 (95-98) % ABG Base Excess -10.3 L (-2.0-3.0) mmol/L ABG Hemoglobin (11.7-17.4) g/dL ABG Carboxyhemoglobin (0.5-1.5) % POC ABG HHb (Measured) (0.0-5.0) % ABG Methemoglobin (0.0-3.0) % Jason Test Pos ABG Potassium 4.7 (3.6-5.2) mmol/L A-a O2 Difference 221.0 mm/Hg Respiratory Index 2.7 Hgb O2 Saturation (95.0-98.0) % Glucose 123 H (65-105) mg/dl Lactate 4.8 H* (0.7-2.1) mmol/L Liter Flow Vent Mode Prvc Mechanical Rate 16 FiO2 50.0 % Tidal Volume 450 PEEP 5 Crit Value Called To Artemio mcdonald rn Crit Value Called By Mercy mckeon rt Crit Value Read Back Y Blood Gas Notified Time 604 Sodium 141 142.0 (132-148) mmol/L Potassium 4.8 (3.6-5.2) mmol/L Chloride 107 110.0 H (98-107) mmol/L Carbon Dioxide 15 L (22-30) mmol/L Anion Gap 23 H (10-20) BUN 70 H (7-17) mg/dL Creatinine 4.2 H (0.7-1.2) mg/dL Est GFR ( Amer) 12 Est GFR (Non-Af Amer) 10 Random Glucose 124 H (65-105) mg/dL Calcium 8.7 (8.6-10.4) mg/dl Phosphorus 6.6 H (2.5-4.5) mg/dL Magnesium 1.9 (1.6-2.3) mg/dL Total Bilirubin 4.3 H (0.2-1.3) mg/dL AST 229 H D (14-36) U/L ALT 131 H D (9-52) U/L Alkaline Phosphatase 118 (38-126) U/L Total Protein 7.9 (6.3-8.3) g/dL Albumin 4.0 (3.5-5.0) g/dL Globulin 3.8 (2.2-3.9) gm/dL Albumin/Globulin Ratio 1.1 (1.0-2.1) Arterial Blood Potassium 4.7 (3.6-5.2) mmol/L 11/12/18 11/12/18 11/12/18 Range/Units 23:55 23:06 23:06 WBC 5.7 (4.8-10.8) K/uL RBC 3.08 L (3.80-5.20) Mil/uL Hgb 9.6 L (11.0-16.0) g/dL Hct 34.3 (34.0-47.0) % MCV 111.2 H (81.0-99.0) fL MCH 31.1 H (27.0-31.0) pg MCHC 28.0 L (33.0-37.0) g/dL RDW 23.8 H (11.5-14.5) % Plt Count 108 L D (130-400) K/uL MPV 9.9 (7.2-11.7) fL Neut % (Auto) 85.6 H (50.0-75.0) % Lymph % (Auto) 2.8 L (20.0-40.0) % [place] % (Auto) 11.3 H (0.0-10.0) % Eos % (Auto) 0.2 (0.0-4.0) % Baso % (Auto) 0.1 (0.0-2.0) % Neut # (Auto) 4.9 (1.8-7.0) K/uL Lymph # (Auto) 0.2 L (1.0-4.3) K/uL [place] # (Auto) 0.7 (0.0-0.8) K/uL Eos # (Auto) 0.0 (0.0-0.7) K/uL Baso # (Auto) 0.0 (0.0-0.2) K/uL Neutrophils % (Manual) 84 H (50-75) % Lymphocytes % (Manual) 7 L (20-40) % Monocytes % (Manual) 8 (0-10) % Eosinophils % (Manual) 1 (0-4) % Nucleated RBC % (0-0) % Platelet Estimate Normal (NORMAL) Hypochromasia (manual) Poikilocytosis (manual Anisocytosis (manual) Macrocytosis (manual) Target Cells Puncture Site Lb pCO2 56 H (35-45) mm/Hg pO2 84 (80-100) mm/Hg HCO3 18.0 L (21-28) mmol/L ABG pH 7.16 L* (7.35-7.45) ABG Total CO2 21.7 L (22-28) mmol/L ABG O2 Saturation 97.8 (95-98) % ABG Base Excess -8.8 L (-2.0-3.0) mmol/L ABG Hemoglobin 10.7 L (11.7-17.4) g/dL ABG Carboxyhemoglobin 2.6 H (0.5-1.5) % POC ABG HHb (Measured) 2.1 (0.0-5.0) % ABG Methemoglobin 1.1 (0.0-3.0) % Jason Test Na ABG Potassium (3.6-5.2) mmol/L A-a O2 Difference 74.0 mm/Hg Respiratory Index 0.9 Hgb O2 Saturation 94.1 L (95.0-98.0) % Glucose (65-105) mg/dl Lactate (0.7-2.1) mmol/L Liter Flow 3.0 Vent Mode Mechanical Rate FiO2 32.0 % Tidal Volume PEEP Crit Value Called To Carisa manuel/rn Crit Value Called By Leoncio cleaning/rt Crit Value Read Back Y Blood Gas Notified Time 2359 Sodium 138 (132-148) mmol/L Potassium 4.9 (3.6-5.2) mmol/L Chloride 107 (98-107) mmol/L Carbon Dioxide 21 L (22-30) mmol/L Anion Gap 15 (10-20) BUN 74 H (7-17) mg/dL Creatinine 4.1 H (0.7-1.2) mg/dL Est GFR ( Amer) 12 Est GFR (Non-Af Amer) 10 Random Glucose 126 H (65-105) mg/dL Calcium 8.3 L (8.6-10.4) mg/dl Phosphorus (2.5-4.5) mg/dL Magnesium (1.6-2.3) mg/dL Total Bilirubin (0.2-1.3) mg/dL AST (14-36) U/L ALT (9-52) U/L Alkaline Phosphatase (38-126) U/L Total Protein (6.3-8.3) g/dL Albumin (3.5-5.0) g/dL Globulin (2.2-3.9) gm/dL Albumin/Globulin Ratio (1.0-2.1) Arterial Blood Potassium (3.6-5.2) mmol/L Laboratory Results - last 24 hr 11/12/18 11/12/18 11/12/18 23:06 23:06 23:55 WBC 5.7 RBC 3.08 L Hgb 9.6 L Hct 34.3 MCV 111.2 H MCH 31.1 H MCHC 28.0 L RDW 23.8 H Plt Count 108 L D MPV 9.9 Neut % (Auto) 85.6 H Lymph % (Auto) 2.8 L [place] % (Auto) 11.3 H Eos % (Auto) 0.2 Baso % (Auto) 0.1 Neut # (Auto) 4.9 Lymph # (Auto) 0.2 L [place] # (Auto) 0.7 Eos # (Auto) 0.0 Baso # (Auto) 0.0 Neutrophils % (Manual) 84 H Lymphocytes % (Manual) 7 L Monocytes % (Manual) 8 Eosinophils % (Manual) 1 Nucleated RBC % Platelet Estimate Normal Hypochromasia (manual) Poikilocytosis (manual Anisocytosis (manual) Macrocytosis (manual) Target Cells Puncture Site Lb pCO2 56 H pO2 84 HCO3 18.0 L ABG pH 7.16 L* ABG Total CO2 21.7 L ABG O2 Saturation 97.8 ABG Base Excess -8.8 L ABG Hemoglobin 10.7 L ABG Carboxyhemoglobin 2.6 H POC ABG HHb (Measured) 2.1 ABG Methemoglobin 1.1 Jason Test Na ABG Potassium A-a O2 Difference 74.0 Respiratory Index 0.9 Hgb O2 Saturation 94.1 L Glucose Lactate Liter Flow 3.0 Vent Mode Mechanical Rate FiO2 32.0 Tidal Volume PEEP Crit Value Called To Carisa manuel/rn Crit Value Called By Leoncio cleaning/rt Crit Value Read Back Y Blood Gas Notified Time 2355 Sodium 138 Potassium 4.9 Chloride 107 Carbon Dioxide 21 L Anion Gap 15 BUN 74 H Creatinine 4.1 H Est GFR ( Amer) 12 Est GFR (Non-Af Amer) 10 Random Glucose 126 H Calcium 8.3 L Phosphorus Magnesium Total Bilirubin AST ALT Alkaline Phosphatase Total Protein Albumin Globulin Albumin/Globulin Ratio Arterial Blood Potassium 11/13/18 11/13/18 11/13/18 05:23 06:31 06:31 WBC 5.5 RBC 3.09 L Hgb 9.8 L Hct 34.7 MCV 112.2 H MCH 31.8 H MCHC 28.3 L RDW 23.7 H Plt Count 118 L MPV 10.3 Neut % (Auto) 88.4 H Lymph % (Auto) 2.0 L [place] % (Auto) 9.0 Eos % (Auto) 0.4 Baso % (Auto) 0.2 Neut # (Auto) 4.9 Lymph # (Auto) 0.1 L [place] # (Auto) 0.5 Eos # (Auto) 0.0 Baso # (Auto) 0.0 Neutrophils % (Manual) 83 H Lymphocytes % (Manual) 5 L Monocytes % (Manual) 13 H Eosinophils % (Manual) Nucleated RBC % 14 H Platelet Estimate Slightly decreased L Hypochromasia (manual) Slight Poikilocytosis (manual Slight Anisocytosis (manual) Slight Macrocytosis (manual) Slight Target Cells Slight Puncture Site L rad pCO2 43 pO2 82 HCO3 16.8 L ABG pH 7.21 L ABG Total CO2 18.5 L ABG O2 Saturation 97.7 ABG Base Excess -10.3 L ABG Hemoglobin ABG Carboxyhemoglobin POC ABG HHb (Measured) ABG Methemoglobin Jason Test Pos ABG Potassium 4.7 A-a O2 Difference 221.0 Respiratory Index 2.7 Hgb O2 Saturation Glucose 123 H Lactate 4.8 H* Liter Flow Vent Mode Prvc Mechanical Rate 16 FiO2 50.0 Tidal Volume 450 PEEP 5 Crit Value Called To Artemio viticulturist Crit Value Called By Mercy mckeon rt Crit Value Read Back Y Blood Gas Notified Time 604 Sodium 142.0 141 Potassium 4.8 Chloride 110.0 H 107 Carbon Dioxide 15 L Anion Gap 23 H BUN 70 H Creatinine 4.2 H Est GFR ( Amer) 12 Est GFR (Non-Af Amer) 10 Random Glucose 124 H Calcium 8.7 Phosphorus 6.6 H Magnesium 1.9 Total Bilirubin 4.3 H AST 229 H D ALT 131 H D Alkaline Phosphatase 118 Total Protein 7.9 Albumin 4.0 Globulin 3.8 Albumin/Globulin Ratio 1.1 Arterial Blood Potassium 4.7 Radiology Impressions: Radiology Impressions Chest X-Ray 11/13/18 02:11 IMPRESSION: Left pleural effusion identified with stable cardiomegaly. Underlying atelectasis or infiltrate not excluded. No definitive pulmonary vascular congestion appreciated at this time. Further clinical correlation advised. Chest X-Ray 11/13/18 02:53 IMPRESSION: No interval change in prominent left basilar opacity reflecting atelectasis, infiltrate or pleural effusion. Interval endotracheal tube terminates at the right mainstem bronchus and retraction several cm is recommended follow-up by confirmation radiography. Nasogastric tube has been placed into the abdomen both with the tip off the image. Chest X-Ray 11/13/18 06:00 IMPRESSION: Adequate adjustment of endotracheal tube with nasogastric tube unchanged in position. Prominent opacity at the left base persists reflecting atelectasis or infiltrate with pleural effusion not excluded. Limited patchy density medial right base. Prominent cardiac silhouette stable. No definite pulmonary vascular congestion. Fingerstick Blood Sugar Results: 175 Critical Care Progress Note - Nutrition Nutrition: Nutrition Category Date Time Status NPO Diet [DIET] Diets 11/10/18 Breakfast Active Assessment/Plan - Assessment and Plan (Free Text) Plan: 88 year old female wiht PMHx of Afib, CHF, CAD, CVA, dementia admitted to hospital 10/20 from [place] for ARF, NSTEMI, previously trasferred to ICU for AMS, had resp distress in floor, with ph 7/16, CO2 56, HCO3 18, BUN/Cr 74/4.1, pt son rescided DNR/DNI, intubated and transferred to ICU , on dopamine and fentanyl. neuro -not awake or oriented, under sedation - Fentanyl - encephalopathy - Neuro consult - Dr Joseph - f/u recs CV low diastolic BP continue to monitor [place] PO TID dopamine drip Pulm Intubated, PRVC 450/16/50/5 budenoside Renal BUN/Cr elevated eval for dialysis Nephro - Jonnalagadda monitor urine output insert le catheter for scant urine production GI NPO diet PPN ordered today ID elevated lactate, no WBC, afebrile blood cultures - f/u Doxy, Metronidazole, nystain, zosyn 1x vanco DVT ppx: heparin 5000U sq q12 GI ppx: pepcid 20 mg IV daily Dispo: poor prognosis due to medical problems, Patient's son rescinded DNI/DNR. Palliative care to be re-consulted. Plan discussed with Dr Amy Vines, PGY-1 - Date & Time Date: 11/13/18 Time: 10:00 <Nato Reyes - Last Filed: 11/18/18 07:53> CCU Objective - Patient Studies Lab Studies: Microbiology Studies 11/13/18 12:16 Blood Culture - Preliminary Blood-Venous NO GROWTH AFTER 4 DAYS 11/13/18 12:16 Blood Culture - Preliminary Blood-Venous NO GROWTH AFTER 4 DAYS Critical Care Progress Note - Nutrition Nutrition: Nutrition Category Date Time Status NPO Diet [DIET] Diets 11/10/18 Breakfast Active Attending/Attestation - Attestation I have personally seen and examined this patient.: Yes I have fully participated in the care of the patient.: Yes I have reviewed all pertinent clinical information: Yes Notes (Text): Today: October The patient was Seen/interviewed and examined by me at the bedside during ICU round, Medical records reviewed and Management issues were discussed and formulated with the house staff. Events reviewed I have reviewed all the relevant clinical, laboratory, hemodynamic, radiographic data and medications Pain issues, skin care, head of the bed elevation, glycemic control were addressed. I concur with resident's assessment and plan of care as transcribed in Dr. Vines note. Critically sick, Awake orally intubated and mechanically ventilated. Multiorgan failure on Sedation with Fentanyl, Resp nonlabored, few spontaneous resp noted. Very poor prognosis, son aware Total critical care time 35 minutes
--- NOTE | 2018-11-13 17:50 | CP.PCM.PN ---
Subjective - Date & Time of Evaluation Date of Evaluation: 11/13/18 Time of Evaluation: 17:45 - Subjective Subjective: Neurology Progress Note: Mrs. Oro was seen and examined today in the ICU. She is intubated and sedated with Fentanyl. Currently, her BP is 70/30 mm Hg and she is on dopamine drip. Neurology was asked to evaluate the patient after she developed respiratory distress and was encephalopathic. Objective - Vital Signs/Intake and Output Vital Signs (last 24 hours): Temp Pulse Resp BP Pulse Ox 98.8 F 67 20 82/28 L 89 L 11/13/18 12:00 11/13/18 13:24 11/13/18 13:24 11/13/18 13:24 11/13/18 13:24 Intake and Output: 11/13/18 11/13/18 06:59 18:59 Intake Total 766.7075 916.9425 Output Total 1 0 Balance 765.7075 916.9425 - Medications Medications: Current Medications Acetaminophen (Tylenol 650 Mg Supp) 650 mg PA Q6 PRN PRN Reason: Fever >100.4 F Albuterol/Ipratropium (Duoneb 3 Mg/0.5 Mg (3 Ml) Ud) 3 ml INH RQ4 [facility] Last Admin: 11/13/18 16:31 Dose: 3 ml Apixaban (Eliquis) 2.5 mg PO DAILY [facility] Last Admin: 11/04/18 13:06 Dose: Not Given Aspirin (Ecotrin) 81 mg PO DAILY [facility] Last Admin: 11/10/18 10:47 Dose: Not Given Bisacodyl (Dulcolax) 5 mg PO BID [facility] Last Admin: 11/13/18 09:18 Dose: Not Given Budesonide (Pulmicort Respules) 0.5 mg INH RQ12 [facility] Last Admin: 11/13/18 08:17 Dose: 0.5 mg Famotidine (Pepcid) 20 mg IVP DAILY [facility] Last Admin: 11/13/18 09:19 Dose: 20 mg Heparin Sodium (Porcine) (Heparin) 5,000 units SC Q12H SANDI Last Admin: 11/13/18 10:24 Dose: 5,000 units Metronidazole (Flagyl) 500 mg in 100 mls @ 100 mls/hr IVPB Q8H [facility]; Protocol Last Admin: 11/13/18 07:42 Dose: 100 mls/hr Multivitamins/Vitamin C 10 ml/Chromium/Copper/Manganese/Zinc 1 ml/ Amino Acids 1,011 mls @ 42 mls/hr IV .Q24H ONE Stop: 11/13/18 17:59 Last Admin: 11/12/18 18:45 Dose: 42 mls/hr Dopamine HCl/Dextrose (Dopamine 400mg/250ml D5w) 400 mg in 250 mls @ 33.237 mls/hr IV .Q7H32M PRN; Protocol PRN Reason: TITRATE PER MD ORDER Last Titration: 11/13/18 17:30 Dose: 2 mcg/kg/min, 6.647 mls/hr Fentanyl Citrate 2,500 mcg/ (Sodium Chloride) 250 mls @ 17.73 mls/hr IV .Q14H7M SANDI; Protocol Last Titration: 11/13/18 16:00 Dose: 0.8 mcg/kg/hr, 7.09 mls/hr Doxycycline Hyclate 100 mg/ (Sodium Chloride) 100 mls @ 100 mls/hr IVPB Q12H SANDI; Protocol Last Admin: 11/13/18 09:19 Dose: 100 mls/hr Piperacillin Sod/Tazobactam Sod (Zosyn 2.25 Gm Iv Premix) 2.25 gm in 50 mls @ 100 mls/hr IVPB Q8H SANDI; Protocol Last Admin: 11/13/18 11:24 Dose: 100 mls/hr Sodium Chloride 35 meq/Potassium Chloride 30 meq/Magnesium Sulfate 5 meq/Calcium Gluconate 4.5 meq/Multivitamins/Vitamin C 10 ml/Chromium/Copper/Manganese/Zinc 1 ml/ Amino Acids 1,045.6589 mls @ 42 mls/hr IV .Q24H ONE Stop: 11/14/18 17:59 Fat Emulsion Intravenous (Intralipid 20%) 500 mls @ 43 mls/hr IV TTS@1800 SANDI Stop: 11/19/18 05:38 Midodrine (Proamatine) 10 mg PO TID [facility] Last Admin: 11/13/18 13:39 Dose: 10 mg Nystatin (Nystop Topical Powder) 1 applic TOP BID [facility] Last Admin: 11/13/18 09:42 Dose: 1 applic - Labs Labs: 11/13/18 06:31 11/13/18 06:31 PT 15.6 SECONDS (9.7-12.2) H 11/09/18 08:42 INR 1.4 11/09/18 08:42 APTT 27 SECONDS (21-34) 11/09/18 08:42 - Neurological Exam Neurological Exam: Altered Neuro motor strength exam: Left Upper Extremity: 0, Right Upper Extremity: 0, Left Lower Extremity: 0, Right Lower Extremity: 0 Additional comments: Generalized weakness and deconditioning. Brainstem reflexes are intact. She opens eyes to painful stimulus. Exam is limited due to sedation and intubation. Current GCS is 6T Assessment and Plan (1) Encephalopathy Assessment & Plan: Likely multi-factorial and as a result of stroke, metabolic derangements, hypoxia, hypo-perfusion, etc. Poor prognosis considering all of her co-morbid medical conditions. A repeat non-contrast CT scan of the head may be helpful to rule out any intracranial pathology. Otherwise, no further recommendations at this time. Status: Acute
[2018-11-13] MEDS ORDERED: Fat Emulsion 20% IV 500 ML IV SCH (18:00)
[2018-11-13] MEDS ORDERED: PPN #3 IV ONE (18:00)
--- NOTE | 2018-11-13 18:39 | CT ---
Date of service: 11/13/2018 PROCEDURE: CT HEAD WITHOUT CONTRAST. HISTORY: acute encephalopathy COMPARISON: Noncontrast head CT performed 11/05/18 TECHNIQUE: Axial computed tomography images were obtained through the head/brain without intravenous contrast. Radiation dose: Total exam DLP = 1502.23 mGy-cm. This CT exam was performed using one or more of the following dose reduction techniques: Automated exposure control, adjustment of the mA and/or kV according to patient size, and/or use of iterative reconstruction technique. FINDINGS: Streak artifact obscures evaluation of the skull base. HEMORRHAGE: No intracranial hemorrhage. BRAIN: Diffuse atrophy with prominence of the ventricles and sulci noted. No mass effect or edema. Intracranial atherosclerosis. Left occipital encephalomalacia re-identified. Scattered periventricular and subcortical white matter hypodensities, which are nonspecific, but often seen with chronic microvascular ischemic disease. Please note that MRI with diffusion imaging is more sensitive in the detection of acute ischemic event. VENTRICLES: No hydrocephalus. CALVARIUM: Unremarkable. PARANASAL SINUSES: Unremarkable as visualized. No significant inflammatory changes. MASTOID AIR CELLS: Opacification/fluid of the right greater than left mastoid air cells. OTHER FINDINGS: Intubated. IMPRESSION: Re-identified left occipital encephalomalacia. Chronic white matter ischemic change.
--- NOTE | 2018-11-13 19:19 | CP.PCM.PN ---
Subjective - Date & Time of Evaluation Date of Evaluation: 11/13/18 Time of Evaluation: 19:18 - Subjective Subjective: pt is seen and examined, follow up consult is dictated #[id number] Objective - Vital Signs/Intake and Output Vital Signs (last 24 hours): Temp Pulse Resp BP Pulse Ox 98.8 F 67 20 82/28 L 89 L 11/13/18 12:00 11/13/18 13:24 11/13/18 13:24 11/13/18 13:24 11/13/18 13:24 Intake and Output: 11/13/18 11/14/18 18:59 06:59 Intake Total 1243.5425 Output Total 0 Balance 1243.5425 - Medications Medications: Current Medications Acetaminophen (Tylenol 650 Mg Supp) 650 mg MT Q6 PRN PRN Reason: Fever >100.4 F Albuterol/Ipratropium (Duoneb 3 Mg/0.5 Mg (3 Ml) Ud) 3 ml INH RQ4 [facility] Last Admin: 11/13/18 16:31 Dose: 3 ml Apixaban (Eliquis) 2.5 mg PO DAILY [facility] Last Admin: 11/04/18 13:06 Dose: Not Given Aspirin (Ecotrin) 81 mg PO DAILY [facility] Last Admin: 11/10/18 10:47 Dose: Not Given Bisacodyl (Dulcolax) 5 mg PO BID [facility] Last Admin: 11/13/18 17:51 Dose: 5 mg Budesonide (Pulmicort Respules) 0.5 mg INH RQ12 [facility] Last Admin: 11/13/18 08:17 Dose: 0.5 mg Famotidine (Pepcid) 20 mg IVP DAILY [facility] Last Admin: 11/13/18 09:19 Dose: 20 mg Heparin Sodium (Porcine) (Heparin) 5,000 units SC Q12H [facility] Last Admin: 11/13/18 10:24 Dose: 5,000 units Metronidazole (Flagyl) 500 mg in 100 mls @ 100 mls/hr IVPB Q8H [facility]; Protocol Last Admin: 11/13/18 17:51 Dose: 100 mls/hr Dopamine HCl/Dextrose (Dopamine 400mg/250ml D5w) 400 mg in 250 mls @ 33.237 mls/hr IV .Q7H32M PRN; Protocol PRN Reason: TITRATE PER MD ORDER Last Titration: 11/13/18 18:38 Dose: 1 mcg/kg/min, 3.324 mls/hr Fentanyl Citrate 2,500 mcg/ (Sodium Chloride) 250 mls @ 17.73 mls/hr IV .Q14H7M [facility]; Protocol Last Titration: 11/13/18 16:00 Dose: 0.8 mcg/kg/hr, 7.09 mls/hr Doxycycline Hyclate 100 mg/ (Sodium Chloride) 100 mls @ 100 mls/hr IVPB Q12H [facility]; Protocol Last Admin: 11/13/18 09:19 Dose: 100 mls/hr Piperacillin Sod/Tazobactam Sod (Zosyn 2.25 Gm Iv Premix) 2.25 gm in 50 mls @ 100 mls/hr IVPB Q8H [facility]; Protocol Last Admin: 11/13/18 11:24 Dose: 100 mls/hr Sodium Chloride 35 meq/Potassium Chloride 30 meq/Magnesium Sulfate 5 meq/Calcium Gluconate 4.5 meq/Multivitamins/Vitamin C 10 ml/Chromium/Copper/Manganese/Zinc 1 ml/ Amino Acids 1,045.6589 mls @ 42 mls/hr IV .Q24H ONE Stop: 11/14/18 17:59 Last Admin: 11/13/18 17:57 Dose: 42 mls/hr Fat Emulsion Intravenous (Intralipid 20%) 500 mls @ 43 mls/hr IV TTS@1800 [facility] Stop: 11/19/18 05:38 Last Admin: 11/13/18 18:33 Dose: 43 mls/hr Midodrine (Proamatine) 10 mg PO TID [facility] Last Admin: 11/13/18 17:51 Dose: 10 mg Nystatin (Nystop Topical Powder) 1 applic TOP BID [facility] Last Admin: 11/13/18 17:57 Dose: 1 applic - Labs Labs: 11/13/18 06:31 11/13/18 06:31 PT 15.6 SECONDS (9.7-12.2) H 11/09/18 08:42 INR 1.4 11/09/18 08:42 APTT 27 SECONDS (21-34) 11/09/18 08:42
[2018-11-13] MEDS ORDERED: Sodium Chloride 0.9% 1,000 ML IV SCH (19:30)
--- NOTE | 2018-11-13 21:53 | PN ---
DATE: 11/13/2018 SUBJECTIVE: The patient was transferred to ICU, required intubation and mechanical ventilation, and is currently on low-dose dopamine. The family right ear-sent the DNR request and she is currently at full code. The patient is on low-dose dopamine infusion at this time, and she is unresponsive, on a ventilator. No reported ventricular tachycardia. PHYSICAL EXAMINATION: VITAL SIGNS: Blood pressure 115/53, heart rate 79, temperature 98.8, respiration 20. HEENT: Pale conjunctivae. CHEST: Right basilar coarse crepitations. HEART: S1 and S2. Regular. Grade 4/6 ejection systolic murmur over the left sternal border. EXTREMITIES: 2+ leg and 2+ left upper arm edema. LABORATORY DATA: CBC: Today's hemoglobin and hematocrit are 9.8 and 34.7, white count 5.5, platelet count 118,000. SMA-7: Sodium 141, potassium 4.8, chloride 107, CO2 of 15, glucose 124, BUN 70, creatinine 4.2. Chest X-ray: Reviewed and it revealed diffuse right lower lobe haziness, highly suggestive of lobar pneumonia. ASSESSMENT: 1. Respiratory failure, requiring intubation and mechanical ventilation. 2. Improving hypotension. 3. Pneumonia. 4. Paroxysmal atrial flutter. 5. Critical aortic stenosis. 6. Moderate pulmonary hypertension. 7. Anemia. 8. Worsening renal insufficiency. 9. Multiple recent strokes. 10. Status post non-ST elevation myocardial infarction. RECOMMENDATIONS: I discussed the plan of care at length with the patient's daughter who was at the bedside, and specifically she asked me if she has any chance to recover from the current illness and my answer was very minimal chance. The patient will be maintained on IV doxycycline at 100 mg every 12 hours, low-dose dopamine infusion, IV Flagyl at 500 mg every 8 hours, subcutaneous heparin 5000 units every 12 hours. We will obtain 12-lead EKG. Shiv Montiel MD
[2018-11-14] MEDS: Albuterol-Ipratrop 3 mg / 0.5 (3 ml) UD INH SCH ×6 (00:59→11:22)
--- NOTE | 2018-11-14 01:26 | PN ---
DATE: 11/13/2018 SUBJECTIVE: Mrs. Oro is a 88-year-old elderly obese female with a past medical history significant for hypertension, coronary artery disease, CHF, unilateral small left kidney, atrial fibrillation, dementia, multiple admissions for acute renal failure who was recently admitted on 10/20/2018 with altered mental status, decreased p.o. intake, acute renal failure, hyperkalemia, metabolic acidosis and serum creatinine about 7.2. Subsequently, the patient was admitted to ICU and renal function improved with gentle hydration and creatinine decreased to 1.7. Subsequently, the patient was off IV fluids and transferred to medical floor and scheduled for the PEG tube placement. Subsequently, the patient's son decided not to go for any aggressive measures, no to the PEG tube. Also the patient was made DNR/DNI and now the patient's family and son changed the patient's DNR status and want rescinded DNR/DNI and want full code. The patient was transferred to ICU with hypotension and respiratory failure, intubated. The patient is on IV fluids and also dopamine. The patient is not in distress and tries to open eyes to verbal stimuli. Blood pressure this afternoon 82/28, blood pressure [id number] hours 60/25 and with decreasing of dopamine and improved with dopamine 2 mcg, sodium. PHYSICAL EXAMINATION: VITAL SIGNS: Blood pressure 167/77, pulse 104, respirations 20, temperature 98.8. Height 5 feet and weight is 195 pounds. GENERAL: Mrs. Oro is 88 years elderly obese female, on ventilator. EENT: Pupils normal, reactive to light and accommodation. Conjunctivae pink. Sclerae slightly icteric. On ventilator. No thyroid enlargement. LUNGS: Symmetric on both sides. Bilateral breath sounds present. HEART: Irregularly irregular. ABDOMEN: Slightly protuberant, soft and mild upper quadrant tenderness. No guarding. No rigidity. No hepatosplenomegaly. ADMINISTRATIVE ASSISTANT OFFICE MANAGER: On ventilator under sedation. EXTREMITIES: No cyanosis, no clubbing. The patient has a 2+ edema in both lower extremities. CURRENT MEDICATIONS: Include as follows, dopamine, doxycycline 100 mg every 24 hours, Dulcolax, DuoNeb inhaler, aspirin, Eliquis on hold and aspirin is on hold, IV fentanyl, also IV Flagyl 500 mg piggyback every 8 hours, subcu heparin 5000 units every 12 hours, Intralipid 43 mL per IV/ hour, nystatin topical powder, Pepcid 20 mg IV daily, midodrine 10 mg p.o. t.i.d., Pulmicort, IV fluids normal saline 100 mL/hour, multivitamin with TPN at 42 mL/hour, Tylenol, and Zosyn 2.25 g IV every 8 hours. LABORATORY DATA: Include as follows, as of 11/13/2018, WBC 5.5, hemoglobin 9.8, hematocrit is 34.7, platelets 118, neutrophils 83, lymph 5, monos 13, and nucleated RBC is 14. Sodium 142, potassium 4.8, chloride 107, CO2 15, BUN 70, creatinine 4.2, glucose 124, calcium 8.7, phosphorus 6.6, magnesium 1.9. Total bili is 4.3, AST 229, ALT 131, alkaline phosphatase 118, total protein 7.9, albumin is 4. ASSESSMENT AND PLAN: In summary, Mrs. Oro is 88 years elderly female with history of hypertension, congestive heart failure, coronary artery disease, chronic kidney disease, dementia, atrial fibrillation, unilateral small left kidney and multiple admissions to hospital with acute renal failure, status post treatment during this admission 1 week ago, now the patient was transferred to intensive care unit with respiratory failure after rescinding do not resuscitate/do not intubate by the family, on ventilator with oliguria and also worsening renal function. 1. Acute renal failure on chronic kidney disease stage III. 2. Hypotension. 3. Respiratory failure. 4. Abnormal liver function tests, rule out chronic cholecystitis. Continue total parenteral nutrition, continue intravenous lipids, continue intravenous antibiotics as per Infectious Disease recommendations. Continue intravenous hydration until blood pressure improves. Overall prognosis is extremely poor. The patient is hemodynamically unstable for any renal replacement therapy at this time. Case discussed with Dr. Brunson this afternoon. We will consider intravenous bicarbonate drip once the blood pressure is more stable. Alfred Lobato MD
[2018-11-14] MEDS: Piperacill/Tazo 2.25gm in Dex 2.25 GM/50 ML BAG IVPB SCH ×3 (03:16→11:00)
[2018-11-14 03:41] LABS: ABG ALLEN TEST POS; ARTERIAL BLOOD GAS HCO3 12.4 mmol/L (21-28); ARTERIAL BLOOD GAS O2 SAT 100.6 % (95-98); ARTERIAL BLOOD GAS PCO2 31 mm/Hg (35-45); ARTERIAL BLOOD GAS PH 7.17 (7.35-7.45); ARTERIAL BLOOD GAS PO2 116 mm/Hg (80-100); ARTERIAL BLOOD GAS TCO2 12.3 mmol/L (22-28)
[2018-11-14] MEDS ORDERED: Sodium Bicarbonate (8.4%) 50 Meq Syringe IVP ONE (03:56)
[2018-11-14 06:01] LABS: BASO % 0.3 % (0.0-2.0); EOS % 0.1 % (0.0-4.0); HEMOGLOBIN 9.7 g/dL (11.0-16.0); LYMPH # 0.1 K/uL (1.0-4.3); LYMPH % 1.6 % (20.0-40.0); MEAN CELL VOLUME 111.8 fL (81.0-99.0); MEAN CORPUSCULAR HEMOGLOBIN 35.9 pg (27.0-31.0); MEAN CORPUSCULAR HGB CONC 32.2 g/dL (33.0-37.0); MEAN PLATELET VOLUME 10.9 fL (7.2-11.7); MONO # 0.7 K/uL (0.0-0.8); MONO % 9.4 % (0.0-10.0); NEUT # 6.4 K/uL (1.8-7.0); NEUT % 88.6 % (50.0-75.0); NRBC % 10.1 % (0.0-2.0); PLATELET COUNT 95 K/uL (130-400); RED CELL DISTRIBUTION WIDTH 23.9 % (11.5-14.5); WHITE BLOOD COUNT 7.2 K/uL (4.8-10.8)
--- NOTE | 2018-11-14 06:09 | PN ---
DATE: 11/13/2018 SUBJECTIVE: The patient was transferred to ICU last night. As per the family, the son has decided to discontinue the DNI and DNR and wanted the patient to be back on full code. Also, the patient was discussed apparently with the psychiatric social worker supervisor who is [employer] sales representative of the hospice care. As mentioned, the patient was set to go to home hospice 4 days ago but because of the weather, the son wanted the patient to stay in the hospital until 11/10/2018 but yesterday, and again they have discussed with the psychiatric social worker supervisor to send the patient to home hospice but last night, a call was sent to me saying the son has decided to cancel the DNR/DNI and to put the patient on full code. At this time, I have called the ICU evaluation, and the patient was transferred to ICU, and the patient was intubated at that time. Now, the patient is sedated and on and on different medications including dopamine, and also the patient is on doxycycline and albuterol nebulizer metronidazole and IV fluid. Also, the patient is on midodrine and famotidine and also the patient is on Zosyn. So, the patient now was seen this morning with the daughter sitting in the room, and we found the patient's heart was regular but the blood pressure was in the 120/70 and the heart as I mentioned. Abdomen was soft, and extremity, there was edema, almost anasarca. The patient has labs that was done and that showed that the WBC was 5.5, hemoglobin is 9.8. hematocrit 34.7, and platelets is 118. Chemistry showed that the sodium 141, potassium 4.8, chloride 107, bicarb is 15, BUN is 70, creatinine 4.2 now, and the GFR is 12 and the glucose of 124. So, the patient was as I mentioned is managed in the ICU and the case was discussed with tunnel drier operator and also with Dr. Lobato, and the patient is extremely critical as before but as per family's request, in agreement with the tunnel drier operator, and we are going to continue the treatment as we should. Shailesh Brunson MD
[2018-11-14 06:22] LABS: ALB/GLOB RATIO 1.4 (1.0-2.1); ALBUMIN 4.2 g/dL (3.5-5.0); CALCIUM 8.6 mg/dl (8.6-10.4)
[2018-11-14 06:50] LABS: SQUAMOUS EPITHIAL 1 /hpf (0-5); URINE BACTERIA MANY (<OCC); URINE BILIRUBIN NEGATIVE (NEGATIVE); URINE BLOOD 3+ (NEGATIVE); URINE CLARITY Hazy (Clear); URINE COLOR Amber (YELLOW); URINE GLUCOSE (UA) 1+ mg/dL (Normal); URINE LEUKOCYTE ESTERASE 1+ Leu/uL (Negative); URINE PROTEIN 2+ mg/dL (NEGATIVE); URINE UROBILINOGEN NORMAL mg/dL (0.2-1.0); WBC CLUMPS MOD /hpf
--- NOTE | 2018-11-14 07:49 | RAD ---
Date of service: 11/14/2018 HISTORY: intubated COMPARISON: Portable chest 11/13/2018. FINDINGS: LUNGS: Endotracheal and nasogastric tubes do not appear significantly changed in position as well as midline right PICC. Taking differences in technique into account, there is no significant interval change in left basilar opacity with medial right basilar opacity the slightly diminished. PLEURA: Left pleural effusion remains difficult to exclude. No right pleural effusion. No pneumothorax bilaterally. CARDIOVASCULAR: Calcific atherosclerotic changes are seen related to the thoracic aorta. Stable cardiac size. No definite pulmonary vascular congestion. OSSEOUS STRUCTURES: No significant abnormalities. VISUALIZED UPPER ABDOMEN: Normal. OTHER FINDINGS: None. IMPRESSION: Limited improvement in medial right basilar infiltrate atelectasis. Left basilar infiltrate or atelectasis is unchanged with left pleural effusion not excluded.
[2018-11-14] MEDS: metroNIDAZOLE IV 500 mg/100 ml 500 MG/100 ML BAG IVPB SCH (08:30)
[2018-11-14 09:26] LABS: ANISOCYTOSIS SLIGHT; BANDS 2 % (0-2); LYMPHOCYTE 4 % (20-40); MONOCYTE 5 % (0-10); NEUTROPHIL 89 % (50-75); NUCLEATED RED BLOOD CELL 9 % (0-0); PLATELET ESTIMATE NORMAL (NORMAL); POIKILOCYTOSIS SLIGHT; TOTAL CELLS COUNTED 100
[2018-11-14 09:27] LABS: HYPOCHROMIC SLIGHT; POLYCHROMIC SLIGHT; TEARDROP CELLS SLIGHT
[2018-11-14 09:28] LABS: BURR CELLS SLIGHT; TARGET CELLS SLIGHT
--- NOTE | 2018-11-14 09:51 | CP.PCM.PCO ---
<Romario Vines - Last Filed: 11/14/18 09:51> Physician Communication Note - Physician Communication Note Physician Communication Note: see note above <Jesus Alonzo - Last Filed: 11/14/18 12:52> Attending/Attestation - Attestation I have personally seen and examined this patient.: Yes I have fully participated in the care of the patient.: Yes I have reviewed all pertinent clinical information: Yes Notes (Text): 11/14/18 12:50 Discussed with son on the phone and we agreed to withdraw care and make the patient comfortable, as she is elderly with dementia now going into multi organ failure. This was agreed to be in the best interest of the patient. Critical Care time 10 minutes 11/14/18 12:51
[2018-11-14] MEDS ORDERED: Sodium Bicarbonate 8.4% 150 MEQ in Dextrose 5% In Water 1,000 ML IV SCH (11:30)
--- NOTE | 2018-11-14 11:32 | CP.PCM.PN ---
Subjective - Date & Time of Evaluation Date of Evaluation: 11/14/18 Time of Evaluation: 11:31 - Subjective Subjective: pt is seen and examined, follow up consult is dictated#[id number] d/c po nahco3' start iv nahco3 drip at 80 ml/hr poor prognosis Objective - Vital Signs/Intake and Output Vital Signs (last 24 hours): Temp Pulse Resp BP Pulse Ox 98.3 F 102 H 22 151/73 H 92 L 11/14/18 08:00 11/14/18 08:54 11/14/18 08:54 11/14/18 08:54 11/14/18 08:54 Intake and Output: 11/14/18 11/14/18 06:59 18:59 Intake Total 1762.9 84 Output Total 35 0 Balance 1727.9 84 - Medications Medications: Current Medications Acetaminophen (Tylenol 650 Mg Supp) 650 mg MS Q6 PRN PRN Reason: Fever >100.4 F Albuterol/Ipratropium (Duoneb 3 Mg/0.5 Mg (3 Ml) Ud) 3 ml INH RQ4 [facility] Last Admin: 11/14/18 11:22 Dose: Not Given Albuterol/Ipratropium (Duoneb 3 Mg/0.5 Mg (3 Ml) Ud) 3 ml INH RQ4 [facility] Last Admin: 11/14/18 11:22 Dose: Not Given Apixaban (Eliquis) 2.5 mg PO DAILY [facility] Last Admin: 11/04/18 13:06 Dose: Not Given Aspirin (Ecotrin) 81 mg PO DAILY [facility] Last Admin: 11/10/18 10:47 Dose: Not Given Bisacodyl (Dulcolax) 5 mg PO BID [facility] Last Admin: 11/13/18 17:51 Dose: 5 mg Famotidine (Pepcid) 20 mg IVP DAILY [facility] Last Admin: 11/13/18 09:19 Dose: 20 mg Heparin Sodium (Porcine) (Heparin) 5,000 units SC Q12H [facility] Last Admin: 11/13/18 21:42 Dose: 5,000 units Metronidazole (Flagyl) 500 mg in 100 mls @ 100 mls/hr IVPB Q8H [facility]; Protocol Last Admin: 11/14/18 08:30 Dose: 100 mls/hr Dopamine HCl/Dextrose (Dopamine 400mg/250ml D5w) 400 mg in 250 mls @ 33.237 mls/hr IV .Q7H32M PRN; Protocol PRN Reason: TITRATE PER MD ORDER Last Titration: 11/13/18 19:59 Dose: 1.5 mcg/kg/min, 4.986 mls/hr Doxycycline Hyclate 100 mg/ (Sodium Chloride) 100 mls @ 100 mls/hr IVPB Q12H [facility]; Protocol Last Admin: 11/13/18 21:41 Dose: 100 mls/hr Morphine Sulfate 250 mg/ (Sodium Chloride) 250 mls @ 7 mls/hr IV .Q24H PRN; Protocol PRN Reason: comfort care Last Admin: 11/14/18 10:46 Dose: 7 ml/hr, 7 mls/hr Methylprednisolone (Solu-Medrol) 40 mg IVP Q8H [facility] Midodrine (Proamatine) 10 mg PO TID [facility] Last Admin: 11/13/18 17:51 Dose: 10 mg Nystatin (Nystop Topical Powder) 1 applic TOP BID [facility] Last Admin: 11/13/18 17:57 Dose: 1 applic - Labs Labs: 11/14/18 05:55 11/14/18 05:55 PT 15.6 SECONDS (9.7-12.2) H 11/09/18 08:42 INR 1.4 11/09/18 08:42 APTT 27 SECONDS (21-34) 11/09/18 08:42
[2018-11-14] MEDS ORDERED: MethylPREDNISolone 40 mg Vial IVP SCH (11:55)
[2018-11-14] MEDS: Bisacodyl 5mg EC Tab PO SCH (12:38)
--- NOTE | 2018-11-14 12:58 | CP.CCUPN ---
CCU Subjective - Physician Review Subjective (Free Text): PGY-[address] ICU progress note for Dr Alonzo service Patient is seen and examined at bedside. Patient continues to be intubated and under sedation. responsive to tactile stimuli but not verbal. Patient has le in place. ROS unttainable due to patients condition Critical Care Time Spent (in minutes): 35 CCU Objective - Vital Signs / Intake & Output Vital Signs (Last 4 hours): Vital Signs Pulse Resp BP Pulse Ox 11/14/18 12:22 86 22 125/57 L 89 L 11/14/18 12:00 84 22 91 L 11/14/18 11:54 84 22 119/52 L 96 11/14/18 11:23 75 22 99/44 L 97 11/14/18 10:54 86 21 117/47 L 89 L 11/14/18 10:23 86 22 115/59 L 94 L 11/14/18 10:00 84 22 95 11/14/18 09:53 84 22 96/42 L 87 L 11/14/18 09:23 98 H 22 137/70 94 L Intake and Output (Last 8hrs): Intake & Output 11/13/18 11/14/18 11/14/18 22:59 06:59 14:59 Intake Total 1142.5 1021 115 Output Total 5 30 0 Balance 1137.5 991 115 Weight 235 lb Intake: IV 88 60 Intake, IV Amount 1004.5 1021 55 R midline y port 64.0 56 28 Right Midline 484 500 r midline 425 425 7 right midline y port 31.5 40 20 Other 50 Output: Urine 5 30 0 Urethral (Le) 5 30 0 Urine, Voided 0 Other: # Bowel Movements 0 - Physical Exam Head: Positive for: Atraumatic, Normocephalic Pupils: Positive for: Other (miosis ) Extroacular Muscles: Positive for: EOMI Conjunctiva: Positive for: Normal Respiratory/Chest: Positive for: Decreased Breath Sounds (left lung ), Other (intubated ) Cardiovascular: Positive for: Murmurs (crescendo descrendo murmur heard on all listening posts), Irregular Rhythm, Tachycardic Abdomen: Positive for: Normal Bowel Sounds, Other (abdominal obesity). Negative for: Tenderness, Distention, Peritoneal Signs, Rebound, Guarding Upper Extremity: Positive for: Edema (non pitting). Negative for: Cyanosis, T enderness Lower Extremity: Positive for: Edema. Negative for: Normal Inspection (chronic skin changes below knee bilaterally) Neurological: Positive for: Other (not awake, not oriented, does not follow command) Skin: Positive for: Dry, Normal Color, Other (cool extremities) Psychiatric: Positive for: Alert - Medications Active Medications: Active Medications Generic Name Dose Route Start Last Admin Trade Name Freq PRN Reason Stop Dose Admin Acetaminophen 650 mg 11/10/18 16:10 Tylenol 650 Mg Supp [place] Q6 PRN Fever >100.4 F Albuterol/Ipratropium 3 ml 11/13/18 04:00 11/14/18 11:22 Duoneb 3 Mg/0.5 Mg (3 Ml) Ud INH Not Given RQ4 SANDI Albuterol/Ipratropium 3 ml 11/14/18 04:00 11/14/18 11:22 Duoneb 3 Mg/0.5 Mg (3 Ml) Ud INH Not Given RQ4 SANDI Apixaban 2.5 mg 10/30/18 18:30 11/04/18 13:06 Eliquis PO Not Given DAILY SANDI Aspirin 81 mg 10/27/18 10:00 11/10/18 10:47 Ecotrin PO Not Given DAILY SANDI Bisacodyl 5 mg 10/31/18 13:00 11/14/18 12:38 Dulcolax PO Not Given BID SANDI Famotidine 20 mg 11/11/18 10:00 11/14/18 12:52 Pepcid IVP 20 mg DAILY SANDI Administration Heparin Sodium (Porcine) 5,000 units 11/13/18 10:30 11/14/18 11:00 Heparin SC 5,000 units Q12H SANDI Administration Metronidazole 500 mg in 100 mls @ 100 mls/hr 11/09/18 08:30 11/14/18 08:30 Flagyl IVPB 100 mls/hr Q8H SANDI Administration Protocol Dopamine HCl/Dextrose 400 mg in 250 mls @ 33.237 mls/hr 11/13/18 03:13 11/13/18 19:59 Dopamine 400mg/250ml D5w IV 1.5 mcg/kg/min .Q7H32M PRN 4.986 mls/hr TITRATE PER MD ORDER Titration Protocol 10 MCG/KG/MIN Doxycycline Hyclate 100 mg/ 100 mls @ 100 mls/hr 11/13/18 10:00 11/14/18 10:40 Sodium Chloride IVPB 100 mls/hr Q12H SANDI Administration Protocol Morphine Sulfate 250 mg/ 250 mls @ 7 mls/hr 11/14/18 09:45 11/14/18 10:46 Sodium Chloride IV 7 ml/hr .Q24H PRN 7 mls/hr comfort care Administration Protocol Sodium Bicarbonate 150 meq/ 1,150 mls @ 80 mls/hr 11/14/18 11:30 Dextrose IV .[id number] SANDI Methylprednisolone 40 mg 11/14/18 11:55 11/14/18 12:33 Solu-Medrol IVP 40 mg Q8H SANDI Administration Midodrine 10 mg 11/12/18 22:07 11/13/18 17:51 Proamatine PO 10 mg TID SANDI Administration Nystatin 1 applic 10/22/18 18:00 11/14/18 12:39 Nystop Topical Powder TOP Not Given BID SANDI - Patient Studies Lab Studies: Microbiology Studies 11/13/18 12:16 Blood Culture - Preliminary Blood-Venous NO GROWTH AFTER 24 HOURS 11/13/18 12:16 Blood Culture - Preliminary Blood-Venous NO GROWTH AFTER 24 HOURS 11/13/18 05:42 MRSA Culture (Admit) - Final Naris MRSA NOT DETECTED Lab Studies 11/14/18 11/14/18 11/14/18 Range/Units 06:38 05:55 05:55 WBC 7.2 (4.8-10.8) K/uL RBC 2.70 L (3.80-5.20) Mil/uL Hgb 9.7 L (11.0-16.0) g/dL Hct 30.2 L (34.0-47.0) % MCV 111.8 H (81.0-99.0) fL MCH 35.9 H (27.0-31.0) pg MCHC 32.2 L (33.0-37.0) g/dL RDW 23.9 H (11.5-14.5) % Plt Count 95 L D (130-400) K/uL MPV 10.9 (7.2-11.7) fL Neut % (Auto) 88.6 H (50.0-75.0) % Lymph % (Auto) 1.6 L (20.0-40.0) % [place] % (Auto) 9.4 (0.0-10.0) % Eos % (Auto) 0.1 (0.0-4.0) % Baso % (Auto) 0.3 (0.0-2.0) % Neut # (Auto) 6.4 (1.8-7.0) K/uL Lymph # (Auto) 0.1 L (1.0-4.3) K/uL [place] # (Auto) 0.7 (0.0-0.8) K/uL Eos # (Auto) 0.0 (0.0-0.7) K/uL Baso # (Auto) 0.0 (0.0-0.2) K/uL Neutrophils % (Manual) 89 H (50-75) % Band Neutrophils % 2 (0-2) % Lymphocytes % (Manual) 4 L (20-40) % Monocytes % (Manual) 5 (0-10) % Nucleated RBC % 9 H (0-0) % Platelet Estimate Normal (NORMAL) Polychromasia Slight Hypochromasia (manual) Slight Poikilocytosis (manual Slight Anisocytosis (manual) Slight Macrocytosis (manual) Slight Target Cells Slight Tear Drop Cells Slight Nito Cells Slight Puncture Site pCO2 (35-45) mm/Hg pO2 (80-100) mm/Hg HCO3 (21-28) mmol/L ABG pH (7.35-7.45) ABG Total CO2 (22-28) mmol/L ABG O2 Saturation (95-98) % ABG Base Excess (-2.0-3.0) mmol/L Jason Test ABG Potassium (3.6-5.2) mmol/L A-a O2 Difference mm/Hg Respiratory Index Sodium 140 (132-148) mmol/l Chloride 107 (98-107) mmol/L Glucose (65-105) mg/dl Lactate (0.7-2.1) mmol/L Vent Mode Mechanical Rate FiO2 % Tidal Volume PEEP Crit Value Called To Crit Value Called By Crit Value Read Back Blood Gas Notified Time Potassium 4.9 (3.6-5.2) mmol/L Carbon Dioxide 11 L* D (22-30) mmol/L Anion Gap 27 H (10-20) BUN 79 H (7-17) mg/dL Creatinine 4.7 H (0.7-1.2) mg/dL Est GFR ( Amer) 11 Est GFR (Non-Af Amer) 9 Random Glucose 122 H (65-105) mg/dL Calcium 8.6 (8.6-10.4) mg/dl Phosphorus 6.5 H (2.5-4.5) mg/dL Magnesium 1.8 (1.6-2.3) mg/dL Total Bilirubin 5.9 H (0.2-1.3) mg/dL AST 172 H D (14-36) U/L ALT 100 H D (9-52) U/L Alkaline Phosphatase 74 (38-126) U/L Total Protein 7.1 (6.3-8.3) g/dL Albumin 4.2 (3.5-5.0) g/dL Globulin 3.0 (2.2-3.9) gm/dL Albumin/Globulin Ratio 1.4 (1.0-2.1) Arterial Blood Potassium (3.6-5.2) mmol/L Urine Color Jackelyn (YELLOW) Urine Clarity Hazy (Clear) Urine pH 5.0 (5.0-8.0) Ur Specific [place] 1.016 (1.003-1.030) Urine Protein 2+ H (NEGATIVE) mg/dL Urine Glucose (UA) 1+ (Normal) mg/dL Urine Ketones Negative (NEGATIVE) mg/dL Urine Blood 3+ H (NEGATIVE) Urine Nitrate Negative (NEGATIVE) Urine Bilirubin Negative (NEGATIVE) Urine Urobilinogen Normal (0.2-1.0) mg/dL Ur Leukocyte Esterase 1+ H (Negative) Karin/uL Urine WBC (Auto) 28 H (0-5) /hpf Urine RBC (Auto) 300 H (0-3) /hpf Urine WBC Clumps (Auto) Mod H (NONE) /hpf Ur Squamous Epith Cells 1 (0-5) /hpf Urine Bacteria Many H (<OCC) Urine Yeast (Budding) Many H (NEGATIVE) /hpf Random Vancomycin ug/mL 11/14/18 11/14/18 Range/Units 05:55 02:58 WBC (4.8-10.8) K/uL RBC (3.80-5.20) Mil/uL Hgb (11.0-16.0) g/dL Hct (34.0-47.0) % MCV (81.0-99.0) fL MCH (27.0-31.0) pg MCHC (33.0-37.0) g/dL RDW (11.5-14.5) % Plt Count (130-400) K/uL MPV (7.2-11.7) fL Neut % (Auto) (50.0-75.0) % Lymph % (Auto) (20.0-40.0) % [place] % (Auto) (0.0-10.0) % Eos % (Auto) (0.0-4.0) % Baso % (Auto) (0.0-2.0) % Neut # (Auto) (1.8-7.0) K/uL Lymph # (Auto) (1.0-4.3) K/uL [place] # (Auto) (0.0-0.8) K/uL Eos # (Auto) (0.0-0.7) K/uL Baso # (Auto) (0.0-0.2) K/uL Neutrophils % (Manual) (50-75) % Band Neutrophils % (0-2) % Lymphocytes % (Manual) (20-40) % Monocytes % (Manual) (0-10) % Nucleated RBC % (0-0) % Platelet Estimate (NORMAL) Polychromasia Hypochromasia (manual) Poikilocytosis (manual Anisocytosis (manual) Macrocytosis (manual) Target Cells Tear Drop Cells [place] Cells Puncture Site L rad pCO2 31 L (35-45) mm/Hg pO2 116 H (80-100) mm/Hg HCO3 12.4 L (21-28) mmol/L ABG pH 7.17 L* (7.35-7.45) ABG Total CO2 12.3 L (22-28) mmol/L ABG O2 Saturation 100.6 H (95-98) % ABG Base Excess -16.0 L (-2.0-3.0) mmol/L Jason Test Pos ABG Potassium 4.8 (3.6-5.2) mmol/L A-a O2 Difference 344.0 mm/Hg Respiratory Index 3.0 Sodium 140.0 (132-148) mmol/l Chloride 107.0 (98-107) mmol/L Glucose 127 H (65-105) mg/dl Lactate 9.5 H* (0.7-2.1) mmol/L Vent Mode Prvc Mechanical Rate 22 FiO2 70.0 % Tidal Volume 450 PEEP 5 Crit Value Called To Perla horticultural farmer Crit Value Called By Mercy mckeon rt Crit Value Read Back Y Blood Gas Notified Time 335 Potassium (3.6-5.2) mmol/L Carbon Dioxide (22-30) mmol/L Anion Gap (10-20) BUN (7-17) mg/dL Creatinine (0.7-1.2) mg/dL Est GFR ( Amer) Est GFR (Non-Af Amer) Random Glucose (65-105) mg/dL Calcium (8.6-10.4) mg/dl Phosphorus (2.5-4.5) mg/dL Magnesium (1.6-2.3) mg/dL Total Bilirubin (0.2-1.3) mg/dL AST (14-36) U/L ALT (9-52) U/L Alkaline Phosphatase (38-126) U/L Total Protein (6.3-8.3) g/dL Albumin (3.5-5.0) g/dL Globulin (2.2-3.9) gm/dL Albumin/Globulin Ratio (1.0-2.1) Arterial Blood Potassium 4.8 (3.6-5.2) mmol/L Urine Color (YELLOW) Urine Clarity (Clear) Urine pH (5.0-8.0) Ur Specific [place] (1.003-1.030) Urine Protein (NEGATIVE) mg/dL Urine Glucose (UA) (Normal) mg/dL Urine Ketones (NEGATIVE) mg/dL Urine Blood (NEGATIVE) Urine Nitrate (NEGATIVE) Urine Bilirubin (NEGATIVE) Urine Urobilinogen (0.2-1.0) mg/dL Ur Leukocyte Esterase (Negative) Karin/uL Urine WBC (Auto) (0-5) /hpf Urine RBC (Auto) (0-3) /hpf Urine WBC Clumps (Auto) (NONE) /hpf Ur Squamous Epith Cells (0-5) /hpf Urine Bacteria (<OCC) Urine Yeast (Budding) (NEGATIVE) /hpf Random Vancomycin 9.7 ug/mL Laboratory Results - last 24 hr 11/14/18 11/14/18 11/14/18 02:58 05:55 05:55 WBC 7.2 RBC 2.70 L Hgb 9.7 L Hct 30.2 L MCV 111.8 H MCH 35.9 H MCHC 32.2 L RDW 23.9 H Plt Count 95 L D MPV 10.9 Neut % (Auto) 88.6 H Lymph % (Auto) 1.6 L [place] % (Auto) 9.4 Eos % (Auto) 0.1 Baso % (Auto) 0.3 Neut # (Auto) 6.4 Lymph # (Auto) 0.1 L [place] # (Auto) 0.7 Eos # (Auto) 0.0 Baso # (Auto) 0.0 Neutrophils % (Manual) 89 H Band Neutrophils % 2 Lymphocytes % (Manual) 4 L Monocytes % (Manual) 5 Nucleated RBC % 9 H Platelet Estimate Normal Polychromasia Slight Hypochromasia (manual) Slight Poikilocytosis (manual Slight Anisocytosis (manual) Slight Macrocytosis (manual) Slight Target Cells Slight Tear Drop Cells Slight [place] Cells Slight Puncture Site L rad pCO2 31 L pO2 116 H HCO3 12.4 L ABG pH 7.17 L* ABG Total CO2 12.3 L ABG O2 Saturation 100.6 H ABG Base Excess -16.0 L Jason Test Pos ABG Potassium 4.8 A-a O2 Difference 344.0 Respiratory Index 3.0 Sodium 140.0 Chloride 107.0 Glucose 127 H Lactate 9.5 H* Vent Mode Prvc Mechanical Rate 22 FiO2 70.0 Tidal Volume 450 PEEP 5 Crit Value Called To [place] horticultural farmer Crit Value Called By Mercy mckeon rt Crit Value Read Back Y Blood Gas Notified Time 335 Potassium Carbon Dioxide Anion Gap BUN Creatinine Est GFR ( Amer) Est GFR (Non-Af Amer) Random Glucose Calcium Phosphorus Magnesium Total Bilirubin AST ALT Alkaline Phosphatase Total Protein Albumin Globulin Albumin/Globulin Ratio Arterial Blood Potassium 4.8 Urine Color Urine Clarity Urine pH Ur Specific [place] Urine Protein Urine Glucose (UA) Urine Ketones Urine Blood Urine Nitrate Urine Bilirubin Urine Urobilinogen Ur Leukocyte Esterase Urine WBC (Auto) Urine RBC (Auto) Urine WBC Clumps (Auto) Ur Squamous Epith Cells Urine Bacteria Urine Yeast (Budding) Random Vancomycin 9.7 11/14/18 11/14/18 05:55 06:38 WBC RBC Hgb Hct MCV MCH MCHC RDW Plt Count MPV Neut % (Auto) Lymph % (Auto) [place] % (Auto) Eos % (Auto) Baso % (Auto) Neut # (Auto) Lymph # (Auto) [place] # (Auto) Eos # (Auto) Baso # (Auto) Neutrophils % (Manual) Band Neutrophils % Lymphocytes % (Manual) Monocytes % (Manual) Nucleated RBC % Platelet Estimate Polychromasia Hypochromasia (manual) Poikilocytosis (manual Anisocytosis (manual) Macrocytosis (manual) Target Cells Tear Drop Cells Nito Cells Puncture Site pCO2 pO2 HCO3 ABG pH ABG Total CO2 ABG O2 Saturation ABG Base Excess Jason Test ABG Potassium A-a O2 Difference Respiratory Index Sodium 140 Chloride 107 Glucose Lactate Vent Mode Mechanical Rate FiO2 Tidal Volume PEEP Crit Value Called To Crit Value Called By Crit Value Read Back Blood Gas Notified Time Potassium 4.9 Carbon Dioxide 11 L* D Anion Gap 27 H BUN 79 H Creatinine 4.7 H Est GFR ( Amer) 11 Est GFR (Non-Af Amer) 9 Random Glucose 122 H Calcium 8.6 Phosphorus 6.5 H Magnesium 1.8 Total Bilirubin 5.9 H AST 172 H D ALT 100 H D Alkaline Phosphatase 74 Total Protein 7.1 Albumin 4.2 Globulin 3.0 Albumin/Globulin Ratio 1.4 Arterial Blood Potassium Urine Color Jackelyn Urine Clarity Hazy Urine pH 5.0 Ur Specific [place] 1.016 Urine Protein 2+ H Urine Glucose (UA) 1+ Urine Ketones Negative Urine Blood 3+ H Urine Nitrate Negative Urine Bilirubin Negative Urine Urobilinogen Normal Ur Leukocyte Esterase 1+ H Urine WBC (Auto) 28 H Urine RBC (Auto) 300 H Urine WBC Clumps (Auto) Mod H Ur Squamous Epith Cells 1 Urine Bacteria Many H Urine Yeast (Budding) Many H Random Vancomycin Radiology Impressions: Radiology Impressions Head CT 11/13/18 17:18 IMPRESSION: Re-identified left occipital encephalomalacia. Chronic white matter ischemic change. Chest X-Ray 11/14/18 07:00 IMPRESSION: Limited improvement in medial right basilar infiltrate atelectasis. Left basilar infiltrate or atelectasis is unchanged with left pleural effusion not excluded. EKG/Cardiology Studies: Cardiology / EKG Studies 11/13/18 15:53 EKG [ELECTROCARDIOGRAM] Routine Comment: Mode Of Transportation: Reason For Exam: cad Isolation: Contact Fingerstick Blood Sugar Results: 175 Review of Systems - Review of Systems Systems not reviewed;Unavailable: Acuity of Condition Critical Care Progress Note - Vent Settings MODE:: PRVC TIDAL VOLUME:: 450 RESP RATE:: 16 FIO2:: 50 PEEP:: 5 - Nutrition Nutrition: Nutrition Category Date Time Status NPO Diet [DIET] Diets 11/10/18 Breakfast Active Assessment/Plan - Assessment and Plan (Free Text) Plan: 88 year old female wiht PMHx of Afib, CHF, CAD, CVA, dementia admitted to hospital 10/20 from [place] for ARF, NSTEMI, previously trasferred to ICU for AMS, had resp distress in floor, with ph 7/16, CO2 56, HCO3 18, BUN/Cr 74/4.1, pt son rescided DNR/DNI, intubated and transferred to ICU , on dopamine and fentanyl. Poor prognosis with multiorgan failure, to contact son Venkat Oro to discuss plans of care for patient. Plan: - Dr Alonzo, witnessed by RN Mikala and Dieudonne, spoke with son about plans of ca re and patient's poor prognosis complicated by multiorgan failure. Patient's son agrees with terminal extubation and comfort care with morphine drip 7 mls/hr - DNR/DNI Plan discussed with Dr Cheri Vines, PGY-1 - Date & Time Date: 11/14/18 Time: 09:00
--- NOTE | 2018-11-14 14:18 | PN ---
DATE: 11/14/2018 SUBJECTIVE: The patient is still on the infusion; however, was told by the nurse that the family had signed DNR, was planning to withdraw life support. The patient still on intravenous medications now. PHYSICAL EXAMINATION: VITAL SIGNS: Blood pressure 125/57, heart rate 86, temperature 98. HEENT: [place] conjunctivae. CHEST: Poor air entry bilaterally. HEART: S1 and S2 regular, grade 4/6 systolic ejection murmur over the left sternum border. EXTREMITIES: 2+ pitting edema in 4 extremities. LABORATORY DATA: Hemoglobin and hematocrit 9.7 and 30.2, white count 7.2, and platelet count 95,000. SMA-7: Sodium 140, potassium 4.9, chloride 107, CO2 of 11, glucose 122, BUN 79, creatinine 4.7. ASSESSMENT: 1. Hypotension. Consider septic shock. 2. Worsening renal insufficiency. 3. Critical aortic stenosis. 4. Anemia and thrombocytopenia. 5. Multiple cerebrovascular accidents. 6. Paroxysmal atrial flutter. RECOMMENDATIONS: As per family request, intravenous medications will be discontinued and a planned withdrawal of life support will be contemplated today, according to the nurse . Shiv Montiel MD
--- NOTE | 2018-11-14 14:37 | CP.PCM.PN ---
Subjective - Date & Time of Evaluation Date of Evaluation: 11/14/18 Time of Evaluation: 14:34 - Subjective Subjective: Neuro Follow-Up Note: Mrs. Oro was seen in the ICU this afternoon. Son not present at bedside. Per primary RN the pt was terminally extubated earlier this afternoon and was made a DNR/DNI again. ROS unobtainable 2/2 pt's condition. Objective - Vital Signs/Intake and Output Vital Signs (last 24 hours): Temp Pulse Resp BP Pulse Ox 98 F 86 22 125/57 L 89 L 11/14/18 12:00 11/14/18 12:22 11/14/18 12:22 11/14/18 12:22 11/14/18 12:22 Intake and Output: 11/14/18 11/14/18 06:59 18:59 Intake Total 1762.9 212 Output Total 35 0 Balance 1727.9 212 - Medications Medications: Current Medications Acetaminophen (Tylenol 650 Mg Supp) 650 mg DC Q6 PRN PRN Reason: Fever >100.4 F Albuterol/Ipratropium (Duoneb 3 Mg/0.5 Mg (3 Ml) Ud) 3 ml INH RQ4 [facility] Last Admin: 11/14/18 11:22 Dose: Not Given Albuterol/Ipratropium (Duoneb 3 Mg/0.5 Mg (3 Ml) Ud) 3 ml INH RQ4 [facility] Last Admin: 11/14/18 11:22 Dose: Not Given Apixaban (Eliquis) 2.5 mg PO DAILY [facility] Last Admin: 11/04/18 13:06 Dose: Not Given Aspirin (Ecotrin) 81 mg PO DAILY [facility] Last Admin: 11/10/18 10:47 Dose: Not Given Bisacodyl (Dulcolax) 5 mg PO BID [facility] Last Admin: 11/14/18 12:38 Dose: Not Given Famotidine (Pepcid) 20 mg IVP DAILY [facility] Last Admin: 11/14/18 12:52 Dose: 20 mg Heparin Sodium (Porcine) (Heparin) 5,000 units SC Q12H [facility] Last Admin: 11/14/18 11:00 Dose: 5,000 units Metronidazole (Flagyl) 500 mg in 100 mls @ 100 mls/hr IVPB Q8H [facility]; Protocol Last Admin: 11/14/18 08:30 Dose: 100 mls/hr Dopamine HCl/Dextrose (Dopamine 400mg/250ml D5w) 400 mg in 250 mls @ 33.237 mls/hr IV .Q7H32M PRN; Protocol PRN Reason: TITRATE PER MD ORDER Last Titration: 11/13/18 19:59 Dose: 1.5 mcg/kg/min, 4.986 mls/hr Doxycycline Hyclate 100 mg/ (Sodium Chloride) 100 mls @ 100 mls/hr IVPB Q12H SANDI; Protocol Last Admin: 11/14/18 10:40 Dose: 100 mls/hr Morphine Sulfate 250 mg/ (Sodium Chloride) 250 mls @ 7 mls/hr IV .Q24H PRN; Protocol PRN Reason: comfort care Last Admin: 11/14/18 10:46 Dose: 7 ml/hr, 7 mls/hr Sodium Bicarbonate 150 meq/ (Dextrose) 1,150 mls @ 80 mls/hr IV .[id number] [facility] Last Admin: 11/14/18 13:06 Dose: 80 mls/hr Methylprednisolone (Solu-Medrol) 40 mg IVP Q8H [facility] Last Admin: 11/14/18 12:33 Dose: 40 mg Midodrine (Proamatine) 10 mg PO TID [facility] Last Admin: 11/14/18 13:08 Dose: Not Given Nystatin (Nystop Topical Powder) 1 applic TOP BID [facility] Last Admin: 11/14/18 12:39 Dose: Not Given - Labs Labs: 11/14/18 05:55 11/14/18 05:55 PT 15.6 SECONDS (9.7-12.2) H 11/09/18 08:42 INR 1.4 11/09/18 08:42 APTT 27 SECONDS (21-34) 11/09/18 08:42 - Constitutional Appears: Other (terminally extubated) - Head Exam Head Exam: NORMOCEPHALIC - Eye Exam Pupil Exam: NORMAL ACCOMODATION - ENT Exam ENT Exam: Mucous Membranes Moist - Neck Exam Neck Exam: Normal Inspection - Respiratory Exam Respiratory Exam: absent: NORMAL BREATHING PATTERN (breathing approx 6 BPM during time of exam post-terminal extubation) - Cardiovascular Exam Cardiovascular Exam: Irregular Rhythm - GI/Abdominal Exam GI & Abdominal Exam: Soft - Extremities Exam Extremities Exam: absent: Full ROM (all extremities flaccid) - Neurological Exam Neurological Exam: absent: Alert, Awake Neuro motor strength exam: Left Upper Extremity: 0, Right Upper Extremity: 0, Left Lower Extremity: 0, Right Lower Extremity: 0 Additional comments: brainstem reflexes intact does not respond to verbal stimuli or sternal rub was terminally extubated this afternoon (breathing 6 BPM) - Psychiatric Exam Psychiatric exam: absent: Normal Affect (nonverbal; terminally extubated), Normal Mood - Skin Skin Exam: Normal Color Assessment and Plan (1) Acute CVA (cerebrovascular accident) Assessment & Plan: -Imaging reviewed. -At this time, considering that the pt was terminally extubated and is breathing 6 BPM, comfort measures are recommended. -No further neuro recommendations. If pt's son has any concerns or questions, please contact me. Thank you. Case discussed with Dr. Mcmahon Status: Acute
[2018-11-14 20:24] VITALS: RESP 0
--- NOTE | 2018-11-14 20:29 | CP.PCM.PN ---
Subjective - Date & Time of Evaluation Date of Evaluation: 11/14/18 Time of Evaluation: 20:28 - Subjective Subjective: Patient is morning was extubated terminally.patient slowly became bradycardia. Patient Become asystolic at 8:12 PM. Patient was pronounced at 8:12 PM The family was called. PMD informed. Objective - Vital Signs/Intake and Output Vital Signs (last 24 hours): Temp Pulse Resp BP Pulse Ox 98 F 103 H 0 L 133/63 71 L 11/14/18 15:33 11/14/18 18:21 11/14/18 20:00 11/14/18 18:21 11/14/18 18:21 Intake and Output: 11/14/18 11/15/18 18:59 06:59 Intake Total 235 7 Output Total 0 0 Balance 235 7 - Medications Medications: Current Medications Apixaban (Eliquis) 2.5 mg PO DAILY [facility] Last Admin: 11/04/18 13:06 Dose: Not Given Aspirin (Ecotrin) 81 mg PO DAILY [facility] Last Admin: 11/10/18 10:47 Dose: Not Given Morphine Sulfate 250 mg/ (Sodium Chloride) 250 mls @ 7 mls/hr IV .Q24H PRN; Protocol PRN Reason: comfort care Last Admin: 11/14/18 10:46 Dose: 7 ml/hr, 7 mls/hr Sodium Bicarbonate 150 meq/ (Dextrose) 1,150 mls @ 80 mls/hr IV .[id number] [facility] Last Admin: 11/14/18 13:06 Dose: 80 mls/hr - Labs Labs: 11/14/18 05:55 11/14/18 05:55 PT 15.6 SECONDS (9.7-12.2) H 11/09/18 08:42 INR 1.4 11/09/18 08:42 APTT 27 SECONDS (21-34) 11/09/18 08:42
[2018-11-14 20:31] VITALS: BP 68/34; PULSE 90; TEMP 97; O2SAT 62
--- NOTE | 2018-11-15 03:14 | PN ---
DATE: 11/14/2018 FOLLOWUP RENAL CONSULTATION LOCATION: The patient is located in ICU, bed 3. REQUESTED BY: Shailesh Brunson MD REASON FOR FOLLOWUP: Acute renal failure, chronic kidney disease. HISTORY OF PRESENT ILLNESS: Mrs. Oro is an 88-year-old elderly obese female with a past medical history significant for hypertension, coronary artery disease, CHF, CKD, unilateral small left kidney, AFib, dementia, multiple admissions to the hospital in the last 2 months who was recently admitted on 10/20/2018 with altered mental status and decreased p.o. intake, acute renal failure, serum creatinine 7.2, hyperkalemia, metabolic acidosis. Subsequently, renal function improved with hydration and transferred to medical floor. Now, the patient was admitted back to ICU for acute renal failure and status post intubation. The patient is on pressors, and the patient is on ventilator and opens eyes to verbal stimuli, not in distress. PHYSICAL EXAMINATION: VITAL SIGNS: This morning as follows: Blood pressure about 117/47, pulse 86, respirations 21, saturation 94%, and temperature 98.3. Height 5 feet and weight is 235 pounds. GENERAL: Mrs. Oro is an 88-year-old elderly female, on ventilator, on pressors. HEENT: Pupils normal and reactive to light and accommodation. Conjunctivae pink. Sclerae slightly icteric. On ventilator. No thyroid enlargement. LUNGS: Symmetric on both sides. Bilateral breath sounds present. Clear to auscultation. CARDIOVASCULAR SYSTEM: [place] at the fifth intercostal space, midclavicular line. S1, S2 audible. No murmur or gallop. Irregularly irregular. ABDOMEN: Normal in appearance. Slightly protuberant, soft, tympanitic. No guarding. No rigidity. No hepatosplenomegaly. CENTRAL NERVOUS SYSTEM: The patient is on ventilator. Opens eyes to verbal stimuli. EXTREMITIES: No cyanosis, no clubbing. The patient has 2+ edema in both lower extremities. CURRENT MEDICATIONS: Include aspirin, Eliquis on hold, morphine, IV sodium bicarb at 80 mL/hour. LABORATORY DATA: Include as follows: As of 11/14/2018, WBC 7.2, hemoglobin 9.7, hematocrit is 30.2, platelets 95. ABG, pH 7.17, pCO2 of 31, pO2 of 116, bicarb 12.4, saturation 100%. Sodium 140, potassium 4.9, chloride 107, CO2 of 11, BUN 79, creatinine is 4.7, glucose 122, calcium 8.6, phosphorus 6.5, magnesium 1.8, total bili 5.9, AST 172, ALT 100, alkaline phosphatase 74, total protein 7.1, albumin is 4.2. Urinalysis, mikey color, hazy, pH 5, specific 1.016, protein 2+, glucose 1+, ketones negative, blood 3+, nitrites negative, and bilirubin negative, urobilinogen normal, leukocyte esterase 1+, wbc 28, rbc 300, WBC clumps moderate, bacteria many, yeast is many. Vancomycin random level is 9.7. IMPRESSION AND PLAN: In summary, Mrs. Oro is an 88-year-old elderly female with hypertension, coronary artery disease, congestive heart failure, atrial fibrillation, chronic kidney disease, dementia, multiple admissions to hospital who was admitted to intensive care unit from the floor two days ago with respiratory failure and acute renal failure, now the patient is do not resuscitate/do not intubate and family agreed for terminal extubation today. 1. Acute renal failure, on chronic kidney disease. 2. Respiratory failure. 3. Atrial fibrillation. 4. Metabolic acidosis secondary to renal failure. We will change IV fluids to D5W with 3 amps of bicarb. Continue her current medications for possible terminal extubation sometime this afternoon as per the ICU team. Overall prognosis is very poor. Alfred Lobato MD
--- NOTE | 2018-11-16 06:51 | PN ---
DATE: 11/14/2018An 88-year-old female who was transferred to the ICU because after having had put the patient on DNR/DNI for this one week. Now, the nurse attending the patient stated that the patient was again DNR/DNI and also with a possibility of extubation. So at that point, the patient was not seen by me, and the case is in the hand of the hose tender. At that point, we are waiting for somebody to remove the ET tube. This is a dictation under progress note on this patient that was seen earlier this morning by 12:30. Shailesh Brunson MD
--- NOTE | 2018-11-20 11:49 | DS ---
This patient is an 88-year-old female who was admitted on 10/20/2018. I was away. The patient came to the emergency room because of altered mental status and also poor p.o. intake. The patient was previously discharged on 10/15/2018 and was sent to the care home for physical therapy, and the patient came back to the hospital because of this altered mental status. The patient was found to be in acute renal failure and also was tachycardiac and had elevated blood pressure. The patient at first was admitted to the ICU and had different consult Dr. Ha Chaney, and mentioned at first, that wanted to have aggressive treatment but family has declined to have aggressive treatment on the patient, and so the patient was noted to be acidotic and had received at that time bicarbonate in dextrose. The patient had a different consult with Dr. Lobato, Renal, Dr. Melissa Cardenas, and Dr. Denis Mcmahon, and Dr. Ramon Alberto was covering. The family has by October , family has decided not to be aggressive to the patient and may even sign a DNR and DNI. The patient was sent to the floor and the suicidal care and family were working on taking the patient to hospice. The recommendation was done for home hospice care. The same day, the patient was supposed to go definitely to hospice care. Family has decided to discontinue the order of DNR and DNI, and put the patient on full code. The patient then was evaluated by and the patient was re-admitted to ICU. At this time, the patient was very sick and was in distress, so the patient was immediately intubated and put in ICU. treatment to raise the blood pressure and to monitor oxygen ____ was made, but at a certain point, the continue. The family was again contacted and had decided at this time to resume again DNR and also DNI. So the patient was in the ICU. She on 11/14/2018. Shailesh Brunson MD [facility] # [id number]
== END 2018-11-14 20:15 | DRG 70 ==
LOC: C.ER 18:28 → C.9I 20:50 → C.6T 11-05 00:30 → C.9I 11-13 02:51
PROVIDERS: ADMIT Internal Medicine Nephrology; ATTEND Specialist
PROC: 06HY33Z Insertion of Infusion Device into Lower Vein, Percutaneous Approach (ICD-10-PCS; 2018-10-20)
PROC: 5A09557 Assistance with Respiratory Ventilation, Greater than 96 Consecutive Hours, Continuous Positive Airway Pressure (ICD-10-PCS; 2018-10-21)
PROC: 0BH18EZ Insertion of Endotracheal Airway into Trachea, Via Natural or Artificial Opening Endoscopic (ICD-10-PCS; principal; 2018-11-13)
PROC: 5A1945Z Respiratory Ventilation, 24-96 Consecutive Hours (ICD-10-PCS; 2018-11-13)
DX: G93.41 Metabolic encephalopathy (principal); N17.0 Acute kidney failure with tubular necrosis; I21.4 Non-ST elevation (NSTEMI) myocardial infarction; K83.1 Obstruction of bile duct; J96.92 Respiratory failure, unspecified with hypercapnia; E11.10 Type 2 diabetes mellitus with ketoacidosis without coma; I13.0 Hypertensive heart and chronic kidney disease with heart failure and stage 1 through stage 4 chronic kidney disease, or unspecified chronic kidney disease; E66.2 Morbid (severe) obesity with alveolar hypoventilation; E87.2 Acidosis; Q60.0 Renal agenesis, unilateral; I48.92 Unspecified atrial flutter; I50.9 Heart failure, unspecified; I48.91 Unspecified atrial fibrillation; I25.10 Atherosclerotic heart disease of native coronary artery without angina pectoris; Z95.5 Presence of coronary angioplasty implant and graft; E78.00 Pure hypercholesterolemia, unspecified; F03.90 Unspecified dementia, unspecified severity, without behavioral disturbance, psychotic disturbance, mood disturbance, and anxiety; E87.5 Hyperkalemia; E86.0 Dehydration; Z66 Do not resuscitate; I35.0 Nonrheumatic aortic (valve) stenosis; Z79.4 Long term (current) use of insulin; Z51.5 Encounter for palliative care; E11.22 Type 2 diabetes mellitus with diabetic chronic kidney disease; E11.65 Type 2 diabetes mellitus with hyperglycemia; N18.3 Chronic kidney disease, stage 3 (moderate); D69.6 Thrombocytopenia, unspecified; I27.20 Pulmonary hypertension, unspecified